=== PATIENT | female | born 1950 | race Caucasian/White ===

== ENCOUNTER 2018-12-22 05:43 | Inpatient (IN) | payer MEDICARE ==
[2018-12-22] MEDS ORDERED: NORMAL SALINE 1000 ML 1,000 ML IV ONE ×2 (05:54→06:25)
--- NOTE | 2018-12-22 05:57 | ER Document Report ---
ED Medical Screen (RME) - General Stated Complaint: ABDOMINAL PAIN Time Seen by Provider: 12/22/18 05:46 Notes: 68-year-old female chief complaint of mid to upper abdominal pain and vomiting 5 times since the evening. Last bowel movement was normal. Denies fever/chills, chest pain, shortness of breath. 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 Physical Exam - Abdominal Tenderness: Tender - Generalized upper abdominal tenderness. Some distention of the abdomen without rigidity or guarding. Stool in the colostomy bag appears normal. Course - Re-evaluation Re-evalutation: I have greeted and performed a rapid initial assessment of this patient. A comprehensive ED assessment and evaluation of the patient, analysis of test results and completion of the medical decision making process will be conducted by additional ED providers.
[2018-12-22] MEDS ORDERED: HYDROMORPHONE HCL INJ/PF 2 MG/ML AMPULE IV ONE ×2 (06:16→15:30)
--- NOTE | 2018-12-22 06:27 | ER Document Report ---
ED General - General Chief Complaint: Abdominal Pain Stated Complaint: ABDOMINAL PAIN Time Seen by Provider: 12/22/18 05:46 Notes: 68-year-old lady with history of multiple abdominal surgeries, left lower quadrant ostomy resulting obstructions, apparently chronically on opioid therapy presents with pain across her upper abdomen sharp and intermittent since last night with nausea and vomiting. She says her ostomy output is normal. She has had pain like this before. She is not sure what it was in the past. She denies fever. She has no urinary symptoms other than frequent urination "from my water pill" but does say that her ostomy "broke through the bladder" - Related Data Allergies/Adverse Reactions: ciprofloxacin [From Cipro] Allergy (Verified 12/22/18 06:54) imipenem Allergy (Verified 12/22/18 06:54) lidocaine [From Lidoderm] Allergy (Verified 12/22/18 06:54) menthol [From BenGay] Allergy (Verified 12/22/18 06:54) methyl salicylate [From BenGay] Allergy (Verified 12/22/18 06:54) Past Medical History - Social History Smoking Status: Never Smoker Chew tobacco use (# tins/day): No Frequency of alcohol use: None Drug Abuse: None Family History: Reviewed & Not Pertinent Patient has suicidal ideation: No Patient has homicidal ideation: No - Medical History Notes: Multiple bowel obstructions prescribed colitis Endocrine Medical History: Reports: Hx Diabetes Mellitus Type 2 Renal/ Medical History: Denies: Hx Peritoneal Dialysis Past Surgical History: Reports: Hx Cardiac Surgery - cath, stent Review of Systems - Review of Systems Notes: REVIEW OF SYSTEMS GEN: Denies fever, chills, weight loss ENT: Denies sore throat, nasal discharge, ear pain EYES: Denies blurry vision, eye pain, discharge CV: Denies chest pain, palpitations, edema RESP: Denies cough, shortness of breath, wheezing GI: Michael pain vomiting MSK: Denies joint pain/swelling, edema, SKIN: Denies rash, skin lesions LYMPH: Denies swollen glands/lymph nodes NEURO: Denies headache, focal weakness or numbness, dizziness PSYCH: Denies depression, suicidal or homicidal ideation PHYSICAL EXAMINATION General: No acute distress, well-nourished Head: Atraumatic, normocephalic ENT: Mouth normal, oropharynx moist, no exudates or tonsillar enlargement Eyes: Conjunctiva normal, pupils equal, lids normal Neck: No JVD, supple, no guarding CVS: Normal rate, regular rhythm, no murmurs Resp: No resp distress, equal and normal breath sounds bilaterally GI: Nondistended, soft, upper abdominal tenderness Ext: No deformities, no edema, normal range of motion in upper and lower ext Back: No CVA or midline TTP Skin: No rash, warm Lymphatic: No lymphadeopathy noted Neuro: Awake, alert. Face symmetric. GCS 15. Physical Exam - Vital signs Vitals: Resp BP Pulse Ox 18 140/73 H 94 12/22/18 06:16 12/22/18 06:16 12/22/18 06:16 Course - Re-evaluation Re-evalutation: 12/22/18 08:54 Patient presents with abdominal pain and history of ostomy that she has had a visible hernia next to her ostomy on exam and is in significant pain, query obstruction/hernia. Given pain medicine. Labs donenormal. CT shows prominent bowel loops and resulting small bowel obstruction secondary to hernia next ostomy, consulted surgery Dr. Johnston at about 8:50 AM to see the patient. N.p.o. fluids. 12/22/18 09:[address] Johnston is at the bedside placing an NG tube. He is asked me to get medicine to evaluate the patient because he is not sure if he will be admitting versus medicine. I asked her if she has any medical problems but at the time she is in pain from the NG tube cannot answer. Discussed with Dr. Mendoza who referred me to Dr. Monzon who will call me back. 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 Think this is the cause of her presentation today, however I did discuss her with medicine Dr. Monzon who will be the admitting doc, and trauma will consult. She has had an INR added on her work-up. - Vital Signs Vital signs: Temp Pulse Resp BP Pulse Ox 21 H 147/62 H 97 12/22/18 08:02 12/22/18 08:02 12/22/18 08:02 - Laboratory Result Diagrams: 12/22/18 06:24 12/22/18 06:24 Laboratory results interpreted by me: 12/22/18 12/22/18 12/22/18 06:24 06:24 06:24 Hgb 11.7 L Hct 35.6 L MCH 26.4 L RDW 16.3 H Seg Neutrophils % 86.0 H Lymphocytes % 7.4 L PT 27.4 H BUN 25 H Glucose 286 H - Diagnostic Test Radiology reviewed: Image reviewed, Reports reviewed Discharge - Discharge Clinical Impression: Incarcerated incisional hernia, Small bowel obstruction Condition: Fair Disposition: ADMITTED INPATIENT Admitting Provider: Mimi (Hospitalist) - [facility] Admitted: Surgical Floor
[2018-12-22 06:35] LABS: ABSOLUTE EOSINOPHILS # (AUTO) 0.1 10^3/uL (0.0-0.6); ABSOLUTE LYMPHOCYTES (AUTO) 0.7 10^3/uL (0.5-4.7); ABSOLUTE MONOCYTES (AUTO) 0.5 10^3/uL (0.1-1.4); BASOPHILS % (AUTO) 0.5 % (0-2); HEMATOCRIT 35.6 % (36.0-47.0); HEMOGLOBIN 11.7 g/dL (12.0-15.5); LYMPHOCYTES % (AUTO) 7.4 % (13-45); MEAN CORPUSCULAR HEMOGLOBIN 26.4 pg (27.0-33.4); MEAN CORPUSCULAR VOLUME 80 fl (80-97); MONOCYTES % (AUTO) 5.1 % (3-13); PLATELET COUNT 288 10^3/uL (150-450); RED BLOOD COUNT 4.44 10^6/uL (3.72-5.28); RED CELL DISTRIBUTION WIDTH 16.3 % (11.5-14.0); TOTAL CELLS COUNTED % (AUTO) 100 %; WHITE BLOOD COUNT 9.3 10^3/uL (4.0-10.5)
[2018-12-22] MEDS ORDERED: ONDANSETRON HCL INJ/PF 4 MG/2 ML SDV IV ONE (06:38)
[2018-12-22 06:47] LABS: INTERNATIONAL RATION (INR) 2.42; PROTHROMBIN TIME 27.4 SEC (11.4-15.4)
[2018-12-22 06:56] LABS: ALANINE AMINOTRANSFERASE 25 U/L (9-52); ALBUMIN 3.9 g/dL (3.5-5.0); ALKALINE PHOSPHATASE 102 U/L (38-126); ANION GAP 12 (5-19); ASPARTATE AMINO TRANSFERASE 30 U/L (14-36); BILIRUBIN,DIRECT 0.2 mg/dL (0.0-0.4); BILIRUBIN,TOTAL 0.3 mg/dL (0.2-1.3); BLOOD UREA NITROGEN 25 mg/dL (7-20); CALCIUM 9.4 mg/dL (8.4-10.2); CARBON DIOXIDE 29 mmol/L (22-30); CHLORIDE 98 mmol/L (98-107); GLUCOSE 286 mg/dL (75-110); LIPASE 164.2 U/L (23-300); POTASSIUM 4.9 mmol/L (3.6-5.0); SODIUM 138.7 mmol/L (137-145); TOTAL PROTEIN 7.4 g/dL (6.3-8.2)
[2018-12-22] MEDS ORDERED: METOCLOPRAMIDE HCL INJ/PF 10 MG/2 ML SDV IV ONE (08:58)
[2018-12-22] MEDS ORDERED: FENTANYL CITRATE INJ/PF 100 MCG/2 ML AMPUL IV ONE (08:58)
--- NOTE | 2018-12-22 09:25 | RADIOLOGY REPORT (SQ) ---
EXAM DESCRIPTION: CT ABD/PELVIS WITH IV ONLY COMPLETED DATE/TIME: 12/22/2018 8:46 am REASON FOR STUDY: Ostomy, pain, rule out bowel obstruction COMPARISON: None. TECHNIQUE: CT scan of the abdomen and pelvis performed using helical scanning technique with dynamic intravenous contrast injection. No oral contrast. Images reviewed with lung, soft tissue, and bone windows. Reconstructed coronal and sagittal MPR images reviewed. Delayed images for evaluation of the urinary system also acquired. All images stored on PACS. All CT scanners at this facility use dose modulation, iterative reconstruction, and/or weight based d osing when appropriate to reduce radiation dose to as low as reasonably achievable (ALARA). [facility]: Dose Right [facility]: CareDose [facility]: Dose Right [facility]: Teradose 4D [facility]: [employer] CONTRAST TYPE AND DOSE: contrast/concentration: Isovue 350.00 mg/ml; Total Contrast Delivered: 94.0 ml; Total Saline Delivered: 43.0 ml RENAL FUNCTION: Creatinine 0.87 RADIATION DOSE: CT Rad equipment meets quality standard of care and radiation dose reduction techniq ues were employed. CTDIvol: 17.5 - 19.2 mGy. DLP: 1989 mGy-cm.. LIMITATIONS: None. FINDINGS: Patient has a left lower quadrant colostomy. A stomal hernia is present with a dilated fl uid filled loop of small bowel protruding through the ostomy. There is small bowel obstruction with dilated loops of small bowel in the mid and lower abdomen. Findings called to Dr. Liang in the [facility] room, 0840 hours. Stomach and proximal small bowel are relatively decompressed. Colon and distal small bowel are decom pressed. No free intraperitoneal air or fluid. LOWER CHEST: Aortic valve prosthesis is present. Lung bases are clear. Small hiatal hernia. LIVER: Fatty liver without masses or hepatomegaly. SPLEEN: Normal size. No focal lesions. PANCREAS: No masses. No significant calcifications. No adjacent inflammation or peripancreatic fluid collections. Pancreatic duct not dilated. GALLBLADDER: Surgically absent ADRENAL GLANDS: No significant masses or asymmetry. RIGHT KIDNEY AND URETER: No solid masses. No significant calcifications. No hydronephrosis or hyd roureter. LEFT KIDNEY AND URETER: No solid masses. No significant calcifications. No hydronephrosis or hydr oureter. AORTA AND VESSELS: Infrarenal abdominal aorta measures 3 cm at its widest. No aneurysm. No dissectio n. Renal arteries, SMA, celiac without stenosis. RETROPERITONEUM: No retroperitoneal adenopathy, hemorrhage or masses. BOWEL AND PERITONEAL CAVITY: As above APPENDIX: Normal. PELVIS: No mass. No free fluid. Normal bladder. Normal size female pelvic organs ABDOMINAL WALL: No masses. No hernias. BONES: No significant or acute findings. OTHER: No other significant finding. IMPRESSION: Small bowel obstruction related to a small bowel loop protruding through the left lower quadrant ostomy defect in the abdominal wall. TECHNICAL DOCUMENTATION: JOB ID: [id number] Quality ID # [id number]: Final reports with documentation of one or more dose reduction techniques (e.g., Au tomated exposure control, adjustment of the mA and/or kV according to patient size, use of iterative reconstruction technique) 2010 [employer]- All Rights Reserved Reading location - IP/workstation name: [email or web address]
--- NOTE | 2018-12-22 10:22 | RADIOLOGY REPORT (SQ) ---
EXAM DESCRIPTION: CHEST SINGLE VIEW COMPLETED DATE/TIME: 12/22/2018 9:58 am REASON FOR STUDY: ng tube placement. COMPARISON: None. EXAM PARAMETERS: NUMBER OF VIEWS: One view. TECHNIQUE: Single frontal radiographic view of the chest acquired. RADIATION DOSE: NA LIMITATIONS: None. FINDINGS: LUNGS AND PLEURA: No opacities, masses or pneumothorax. No pleural effusion. MEDIASTINUM AND HILAR STRUCTURES: No masses. Contour normal. HEART AND VASCULAR STRUCTURES: Heart normal in size. Normal vasculature. BONES: No acute findings. HARDWARE: Nasogastric tube tip and side port in the stomach. Aortic valve replacement. OTHER: No other significant finding. IMPRESSION: NO ACUTE RADIOGRAPHIC FINDING IN THE CHEST. TECHNICAL DOCUMENTATION: JOB ID: [id number] [employer]- All Rights Reserved Reading location - IP/workstation name: [email or web address]
--- NOTE | 2018-12-22 10:39 | PDOC CONSULTATION ---
Consultation Consult Date: 12/22/18 Consult reason:: small bowel obstruction History of Present Illness History of Present Illness: RODRIGUEZ TOM is a 68 year old female with history of multiple abdominal surgeries, left lower quadrant ostomy resulting obstructions, apparently chronically on opioid therapy presents with pain across her upper abdomen sharp and intermittent since last night with nausea and vomiting. She says her ostomy output is normal. She has had pain like this before. She is not sure what it was in the past. She denies fever. pt states she had the ostomy done last yr for perforated diverticulitis she has had a large stoma hernia for almost a year. plans of being seen at [place] for possible reversal. currently has been putting out very thick stool in the colostomy. 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 Endocrine Medical History: Reports: Diabetes Mellitus Type 2 GI Medical History: Reports: Diverticulitis Hematology: Reports: Other - hx of hypercoaguable state Past Surgical History Past Surgical History: Reports: Cardiac Catheterization, Colostomy, Coronary Stent, Valve Replacement Social History Smoking Status: Never Smoker - Advance Directive Resuscitation Status: Full Code Family History Family History: Reviewed & Not Pertinent Parental Family History Reviewed: No Children Family History Reviewed: NA Sibling(s) Family History Reviewed.: NA Medication/Allergy Home Medications: Albuterol Sulfate [Proair HFA Inhalation Aerosol 8.5 gm MDI] 2 puff IH Q4HP PRN 12/22/18 Aspirin [Ecotrin 81 mg EC Tablet] 81 mg PO DAILY 12/22/18 Clonazepam [Klonopin] 0.5 mg PO Q8 12/22/18 Diltiazem HCl [Diltiazem 24Hr ER] 240 mg PO DAILY 12/22/18 Furosemide [Lasix 20 mg Tablet] 20 mg PO QPM 12/22/18 Gabapentin [Neurontin 300 mg Capsule] 300 mg PO Q8 12/22/18 Metformin HCl [Glucophage] 1,000 mg PO BID 12/22/18 Omeprazole 40 mg PO QHS 12/22/18 Sertraline HCl [Zoloft] 100 mg PO DAILY 12/22/18 Warfarin Sodium [Coumadin 5 mg Tablet] 5 mg PO QHS 12/22/18 Allergies/Adverse Reactions: ciprofloxacin [From Cipro] Allergy (Verified 12/22/18 06:54) imipenem Allergy (Verified 12/22/18 06:54) lidocaine [From Lidoderm] Allergy (Verified 12/22/18 06:54) menthol [From BenGay] Allergy (Verified 12/22/18 06:54) methyl salicylate [From BenGay] Allergy (Verified 12/22/18 06:54) Review of Systems Constitutional: PRESENT: headache(s), weight gain Eyes: ABSENT: visual disturbances Breasts: PRESENT: other - no c/o masses Cardiovascular: PRESENT: other - no current chest pain Respiratory: PRESENT: other - no cough Gastrointestinal: PRESENT: bloating, heartburn, other - abd pain, nausea,vomiting Genitourinary: ABSENT: dysuria, hematuria Musculoskeletal: ABSENT: joint swelling Integumentary: ABSENT: rash, wounds Neurological: ABSENT: abnormal gait, abnormal speech, confusion, dizziness, focal weakness, syncope Psychiatric: ABSENT: anxiety, depression, homidical ideation, suicidal ideation Endocrine: ABSENT: cold intolerance, heat intolerance, polydipsia, polyuria Hematologic/Lymphatic: PRESENT: as per HPI, easy bruising, lymphadenopathy, other - hx of blood clots. ABSENT: easy bleeding Physical Exam Vital Signs: Temp Pulse Resp BP Pulse Ox 21 H 147/62 H 97 12/22/18 08:02 12/22/18 08:02 12/22/18 08:02 Intake & Output 12/21/18 12/22/18 12/23/18 06:59 06:59 06:59 Intake Total 1999 Balance 1999 General appearance: PRESENT: mild distress, morbidly obese Head exam: PRESENT: normocephalic Eye exam: PRESENT: EOMI Mouth exam: PRESENT: dry mucosa Teeth exam: PRESENT: edentulous Neck exam: PRESENT: full ROM Respiratory exam: PRESENT: clear to auscultation [place] Cardiovascular exam: PRESENT: RRR Pulses: PRESENT: normal radial pulses, normal femoral pulses GI/Abdominal exam: PRESENT: other - abd distended, sl tender to palpation multiple surgical l scars stoma in llq iwth thick stool, (since being in er) hypoactive bs. peristomal hernia. soft, non tender Neurological exam: PRESENT: alert, awake, oriented to person, oriented to place Psychiatric exam: PRESENT: anxious Results Laboratory Results: 12/22/18 06:24 12/22/18 06:24 12/22/18 12/22/18 06:24 06:24 WBC 9.3 RBC 4.44 Hgb 11.7 L Hct 35.6 L MCV 80 MCH 26.4 L MCHC 33.0 RDW 16.3 H Plt Count 288 Seg Neutrophils % 86.0 H Lymphocytes % 7.4 L Monocytes % 5.1 Eosinophils % 1.0 Basophils % 0.5 Absolute Neutrophils 8.0 Absolute Lymphocytes 0.7 Absolute Monocytes 0.5 Absolute Eosinophils 0.1 Absolute Basophils 0.0 Sodium 138.7 Potassium 4.9 Chloride 98 Carbon Dioxide 29 Anion Gap 12 BUN 25 H Creatinine 0.87 Est GFR ( Amer) > 60 Est GFR (Non-Af Amer) > 60 Glucose 286 H Calcium 9.4 Total Bilirubin 0.3 AST 30 ALT 25 Alkaline Phosphatase 102 Total Protein 7.4 Albumin 3.9 Lipase 164.2 Impressions: Chest X-Ray 12/22/18 00:00 IMPRESSION: NO ACUTE RADIOGRAPHIC FINDING IN THE CHEST. Abdomen/Pelvis CT 12/22/18 06:16 IMPRESSION: Small bowel obstruction related to a small bowel loop protruding through the left lower quadrant ostomy defect in the abdominal wall. Assessment & Plan - Plan Summary Plan Summary: 68 y/o female, morbidly obese, s/p aortic valve replacemtn diabetic on warfarin presents with abd distension has hx of peristomal hernia, ct suggests sbo, however,the obstruction does not seem due to the hernia pt has large amts of stool in bag in er. suspect constipation, pt is also on chronic pain meds recommend- ng tube gentle hydration surger will follow.
[2018-12-22 10:55] LABS: APPEARANCE,URINE CLEAR; BILIRUBIN,URINE NEGATIVE (NEGATIVE); COLOR,URINE STRAW; GLUCOSE, URINE >=500 mg/dL (NEGATIVE); KETONES,URINE TRACE mg/dL (NEGATIVE); LEUKOCYTE ESTERASE,URINE NEGATIVE (NEGATIVE); NITRITE,URINE NEGATIVE (NEGATIVE); PROTEIN,URINE 100 mg/dL (NEGATIVE); URINE SPECIFIC GRAVITY 1.018; UROBILINOGEN,URINE NEGATIVE mg/dL (<2.0)
[2018-12-22] MEDS ORDERED: DEXTROSE 40% GEL 15 GM TUBE PO PRN ×2 (11:34)
[2018-12-22] MEDS ORDERED: GLUCAGON,HUMAN RECOMB 1 MG INJ IM PRN (11:34)
[2018-12-22] MEDS ORDERED: DEXTROSE 50%-WATER 25 GM/50 ML DISP.SYRIN IV PRN ×2 (11:34)
[2018-12-22] MEDS: INSULIN LISPRO 100 UNIT/ML 3 ML VIAL SUBCUT SCH ×3 (13:26→23:31)
[2018-12-22] MEDS ORDERED: ONDANSETRON HCL INJ/PF 4 MG/2 ML SDV IV PRN (14:42)
[2018-12-22] MEDS ORDERED: HYDROMORPHONE HCL INJ/PF 2 MG/ML AMPULE ONE (15:00)
[2018-12-22] MEDS: NORMAL SALINE 1000 ML 1,000 ML IV PRN (15:00)
--- NOTE | 2018-12-22 16:35 | PDOC PROGRESS REPORT ---
Subjective Reason For Visit: PARTIAL SBO Physical Exam Vital Signs: Temp Pulse Resp BP Pulse Ox 98.3 F 97 19 132/54 H 96 12/22/18 15:32 12/22/18 15:32 12/22/18 15:32 12/22/18 14:27 12/22/18 15:32 Intake & Output 12/21/18 12/22/18 12/23/18 06:59 06:59 06:59 Intake Total 1999 Balance 1999 Weight 71.5 kg Results Laboratory Results: 12/22/18 06:24 12/22/18 06:24 12/22/18 12/22/18 12/22/18 06:24 06:24 10:10 WBC 9.3 RBC 4.44 Hgb 11.7 L Hct 35.6 L MCV 80 MCH 26.4 L MCHC 33.0 RDW 16.3 H Plt Count 288 Seg Neutrophils % 86.0 H Lymphocytes % 7.4 L Monocytes % 5.1 Eosinophils % 1.0 Basophils % 0.5 Absolute Neutrophils 8.0 Absolute Lymphocytes 0.7 Absolute Monocytes 0.5 Absolute Eosinophils 0.1 Absolute Basophils 0.0 Sodium 138.7 Potassium 4.9 Chloride 98 Carbon Dioxide 29 Anion Gap 12 BUN 25 H Creatinine 0.87 Est GFR ( Amer) > 60 Est GFR (Non-Af Amer) > 60 Glucose 286 H Lactic Acid Calcium 9.4 Total Bilirubin 0.3 AST 30 ALT 25 Alkaline Phosphatase 102 Total Protein 7.4 Albumin 3.9 Lipase 164.2 Urine Color STRAW Urine Appearance CLEAR Urine pH 7.0 Ur Specific [place] 1.018 Urine Protein 100 H Urine Glucose (UA) >=500 H Urine Ketones TRACE H Urine Blood NEGATIVE Urine Nitrite NEGATIVE Ur Leukocyte Esterase NEGATIVE Urine WBC (Auto) 3 Urine RBC (Auto) 3 12/22/18 15:14 WBC RBC Hgb Hct MCV MCH MCHC RDW Plt Count Seg Neutrophils % Lymphocytes % Monocytes % Eosinophils % Basophils % Absolute Neutrophils Absolute Lymphocytes Absolute Monocytes Absolute Eosinophils Absolute Basophils Sodium Potassium Chloride Carbon Dioxide Anion Gap BUN Creatinine Est GFR ( Amer) Est GFR (Non-Af Amer) Glucose Lactic Acid 3.8 H Calcium Total Bilirubin AST ALT Alkaline Phosphatase Total Protein Albumin Lipase Urine Color Urine Appearance Urine pH Ur Specific [place] Urine Protein Urine Glucose (UA) Urine Ketones Urine Blood Urine Nitrite Ur Leukocyte Esterase Urine WBC (Auto) Urine RBC (Auto) Impressions: Chest X-Ray 12/22/18 00:00 IMPRESSION: NO ACUTE RADIOGRAPHIC FINDING IN THE CHEST. Abdomen/Pelvis CT 12/22/18 06:16 IMPRESSION: Small bowel obstruction related to a small bowel loop protruding through the left lower quadrant ostomy defect in the abdominal wall. Assessment & Plan - Plan Summary Plan Summary: came up to reexamine pt some tenderness pt states she ate large amts of uncooked raw vegtables last pm I digitilized the stoma and easily able to pass the fascia. Large bolus of fibrous undigested vegtables came out of the wound I then performed a tap water enema with resultant large amts of vegtables coming from stoma. reviewd ct. I suspect the sbo is from a loop in the pelvis, not the stoma. Spoke with Dr Le. will attempt to correct inr now with ffp and vit k will bolus 1.5l ns for elevate lactate otaning records from [place] about here coronary stents and her heart valve. will follow closely.
--- NOTE | 2018-12-22 17:45 | RADIOLOGY REPORT (SQ) ---
EXAM DESCRIPTION: CT CHEST WITH COMPLETED DATE/TIME: 12/22/2018 5:28 pm REASON FOR STUDY: reassess aortic arch clots (diag in 2012) COMPARISON: None. TECHNIQUE: CT scan of the chest performed using helical scanning technique with dynamic intravenous contrast injection. Images reviewed with lung, soft tissue and bone windows. Reconstructed coronal and sagittal MPR and MIP images reviewed. All images stored on PACS. All CT scanners at this facility use dose modulation, iterative reconstruction, and/or weight based d osing when appropriate to reduce radiation dose to as low as reasonably achievable (ALARA). [facility]: Dose Right [facility]: CareDose [facility]: Dose Right [facility]: Teradose 4D [facility]: [employer] CONTRAST TYPE AND DOSE: contrast/concentration: Isovue 350.00 mg/ml; Total Contrast Delivered: 80.0 ml; Total Saline Delivered: 55.0 ml RENAL FUNCTION: GFR > 60. RADIATION DOSE: CT Rad equipment meets quality standard of care and radiation dose reduction techniq ues were employed. CTDIvol: 14.1 mGy. DLP: 592 mGy-cm. . LIMITATIONS: None. FINDINGS: LUNGS AND PLEURA: Mild centrilobular emphysema in the upper lobes. No suspicious nodules. No infiltrate. Mild left pleural thickening. HILAR AND MEDIASTINAL STRUCTURES: No identified masses or abnormal nodes. HEART AND VASCULAR STRUCTURES: Prior aortic valve replacement. Borderline cardiomegaly. No pericard ial effusion. No aortic dissection. No emboli. HARDWARE: None in the chest. UPPER ABDOMEN: Nasogastric tube in the stomach. Aortic ectasia. Limited exam. THYROID AND OTHER SOFT TISSUES: Collapsed right breast implant. BONES: No acute findings. OTHER: None. IMPRESSION: No acute findings in the chest. TECHNICAL DOCUMENTATION: JOB ID: [id number] Quality ID # [id number]: Final reports with documentation of one or more dose reduction techniques (e.g., Au tomated exposure control, adjustment of the mA and/or kV according to patient size, use of iterative reconstruction technique) 2010 [employer]- All Rights Reserved Reading location - IP/workstation name: [email or web address] [email or web address]
--- NOTE | 2018-12-22 18:02 | PDOC H&P ---
History of Present Illness Admission Date/PCP: 12/22/18 10:41 History of Present Illness: RODRIGUEZ TOM is a 68 year old female with a PMH of CAD with prior stenting x 1, DM 2, thrombophilia, history of aortic arch clot diagnosed in 2011 and started on coumadin back then, TAVR in January 2018 and perforated diverticulitis S/P colectomy and ileostomy in March 2017 and prior breast CA with right sided mastectomy in 1998-in remission who presented with abdominal pain. Patient reports she developed epigastric-RUQ pain yesterday associated with nausea and a few episodes of vomiting. She has been having regular fecal output on the colostomy. In the ER, she had a CT of the abdomen which showed possible small bowel obstruction. She was evaluated by surgery, Dr. Johnston in the ED who deems this is non-surgical at this time and conservative measures will be pursued including NGT placement and IV fluids. Discussed CT abodmen/pelvis results with Dr. Johnston who deems changes appear chronic and don't need surgical intervention at this time. 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 EENT Medical History: Reports: Other - hx of hypercoaguable state Endocrine Medical History: Reports: Diabetes Mellitus Type 2 GI Medical History: Reports: Diverticulitis Hematology: Reports: Other - hx of hypercoaguable state Past Surgical History Past Surgical History: Reports: Cardiac Catheterization, Colostomy, Coronary Stent, Valve Replacement Social History Smoking Status: Never Smoker - Advance Directive Resuscitation Status: Full Code Family History Family History: Reviewed & Not Pertinent Parental Family History Reviewed: Yes - no premature CAD Children Family History Reviewed: No Sibling(s) Family History Reviewed.: No Medication/Allergy Home Medications: Albuterol Sulfate [Proair HFA Inhalation Aerosol 8.5 gm MDI] 2 puff IH Q4HP PRN 12/22/18 Aspirin [Ecotrin 81 mg EC Tablet] 81 mg PO DAILY 12/22/18 Clonazepam [Klonopin] 0.5 mg PO Q8 12/22/18 Diltiazem HCl [Diltiazem 24Hr ER] 240 mg PO DAILY 12/22/18 Furosemide [Lasix 20 mg Tablet] 20 mg PO QPM 12/22/18 Gabapentin [Neurontin 300 mg Capsule] 300 mg PO Q8 12/22/18 Metformin HCl [Glucophage] 1,000 mg PO BID 12/22/18 Omeprazole 40 mg PO QHS 12/22/18 Sertraline HCl [Zoloft] 100 mg PO DAILY 12/22/18 Warfarin Sodium [Coumadin 5 mg Tablet] 5 mg PO QHS 12/22/18 Allergies/Adverse Reactions: ciprofloxacin [From Cipro] Allergy (Verified 12/22/18 06:54) epinephrine Allergy (Verified 12/22/18 14:48) imipenem Allergy (Verified 12/22/18 06:54) lidocaine [From Lidoderm] Allergy (Verified 12/22/18 06:54) menthol [From BenGay] Allergy (Verified 12/22/18 06:54) methyl salicylate [From BenGay] Allergy (Verified 12/22/18 06:54) Sulfa (Sulfonamide Antibiotics) Allergy (Verified 12/22/18 14:47) Physical Exam Vital Signs: Temp Pulse Resp BP Pulse Ox 21 H 147/62 H 97 12/22/18 08:02 12/22/18 08:02 12/22/18 08:02 Intake & Output 12/21/18 12/22/18 12/23/18 06:59 06:59 06:59 Intake Total 1999 Balance 1999 General appearance: PRESENT: no acute distress, well-developed, well-nourished Head exam: PRESENT: atraumatic, normocephalic Eye exam: PRESENT: conjunctiva pink, EOMI, PERRLA. ABSENT: scleral icterus Ear exam: PRESENT: normal external ear exam Mouth exam: PRESENT: moist, tongue midline Neck exam: ABSENT: carotid bruit, JVD, lymphadenopathy, thyromegaly Respiratory exam: PRESENT: clear to auscultation bartolome. ABSENT: rales, rhonchi, wheezes Cardiovascular exam: PRESENT: RRR. ABSENT: diastolic murmur, rubs, systolic murmur Pulses: PRESENT: normal dorsalis pedis pul GI/Abdominal exam: PRESENT: normal bowel sounds, soft, tenderness - minimal direct epig tenderness. ABSENT: distended, guarding, mass, organolmegaly, rebound Rectal exam: PRESENT: deferred Neurological exam: PRESENT: alert, awake, oriented to person, oriented to place, oriented to time, oriented to situation, CN II-XII grossly intact. ABSENT: motor sensory deficit Results Laboratory Results: 12/22/18 06:24 12/22/18 06:24 12/22/18 12/22/18 12/22/18 06:24 06:24 10:10 WBC 9.3 RBC 4.44 Hgb 11.7 L Hct 35.6 L MCV 80 MCH 26.4 L MCHC 33.0 RDW 16.3 H Plt Count 288 Seg Neutrophils % 86.0 H Lymphocytes % 7.4 L Monocytes % 5.1 Eosinophils % 1.0 Basophils % 0.5 Absolute Neutrophils 8.0 Absolute Lymphocytes 0.7 Absolute Monocytes 0.5 Absolute Eosinophils 0.1 Absolute Basophils 0.0 Sodium 138.7 Potassium 4.9 Chloride 98 Carbon Dioxide 29 Anion Gap 12 BUN 25 H Creatinine 0.87 Est GFR ( Amer) > 60 Est GFR (Non-Af Amer) > 60 Glucose 286 H Calcium 9.4 Total Bilirubin 0.3 AST 30 ALT 25 Alkaline Phosphatase 102 Total Protein 7.4 Albumin 3.9 Lipase 164.2 Urine Color STRAW Urine Appearance CLEAR Urine pH 7.0 Ur Specific Solo 1.018 Urine Protein 100 H Urine Glucose (UA) >=500 H Urine Ketones TRACE H Urine Blood NEGATIVE Urine Nitrite NEGATIVE Ur Leukocyte Esterase NEGATIVE Urine WBC (Auto) 3 Urine RBC (Auto) 3 Impressions: Chest X-Ray 12/22/18 00:00 IMPRESSION: NO ACUTE RADIOGRAPHIC FINDING IN THE CHEST. Abdomen/Pelvis CT 12/22/18 06:16 IMPRESSION: Small bowel obstruction related to a small bowel loop protruding through the left lower quadrant ostomy defect in the abdominal wall. Assessment and Plan - Diagnosis (1) Small bowel obstruction Is this a current diagnosis for this admission?: Yes Plan: CT of the abdomen which showed possible small bowel obstruction. She was ev aluated by surgery, Dr. Johnston in the ED who deems this is non-surgical at this time and conservative measures will be pursued including NGT placement and IV fluids. Discussed CT abodmen/pelvis results with Dr. Johnston who deems changes appear chronic and don't need surgical intervention at this time. (2) DM type 2 (diabetes mellitus, type 2) Is this a current diagnosis for this admission?: Yes (3) CAD (coronary artery disease) Is this a current diagnosis for this admission?: Yes (4) S/P TAVR (transcatheter aortic valve replacement) Is this a current diagnosis for this admission?: Yes (5) Thrombophilia Is this a current diagnosis for this admission?: Yes - Time Time Spent with patient: 25-34 minutes
[2018-12-22] MEDS ORDERED: NORMAL SALINE 1000 ML 1,500 ML IV ONE (21:00)
--- NOTE | 2018-12-22 21:28 | XCELERA REPORT ---
[address] [address] Transthoracic Echocardiogram Report Name: RODRIGUEZ TOM Age: 68 yrs Gender: Female : 1950 Patient Status: Inpatient Patient Location: [facility]^A Study Date: 12/22/2018 05:45 PM Height: 63 in Weight: 182 lb BSA: 1.9 m2 Procedure: A two-dimensional transthoracic echocardiogram with color flow Doppler was performed. Study Quality: Fair. Reason For Study: prior Dr. Paz PINTO aware History: phistory of TAVR, / Pre-op. Ordering Physician: TYRA MACKEY Performed By: Anisha Swift Interpretation Summary The left ventricle is normal in size. There is normal left ventricular wall thickness. LV EF is > than 65% The left ventricular ejection fraction is within normal limits. Doppler measurements suggest impaired left ventricular relaxation, which is associated with grade I/IV or mild diastolic dysfunction The left ventricular wall motion is normal. There is no thrombus. Probably no ASD ,VSD , or PFO. The right ventricle is normal in size and function. The left atrial size is normal. There is mild mitral annular calcification. There is no evidence of mitral valve prolapse. There is no vegetation seen on the mitral valve. There is no mitral valve stenosis. There is a mild amount of mitral regurgitation There is a bioprosthetic aortic valve. There is a Peak gradient of 18 mm of Hg , which probably is normal for a bioprosthetic aortic valve.No AR seen. There is no tricuspid stenosis. There is a trace amount of tricuspid regurgitation No significant pulmonary hypertension.RVSP is 28 to 33 mm of Hg , with RA mean of 5 to 10. There is no pulmonic valvular stenosis. There is no pulmonic valvular regurgitation. The aortic root is normal size. The inferior vena cava appeared normal and decreased > 50% with respiration (RAP 5-10 mmHg) There is no pericardial effusion. MMode/2D Measurements & Calculations RVDd: 2.3 cm LVIDd: 4.5 cm FS: 30.7 % Ao root diam: 2.3 cm IVSd: 1.0 cm LVIDs: 3.1 cm EDV(Teich): 94.6 mlAo root area: LVPWd: 1.1 cm ESV(Teich): 39.4 ml4.3 cm2 EF(Teich): 58.3 % LA dimension: 3.3 cm LVOT diam: 1.9 cm LVLd ap4: 7.6 cm SV(MOD-sp4): LVOT area: EDV(MOD-sp4): 37.0 ml 59.0 ml 3.0 cm2 LVLs ap4: 6.1 cm ESV(MOD-sp4): 22.0 ml EF(MOD-sp4): 62.7 % Doppler Measurements & Calculations MV E max layton: MV P1/2t max layton: Ao V2 max: LV V1 max P.3 cm/sec 132.7 cm/sec 213.6 cm/sec 19.8 mmHg MV A max layton: MV P1/2t: 56.1 msec Ao max PG: LV V1 max: 163.5 cm/sec MVA(P1/2t): 3.9 cm2 18.3 mmHg 222.6 cm/sec MV E/A: 0.86 MV dec slope: EFE(V,D): 3.1 cm2 693.1 cm/sec2 MV dec time: 0.23 sec TV V2 max: PA V2 max: TR max layton: MV P1/2t-pr_phl: 106.4 cm/sec 142.5 cm/sec 238.9 cm/sec 56.1 msec TV max P.5 mmHgPA max P.1 mmHg TR max P.8 mmHg Left Ventricle The left ventricle is normal in size. There is normal left ventricular wall thickness. LV EF is > than 65%. The left ventricular ejection fraction is within normal limits. Doppler measurements suggest impaired left ventricular relaxation, which is associated with grade I/IV or mild diastolic dysfunction. The left ventricular wall motion is normal. There is no thrombus. Probably no ASD ,VSD , or PFO. Right Ventricle The right ventricle is normal in size and function. Atria The right atrium is normal. The left atrial size is normal. Mitral Valve There is mild mitral annular calcification. There is no evidence of mitral valve prolapse. There is no vegetation seen on the mitral valve. There is no mitral valve stenosis. There is a mild amount of mitral regurgitation. Aortic Valve There is a bioprosthetic aortic valve. There is a Peak gradient of 18 mm of Hg , which probably is normal for a bioprosthetic aortic valve.No AR seen. Tricuspid Valve There is no tricuspid stenosis. There is a trace amount of tricuspid regurgitation. No significant pulmonary hypertension.RVSP is 28 to 33 mm of Hg , with RA mean of 5 to 10. Pulmonic Valve There is no pulmonic valvular stenosis. There is no pulmonic valvular regurgitation. Great Vessels The aortic root is normal size. The inferior vena cava appeared normal and decreased > 50% with respiration (RAP 5-10 mmHg). Effusions There is no pericardial effusion. : TYRA MACKEY > Maliha Rossi
[2018-12-22 22:07] LABS: INTERNATIONAL RATION (INR) 2.45; PROTHROMBIN TIME 27.7 SEC (11.4-15.4)
[2018-12-22] MEDS: PHENOL/SODIUM PHENOLATE 100 SPRAY/177 ML BOTTLE PO PRN (22:07)
--- NOTE | 2018-12-22 22:29 | EKG REPORT ---
SEVERITY:- ABNORMAL ECG - SINUS RHYTHM VENTRICULAR PREMATURE COMPLEX LEFT BUNDLE BRANCH BLOCK : Confirmed by: Maliha Rossi MD 22-Dec-2018 22:29:13
--- NOTE | 2018-12-22 22:37 | PDOC CONSULTATION ---
Consultation-Blank Consultation: CARDIOLOGY CONSULTATION by Dr. Maliha Rossi on face 9. Patient seen at 8 PM on 12/22/2018. 60 minutes spent on this patient more than 50% of time spent in direct patient care. REASON For CONSULTATION: Preoperative cardiac risk assessment for patient with history of TAVR for abdominal surgery. Call consult requesting physician Dr. Monzon, hospitalist physician. HISTORY PAST ILLNESS: Patient is a 68-year-old female, with known history of coronary artery disease, history of stent in the right coronary artery in the past, with no history of NV, and no anginal symptoms since many months, history of hypertension and diabetes mellitus, and history of TAVR, and history of hypercoagulable state with prior history of CVAs admitted with acute onset of abdominal pain, with nausea and vomiting, and diagnosed with bowel obstruction. The patient most likely will be taken to surgery tomorrow. She has no anginal symptoms, and has some occasional dull pain not related to exertion, and relieved slightly reproducible as per patient by pressing on the chest. She has no PND orthopnea or shortness of breath. There is no history of asthma or COPD. There is no cough or sputum production. She denies palpitations or any history of cardiac arrhythmia. Past Medical History She has a history of hypertension, and diabetes mellitus. The patient is a very young age and had a CVA and was subsequently diagnosed with multiple TIAs and recurrent CVA. She has no residual effects from these. Work-up stay as per the patient and her daughter states that the patient is a hypercoagulable state/thrombophilia and the patient has been on anticoagulation. 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 Since being on Coumadin she has not had any recurrence. She has a past history of coronary artery disease, and has a history of RCA stent. No history of NV. No history of congestive heart failure. No history of cardiac arrhythmia. She was found to have aortic stenosis for which she had TAVR in 2018. There is no history of chronic kidney disease.. She also in the past has had a history of colostomy for colovesical fistula. She also has a history of asthma and COPD but no sleep apnea. Past Surgical History Past Surgical History: Reports: Cardiac Catheterization, Colostomy after colectomy for colovesical fistula, Coronary Stent, Valve Replacement, by TAVR. Prior history of RCA stent. Social History Smoking Status: Never Smoker no history of EtOH abuse. - Advance Directive Resuscitation Status: Full Code. Her is her surrogate healthcare decision maker Family History Family History: Positive for hypertension and diabetes mellitus. No sudden or premature coronary artery disease in family. Medication/Allergy Home Medications: Albuterol Sulfate [Proair HFA Inhalation Aerosol 8.5 gm MDI] 2 puff IH Q4HP PRN 12/22/18 Aspirin [Ecotrin 81 mg EC Tablet] 81 mg PO DAILY 12/22/18 Clonazepam [Klonopin] 0.5 mg PO Q8 12/22/18 Diltiazem HCl [Diltiazem 24Hr ER] 240 mg PO DAILY 12/22/18 Furosemide [Lasix 20 mg Tablet] 20 mg PO QPM 12/22/18 Gabapentin [Neurontin 300 mg Capsule] 300 mg PO Q8 12/22/18 Metformin HCl [Glucophage] 1,000 mg PO BID 12/22/18 Omeprazole 40 mg PO QHS 12/22/18 Sertraline HCl [Zoloft] 100 mg PO DAILY 12/22/18 Warfarin Sodium [Coumadin 5 mg Tablet] 5 mg PO QHS 12/22/18 Allergies/Adverse Reactions: ciprofloxacin [From Cipro] Allergy (Verified 12/22/18 06:54) epinephrine Allergy (Verified 12/22/18 14:48) imipenem Allergy (Verified 12/22/18 06:54) lidocaine [From Lidoderm] Allergy (Verified 12/22/18 06:54) menthol [From BenGay] Allergy (Verified 12/22/18 06:54) methyl salicylate [From BenGay] Allergy (Verified 12/22/18 06:54) Sulfa (Sulfonamide Antibiotics) Allergy (Verified 12/22/18 14:47) REVIEW OF SYSTEMS: Denies fever chills or rigors. Since Friday yesterday she has had generalized fatigue and weakness. HEAD: No history of head injury or headaches. EYES: No history of amblyopia diplopia. No history of amaurosis fugax. EARS: No history of hearing loss. No history of tinnitus. No recurrent ear infections. NOSE: No history of hayfever. No history of nosebleeds. MOUTH: No history of altered taste sensation. No ulcers in the mouth. No bleeding from the gums. THROAT: No history of odynophagia or dysphagia. No history of recurrent ear infections. SKIN: No history of eczema or psoriasis. No history of skin cancer. No history of yellowish discoloration of the skin. No pruritus. NECK: No history of neck pain or neck swelling. LUNGS: No history of pulmonary embolism. No history of sleep apnea. History of asthma and COPD present. No recent symptoms of acute exacerbation of COPD. No history of hemoptysis. No cough or sputum wheezing or sputum production. HEART: History of coronary artery disease, history of RCA stent. No history of NV. No anginal symptoms for many months. History of hypertension present. No history of syncope. No history of cardiac arrhythmia. No history of PND orthopnea. She does have dyspnea on exertion, but she does have asthma/COPD. NO history of leg edema. GI: History of diverticulitis in the past. History of colo-vesicle fistula status post colostomy. No history of fatty food intolerance. No history of GI bleed. Recent symptoms of acute abdominal pain with nausea and vomiting and diagnosed with bowel obstruction. Possibly for surgery tomorrow. No history of jaundice. No history of cirrhosis or hepatitis. RENAL: No history of chronic kidney disease. No history of hematuria pyuria or dysuria. ENDOCRINE: History of diabetes mellitus present. No history of thyroid disease. No history of polydipsia polyuria. No history of heat or cold intolerance. MUSCULOSKELETAL: Denies collagen vascular disease. METABOLIC: Denies gout. No history of morbid obesity. PIER HAND: Prior history of CVA at a young age secondary to thrombophilia/clotting disorder. Since patient being on Coumadin no recurrence of TIA or CVA. No history of headaches migraines or seizures. No history of gait imbalance. PSYCHIATRIC: No history of anxiety or depression. VASCULAR: No history of calf or buttock claudication. No history of DVT. HEMATOLOGICAL: History of clotting disorder present. History of lumbar failure present. No history of hematological malignancy. PHYSICAL EXAMINATION: The patient mildly obese. In some distress due to abdominal pain. Selected Entries 12/22/18 20:12 Temperature 97.9 F Temperature Oral Source Pulse Rate 101 H Respiratory 16 Rate Blood Pressure 137/63 H Blood Pressure 87 Mean BP Location Left Arm BP Position Supine O2 Sat by Pulse 93 Oximetry Oxygen Flow 2.00 Rate Oxygen Delivery Nasal Cannula Method HEAD: Is atraumatic normocephalic. EYES: Pupils equal round regular reactive to light accommodation. Extraocular movements are normal, there is no conjunctival pallor. There is no scleral icterus. EARS: Tympanic membranes are intact. External auditory canals are clear. NOSE: There is no deviated nasal septum. There is no inflammation nasal mucous membrane. There is an NG tube in situ in situ. MOUTH: There is no redness of the oropharynx there is no bleeding from the gums. There is no ulcerrs. THROAT: There is no redness of the oropharynx. There is no exudates. SKIN: There is no skin rashes or skin lesions. There is no petechia or ecchymosis. NECK: Is supple. There is no JVD. Carotids are equal there is no bruit. There is no lymphadenopathy there is no goiter. There is no accessory muscle respiration use. There is no goiter. Trachea is central. LUNGS: Shows diminished air entry prolonged expiration, without any rhonchi rales or wheezing. On percussion there is hyperresonance. Also there is a minimal amount of chest tenderness on pressing on the upper sternum. HEART: S1-S2 is heard. S1 is of normal intensity. There is mild aortic stenosis murmur. There is no aortic regurgitation murmur. A2 is well preserved. There is no mitral regurgitation of murmur of significance. There is no rub. ABDOMEN: Is distended. Bowel sounds are diminished. There is tenderness in the lower quadrants of the abdomen without any rebound guarding or rigidity. There is a colostomy bag in situ. In the abdomen. There is no hepatospleno megaly. There is no rebound guarding or rigidity. EXTREMITIES: Femorals are diminished. Femorals are deep. There is no femoral bruits. Leg pulses slightly diminished. There is no pedal edema. There is no DVT or cellulitis. There is no calf tenderness. There is no cyanosis or clubbing. Capillary refill is normal. PIER HAND: The patient is conscious awake alert oriented x3 with no focal deficits. PSYCHIATRIC: Patient is slightly anxious but her judgment and insight are intact. Patient's echocardiogram shows normal left ventricular wall motion wall thickness and ejection fraction. There is a bioprosthetic aortic valve in position with the mild gradient which is normal for this well. There is no aortic regurgitation. There is mild mitral regurgitation. There is trace tricuspid regurgitation. The maximum right ventricle systolic pressure is 33 mmHg. There is no pericardial effusion. EKG shows sinus rhythm with APCs. There is left bundle branch block pattern. Current Medications Generic Name Dose Route Start Last Admin Trade Name Freq PRN Reason Stop Dose Admin Dextrose 12.5 gm 12/22/18 11:34 Dextrose Inj 50% Syringe (25 Gm/50 Ml) IV 01/21/19 11:33 PRN PRN FOR BG 50-69 IN ALERT PATIENT Protocol Dextrose 25 gm 12/22/18 11:34 Dextrose Inj 50% Syringe (25 Gm/50 Ml) IV 01/21/19 11:33 PRN PRN PER PROTOCOL Protocol Glucagon 1 mg 12/22/18 11:34 Glucagen Inj 1 Mg Vial IM 01/21/19 11:33 PRN PRN Evaluate for BG < 70 Protocol Glucose 15 gm 12/22/18 11:34 Glutose 40% Gel 15 Gm Tube PO 01/21/19 11:33 PRN PRN FOR BG 50-69 IN ALERT PATIENT Protocol Glucose 30 gm 12/22/18 11:34 Glutose 40% Gel 15 Gm Tube PO 01/21/19 11:33 PRN PRN FOR BG < 50 IN ALERT PATIENT Protocol Sodium Chloride 1,000 mls @ 50 mls/hr 12/22/18 11:33 12/22/18 15:00 Nacl 0.9% 1000 Ml Iv Soln IV 01/21/19 11:32 50 mls/hr CONTINUOUS PRN Administration THIS MED IS NOT "PRN" Insulin Human Lispro 0 - 12 unit 12/22/18 12:00 12/22/18 23:31 Humalog Insulin 100 Unit/1 Ml 3 Ml Vial SUBCUT 01/21/19 11:59 Not Given Q6 MAHNAZ Protocol Ondansetron HCl 4 mg 12/22/18 14:42 Zofran Inj/Pf 4 Mg/2 Ml Sdv IV 01/21/19 14:41 Q6HP PRN FOR NAUSEA/VOMITING Phenol 1 spray 12/22/18 22:00 12/22/18 22:07 Chloraseptic Sore Throat [place] 177 Ml PO 01/21/19 21:59 1 spr Q8HP PRN Administration FOR SORE THROAT Discontinued Medications Generic Name Dose Route Start Last Admin Trade Name Freq PRN Reason Stop Dose Admin Fentanyl Citrate 50 mcg 12/22/18 08:58 12/22/18 09:43 Sublimaze Inj/Pf 100 Mcg/2 Ml Ampule IV 12/22/18 08:59 50 mcg NOW ONE Administration Hydromorphone HCl 1 mg 12/22/18 06:16 12/22/18 06:36 Dilaudid Inj/Pf 2 Mg/Ml Ampule IV 12/22/18 06:17 1 mg NOW ONE Administration Hydromorphone HCl Confirm 12/22/18 15:00 12/22/18 15:03 Dilaudid Inj/Pf 2 Mg/Ml Ampule Administered 12/22/18 15:01 2 mg Dose Administration 2 mg .ROUTE .STK-MED ONE Hydromorphone HCl 2 mg 12/22/18 15:30 12/22/18 17:40 Dilaudid Inj/Pf 2 Mg/Ml Ampule IV 12/22/18 15:31 Not Given NOW ONE Sodium Chloride 1,000 mls @ 0 mls/hr 12/22/18 05:54 12/22/18 09:51 Nacl 0.9% 1000 Ml Iv Soln IV 12/22/18 05:55 Infused BOLUS ONE Infusion Wide Open Sodium Chloride 1,000 mls @ 0 mls/hr 12/22/18 06:25 12/22/18 09:51 Nacl 0.9% 1000 Ml Iv Soln IV 12/22/18 06:26 Infused BOLUS ONE Infusion Wide Open Sodium Chloride 1,500 mls @ 0 mls/hr 12/22/18 21:00 12/22/18 17:30 Nacl 0.9% 1000 Ml Iv Soln IV 12/22/18 21:01 Infused BOLUS ONE Infusion Wide Open Metoclopramide HCl 10 mg 12/22/18 08:58 12/22/18 09:44 Reglan Inj/Pf 10 Mg/2 Ml Sdv IV 12/22/18 08:59 10 mg NOW ONE Administration Ondansetron HCl 4 mg 12/22/18 06:38 12/22/18 06:53 Zofran Inj/Pf 4 Mg/2 Ml Sdv IV 12/22/18 06:39 4 mg NOW ONE Administration Labs- Entire Visit 12/22/18 12/22/18 12/22/18 06:24 06:24 06:24 WBC 9.3 RBC 4.44 Hgb 11.7 L Hct 35.6 L MCV 80 MCH 26.4 L MCHC 33.0 RDW 16.3 H Plt Count 288 Seg Neutrophils % 86.0 H Lymphocytes % 7.4 L Monocytes % 5.1 Eosinophils % 1.0 Basophils % 0.5 Absolute Neutrophils 8.0 Absolute Lymphocytes 0.7 Absolute Monocytes 0.5 Absolute Eosinophils 0.1 Absolute Basophils 0.0 PT 27.4 H INR 2.42 Sodium 138.7 Potassium 4.9 Chloride 98 Carbon Dioxide 29 Anion Gap 12 BUN 25 H Creatinine 0.87 Est GFR ( Amer) > 60 Est GFR (Non-Af Amer) > 60 Glucose 286 H POC Glucose Lactic Acid Calcium 9.4 Total Bilirubin 0.3 Direct Bilirubin 0.2 Neonat Total Bilirubin Not Reportable Neonat Direct Bilirubin Not Reportable Neonat Indirect Bili Not Reportable AST 30 ALT 25 Alkaline Phosphatase 102 Total Protein 7.4 Albumin 3.9 Lipase 164.2 Urine Color Urine Appearance Urine pH Ur Specific [place] Urine Protein Urine Glucose (UA) Urine Ketones Urine Blood Urine Nitrite Urine Bilirubin Urine Urobilinogen Ur Leukocyte Esterase Urine WBC (Auto) Urine RBC (Auto) Urine Bacteria (Auto) Squamous Epi Cells Auto Urine Mucus (Auto) Urine Ascorbic Acid 12/22/18 12/22/18 12/22/18 06:24 10:10 12:26 WBC RBC Hgb Hct MCV MCH MCHC RDW Plt Count Seg Neutrophils % Lymphocytes % Monocytes % Eosinophils % Basophils % Absolute Neutrophils Absolute Lymphocytes Absolute Monocytes Absolute Eosinophils Absolute Basophils PT Cancelled INR Cancelled Sodium Potassium Chloride Carbon Dioxide Anion Gap BUN Creatinine Est GFR ( Amer) Est GFR (Non-Af Amer) Glucose POC Glucose 270 H Lactic Acid Calcium Total Bilirubin Direct Bilirubin Neonat Total Bilirubin Neonat Direct Bilirubin Neonat Indirect Bili AST ALT Alkaline Phosphatase Total Protein Albumin Lipase Urine Color STRAW Urine Appearance CLEAR Urine pH 7.0 Ur Specific [place] 1.018 Urine Protein 100 H Urine Glucose (UA) >=500 H Urine Ketones TRACE H Urine Blood NEGATIVE Urine Nitrite NEGATIVE Urine Bilirubin NEGATIVE Urine Urobilinogen NEGATIVE Ur Leukocyte Esterase NEGATIVE Urine WBC (Auto) 3 Urine RBC (Auto) 3 Urine Bacteria (Auto) TRACE Squamous Epi Cells Auto <1 Urine Mucus (Auto) RARE Urine Ascorbic Acid NEGATIVE 12/22/18 12/22/18 12/22/18 15:14 18:30 20:21 WBC RBC Hgb Hct MCV MCH MCHC RDW Plt Count Seg Neutrophils % Lymphocytes % Monocytes % Eosinophils % Basophils % Absolute Neutrophils Absolute Lymphocytes Absolute Monocytes Absolute Eosinophils Absolute Basophils PT Cancelled INR Cancelled Sodium Potassium Chloride Carbon Dioxide Anion Gap BUN Creatinine Est GFR ( Amer) Est GFR (Non-Af Amer) Glucose POC Glucose 138 H Lactic Acid 3.8 H Calcium Total Bilirubin Direct Bilirubin Neonat Total Bilirubin Neonat Direct Bilirubin Neonat Indirect Bili AST ALT Alkaline Phosphatase Total Protein Albumin Lipase Urine Color Urine Appearance Urine pH Ur Specific [place] Urine Protein Urine Glucose (UA) Urine Ketones Urine Blood Urine Nitrite Urine Bilirubin Urine Urobilinogen Ur Leukocyte Esterase Urine WBC (Auto) Urine RBC (Auto) Urine Bacteria (Auto) Squamous Epi Cells Auto Urine Mucus (Auto) Urine Ascorbic Acid 12/22/18 12/22/18 12/22/18 21:23 21:40 21:40 WBC RBC Hgb Hct MCV MCH MCHC RDW Plt Count Seg Neutrophils % Lymphocytes % Monocytes % Eosinophils % Basophils % Absolute Neutrophils Absolute Lymphocytes Absolute Monocytes Absolute Eosinophils Absolute Basophils PT 27.7 H INR 2.45 Sodium Potassium Chloride Carbon Dioxide Anion Gap BUN Creatinine Est GFR ( Amer) Est GFR (Non-Af Amer) Glucose POC Glucose 155 H Lactic Acid 1.4 Calcium Total Bilirubin Direct Bilirubin Neonat Total Bilirubin Neonat Direct Bilirubin Neonat Indirect Bili AST ALT Alkaline Phosphatase Total Protein Albumin Lipase Urine Color Urine Appearance Urine pH Ur Specific [place] Urine Protein Urine Glucose (UA) Urine Ketones Urine Blood Urine Nitrite Urine Bilirubin Urine Urobilinogen Ur Leukocyte Esterase Urine WBC (Auto) Urine RBC (Auto) Urine Bacteria (Auto) Squamous Epi Cells Auto Urine Mucus (Auto) Urine Ascorbic Acid Chest X-Ray 12/22/18 00:00 IMPRESSION: NO ACUTE RADIOGRAPHIC FINDING IN THE CHEST. Abdomen/Pelvis CT 12/22/18 06:16 IMPRESSION: Small bowel obstruction related to a small bowel loop protruding through the left lower quadrant ostomy defect in the abdominal wall. Chest CT 12/22/18 16:34 IMPRESSION: No acute findings in the chest. IMPRESSION/recommendation: 1. Acute abdomen with the bowel obstruction. Patient n.p.o. and treated with IV fluids and NG tube suction. Most likely patient will have surgery tomorrow. 2. HYPERCOAGULABLE coagulable state. Would recommend consulting hematology. Since she is a patient of Dr. Chin. Would most likely need a heparin window for the surgery. Initially it was not clear about the diagnosis of hyper hypercoagulable state until I spoke to her doctor's assistant associate in [place] who looked up the records. The family did not know that the patient had a high coagulable state. Initially they said that she had a clot in the aorta. Hence this is brought to mind whether the patient had chronic dissection. A CT scan of the chest with contrast showed no evidence of dissection or a clot in the aorta. 3. Coronary artery disease history of stent in the right coronary artery in the past. No anginal symptoms. 4. TAVR: Stable strongly recommend antibiotics to prevent bacterial endocarditis. 5. Hypertension: Seems to be well controlled. 6. Diabetes mellitus: Continue monitoring blood sugars and insulin coverage for now since the patient is n.p.o. also would recommend D5W half-normal saline or D5W normal saline intravenously as IV fluids. 6. History of asthma/COPD: Stable 7. Prior history of CVAs and TIAs secondary to hypercoagulable state. Hence heparin bridging and heparin free window for surgery should be high priority in decision making on this aspect. 8. Left bundle branch block pattern on EKG: Most likely chronic. Await records from [facility], and from the patient's [facility] associated doctor's assistant Dr. Malik. 9. Preoperative cardiac risk assessment: In view of the patient's age and multiple comorbid conditions, and this being an intra-abdominal surgery the patient will be at moderate cardiac risk for this procedure. Postoperatively we will monitor the patient and ice ICU/IMCU setting and get serial EKGs and cardiac enzymes. Would also watch for any postoperative or perioperative arrhythmias or congestive heart failure. CT scan, radiology, echocardiogram, and EKG findings were discussed with the patient's family including the lab tests. And also the risk assessment by me. Medications reviewed recommendations made for antibiotics in view of the patient's TAVR. Medical management discussed with the attending physician on the case, and also the surgical list. Medical decision making is of high complexity. 60 minutes spent on this patient more than 50% of time spent in direct patient care. Discussed the case with the director of neighborhood service center also. Will follow. 3.
[2018-12-23] MEDS: NORMAL SALINE 1000 ML 1,000 ML IV PRN (03:12)
[2018-12-23] MEDS: INSULIN LISPRO 100 UNIT/ML 3 ML VIAL SUBCUT SCH ×4 (06:11→23:19)
[2018-12-23] MEDS: PHENOL/SODIUM PHENOLATE 100 SPRAY/177 ML BOTTLE PO PRN ×2 (06:11→12:10)
[2018-12-23] MEDS ORDERED: ACETAMINOPHEN 650 MG SUPP.RECT PR PRN (06:33)
[2018-12-23 07:19] LABS: ABSOLUTE EOSINOPHILS # (AUTO) 0.1 10^3/uL (0.0-0.6); ABSOLUTE MONOCYTES (AUTO) 0.5 10^3/uL (0.1-1.4); ABSOLUTE NEUT (AUTO) 6.1 10^3/uL (1.7-8.2); BASOPHILS % (AUTO) 0.5 % (0-2); EOSINOPHILS % (AUTO) 1.2 % (0-6); HEMATOCRIT 33.7 % (36.0-47.0); LYMPHOCYTES % (AUTO) 13.4 % (13-45); MEAN CORPUSCULAR HEMOGLOBIN 26.1 pg (27.0-33.4); MEAN CORPUSCULAR HGB CONC 32.5 g/dL (32.0-36.0); MEAN CORPUSCULAR VOLUME 80 fl (80-97); MONOCYTES % (AUTO) 6.2 % (3-13); PLATELET COUNT 261 10^3/uL (150-450); RED CELL DISTRIBUTION WIDTH 16.4 % (11.5-14.0); SEGMENTED NEUTROPHILS % (AUTO) 78.7 % (42-78); TOTAL CELLS COUNTED % (AUTO) 100 %; WHITE BLOOD COUNT 7.8 10^3/uL (4.0-10.5)
--- NOTE | 2018-12-23 07:24 | PDOC PROGRESS REPORT ---
Subjective Progress Note for:: 12/23/18 Reason For Visit: PARTIAL SBO Physical Exam Vital Signs: Temp Pulse Resp BP Pulse Ox 98.0 F 90 16 130/62 H 94 12/23/18 03:31 12/23/18 03:31 12/23/18 03:31 12/23/18 03:31 12/23/18 03:31 Intake & Output 12/22/18 12/23/18 12/24/18 06:59 06:59 06:59 Intake Total 4110 Output Total 700 Balance 3410 Weight 71.5 kg General appearance: PRESENT: no acute distress Head exam: PRESENT: normocephalic Eye exam: PRESENT: EOMI Ear exam: PRESENT: normal external ear exam Mouth exam: PRESENT: dry mucosa Neck exam: PRESENT: full ROM Respiratory exam: PRESENT: clear to auscultation [place], unlabored Cardiovascular exam: PRESENT: RRR Pulses: PRESENT: normal radial pulses, normal femoral pulses Vascular exam: PRESENT: normal capillary refill GI/Abdominal exam: PRESENT: soft, other - abd softer, now min tenderness stoma productive of gas and some stool. Gentrourinary exam: PRESENT: indwelling catheter Extremities exam: PRESENT: full ROM Musculoskeletal exam: PRESENT: ambulatory Neurological exam: PRESENT: alert, awake, oriented to person, oriented to place Psychiatric exam: PRESENT: appropriate affect Skin exam: PRESENT: dry Results Laboratory Results: 12/22/18 12/22/18 12/22/18 06:24 10:10 15:14 Sodium 138.7 Potassium 4.9 Chloride 98 Carbon Dioxide 29 Anion Gap 12 BUN 25 H Creatinine 0.87 Est GFR ( Amer) > 60 Est GFR (Non-Af Amer) > 60 Glucose 286 H Lactic Acid 3.8 H Calcium 9.4 Total Bilirubin 0.3 AST 30 ALT 25 Alkaline Phosphatase 102 Total Protein 7.4 Albumin 3.9 Lipase 164.2 Urine Color STRAW Urine Appearance CLEAR Urine pH 7.0 Ur Specific [place] 1.018 Urine Protein 100 H Urine Glucose (UA) >=500 H Urine Ketones TRACE H Urine Blood NEGATIVE Urine Nitrite NEGATIVE Ur Leukocyte Esterase NEGATIVE Urine WBC (Auto) 3 Urine RBC (Auto) 3 12/22/18 21:40 Sodium Potassium Chloride Carbon Dioxide Anion Gap BUN Creatinine Est GFR ( Amer) Est GFR (Non-Af Amer) Glucose Lactic Acid 1.4 Calcium Total Bilirubin AST ALT Alkaline Phosphatase Total Protein Albumin Lipase Urine Color Urine Appearance Urine pH Ur Specific [place] Urine Protein Urine Glucose (UA) Urine Ketones Urine Blood Urine Nitrite Ur Leukocyte Esterase Urine WBC (Auto) Urine RBC (Auto) Impressions: Chest X-Ray 12/22/18 00:00 IMPRESSION: NO ACUTE RADIOGRAPHIC FINDING IN THE CHEST. Abdomen/Pelvis CT 12/22/18 06:16 IMPRESSION: Small bowel obstruction related to a small bowel loop protruding through the left lower quadrant ostomy defect in the abdominal wall. Chest CT 12/22/18 16:34 IMPRESSION: No acute findings in the chest. Assessment & Plan - Plan Summary Plan Summary: sbo now with some stoma production lactate correcting to normal will obtain small bowel series today
[2018-12-23 07:29] LABS: PROTHROMBIN TIME 26.4 SEC (11.4-15.4)
[2018-12-23 07:30] LABS: PARTIAL THROMBOPLASTIN TIME 41.2 SEC (23.5-35.8)
[2018-12-23 07:54] LABS: ANION GAP 10 (5-19); BLOOD UREA NITROGEN 14 mg/dL (7-20); CALCIUM 8.3 mg/dL (8.4-10.2); CARBON DIOXIDE 27 mmol/L (22-30); CHLORIDE 104 mmol/L (98-107); GLUCOSE 167 mg/dL (75-110); POTASSIUM 3.7 mmol/L (3.6-5.0)
--- NOTE | 2018-12-23 08:26 | PDOC CONSULTATION ---
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 She does have thrombotic history. Most of her history is from the patient herself because we do not actually have any records of this. We are seeing her in the office now for the last few months, managing her anticoagulation with warfarin. But, she told me in our first office visit that she was noted at age 10 to have a stroke. 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 This was felt to have caused splenic infarcts and repeat stroke. Ever since this happened she has been on chronic warfarin therapy. Therefore we have been continuing her warfarin therapy with reasonable control of her INR. She also does have a prosthetic heart valve. 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 EENT Medical History: Reports: Other - hx of hypercoaguable state Endocrine Medical History: Reports: Diabetes Mellitus Type 2 GI Medical History: Reports: Diverticulitis Psychiatric Medical History: Reports: Depression Hematology: Reports: Other - hx of hypercoaguable state Past Surgical History Past Surgical History: Reports: Cardiac Catheterization, Colostomy, Coronary Stent, Valve Replacement Social History Information Source: Patient Smoking Status: Never Smoker Number of Years Smokin Last Time Smoked: 2016 Frequency of Alcohol Use: None Hx Prescription Drug Abuse: No - Advance Directive Resuscitation Status: Full Code Family History Family History: Reviewed & Not Pertinent Parental Family History Reviewed: Yes Children Family History Reviewed: Yes Sibling(s) Family History Reviewed.: Yes Medication/Allergy Home Medications: Albuterol Sulfate [Proair HFA Inhalation Aerosol 8.5 gm MDI] 2 puff IH Q4HP PRN 12/22/18 Aspirin [Ecotrin 81 mg EC Tablet] 81 mg PO DAILY 12/22/18 Clonazepam [Klonopin] 0.5 mg PO Q8 12/22/18 Diltiazem HCl [Diltiazem 24Hr ER] 240 mg PO DAILY 12/22/18 Furosemide [Lasix 20 mg Tablet] 20 mg PO QPM 12/22/18 Gabapentin [Neurontin 300 mg Capsule] 300 mg PO Q8 12/22/18 Metformin HCl [Glucophage] 1,000 mg PO BID 12/22/18 Omeprazole 40 mg PO QHS 12/22/18 Sertraline HCl [Zoloft] 100 mg PO DAILY 12/22/18 Warfarin Sodium [Coumadin 5 mg Tablet] 5 mg PO QHS 12/22/18 Allergies/Adverse Reactions: ciprofloxacin [From Cipro] Allergy (Verified 12/22/18 06:54) epinephrine Allergy (Verified 12/22/18 14:48) imipenem Allergy (Verified 12/22/18 06:54) lidocaine [From Lidoderm] Allergy (Verified 12/22/18 06:54) menthol [From BenGay] Allergy (Verified 12/22/18 06:54) methyl salicylate [From BenGay] Allergy (Verified 12/22/18 06:54) Sulfa (Sulfonamide Antibiotics) Allergy (Verified 12/22/18 14:47) Review of Systems Constitutional: ABSENT: chills, fever(s), headache(s), weight gain, weight loss Eyes: ABSENT: visual disturbances Ears: ABSENT: hearing changes Cardiovascular: ABSENT: chest pain, dyspnea on exertion, edema, orthropnea, palpitations Respiratory: ABSENT: cough, hemoptysis Gastrointestinal: ABSENT: abdominal pain, constipation, diarrhea, hematemesis, hematochezia, nausea, vomiting Genitourinary: ABSENT: dysuria, hematuria Musculoskeletal: ABSENT: joint swelling Integumentary: ABSENT: rash, wounds Neurological: ABSENT: abnormal gait, abnormal speech, confusion, dizziness, focal weakness, syncope Psychiatric: ABSENT: anxiety, depression, homidical ideation, suicidal ideation Endocrine: ABSENT: cold intolerance, heat intolerance, polydipsia, polyuria Hematologic/Lymphatic: ABSENT: easy bleeding, easy bruising Physical Exam Vital Signs: Temp Pulse Resp BP Pulse Ox 97.6 F 109 H 20 131/71 H 90 L 12/23/18 07:43 12/23/18 07:43 12/23/18 07:43 12/23/18 07:43 12/23/18 07:43 Intake & Output 12/22/18 12/23/18 12/24/18 06:59 06:59 06:59 Intake Total 4110 Output Total 700 Balance 3410 Weight 71.5 kg General appearance: PRESENT: no acute distress, well-developed, well-nourished Head exam: PRESENT: atraumatic, normocephalic Eye exam: PRESENT: conjunctiva pink, EOMI, PERRLA. ABSENT: scleral icterus Ear exam: PRESENT: normal external ear exam Mouth exam: PRESENT: moist, tongue midline Neck exam: ABSENT: carotid bruit, JVD, lymphadenopathy, thyromegaly Respiratory exam: PRESENT: clear to auscultation bartolome. ABSENT: rales, rhonchi, wheezes Cardiovascular exam: PRESENT: RRR. ABSENT: diastolic murmur, rubs, systolic murmur Pulses: PRESENT: normal dorsalis pedis pul Vascular exam: PRESENT: normal capillary refill GI/Abdominal exam: PRESENT: normal bowel sounds, soft. ABSENT: distended, guarding, mass, organolmegaly, rebound, tenderness Rectal exam: PRESENT: deferred Extremities exam: PRESENT: full ROM. ABSENT: calf tenderness, clubbing, pedal edema Neurological exam: PRESENT: alert, awake, oriented to person, oriented to place, oriented to time, oriented to situation, CN II-XII grossly intact. ABSENT: motor sensory deficit Psychiatric exam: PRESENT: appropriate affect, normal mood. ABSENT: homicidal ideation, suicidal ideation Skin exam: PRESENT: dry, intact, warm. ABSENT: cyanosis, rash Results Laboratory Results: 12/23/18 06:32 12/23/18 06:32 12/22/18 12/22/18 12/22/18 10:10 15:14 21:40 WBC RBC Hgb Hct MCV MCH MCHC RDW Plt Count Seg Neutrophils % Lymphocytes % Monocytes % Eosinophils % Basophils % Absolute Neutrophils Absolute Lymphocytes Absolute Monocytes Absolute Eosinophils Absolute Basophils Sodium Potassium Chloride Carbon Dioxide Anion Gap BUN Creatinine Est GFR ( Amer) Est GFR (Non-Af Amer) Glucose Lactic Acid 3.8 H 1.4 Calcium Urine Color STRAW Urine Appearance CLEAR Urine pH 7.0 Ur Specific Caldwell 1.018 Urine Protein 100 H Urine Glucose (UA) >=500 H Urine Ketones TRACE H Urine Blood NEGATIVE Urine Nitrite NEGATIVE Ur Leukocyte Esterase NEGATIVE Urine WBC (Auto) 3 Urine RBC (Auto) 3 12/23/18 12/23/18 06:32 06:32 WBC 7.8 RBC 4.20 Hgb 11.0 L Hct 33.7 L MCV 80 MCH 26.1 L MCHC 32.5 RDW 16.4 H Plt Count 261 Seg Neutrophils % 78.7 H Lymphocytes % 13.4 Monocytes % 6.2 Eosinophils % 1.2 Basophils % 0.5 Absolute Neutrophils 6.1 Absolute Lymphocytes 1.0 Absolute Monocytes 0.5 Absolute Eosinophils 0.1 Absolute Basophils 0.0 Sodium 141.0 Potassium 3.7 Chloride 104 Carbon Dioxide 27 Anion Gap 10 BUN 14 Creatinine 0.70 Est GFR ( Amer) > 60 Est GFR (Non-Af Amer) > 60 Glucose 167 H Lactic Acid Calcium 8.3 L Urine Color Urine Appearance Urine pH Ur Specific Caldwell Urine Protein Urine Glucose (UA) Urine Ketones Urine Blood Urine Nitrite Ur Leukocyte Esterase Urine WBC (Auto) Urine RBC (Auto) Impressions: Chest X-Ray 12/22/18 00:00 IMPRESSION: NO ACUTE RADIOGRAPHIC FINDING IN THE CHEST. Abdomen/Pelvis CT 12/22/18 06:16 IMPRESSION: Small bowel obstruction related to a small bowel loop protruding through the left lower quadrant ostomy defect in the abdominal wall. Chest CT 12/22/18 16:34 IMPRESSION: No acute findings in the chest. Assessment & Plan - Diagnosis (1) Thrombosis of thoracic aorta Is this a current diagnosis for this admission?: Yes Plan: Per patient, history of thoracic aortic thrombotic event with splenic infarcts and stroke in the past, on lifelong anticoagulation with warfarin. From our standpoint, agreed to hold anticoagulation until INR falls below 2. Hopefully by then we could make a decision on whether patient is going to need surgery or not. If patient is not going to need surgery, I would favor than starting patient either on heparin drip or Lovenox and continuing that until the SBO resolves medically, then initiate warfarin back and we can get her up to therapeutic status as an outpatient. - Time Time Spent: Greater than 70 Minutes - Inpatient Certification Based on my medical assessment, after consideration of the patient's comorbidities, presenting symptoms, or acuity I expect that the services needed warrant INPATIENT care.: Yes I certify that my determination is in accordance with my understanding of Medicare's requirements for reasonable and necessary INPATIENT services [42 CFR 412.3e].: Yes Medical Necessity: Need For IV Fluids, Need for Surgery, Risk of Complication if Not Cared For in Hospital
--- NOTE | 2018-12-23 11:51 | ADVANCED CARE ---
- Diagnosis (1) Small bowel obstruction Diagnosis Current: Yes (2) CAD (coronary artery disease) Diagnosis Current: Yes (3) DM type 2 (diabetes mellitus, type 2) Diagnosis Current: Yes (4) S/P TAVR (transcatheter aortic valve replacement) Diagnosis Current: Yes (5) Thrombophilia Diagnosis Current: Yes Resuscitation Status: Full Code Discussion: Discussed with patient in length. She affirms she is a Full Code including chest compressons, defibrillation and intubation. she does express she does not want to be on custodial mechanical ventilation. She says her is her surrogate decision maker.
--- NOTE | 2018-12-23 12:45 | RADIOLOGY REPORT (SQ) ---
EXAM DESCRIPTION: SMALL BOWEL SERIES COMPLETED DATE/TIME: 12/23/2018 10:41 am REASON FOR STUDY: r/o sbo COMPARISON: None. FLUOROSCOPY TIME: 10 images saved to PACS. LIMITATIONS: None. PROCEDURE: Initial environmental engineer image of abdomen acquired, followed by administration of oral contrast. Se rial radiographic images acquired. Fluoroscopic images recorded of the terminal ileum and other fatuma cated areas. All images stored on PACS. FINDINGS: MEAL GRINDER TENDER KUB: No definite pathologically dilated loops of bowel. Prior cholecystectomy. Ent moe tube tip overlies gastric body. Left lower quadrant ostomy. Vascular stent noted over left fem oral head. Catheter tubing overlies pelvis. STOMACH: No significant reflux. Normal distention without abnormality. DUODENUM: Normal mucosal pattern with adequate distention. No displacement or obstruction. JEJUNUM: Mild dilated loops of bowel measuring up to 3.5 cm. Evidence of parastomal hernia with smal l bowel loops about the left lower quadrant ostomy. ILEUM: Normal mucosal pattern. No dilatation, segmentation, strictures or masses. TERMINAL ILEUM AND ILEO-CECAL VALVE: Normal mucosal pattern without "cobble-stoning" or stricture. PROXIMAL COLON: Incompletely imaged. No abnormality. OTHER: No other significant finding. IMPRESSION: 1. 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 No evidence of high-grade obstructi on as contrast traverses to the level of the colon with 1 hour 30 minutes. COMMENT: Quality ID [id number]: Final reports for procedures using fluoroscopy that document radiation exp osure indices, or exposure time and number of fluorographic images (if radiation exposure indices are not available) TECHNICAL DOCUMENTATION: JOB ID: [id number] [employer]- All Rights Reserved Reading location - IP/workstation name: [email or web address]
[2018-12-23] MEDS ORDERED: ALBUTEROL SULFATE HFA (90 MCG/PUFF) 200 PUFF/8.5 GM MDI IH PRN (12:52)
[2018-12-23] MEDS ORDERED: (PENDING PHARMACY ID) (Diltiazem Hcl [Diltiazem 24hr Er] 240 MG) PO SCH (13:00)
--- NOTE | 2018-12-23 13:37 | PDOC PROGRESS REPORT ---
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 Her initial CT scan of the abdomen and pelvis reported as small bowel obstruction related to small bowel loops protruding through the left lower quadrant ostomy in the abdominal wall. Patient has been evaluated by Dr. Shwetha palacios who recommended conservative management. Small bowel x-ray reported as persistent mildly dilated loops of small bowel measuring up to 3.5 cm with evidence of left lower quadrant small bowel containing parastomal hernia. No evidence of high-grade obstruction as contrast traverses to the level of the colon within an hour and 30 minutes. So from the small bowel series with small bowel obstruction is ruled out. This morning I seen patient propped up in bed. Her colostomy is draining greenish fluid. Patient complains of cough with greenish sputum. She is empirically started on Zithromax. I reviewed her labs and it shows her lactate level is normalized. Reason For Visit: PARTIAL SBO Physical Exam Vital Signs: Temp Pulse Resp BP Pulse Ox 97.6 F 109 H 20 131/71 H 90 L 12/23/18 07:43 12/23/18 07:43 12/23/18 07:43 12/23/18 07:43 12/23/18 07:43 Intake & Output 12/22/18 12/23/18 12/24/18 06:59 06:59 06:59 Intake Total 4110 Output Total 700 Balance 3410 Weight 71.5 kg General appearance: PRESENT: no acute distress Head exam: PRESENT: atraumatic Eye exam: PRESENT: conjunctiva pink Neck exam: ABSENT: carotid bruit, JVD, lymphadenopathy, thyromegaly Respiratory exam: PRESENT: clear to auscultation bartolome. ABSENT: rales, rhonchi, wheezes Cardiovascular exam: PRESENT: RRR. ABSENT: diastolic murmur, rubs, systolic murmur GI/Abdominal exam: PRESENT: normal bowel sounds, other - Functional left ileostomy. Neurological exam: PRESENT: alert, awake, oriented to time, oriented to situation Results Laboratory Results: 12/23/18 06:32 12/23/18 06:32 12/22/18 12/22/18 12/23/18 15:14 21:40 06:32 WBC 7.8 RBC 4.20 Hgb 11.0 L Hct 33.7 L MCV 80 MCH 26.1 L MCHC 32.5 RDW 16.4 H Plt Count 261 Seg Neutrophils % 78.7 H Lymphocytes % 13.4 Monocytes % 6.2 Eosinophils % 1.2 Basophils % 0.5 Absolute Neutrophils 6.1 Absolute Lymphocytes 1.0 Absolute Monocytes 0.5 Absolute Eosinophils 0.1 Absolute Basophils 0.0 Sodium Potassium Chloride Carbon Dioxide Anion Gap BUN Creatinine Est GFR ( Amer) Est GFR (Non-Af Amer) Glucose Lactic Acid 3.8 H 1.4 Calcium 12/23/18 06:32 WBC RBC Hgb Hct MCV MCH MCHC RDW Plt Count Seg Neutrophils % Lymphocytes % Monocytes % Eosinophils % Basophils % Absolute Neutrophils Absolute Lymphocytes Absolute Monocytes Absolute Eosinophils Absolute Basophils Sodium 141.0 Potassium 3.7 Chloride 104 Carbon Dioxide 27 Anion Gap 10 BUN 14 Creatinine 0.70 Est GFR ( Amer) > 60 Est GFR (Non-Af Amer) > 60 Glucose 167 H Lactic Acid Calcium 8.3 L Impressions: Chest X-Ray 12/22/18 00:00 IMPRESSION: NO ACUTE RADIOGRAPHIC FINDING IN THE CHEST. Abdomen/Pelvis CT 12/22/18 06:16 IMPRESSION: Small bowel obstruction related to a small bowel loop protruding through the left lower quadrant ostomy defect in the abdominal wall. Chest CT 12/22/18 16:34 IMPRESSION: No acute findings in the chest. Small Bowel X-Ray 12/23/18 00:00 IMPRESSION: 1. 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 No evidence of high-grade obstruction as contrast traverses to the level of the colon with 1 hour 30 minutes. Assessment and Plan - Diagnosis (1) Small bowel obstruction ruled out Is this a current diagnosis for this admission?: Yes Plan: Per small bowel x-ray high-grade obstruction is ruled out. Probably might have partial small bowel obstruction. (2) Hypertension Qualifiers: Hypertension type: essential hypertension Qualified Code(s): I10 - Essential (primary) hypertension Is this a current diagnosis for this admission?: Yes Plan: Continue her home medication. (3) COPD/asthma Is this a current diagnosis for this admission?: Yes Plan: Continue PRN bronchodilator. (4) CAD, S/P 2x stent placement Is this a current diagnosis for this admission?: Yes Plan: Patient does not have any anginal symptoms currently. Continue her home medications. (5) Type 2 diabetes mellitus Is this a current diagnosis for this admission?: Yes Plan: Stable we will continue her home medications and sliding scale. (6) Hypercoagulable state Is this a current diagnosis for this admission?: Yes Plan: Which is associated with CVA. Patient is currently getting Coumadin. (7) hx of perforated diverticulitis Is this a current diagnosis for this admission?: Yes Plan: Patient is status post colectomy and ileostomy. Her ileostomy is functional. (8) S/P TAVR (transcatheter aortic valve replacement) Is this a current diagnosis for this admission?: Yes
[2018-12-23] MEDS ORDERED: (PENDING PHARMACY ID) (Clonazepam [Klonopin] 0.5 MG) PO SCH (14:00)
[2018-12-23] MEDS: BENZONATATE 100 MG CAPSULE PO SCH ×2 (17:53→23:19)
[2018-12-23] MEDS: GABAPENTIN 300 MG CAPSULE PO SCH ×2 (17:53→23:18)
[2018-12-23] MEDS: FUROSEMIDE 20 MG TABLET PO SCH (17:53)
[2018-12-23] MEDS: CLONAZEPAM 1 MG TABLET PO SCH ×2 (17:54→23:18)
[2018-12-23] MEDS: AZITHROMYCIN 500 MG in DEXTROSE 5%-WATER 250 ML IV SCH (17:54)
[2018-12-23] MEDS: DILTIAZEM HCL 240 MG CAPSULE.CR PO SCH (17:58)
[2018-12-23] MEDS: KETOROLAC TROMETHAMINE 10 MG TABLET PO PRN (18:53)
--- NOTE | 2018-12-23 19:23 | Progress Note ---
Provider Note Provider Note: This is a patient admitted with a bowel obstruction. Today, her colostomy is functioning. I have reviewed her small bowel series, which is normal. I have removed her NG tube. I will start her on full liquids. Advance diet as tolerated. Surgery will sign off for now. Please renotify with any questions or concerns.
[2018-12-23] MEDS ORDERED: (PENDING PHARMACY ID) (Warfarin Sodium 5 MG) PO SCH (22:00)
[2018-12-23] MEDS: PANTOPRAZOLE SODIUM 40 MG TABLET.DR PO SCH (23:18)
[2018-12-23] MEDS: WARFARIN SODIUM 5 MG TABLET PO SCH (23:20)
[2018-12-24] MEDS: CLONAZEPAM 1 MG TABLET PO SCH ×3 (06:48→22:37)
[2018-12-24] MEDS: GABAPENTIN 300 MG CAPSULE PO SCH ×3 (06:49→22:37)
[2018-12-24] MEDS: BENZONATATE 100 MG CAPSULE PO SCH ×3 (06:49→22:37)
[2018-12-24] MEDS: PHENOL/SODIUM PHENOLATE 100 SPRAY/177 ML BOTTLE PO PRN (07:03)
--- NOTE | 2018-12-24 08:16 | PDOC PROGRESS REPORT ---
Subjective Progress Note for:: 12/24/18 Subjective:: Patient is doing much better, NG tube was removed yesterday, diet was advanced, full liquid diet was tolerated, advancing today Reason For Visit: PARTIAL SBO Physical Exam Vital Signs: Temp Pulse Resp BP Pulse Ox 98.1 F 94 16 130/69 H 97 12/24/18 03:29 12/24/18 03:29 12/24/18 03:29 12/24/18 03:29 12/24/18 03:29 Intake & Output 12/23/18 12/24/18 12/25/18 06:59 06:59 06:59 Intake Total 4110 730 Output Total 700 2150 Balance 3410 -1420 Weight 71.5 kg 71.5 kg General appearance: PRESENT: no acute distress, well-developed, well-nourished Head exam: PRESENT: atraumatic, normocephalic Eye exam: PRESENT: conjunctiva pink, EOMI, PERRLA. ABSENT: scleral icterus Ear exam: PRESENT: normal external ear exam Mouth exam: PRESENT: moist, tongue midline Neck exam: ABSENT: carotid bruit, JVD, lymphadenopathy, thyromegaly Respiratory exam: PRESENT: clear to auscultation bartolome. ABSENT: rales, rhonchi, wheezes Cardiovascular exam: PRESENT: RRR. ABSENT: diastolic murmur, rubs, systolic murmur Pulses: PRESENT: normal dorsalis pedis pul Vascular exam: PRESENT: normal capillary refill GI/Abdominal exam: PRESENT: normal bowel sounds, soft. ABSENT: distended, guarding, mass, organolmegaly, rebound, tenderness Rectal exam: PRESENT: deferred Extremities exam: PRESENT: full ROM. ABSENT: calf tenderness, clubbing, pedal edema Neurological exam: PRESENT: alert, awake, oriented to person, oriented to place, oriented to time, oriented to situation, CN II-XII grossly intact. ABSENT: motor sensory deficit Psychiatric exam: PRESENT: appropriate affect, normal mood. ABSENT: homicidal ideation, suicidal ideation Skin exam: PRESENT: dry, intact, warm. ABSENT: cyanosis, rash Results Laboratory Results: 12/23/18 06:32 12/23/18 06:32 Impressions: Chest X-Ray 12/22/18 00:00 IMPRESSION: NO ACUTE RADIOGRAPHIC FINDING IN THE CHEST. Abdomen/Pelvis CT 12/22/18 06:16 IMPRESSION: Small bowel obstruction related to a small bowel loop protruding through the left lower quadrant ostomy defect in the abdominal wall. Chest CT 12/22/18 16:34 IMPRESSION: No acute findings in the chest. Small Bowel X-Ray 12/23/18 00:00 IMPRESSION: 1. 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 No evidence of high-grade obstruction as contrast traverses to the level of the colon with 1 hour 30 minutes. Assessment & Plan - Diagnosis (1) Thrombosis of thoracic aorta Is this a current diagnosis for this admission?: Yes Plan: Now the diet is advanced, restart warfarin. Recheck INR today. INR has been appropriate and should probably remain appropriate. We should not have to use any Lovenox.
[2018-12-24 09:07] LABS: PROTHROMBIN TIME 22.7 SEC (11.4-15.4)
[2018-12-24] MEDS: INSULIN LISPRO 100 UNIT/ML 3 ML VIAL SUBCUT SCH ×4 (11:03→22:38)
[2018-12-24] MEDS: SERTRALINE HCL 50 MG TABLET PO SCH (11:04)
[2018-12-24] MEDS: DILTIAZEM HCL 240 MG CAPSULE.CR PO SCH (11:05)
[2018-12-24] MEDS: ASPIRIN 81 MG TABLET, ENT COATED PO SCH (11:05)
[2018-12-24] MEDS: KETOROLAC TROMETHAMINE 10 MG TABLET PO PRN (11:08)
--- NOTE | 2018-12-24 11:43 | PDOC PROGRESS REPORT ---
Subjective Progress Note for:: 12/24/18 Reason For Visit: PARTIAL SBO Physical Exam Vital Signs: Temp Pulse Resp BP Pulse Ox 98.0 F 79 18 141/50 H 90 L 12/24/18 07:37 12/24/18 07:37 12/24/18 07:37 12/24/18 07:37 12/24/18 07:37 Intake & Output 12/23/18 12/24/18 12/25/18 06:59 06:59 06:59 Intake Total 4110 730 Output Total 700 2150 Balance 3410 -1420 Weight 71.5 kg 71.5 kg General appearance: PRESENT: no acute distress Eye exam: PRESENT: EOMI Mouth exam: PRESENT: moist Neck exam: PRESENT: full ROM Respiratory exam: PRESENT: clear to auscultation bartolome Cardiovascular exam: PRESENT: RRR Pulses: PRESENT: normal carotid pulses, normal radial pulses GI/Abdominal exam: PRESENT: soft, other - stoma functioning. Rectal exam: PRESENT: deferred Extremities exam: PRESENT: full ROM Musculoskeletal exam: PRESENT: full ROM Neurological exam: PRESENT: alert, awake, oriented to person, oriented to place Psychiatric exam: PRESENT: appropriate affect Skin exam: PRESENT: dry Results Laboratory Results: 12/23/18 06:32 12/23/18 06:32 Impressions: Chest X-Ray 12/22/18 00:00 IMPRESSION: NO ACUTE RADIOGRAPHIC FINDING IN THE CHEST. Abdomen/Pelvis CT 12/22/18 06:16 IMPRESSION: Small bowel obstruction related to a small bowel loop protruding through the left lower quadrant ostomy defect in the abdominal wall. Chest CT 12/22/18 16:34 IMPRESSION: No acute findings in the chest. Small Bowel X-Ray 12/23/18 00:00 IMPRESSION: 1. 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 No evidence of high-grade obstruction as contrast traverses to the level of the colon with 1 hour 30 minutes. Assessment & Plan - Plan Summary Plan Summary: pt now iwth resumption of bowel function will advance to soft diet ok from surgery standpoint for discharge she will need a surgery clinic f/u iwth me to discuss repair of her peristomal hernia or reconnection please reconsult surgery as necessary.
--- NOTE | 2018-12-24 15:08 | PDOC PROGRESS REPORT ---
Subjective Progress Note for:: 12/24/18 Subjective:: Patient seen propped up in bed. Her NG tube has been removed. Patient tolerates clear liquid diet. Diet advanced to soft solid. If she tolerates well patient is potential discharge for tomorrow. Reason For Visit: PARTIAL SBO Physical Exam Vital Signs: Temp Pulse Resp BP Pulse Ox 97.5 F 85 16 148/57 H 90 L 12/24/18 11:33 12/24/18 11:33 12/24/18 11:33 12/24/18 11:33 12/24/18 11:33 Intake & Output 12/23/18 12/24/18 12/25/18 06:59 06:59 06:59 Intake Total 4110 730 480 Output Total 700 2150 Balance 3410 -1420 480 Weight 71.5 kg 71.5 kg General appearance: PRESENT: no acute distress Head exam: PRESENT: atraumatic Respiratory exam: PRESENT: clear to auscultation bartolome. ABSENT: rales, rhonchi, wheezes Cardiovascular exam: PRESENT: RRR. ABSENT: diastolic murmur, rubs, systolic murmur Neurological exam: PRESENT: alert, awake, oriented to situation Results Laboratory Results: 12/23/18 06:32 12/23/18 06:32 Impressions: Chest X-Ray 12/22/18 00:00 IMPRESSION: NO ACUTE RADIOGRAPHIC FINDING IN THE CHEST. Abdomen/Pelvis CT 12/22/18 06:16 IMPRESSION: Small bowel obstruction related to a small bowel loop protruding through the left lower quadrant ostomy defect in the abdominal wall. Chest CT 12/22/18 16:34 IMPRESSION: No acute findings in the chest. Small Bowel X-Ray 12/23/18 00:00 IMPRESSION: 1. 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 No evidence of high-grade obstruction as contrast traverses to the level of the colon with 1 hour 30 minutes. Assessment and Plan - Diagnosis (1) Small bowel obstruction ruled out Is this a current diagnosis for this admission?: Yes Plan: Per small bowel x-ray high-grade obstruction is ruled out. Probably might have partial small bowel obstruction. (2) Hypertension Qualifiers: Hypertension type: essential hypertension Qualified Code(s): I10 - Essential (primary) hypertension Is this a current diagnosis for this admission?: Yes Plan: Continue her home medication. (3) COPD/asthma Is this a current diagnosis for this admission?: Yes Plan: Continue PRN bronchodilator. (4) CAD, S/P 2x stent placement Is this a current diagnosis for this admission?: Yes Plan: Patient does not have any anginal symptoms currently. Continue her home medications. (5) Type 2 diabetes mellitus Is this a current diagnosis for this admission?: Yes Plan: Stable we will continue her home medications and sliding scale. (6) Hypercoagulable state Is this a current diagnosis for this admission?: Yes Plan: Which is associated with CVA. Patient is currently getting Coumadin. (7) hx of perforated diverticulitis Is this a current diagnosis for this admission?: Yes Plan: Patient is status post colectomy and ileostomy. Her ileostomy is functional. (8) S/P TAVR (transcatheter aortic valve replacement) Is this a current diagnosis for this admission?: Yes Plan: Stable
[2018-12-24] MEDS: AZITHROMYCIN 500 MG in DEXTROSE 5%-WATER 250 ML IV SCH (16:03)
[2018-12-24] MEDS: NORMAL SALINE 1000 ML 1,000 ML IV PRN (16:05)
[2018-12-24] MEDS ORDERED: ACETAMINOPHEN 325 MG TABLET ONE (17:02)
[2018-12-24] MEDS: FUROSEMIDE 20 MG TABLET PO SCH (17:13)
[2018-12-24] MEDS ORDERED: ACETAMINOPHEN 325 MG TABLET PO PRN (17:21)
[2018-12-24] MEDS: WARFARIN SODIUM 5 MG TABLET PO SCH (22:37)
[2018-12-24] MEDS: PANTOPRAZOLE SODIUM 40 MG TABLET.DR PO SCH (22:38)
[2018-12-25] MEDS: BENZONATATE 100 MG CAPSULE PO SCH (06:20)
[2018-12-25] MEDS: GABAPENTIN 300 MG CAPSULE PO SCH (06:20)
[2018-12-25] MEDS: CLONAZEPAM 1 MG TABLET PO SCH (06:21)
[2018-12-25 07:00] LABS: INTERNATIONAL RATION (INR) 1.82
[2018-12-25] MEDS: INSULIN LISPRO 100 UNIT/ML 3 ML VIAL SUBCUT SCH (08:00)
--- NOTE | 2018-12-25 09:50 | PDOC DISCHARGE SUMMARY ---
General - Admit/Disc Date/PCP Admission Date/Primary Care Provider: 12/22/18 10:41 Discharge Date: 12/25/18 - Discharge Diagnosis (1) Small bowel obstruction ruled out Is this a current diagnosis for this admission?: Yes (2) Hypertension Is this a current diagnosis for this admission?: Yes (3) COPD/asthma Is this a current diagnosis for this admission?: Yes (4) CAD, S/P 2x stent placement Is this a current diagnosis for this admission?: Yes (5) Type 2 diabetes mellitus Is this a current diagnosis for this admission?: Yes (6) Hypercoagulable state Is this a current diagnosis for this admission?: Yes (7) hx of perforated diverticulitis Is this a current diagnosis for this admission?: Yes (8) S/P TAVR (transcatheter aortic valve replacement) Is this a current diagnosis for this admission?: Yes - Additional Information Resuscitation Status: Full Code Home Medications: Albuterol Sulfate [Proair HFA Inhalation Aerosol 8.5 gm MDI] 2 puff IH Q4HP PRN 12/22/18 Aspirin [Ecotrin 81 mg EC Tablet] 81 mg PO DAILY 12/22/18 Clonazepam [Klonopin] 0.5 mg PO Q8 12/22/18 Diltiazem HCl [Diltiazem 24Hr ER] 240 mg PO DAILY 12/22/18 Furosemide [Lasix 20 mg Tablet] 20 mg PO QPM 12/22/18 Gabapentin [Neurontin 300 mg Capsule] 300 mg PO Q8 12/22/18 Metformin HCl [Glucophage] 1,000 mg PO BID 12/22/18 Omeprazole 40 mg PO QHS 12/22/18 Sertraline HCl [Zoloft] 100 mg PO DAILY 12/22/18 Warfarin Sodium [Coumadin 5 mg Tablet] 5 mg PO QHS 12/22/18 History of Present Illness History of Present Illness: RODRIGUEZ TOM is a 68 year old female with a PMH of CAD with prior stenting x 1, DM 2, thrombophilia, history of aortic arch clot diagnosed in 2011 and started on coumadin back then, TAVR in January 2018 and perforated diverticulitis S/P colectomy and ileostomy in March 2017 and prior breast CA with right sided mastectomy in 1998-in remission who presented with abdominal pain. Patient reports she developed epigastric-RUQ pain yesterday associated with nausea and a few episodes of vomiting. She has been having regular fecal output on the colostomy. In the ER, she had a CT of the abdomen which showed possible small bowel obstruction. She was evaluated by surgery, Dr. Johnston in the ED who deems this is non-surgical at this time and conservative measures will be pursued including NGT placement and IV fluids. Discussed CT abodmen/pelvis results with Dr. Johnston who deems changes appear chronic and don't need surgical intervention at this time. 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 Her initial CT scan of the abdomen and pelvis reported as small bowel obstruction related to small bowel loops protruding through the left lower quadrant ostomy in the abdominal wall. Patient has been evaluated by Dr. Nasir case who recommended conservative management. Small bowel x-ray reported as persistent mildly dilated loops of small bowel measuring up to 3.5 cm with evidence of left lower quadrant small bowel containing parastomal hernia. No evidence of high-grade obstruction as contrast traverses to the level of the colon within an hour and 30 minutes. So from the small bowel series, complete small bowel obstruction is ruled out. She might have partial small bowel obstruction. This morning I seen patient propped up in bed. Her colostomy is draining greenish fluid. Patient complains of cough with greenish sputum. She is empirically started on Zithromax. As of yesterday her diet has been advanced to a solid soft diet. She did not eat small tolerates well. Her ileostomy is functional. Dr. Johnston cleared her for discharge. Her vital status within normal limits. Patient's stable enough to go home and follow-up with Dr. Johnston as outpatient. Physical Exam Vital Signs: Temp Pulse Resp BP Pulse Ox 97.8 F 86 20 150/53 H 95 12/25/18 07:48 12/25/18 07:48 12/25/18 07:48 12/25/18 07:48 12/25/18 07:48 Intake & Output 12/24/18 12/25/18 12/26/18 06:59 06:59 06:59 Intake Total 1730 1450 Output Total 2150 Balance -420 1450 Weight 71.5 kg 71.5 kg General appearance: PRESENT: no acute distress Head exam: PRESENT: atraumatic Respiratory exam: PRESENT: clear to auscultation bartolome. ABSENT: rales, rhonchi, wheezes Cardiovascular exam: PRESENT: RRR. ABSENT: diastolic murmur, rubs, systolic murmur Neurological exam: PRESENT: alert, awake, oriented to time, oriented to situation Results Laboratory Results: 12/23/18 06:32 12/23/18 06:32 Impressions: Chest X-Ray 12/22/18 00:00 IMPRESSION: NO ACUTE RADIOGRAPHIC FINDING IN THE CHEST. Abdomen/Pelvis CT 12/22/18 06:16 IMPRESSION: Small bowel obstruction related to a small bowel loop protruding through the left lower quadrant ostomy defect in the abdominal wall. Chest CT 12/22/18 16:34 IMPRESSION: No acute findings in the chest. Small Bowel X-Ray 12/23/18 00:00 IMPRESSION: 1. 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 No evidence of high-grade obstruction as contrast traverses to the level of the colon with 1 hour 30 minutes. Qualifiers - * PATIENT BEING DISCHARGED WITH ANY OF THE FOLLOWING DIAGNOSIS: No Acute Heart Failure Is this a Heart Failure Patient?: No
[2018-12-25] MEDS: DILTIAZEM HCL 240 MG CAPSULE.CR PO SCH (12:34)
[2018-12-25] MEDS: SERTRALINE HCL 50 MG TABLET PO SCH (12:34)
[2018-12-25] MEDS: ASPIRIN 81 MG TABLET, ENT COATED PO SCH (12:34)
[2018-12-25 13:10] VITALS: BP 146/63
--- NOTE | 2018-12-25 14:09 | PDOC PROGRESS REPORT ---
Subjective Progress Note for:: 12/25/18 Subjective:: Patient is sleeping peacefully and does not arouse. She was seen on morning rounds. Nurses report that she remains on her coumadin and is doing much better. Reason For Visit: PARTIAL SBO Physical Exam Vital Signs: Temp Pulse Resp BP Pulse Ox 97.9 F 76 16 146/63 H 97 12/25/18 13:12 12/25/18 13:12 12/25/18 13:12 12/25/18 13:12 12/25/18 13:12 Intake & Output 12/24/18 12/25/18 12/26/18 06:59 06:59 06:59 Intake Total 1730 1450 Output Total 2150 Balance -420 1450 Weight 71.5 kg 71.5 kg General appearance: PRESENT: obese Head exam: PRESENT: normocephalic Respiratory exam: PRESENT: crackles - Right base. Focused psych exam: ABSENT: restlessness Skin exam: PRESENT: normal color Results Laboratory Results: 12/23/18 06:32 12/23/18 06:32 Impressions: Chest X-Ray 12/22/18 00:00 IMPRESSION: NO ACUTE RADIOGRAPHIC FINDING IN THE CHEST. Abdomen/Pelvis CT 12/22/18 06:16 IMPRESSION: Small bowel obstruction related to a small bowel loop protruding through the left lower quadrant ostomy defect in the abdominal wall. Chest CT 12/22/18 16:34 IMPRESSION: No acute findings in the chest. Small Bowel X-Ray 12/23/18 00:00 IMPRESSION: 1. 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 No evidence of high-grade obstruction as contrast traverses to the level of the colon with 1 hour 30 minutes. Assessment & Plan - Diagnosis (1) Hypercoagulable state Is this a current diagnosis for this admission?: Yes Plan: Continue Coumadin. Will follow-up in office on discharge.
== END 2018-12-25 14:00 | disposition home or self-care (01) | DRG 389 ==
LOC: ER 05:43 → EH 10:41 → 4N 14:14
PROVIDERS: ADMIT Internal Medicine; ATTEND Internal Medicine
PROC: 0D9670Z Drainage of Stomach with Drainage Device, Via Natural or Artificial Opening (ICD-10-PCS; principal; 2018-12-22)
DX: K56.600 Partial intestinal obstruction, unspecified as to cause (principal); D68.59 Other primary thrombophilia; I10 Essential (primary) hypertension; I25.10 Atherosclerotic heart disease of native coronary artery without angina pectoris; J44.9 Chronic obstructive pulmonary disease, unspecified; E11.9 Type 2 diabetes mellitus without complications; F32.9 Major depressive disorder, single episode, unspecified; I08.1 Rheumatic disorders of both mitral and tricuspid valves; I44.7 Left bundle-branch block, unspecified; E66.01 Morbid (severe) obesity due to excess calories; Z95.5 Presence of coronary angioplasty implant and graft; Z95.2 Presence of prosthetic heart valve; Z79.01 Long term (current) use of anticoagulants; Z79.84 Long term (current) use of oral hypoglycemic drugs; Z79.82 Long term (current) use of aspirin; Z79.899 Other long term (current) drug therapy; Z90.49 Acquired absence of other specified parts of digestive tract; Z85.3 Personal history of malignant neoplasm of breast; Z90.11 Acquired absence of right breast and nipple; Z88.4 Allergy status to anesthetic agent; Z88.1 Allergy status to other antibiotic agents; Z88.3 Allergy status to other anti-infective agents; Z88.2 Allergy status to sulfonamides; Z88.8 Allergy status to other drugs, medicaments and biological substances; Z86.73 Personal history of transient ischemic attack (TIA), and cerebral infarction without residual deficits; Z93.3 Colostomy status
CPT/HCPCS: 36415; 71045; 71260; 74177; 74250; 80048; 80053; 81001; 82962; 83605; 83690; 85025; 85610; 85730; 93005; 93010; 93306; 96361; 96374; 96375; 99285; J0456; J1170; J1815; J2405; J2765; J3010; J3490; J7030; J7060

== ENCOUNTER 2019-03-06 21:53 | Emergency (ER) | payer MEDICARE ==
[2019-03-06] MEDS ORDERED: NORMAL SALINE 500 ML IV ONE (23:14)
[2019-03-06] MEDS ORDERED: MORPHINE SULFATE 10 MG/ML INJ IV ONE (23:15)
[2019-03-06] MEDS ORDERED: PANTOPRAZOLE SODIUM 40 MG VIAL IV ONE (23:15)
[2019-03-06] MEDS ORDERED: ONDANSETRON HCL INJ/PF 4 MG/2 ML SDV IV ONE (23:15)
--- NOTE | 2019-03-06 23:17 | ER Document Report ---
ED GI/ - General Chief Complaint: Bloody Stools Stated Complaint: ABDOMINAL PAIN Time Seen by Provider: 03/06/19 23:03 Primary Care Provider: ANDREW BELTRAN MD [ACTIVE STAFF] - 03/08/19 Notes: Patient is a 68-year-old female that comes to the emergency department for chief complaint of possible GI bleed. She states she has a ileostomy bag and the bag had black looking stools. She states that early in the week she had black stools, she was seen by her primary care provider, skipped her dose of Coumadin and then decrease her Coumadin from 6 mg to 5 mg daily, then noticed the black stool earlier today. She states she has some abdominal pain in the general upper abdomen and nausea but denies vomiting. She has also missed her pain medication (oxycodone) from earlier today. She denies fever/chills. She had a bowel movement to the ostomy bag since she saw the black stools and this was brown in color. Past medical history includes CAD with stent, type 2 diabetes, and an aortic arch clot in 2011 which prompted her to be on Coumadin management. TRAVEL OUTSIDE OF THE [place] IN LAST 30 DAYS: No - Related Data Allergies/Adverse Reactions: ciprofloxacin [From Cipro] Allergy (Verified 12/22/18 06:54) epinephrine Allergy (Verified 12/22/18 14:48) imipenem Allergy (Verified 12/22/18 06:54) lidocaine [From Lidoderm] Allergy (Verified 12/22/18 06:54) menthol [From BenGay] Allergy (Verified 12/22/18 06:54) methyl salicylate [From BenGay] Allergy (Verified 12/22/18 06:54) Sulfa (Sulfonamide Antibiotics) Allergy (Verified 12/22/18 14:47) Past Medical History - General Information source: Patient - Social History Smoking Status: Never Smoker Frequency of alcohol use: None Drug Abuse: None Lives with: Family Family History: Reviewed & Not Pertinent - Past Medical History Cardiac Medical History: Reports: Hx Coronary Artery Disease, Hx Heart Murmur Endocrine Medical History: Reports: Hx Diabetes Mellitus Type 2 Renal/ Medical History: Denies: Hx Peritoneal Dialysis GI Medical History: Reports: Hx Diverticulitis Psychiatric Medical History: Reports: Hx Depression Past Surgical History: Reports: Hx Bowel Surgery - Partial colectomy, ileostomy, Hx Cardiac Catheterization, Hx Cardiac Surgery - cath, stent, Hx Colostomy, Hx Coronary Stent, Hx Valve Replacement Review of Systems - Review of Systems Constitutional: No symptoms reported EENT: No symptoms reported Cardiovascular: No symptoms reported Respiratory: No symptoms reported Gastrointestinal: See HPI Genitourinary: No symptoms reported Female Genitourinary: No symptoms reported Musculoskeletal: No symptoms reported Skin: No symptoms reported Hematologic/Lymphatic: No symptoms reported Neurological/Psychological: No symptoms reported Physical Exam - Vital signs Vitals: Temp Pulse Resp BP Pulse Ox 97.7 F 101 H 20 130/71 H 97 03/06/19 22:06 03/06/19 22:06 03/06/19 22:06 03/06/19 22:06 03/06/19 22:06 - Notes Notes: GENERAL: Alert, interacts well. No acute distress. HEAD: Normocephalic, atraumatic. EYES: Pupils equal, round, and reactive to light. Extraocular movements intact. ENT: Oral mucosa moist, tongue midline. Oropharynx unremarkable. Airway patent. LUNGS: Clear to auscultation bilaterally, no wheezes, rales, or rhonchi. No re spiratory distress. HEART: Regular rate and rhythm. No murmur ABDOMEN: There is mild generalized tenderness of the mid upper abdomen without guarding or specific areas of pain. No rigidity or rebound tenderness. There is a ileostomy bag in the left mid abdomen. Stool contents are brown without no liset black or bloody stool. GENITOURINARY: Deferred EXTREMITIES: Moves all 4 extremities spontaneously. No edema, normal radial and dorsalis pedis pulses bilaterally. No cyanosis. BACK: no cervical, thoracic, lumbar midline tenderness. No saddle anesthesia, normal distal neurovascular exam. Moves all extremities in full range of motion. NEUROLOGICAL: Alert and oriented x3. Normal speech. Cranial nerves II through XII grossly intact. PSYCH: Normal affect, normal mood. SKIN: Warm, dry, normal turgor. No rashes or lesions noted. Course - Re-evaluation Re-evalutation: Patient is well-appearing and very talkative. Minimal generalized mid to upper abdominal tenderness on exam, stool does not appear black or bloody in the ileostomy bag. Given Protonix, pain/nausea medication, IV fluids. CBC shows hemoglobin of 11.2, actually increased from prior, unremarkable otherwise. Chemistry unremarkable. INR is 2.64. Discussed with Dr. Goodman. Because of patient's stable hemoglobin, unremarkable exam, well appearance, unremarkable INR, and now brown stool in the ostomy bag, it is felt patient is not bleeding significantly at this time. As result patient will be recommended for outpatient endoscopy (close follow-up with gastroenterology). I did call and speak with Dr. Acosta, patient follows with her and is to be seeing her soon, she does recommend that patient hold the Coumadin until Friday. I did discuss with patient the recommendations, follow- up, and return precautions in detail, patient states understanding and agreement with plan. - Vital Signs Vital signs: Temp Pulse Resp BP Pulse Ox 97.7 F 101 H 13 107/29 L 94 03/06/19 22:06 03/06/19 22:06 03/07/19 01:03 03/07/19 01:03 03/07/19 01:03 - Laboratory Result Diagrams: 03/06/19 23:37 03/06/19 23:37 Laboratory results interpreted by me: 03/06/19 03/06/19 23:37 23:37 Hgb 11.2 L Hct 33.4 L RDW 15.7 H PT 28.7 H Discharge - Discharge Clinical Impression: Black stools Condition: Stable Disposition: HOME, SELF-CARE Additional Instructions: Your work-up is reassuring. I spoke to Dr. Acosta, recommendation is still to hold your Coumadin until Friday and then resume. You need close follow-up with gastroenterology for endoscopy to be performed because of your recent bleeding. Return if you worsen including returned/increasing amounts of black stool, vomiting, vomiting blood, passing out, or any other concerning or worsening symptoms. Referrals: ANDREW BELTRAN MD [ACTIVE STAFF] - 03/08/19
[2019-03-07 00:02] LABS: INTERNATIONAL RATION (INR) 2.64; PROTHROMBIN TIME 28.7 SEC (11.4-15.4)
[2019-03-07 00:04] LABS: ABSOLUTE BASOPHILS # (AUTO) 0.1 10^3/uL (0.0-0.2); ABSOLUTE EOSINOPHILS # (AUTO) 0.2 10^3/uL (0.0-0.6); ABSOLUTE LYMPHOCYTES (AUTO) 1.4 10^3/uL (0.5-4.7); ABSOLUTE MONOCYTES (AUTO) 0.6 10^3/uL (0.1-1.4); ABSOLUTE NEUT (AUTO) 6.6 10^3/uL (1.7-8.2); BASOPHILS % (AUTO) 0.8 % (0-2); HEMATOCRIT 33.4 % (36.0-47.0); HEMOGLOBIN 11.2 g/dL (12.0-15.5); LYMPHOCYTES % (AUTO) 16.1 % (13-45); MEAN CORPUSCULAR HEMOGLOBIN 28.6 pg (27.0-33.4); MEAN CORPUSCULAR HGB CONC 33.6 g/dL (32.0-36.0); MEAN CORPUSCULAR VOLUME 85 fl (80-97); MONOCYTES % (AUTO) 6.8 % (3-13); PLATELET COUNT 280 10^3/uL (150-450); RED BLOOD COUNT 3.92 10^6/uL (3.72-5.28); RED CELL DISTRIBUTION WIDTH 15.7 % (11.5-14.0); SEGMENTED NEUTROPHILS % (AUTO) 74.3 % (42-78); TOTAL CELLS COUNTED % (AUTO) 100 %; WHITE BLOOD COUNT 8.9 10^3/uL (4.0-10.5)
[2019-03-07 00:13] LABS: ALANINE AMINOTRANSFERASE 22 U/L (9-52); ALBUMIN 4.1 g/dL (3.5-5.0); ALKALINE PHOSPHATASE 89 U/L (38-126); ANION GAP 10 (5-19); ASPARTATE AMINO TRANSFERASE 28 U/L (14-36); BILIRUBIN,DIRECT 0.2 mg/dL (0.0-0.4); BILIRUBIN,TOTAL 0.2 mg/dL (0.2-1.3); BLOOD UREA NITROGEN 20 mg/dL (7-20); CALCIUM 9.3 mg/dL (8.4-10.2); CARBON DIOXIDE 25 mmol/L (22-30); CHLORIDE 104 mmol/L (98-107); GLUCOSE 107 mg/dL (75-110); LIPASE 245.1 U/L (23-300); POTASSIUM 3.8 mmol/L (3.6-5.0); SODIUM 138.5 mmol/L (137-145); TOTAL PROTEIN 7.8 g/dL (6.3-8.2)
[2019-03-07 01:16] VITALS: BP 107/29
== END 2019-03-07 02:05 | disposition home or self-care (01) ==
LOC: ER 21:53
DX: R19.5 Other fecal abnormalities (principal); R10.9 Unspecified abdominal pain; I25.10 Atherosclerotic heart disease of native coronary artery without angina pectoris; E11.9 Type 2 diabetes mellitus without complications
CPT/HCPCS: 99283; 96361; 96374; 96375; 86900; 86901; 36415; 86850; 83690; 85025; 85610; 80053; J2270; C9113; J2405; J7040; S0164

== ENCOUNTER 2019-03-25 10:12 | Day surgery (SDC) | payer MEDICARE ==
--- NOTE | 2019-03-22 13:18 | EKG REPORT ---
SEVERITY:- ABNORMAL ECG - SINUS RHYTHM IVCD, CONSIDER ATYPICAL LBBB : Confirmed by: Pablo Franks MD 22-Mar-2019 13:18:23
[2019-03-22 13:27] LABS: APPEARANCE,URINE CLOUDY; BILIRUBIN,URINE NEGATIVE (NEGATIVE); COLOR,URINE YELLOW; GLUCOSE, URINE NEGATIVE (NEGATIVE); KETONES,URINE NEGATIVE (NEGATIVE); LEUKOCYTE ESTERASE,URINE LARGE (NEGATIVE); NITRITE,URINE NEGATIVE (NEGATIVE); PROTEIN,URINE NEGATIVE (NEGATIVE); URINE SPECIFIC GRAVITY 1.012; UROBILINOGEN,URINE NEGATIVE mg/dL (<2.0)
[2019-03-22 13:28] LABS: HEMATOCRIT 34.2 % (36.0-47.0); HEMOGLOBIN 11.5 g/dL (12.0-15.5); MEAN CORPUSCULAR HEMOGLOBIN 29.2 pg (27.0-33.4); MEAN CORPUSCULAR HGB CONC 33.6 g/dL (32.0-36.0); MEAN CORPUSCULAR VOLUME 87 fl (80-97); PLATELET COUNT 319 10^3/uL (150-450); RED BLOOD COUNT 3.94 10^6/uL (3.72-5.28); RED CELL DISTRIBUTION WIDTH 15.5 % (11.5-14.0); WHITE BLOOD COUNT 8.8 10^3/uL (4.0-10.5)
[2019-03-22 13:50] LABS: ANION GAP 12 (5-19); BLOOD UREA NITROGEN 23 mg/dL (7-20); CALCIUM 9.1 mg/dL (8.4-10.2); CARBON DIOXIDE 27 mmol/L (22-30); CHLORIDE 100 mmol/L (98-107); GLUCOSE 170 mg/dL (75-110); POTASSIUM 4.7 mmol/L (3.6-5.0)
[~2019-03-25 10:12] MED LIST: CEFAZOLIN 1 GM/D5W RTU 1 GM/50 ML RTUPB IV PRN; CLINDAMYCIN 600 MG/D5W RTU 600 MG/50 ML RTUPB IV PRN; LACTATED RINGERS 1000 ML IV PRN; LIDOCAINE 0.5% INJ-PF (5 MG/ML) 50 ML SDV SUBCUT PRN; METRONIDAZOLE 500 MG/NS RTU 500 MG/100 ML RTUPB IV ONE; METRONIDAZOLE 500 MG/NS RTU 500 MG/100 ML RTUPB IV PRN
[2019-03-25 11:15] LABS: INTERNATIONAL RATION (INR) 1.07; PARTIAL THROMBOPLASTIN TIME 28.2 SEC (23.5-35.8); PROTHROMBIN TIME 13.9 SEC (11.4-15.4)
[2019-03-25 11:35] LABS: POTASSIUM 4.4 mmol/L (3.6-5.0)
[2019-03-25] MEDS ORDERED: FENTANYL CITRATE INJ/PF 100 MCG/2 ML AMPUL IV PRN ×3 (12:57)
[2019-03-25] MEDS ORDERED: PROMETHAZINE HCL INJ 25 MG/1 ML VIAL IV PRN ×2 (12:57)
[2019-03-25] MEDS ORDERED: MEPERIDINE HCL/PF INJ 25 MG/1 ML DISP.SYRIN IV PRN (12:57)
[2019-03-25] MEDS ORDERED: DIPHENHYDRAMINE HCL 50 MG/ML VIAL IV PRN (12:57)
[2019-03-25] MEDS ORDERED: ONDANSETRON HCL INJ/PF 4 MG/2 ML SDV ONE (12:59)
[2019-03-25] MEDS ORDERED: PROPOFOL INJ 200 MG/20 ML VIAL IV ONE (13:39)
[2019-03-25] MEDS ORDERED: LIDOCAINE 2% INJ (20 MG/ML) 20 ML MDV ONE (13:40)
[2019-03-25] MEDS ORDERED: RINGERS SOLUTION,LACTATED 500 ML IV ONE (14:00)
--- NOTE | 2019-03-25 15:02 | Discharge Summary ---
Discharge Summary (SDC) - Discharge Final Diagnosis: Duodenal polyps rectal polyps GI bleeding history of diverticulitis Date of Surgery: 03/25/19 Condition: Good Referrals: RIGOBERTO GRACIA DO [Primary Care Provider] - Discharge Diet: As Tolerated Discharge Activity: Activity As Tolerated Report the Following to Your Physician Immediately: Shortness of Breath, Increas e in Pain - Patient needs a follow-up appointment with me 2 to 3 weeks
--- NOTE | 2019-03-25 15:17 | Operative Report ---
Nonrecallable Operative Report DATE OF SURGERY: 03/25/19 PREOPERATIVE DIAGNOSIS: Hematochezia POSTOPERATIVE DIAGNOSIS: Hematochezia OPERATION: Esophagogastroduodenoscopy, colonoscopy, proctoscopy ANESTHESIA: Moderate Sedation TISSUE REMOVED OR ALTERED: Rectal polyp at 30 cm sent for biopsy edema polyps multiple sent for biopsy COMPLICATIONS: None ESTIMATED BLOOD LOSS: Minimal INTRAOPERATIVE FINDINGS: See dictation PROCEDURE: Patient brought to the operating room and awake alert stable condition given IV sedation with propofol she was then placed in the left lateral decubitus position and the Olympus gastroscope was utilized for the first portion of the procedure the esophagogastroduodenoscopy The Olympus gastroscope was easily passed into the posterior pharynx and then advanced down the esophagus to the GE junction we identified the GE junction the past the scope further down into the antrum and then identified the pylorus and was able to easily intubate the pylorus we then began our visualization of the anatomy. We over the past the scope to the second portion of the duodenum as we brought the scope back pad into the first portion of the duodenum we noted multiple duodenal polyps circumferentially there were small about 1 to 2 cm in diameter there were sessile and they did not bleed on contact number of biopsies were obtained we then slowly withdrew the scope past the pylorus which appeared to be normal as well as the distal antrum body and cardia and fundus of the stomach there was a moderate sized hiatal hernia. Scope was then easily passed back through the GE junction into the distal esophagus which appeared to be normal without mucosal abnormalities and then slowly removed the patient was then placed in a correction the patient was then turned in the second portion of the procedures was begun. The Olympus colonoscope pediatric was placed into the rectum with the patient in the left lateral decubitus position we easily passed the scope up the rectum into the distal sigmoid colon and were able to advance the scope up approximately 30 cm we noted a number of diverticula not obvious bleeding. 30 cm there appeared to be a sessile polyp with cold biopsy that and sent for pathology the scope was slowly then removed then placed patient in a supine position remove the colostomy appliance from the left lower quadrant use the Olympus colonoscope to pass into the stoma. Scope was advanced through the stoma and into the distal descending colon there was no evidence of any hold-up in the parastomal hernia scope was then easily passed up the descending colon past the splenic flexure through the transverse colon around hepatic flexure into the cecum we identified the appendiceal orifice as we slowly removed the scope we examined all surface surfaces of the descending colon appeared to be normal as well as the hepatic flexure and transverse colon we then came slowly around the splenic flexure and noted diverticular diverticula of the descending colon but no further evidence of any polyps or other types of mucosal processes. Impression, duodenal polyp, decending colon diverticuli rectal polyp x1 recommond, awaiting path report of bx pt will f/u with me in 10-14 days.
[2019-03-25 17:09] VITALS: BP 127/55
== END 2019-03-25 16:50 | disposition home or self-care (01) ==
LOC: OROUT 10:12
PROVIDERS: ATTEND Surgery
DX: D12.8 Benign neoplasm of rectum (principal); K31.7 Polyp of stomach and duodenum; K92.1 Melena; E11.9 Type 2 diabetes mellitus without complications; Z85.3 Personal history of malignant neoplasm of breast; I49.3 Ventricular premature depolarization; Z95.2 Presence of prosthetic heart valve; Z87.891 Personal history of nicotine dependence; Z79.899 Other long term (current) drug therapy; Z86.73 Personal history of transient ischemic attack (TIA), and cerebral infarction without residual deficits
CPT/HCPCS: 43239; 45380; 44388; 93005; 36415 ×2; 82947; 84132; 85027; 85610; 85730; 80048; 81001; 88305 ×2; 93010; J3490 ×2; J2405; J2704; 813

== ENCOUNTER 2019-07-23 10:44 | Inpatient (IN) | payer MEDICARE ==
[2019-07-23 12:24] LABS: INTERNATIONAL RATION (INR) 1.65; PROTHROMBIN TIME 19.7 SEC (11.4-15.4)
[2019-07-23 12:34] LABS: HEMATOCRIT 38.6 % (36.0-47.0); MEAN CORPUSCULAR HEMOGLOBIN 29.7 pg (27.0-33.4); MEAN CORPUSCULAR HGB CONC 33.6 g/dL (32.0-36.0); MEAN CORPUSCULAR VOLUME 88 fl (80-97); PLATELET COUNT 213 10^3/uL (150-450); RED BLOOD COUNT 4.38 10^6/uL (3.72-5.28); RED CELL DISTRIBUTION WIDTH 15.4 % (11.5-14.0); WHITE BLOOD COUNT 7.4 10^3/uL (4.0-10.5)
[2019-07-23 12:41] LABS: ALKALINE PHOSPHATASE 79 U/L (38-126); ANION GAP 13 (5-19); ASPARTATE AMINO TRANSFERASE 19 U/L (14-36); BILIRUBIN,DIRECT 0.3 mg/dL (0.0-0.4); BILIRUBIN,TOTAL 0.6 mg/dL (0.2-1.3); BLOOD UREA NITROGEN 20 mg/dL (7-20); CALCIUM 9.3 mg/dL (8.4-10.2); CARBON DIOXIDE 22 mmol/L (22-30); CHLORIDE 103 mmol/L (98-107); GLUCOSE 210 mg/dL (75-110); POTASSIUM 4.8 mmol/L (3.6-5.0); TOTAL PROTEIN 7.6 g/dL (6.3-8.2)
[2019-07-23 12:42] LABS: VENOUS BLOOD BASE EXCESS -0.3 mmol/L; VENOUS BLOOD HCO3 24.7 mmol/L (20-32); VENOUS BLOOD PCO2 41.7 mmHg (35-63); VENOUS BLOOD PH 7.39 (7.30-7.42)
[2019-07-23 13:06] LABS: ABSOLUTE LYMPHOCYTES# (MANUAL) 0.4 10^3/uL (0.5-4.7); ABSOLUTE MONOCYTES # (MANUAL) 0.1 10^3/uL (0.1-1.4); BAND NEUTROPHILS % (MANUAL) 1 % (3-5); BASOPHILS % (MANUAL) 0 % (0-2); EOSINOPHILS % (MANUAL) 5 % (0-6); LYMPHOCYTES % (MANUAL) 5 % (13-45); MONOCYTES % (MANUAL) 2 % (3-13); SEGMENTED NEUTROPHILS % (MAN) 87 % (42-78); TOTAL CELLS COUNTED 100
[2019-07-23 13:08] LABS: OVALOCYTES SLIGHT; PLATELET COMMENT ADEQUATE; RBC MORPHOLOGY COMMENT NORMO-CYTIC/CHROMIC
--- NOTE | 2019-07-23 13:09 | EKG REPORT ---
SEVERITY:- ABNORMAL ECG - SINUS RHYTHM PROBABLE LEFT ATRIAL ABNORMALITY LBBB : Confirmed by: Maliha Rossi MD 23-Jul-2019 13:08:05
[2019-07-23 13:26] LABS: APPEARANCE,URINE CLOUDY; BILIRUBIN,URINE NEGATIVE (NEGATIVE); COLOR,URINE YELLOW; GLUCOSE, URINE NEGATIVE (NEGATIVE); KETONES,URINE NEGATIVE (NEGATIVE); LEUKOCYTE ESTERASE,URINE LARGE (NEGATIVE); NITRITE,URINE POSITIVE (NEGATIVE); PROTEIN,URINE 100 mg/dL (NEGATIVE); URINE SPECIFIC GRAVITY 1.013; UROBILINOGEN,URINE NEGATIVE mg/dL (<2.0)
[2019-07-23] MEDS ORDERED: OXYCODONE-ACETAMINOPHEN 5-325 MG TABLET PO ONE ×2 (13:54→16:33)
[2019-07-23] MEDS ORDERED: CEFTRIAXONE 1 GM/D5W RTU 1 GM/50 ML RTUPB IV ONE (14:25)
--- NOTE | 2019-07-23 15:04 | ER Document Report ---
Entered by MALCOLM DAVENPORT SCRIBE 07/23/19 1115 Acting as scribe for:BRANDIE KRISHNAMURTHY MD ED General - General Chief Complaint: Pain With Urination Stated Complaint: URINARY PROBLEMS Time Seen by Provider: 07/23/19 10:58 Primary Care Provider: RIGOBERTO GRACIA DO [NO LOCAL MD] - Follow up as needed Mode of Arrival: Ambulatory Information source: Patient, [facility] Records Notes: This 69 year old female patient presents to the ED with complaints of dysuria along with increased urinary frequency. Patient is a very poor historian so history is limited. Patient reports having these symptoms intermittently "on and off since March", with this episode beginning on 07/06 and remaining constant since then. Patient notes that she has a history of frequent urinary tract infections. TRAVEL OUTSIDE OF THE [place] IN LAST 30 DAYS: No - Related Data Allergies/Adverse Reactions: ciprofloxacin [From Cipro] Allergy (Verified 03/25/19 10:44) codeine Allergy (Verified 03/25/19 10:44) epinephrine Allergy (Verified 03/25/19 10:44) ertapenem [From Invanz] Allergy (Verified 03/25/19 10:44) imipenem Allergy (Verified 03/25/19 10:44) lidocaine [From Lidoderm] Allergy (Verified 03/25/19 10:44) menthol [From BenGay] Allergy (Verified 03/25/19 10:44) methyl salicylate [From BenGay] Allergy (Verified 03/25/19 10:44) Sulfa (Sulfonamide Antibiotics) Allergy (Verified 03/25/19 10:44) chocolate flavor Adverse Reaction (Verified 03/25/19 10:44) glyburide Adverse Reaction (Verified 03/25/19 10:44) lactose Adverse Reaction (Verified 03/25/19 10:44) Past Medical History - General Information source: Patient, [facility] Records, Outside Facility Records - Social History Smoking Status: Former Smoker - quit in 2014 Cigarette use (# per day): No Family History: Reviewed & Not Pertinent Patient has suicidal ideation: No Patient has homicidal ideation: No - Past Medical History Cardiac Medical History: Reports: Hx Congestive Heart Failure - acute diastolic CHF, Hx Coronary Artery Disease, Hx Hypertension, Hx Heart Murmur, Other - 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 Pulmonary Medical History: Reports: Hx COPD Neurological Medical History: Reports: Hx Cerebrovascular Accident, Other - Ar teriovenous malformation Endocrine Medical History: Reports: Hx Diabetes Mellitus Type 2 Malignancy Medical History: Reports: Hx Breast Cancer, Hx Lymphoma - T-cell lymphoma s/p radiation, Hx Skin Cancer - Squamous Cell Carcinoma GI Medical History: Reports: Hx Diverticulitis, Other - GI Bleed Psychiatric Medical History: Reports: Hx Anxiety, Hx Depression Past Surgical History: Reports: Hx Bowel Surgery - Partial colectomy, ileostomy, Hx Cardiac Catheterization, Hx Cholecystectomy, Hx Colostomy, Hx Coronary Stent, Hx Mastectomy, Hx Valve Replacement - aortic valve replacement in 2018, Other - EGD 04/16 for GI bleed - Immunizations Hx Diphtheria, Pertussis, Tetanus Vaccination: No Review of Systems - Review of Systems Constitutional: No symptoms reported EENT: No symptoms reported Cardiovascular: No symptoms reported Respiratory: No symptoms reported Gastrointestinal: No symptoms reported Genitourinary: See HPI, Dysuria, Frequency Female Genitourinary: No symptoms reported Musculoskeletal: No symptoms reported Skin: No symptoms reported Hematologic/Lymphatic: No symptoms reported Neurological/Psychological: No symptoms reported -: Yes All other systems reviewed and negative Physical Exam - Vital signs Vitals: Temp Pulse Resp BP Pulse Ox 98.8 F 102 H 18 153/84 H 96 07/23/19 10:53 07/23/19 10:53 07/23/19 10:53 07/23/19 10:53 07/23/19 10:53 - General General appearance: Alert - HEENT Head: Normocephalic, Atraumatic Eyes: Normal Pupils: PERRL - Respiratory Respiratory status: No respiratory distress Chest status: Nontender Breath sounds: Normal Chest palpation: Normal - Cardiovascular Rhythm: Regular Heart sounds: Normal auscultation Murmur: No - Abdominal Inspection: Normal Distension: No distension Bowel sounds: Normal Tenderness: Tender - suprapubic Organomegaly: No organomegaly - Back Back: Normal, Nontender - Extremities General upper extremity: Normal inspection General lower extremity: Normal inspection - Neurological Neuro grossly intact: Yes - Psychological Associated symptoms: Normal affect, Normal mood - Skin Skin Temperature: Warm Skin Moisture: Dry Skin Color: Normal Course - Re-evaluation Re-evalutation: 07/23/19 14:25 Microbiology studies from [place] show the patient had a urine growing E. coli on 05/18/2019 and the urine growing Proteus mirabilis on 04/30/2019. - Vital Signs Vital signs: Temp Pulse Resp BP Pulse Ox 98.5 F 102 H 16 154/78 H 97 07/23/19 13:01 07/23/19 10:53 07/23/19 13:01 07/23/19 13:01 07/23/19 13:01 - Laboratory Result Diagrams: 07/23/19 12:07 07/23/19 12:07 Laboratory results interpreted by me: 07/23/19 07/23/19 07/23/19 11:50 12:07 12:07 RDW 15.4 H Seg Neuts % (Manual) 87 H Band Neutrophils % 1 L Lymphocytes % (Manual) 5 L Monocytes % (Manual) 2 L Abs Lymphs (Manual) 0.4 L PT Est GFR (MDRD) Non-Af Glucose POC Glucose 227 H Lactic Acid (Sepsis) 2.7 H Urine Protein Urine Blood Urine Nitrite Ur Leukocyte Esterase 07/23/19 07/23/19 07/23/19 12:07 12:07 12:46 RDW Seg Neuts % (Manual) Band Neutrophils % Lymphocytes % (Manual) Monocytes % (Manual) Abs Lymphs (Manual) PT 19.7 H Est GFR (MDRD) Non-Af 52 L Glucose 210 H POC Glucose Lactic Acid (Sepsis) Urine Protein 100 H Urine Blood SMALL H Urine Nitrite POSITIVE H Ur Leukocyte Esterase LARGE H - EKG Interpretation by Me EKG shows normal: Sinus rhythm, [place], Intervals, QRS Complexes, ST-T Waves Rate: Normal - 89 Rhythm: NSR [place]/QRS: LBBB, IVCD P Waves: LAE When compared to previous EKG there are: No significant change Discharge - Discharge Clinical Impression: Urinary tract infection Qualifiers: Urinary tract infection type: acute cystitis Hematuria presence: with hematuria Qualified Code(s): N30.01 - Acute cystitis with hematuria Squamous cell carcinoma lung Qualifiers: Laterality: unspecified laterality Qualified Code(s): C34.90 - Malignant neoplasm of unspecified part of unspecified bronchus or lung DM type 2 (diabetes mellitus, type 2) Qualifiers: Diabetes mellitus salvage determiner insulin use: unspecified skilled nursing insulin use status Diabetes mellitus complication status: without complication Qualified Code(s): E11.9 - Type 2 diabetes mellitus without complications Condition: Good Disposition: ADMITTED INPATIENT Admitting Provider: Bayron (Hospitalist) Unit Admitted: Medical Floor Referrals: RIGOBERTO GRACIA DO [NO LOCAL MD] - Follow up as needed Scribe Attestation: 07/23/19 14:29 I personally performed the services described in the documentation, reviewed and edited the documentation which was dictated to the scribe in my presence, and it accurately records my words and actions. I personally performed the services described in the documentation, reviewed and edited the documentation which was dictated to the scribe in my presence, and it accurately records my words and actions.
--- NOTE | 2019-07-23 15:17 | RADIOLOGY REPORT (SQ) ---
EXAM DESCRIPTION: CHEST SINGLE VIEW COMPLETED DATE/TIME: 07/23/2019 2:57 pm REASON FOR STUDY: uti, copd, debility COMPARISON: 12/22/2018 EXAM PARAMETERS: NUMBER OF VIEWS: One view. TECHNIQUE: Single frontal radiographic view of the chest acquired. RADIATION DOSE: NA LIMITATIONS: None. FINDINGS: LUNGS AND PLEURA: No opacities, masses or pneumothorax. No pleural effusion. MEDIASTINUM AND HILAR STRUCTURES: No masses. Contour normal. HEART AND VASCULAR STRUCTURES: Enlarged cardiac silhouette, stable. Aortic valvular prostheses. Vas cular calcifications. BONES: No acute findings. HARDWARE: Aortic valve prostheses. Surgical clips overlie right axilla. OTHER: No other significant finding. IMPRESSION: Stable enlarged cardiac silhouette. No other evidence of acute cardiopulmonary process. TECHNICAL DOCUMENTATION: JOB ID: [id number] [employer]- All Rights Reserved Reading location - IP/workstation name: [email or web address]
--- NOTE | 2019-07-23 16:39 | PDOC H&P ---
History of Present Illness Admission Date/PCP: 07/23/19 15:08 Patient complains of: Dysuria and polyuria History of Present Illness: RODRIGUEZ TOM is a 69 year old female with an extensive history of recurrent UTIs, Colon bladder fistula s/p surgical intervention 2017 (not specified), Diverticulitis s/p colectomy with colostomy, Squamous cell cancer of the lung s/p recent radiation, aortic arch thrombosis, PVCs, TAVR with bovine aortic valve, CAD S/P BMS to mid RCA, breast cancer s/p mastectomy [>20 years ago]. Today she presents with burning 7/10 suprapubic pain, dysuria and polyuria which has been ongoing for the past several days. Also complains of malodorous urine and left flank pain associated with nausea and a few episodes of vomiting. Measured her temperature yesterday at home and was 100.9. States that it feels similar to her prior UTIs. Patient had urine culture done by her home nurse yesterday which is now growing gram-negative rods. Of note patient was recently treated for UTI at [facility] last month and has had multiple episodes of UTIs since her fistula developed. Dr. Chin was consulted by the ER physician who states that he would like to have patient admitted for treatment of UTI and hydration. 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 Denies: Myocardial Infarction Pulmonary Medical History: Reports: Chronic Obstructive Pulmonary Disease (COPD) Denies: Asthma, Bronchitis, Pneumonia Neurological Medical History: Reports: Other - Arteriovenous malformation Denies: Seizures Endocrine Medical History: Reports: Diabetes Mellitus Type 2 Malignancy Medical History: Reports: Breast Cancer, Lymphoma - T-cell lymphoma s/p radiation, Skin Cancer - Squamous Cell Carcinoma GI Medical History: Reports: Diverticulitis, Other - GI Bleed Musculoskeltal Medical History: Denies: Arthritis Hematology: Reports: Anemia Past Surgical History Past Surgical History: Reports: Cardiac Catheterization, Cholecystectomy, Colostomy, Coronary Stent, Mastectomy, Valve Replacement - aortic valve re placement in 2018, Other - EGD 04/16 for GI bleed Social History Smoking Status: Former Smoker - quit in 2014 Frequency of Alcohol Use: None Hx Recreational Drug Use: No Hx Prescription Drug Abuse: No - Advance Directive Resuscitation Status: Do Not Intubate Family History Family History: Reviewed & Not Pertinent Parental Family History Reviewed: Yes Children Family History Reviewed: NA Sibling(s) Family History Reviewed.: Yes Medication/Allergy Home Medications: Albuterol Sulfate [Proair HFA Inhalation Aerosol 8.5 gm MDI] 2 puff IH Q4HP PRN 07/23/19 Docusate Sodium [Colace 100 mg Capsule] 100 mg PO DAILY 07/23/19 Magnesium Oxide [Mag-Ox 400 mg Tablet] 80 mg PO BID 07/23/19 Meloxicam [Mobic] 7.5 mg PO DAILY 07/23/19 Nystatin [Mycostatin Topical Powder 15 gm] 1 applic TOP BID 07/23/19 Ondansetron HCl [Zofran 4 mg Tablet] 1 tab PO Q8 07/23/19 Oxycodone HCl/Acetaminophen [Percocet 5-325 mg Tablet] 1 each PO Q4HP PRN 07/23/19 Pantoprazole Sodium [Protonix [address] Tablet] 40 mg PO QAM 07/23/19 Rivaroxaban [Xarelto] 20 mg PO QPM 07/23/19 Sertraline HCl 150 mg PO DAILY 07/23/19 Tamsulosin HCl [Flomax 0.4 mg Cap.sr] 0.4 mg PO DAILY 07/23/19 Trazodone HCl [Desyrel] 100 mg PO QHS 07/23/19 Allergies/Adverse Reactions: ciprofloxacin [From Cipro] Allergy (Verified 03/25/19 10:44) codeine Allergy (Verified 03/25/19 10:44) epinephrine Allergy (Verified 03/25/19 10:44) ertapenem [From Invanz] Allergy (Verified 03/25/19 10:44) imipenem Allergy (Verified 03/25/19 10:44) lidocaine [From Lidoderm] Allergy (Verified 03/25/19 10:44) menthol [From BenGay] Allergy (Verified 03/25/19 10:44) methyl salicylate [From BenGay] Allergy (Verified 03/25/19 10:44) Sulfa (Sulfonamide Antibiotics) Allergy (Verified 03/25/19 10:44) chocolate flavor Adverse Reaction (Verified 03/25/19 10:44) glyburide Adverse Reaction (Verified 03/25/19 10:44) lactose Adverse Reaction (Verified 03/25/19 10:44) Review of Systems Constitutional: PRESENT: fever(s) Eyes: PRESENT: visual disturbances Nose, Mouth, and Throat: ABSENT: headache(s) Cardiovascular: PRESENT: chest pain - Off and on occasion and sore since radiation Respiratory: ABSENT: dyspnea Gastrointestinal: PRESENT: abdominal pain, nausea, vomiting. ABSENT: diarrhea Genitourinary: PRESENT: dysuria Musculoskeletal: PRESENT: back pain Neurological: PRESENT: weakness - Generalized. ABSENT: confusion Endocrine: PRESENT: polyuria Hematologic/Lymphatic: ABSENT: easy bleeding, easy bruising Physical Exam Vital Signs: Temp Pulse Resp BP Pulse Ox 98.5 F 102 H 16 154/78 H 97 07/23/19 13:01 07/23/19 10:53 07/23/19 13:01 07/23/19 13:01 07/23/19 13:01 Intake & Output 07/22/19 07/23/19 07/24/19 06:59 06:59 06:59 Weight 68.5 kg General appearance: PRESENT: no acute distress, cooperative Respiratory exam: PRESENT: chest wall tenderness, clear to auscultation [place], symmetrical, unlabored. ABSENT: accessory muscle use, rhonchi, tachypnea, wheezes Cardiovascular exam: PRESENT: RRR, +S1, +S2. ABSENT: bradycardia, tachycardia GI/Abdominal exam: PRESENT: normal bowel sounds, soft. ABSENT: distended, firm, guarding, rebound, rigid, tenderness - Suprapubic and left CVA tenderness Extremities exam: ABSENT: calf tenderness Neurological exam: PRESENT: alert, awake, oriented to person, oriented to place, oriented to time, oriented to situation Psychiatric exam: PRESENT: anxious - Occasionally Results Laboratory Results: 07/23/19 12:07 07/23/19 12:07 07/23/19 07/23/19 07/23/19 12:07 12:07 12:07 WBC 7.4 RBC 4.38 Hgb 13.0 Hct 38.6 MCV 88 MCH 29.7 MCHC 33.6 RDW 15.4 H Plt Count 213 Seg Neutrophils % Not Reportable VBG pH 7.39 VBG pCO2 41.7 VBG HCO3 24.7 VBG Base Excess -0.3 Sodium 138.1 Potassium 4.8 Chloride 103 Carbon Dioxide 22 Anion Gap 13 BUN 20 Creatinine 1.06 Est GFR ( Amer) > 60 Glucose 210 H Calcium 9.3 Total Bilirubin 0.6 AST 19 Alkaline Phosphatase 79 Total Protein 7.6 Albumin 4.0 Urine Color Urine Appearance Urine pH Ur Specific [place] Urine Protein Urine Glucose (UA) Urine Ketones Urine Blood Urine Nitrite Ur Leukocyte Esterase Urine WBC (Auto) Urine RBC (Auto) 07/23/19 12:46 WBC RBC Hgb Hct MCV MCH MCHC RDW Plt Count Seg Neutrophils % VBG pH VBG pCO2 VBG HCO3 VBG Base Excess Sodium Potassium Chloride Carbon Dioxide Anion Gap BUN Creatinine Est GFR ( Amer) Glucose Calcium Total Bilirubin AST Alkaline Phosphatase Total Protein Albumin Urine Color YELLOW Urine Appearance CLOUDY Urine pH 6.0 Ur Specific [place] 1.013 Urine Protein 100 H Urine Glucose (UA) NEGATIVE Urine Ketones NEGATIVE Urine Blood SMALL H Urine Nitrite POSITIVE H Ur Leukocyte Esterase LARGE H Urine WBC (Auto) >182 Urine RBC (Auto) 8 Impressions: Chest X-Ray 07/23/19 14:26 IMPRESSION: Stable enlarged cardiac silhouette. No other evidence of acute cardiopulmonary process. Assessment and Plan - Diagnosis (1) Complicated urinary tract infection Is this a current diagnosis for this admission?: Yes Plan: Predisposing risk factor seems to be a history of entero-cystic fistula though I am unaware of the status of this as patient is not able to specify if an actual fistulectomy was ever performed Urinalysis was positive and urine cultures obtained yesterday and now growing gram-negative rods Patient does endorse systemic symptoms which may be concerning for acute pyelonephritis. I will start patient on ceftriaxone daily Await urine cultures speciation and follow-up blood cultures Patient will strongly benefit from seeing a urologist in the outpatient setting (2) Squamous cell carcinoma of lung Qualifiers: Laterality: unspecified laterality Qualified Code(s): C34.90 - Malignant neoplasm of unspecified part of unspecified bronchus or lung Is this a current diagnosis for this admission?: Yes Plan: Patient informs me of mediastinal lymph node involvement and recently received radiation therapy [facility] in [place] for this. We will consult Dr. Jayaram Pain control (3) Type 2 diabetes mellitus Qualifiers: Diabetes mellitus nursing home insulin use: unspecified nursing home insulin use status Diabetes mellitus complication status: without complication Qualified Code(s): E11.9 - Type 2 diabetes mellitus without complications Is this a current diagnosis for this admission?: Yes Plan: Uncontrolled Used to take glipizide 10 mg before and was placed on insulin but states that she could not afford the insulin medication because of her Medicaid However will restart her glipizide Check A1c Sliding-scale insulin and Accu-Cheks, diabetic diet. (4) CAD (coronary artery disease) Qualifiers: Coronary Disease-Associated Artery/Lesion type: [place] artery [place] vs. transplanted heart: crow heart Is this a current diagnosis for this admission?: Yes Plan: s/p BMS to the mid RCA (5) Generalized weakness Is this a current diagnosis for this admission?: Yes Plan: PT/OT (6) Lactic acid acidosis Is this a current diagnosis for this admission?: Yes Plan: Hydrate adequately and follow-up repeat lactic acid - Time Time Spent with patient: 35 or more minutes
[2019-07-23] MEDS ORDERED: IPRATROPIUM/ALBUTEROL 0.5-2.5 MG/3 ML AMPUL NEB PRN (16:41)
[2019-07-23] MEDS ORDERED: ONDANSETRON HCL INJ/PF 4 MG/2 ML SDV IV PRN (16:41)
[2019-07-23] MEDS ORDERED: NORMAL SALINE 1000 ML 1,000 ML IV PRN (16:51)
[2019-07-23] MEDS ORDERED: DEXTROSE 40% GEL 15 GM TUBE PO PRN ×2 (17:17)
[2019-07-23] MEDS ORDERED: DEXTROSE 50%-WATER 25 GM/50 ML DISP.SYRIN IV PRN ×2 (17:17)
[2019-07-23] MEDS ORDERED: GLUCAGON,HUMAN RECOMB 1 MG INJ IM PRN (17:17)
[2019-07-23] MEDS ORDERED: NYSTATIN PO SCH (18:00)
[2019-07-23] MEDS: RIVAROXABAN 10 MG TABLET PO SCH (19:20)
[2019-07-23] MEDS: MAGNESIUM OXIDE 400 MG TABLET PO SCH (19:20)
[2019-07-23] MEDS: OXYCODONE-ACETAMINOPHEN 5-325 MG TABLET PO PRN (19:21)
[2019-07-23] MEDS: NYSTATIN TOPICAL POWDER 15 GM TP SCH (19:57)
[2019-07-23] MEDS: TRAZODONE HCL 50 MG TABLET PO SCH (22:23)
[2019-07-23] MEDS: CLONAZEPAM 1 MG TABLET PO PRN (22:23)
[2019-07-23] MEDS: INSULIN LISPRO 100 UNIT/ML 3 ML VIAL SUBCUT SCH (22:26)
[2019-07-24 05:37] LABS: HEMATOCRIT 35.2 % (36.0-47.0); MEAN CORPUSCULAR HGB CONC 34.2 g/dL (32.0-36.0); MEAN CORPUSCULAR VOLUME 88 fl (80-97); PLATELET COUNT 192 10^3/uL (150-450); RED BLOOD COUNT 4.02 10^6/uL (3.72-5.28); RED CELL DISTRIBUTION WIDTH 15.6 % (11.5-14.0); WHITE BLOOD COUNT 5.5 10^3/uL (4.0-10.5)
[2019-07-24 05:56] LABS: ANION GAP 9 (5-19); BLOOD UREA NITROGEN 19 mg/dL (7-20); CALCIUM 8.8 mg/dL (8.4-10.2); CARBON DIOXIDE 24 mmol/L (22-30); CHLORIDE 107 mmol/L (98-107); GLUCOSE 152 mg/dL (75-110)
[2019-07-24 05:59] LABS: ABSOLUTE LYMPHOCYTES# (MANUAL) 0.4 10^3/uL (0.5-4.7); ABSOLUTE MONOCYTES # (MANUAL) 0.7 10^3/uL (0.1-1.4); BASOPHILS % (MANUAL) 0 % (0-2); EOSINOPHILS % (MANUAL) 4 % (0-6); LYMPHOCYTES % (MANUAL) 8 % (13-45); MONOCYTES % (MANUAL) 13 % (3-13); SEGMENTED NEUTROPHILS % (MAN) 75 % (42-78); TOTAL CELLS COUNTED 100
[2019-07-24 06:00] LABS: ANISOCYTOSIS SLIGHT; PLATELET COMMENT ADEQUATE
[2019-07-24] MEDS: PANTOPRAZOLE SODIUM 40 MG TABLET.DR PO SCH (07:49)
[2019-07-24] MEDS: INSULIN LISPRO 100 UNIT/ML 3 ML VIAL SUBCUT SCH ×4 (07:50→21:36)
[2019-07-24] MEDS: OXYCODONE-ACETAMINOPHEN 5-325 MG TABLET PO PRN ×2 (08:44→14:22)
[2019-07-24] MEDS ORDERED: CEFTRIAXONE 1 GM/D5W RTU 1 GM/50 ML RTUPB IV SCH (10:00)
[2019-07-24] MEDS: TAMSULOSIN HCL 0.4 MG CAP.SR.24H PO SCH (10:19)
[2019-07-24] MEDS: CLONAZEPAM 1 MG TABLET PO PRN ×2 (10:19→21:33)
[2019-07-24] MEDS: GLIPIZIDE 10 MG TABLET PO SCH (10:19)
[2019-07-24] MEDS: MELOXICAM 7.5 MG TABLET PO SCH (10:19)
[2019-07-24] MEDS: MAGNESIUM OXIDE 400 MG TABLET PO SCH ×2 (10:19→17:08)
[2019-07-24] MEDS: SERTRALINE HCL 50 MG TABLET PO SCH (10:19)
[2019-07-24] MEDS: DOCUSATE SODIUM 100 MG CAPSULE PO SCH (10:19)
[2019-07-24] MEDS: NYSTATIN TOPICAL POWDER 15 GM TP SCH ×2 (10:20→17:08)
--- NOTE | 2019-07-24 15:17 | PDOC PROGRESS REPORT ---
Subjective Progress Note for:: 07/24/19 Subjective:: Patient feels a little better today. Still experiencing abdominal pain mostly suprapubic though somewhat generalized. Has some improvement in nausea. Has not spiked any fevers. Reason For Visit: COMPLICATED UTI Physical Exam Vital Signs: Temp Pulse Resp BP Pulse Ox 97.6 F 94 18 139/79 H 94 07/24/19 12:00 07/24/19 12:00 07/24/19 12:00 07/24/19 12:00 07/24/19 12:00 Intake & Output 07/23/19 07/24/19 07/25/19 06:59 06:59 06:59 Intake Total 1470 50 Balance 1470 50 Weight 88.7 kg General appearance: PRESENT: no acute distress, cooperative Respiratory exam: PRESENT: symmetrical, unlabored. ABSENT: accessory muscle use, retraction, rhonchi, tachypnea, wheezes Cardiovascular exam: PRESENT: +S1, +S2. ABSENT: bradycardia, tachycardia GI/Abdominal exam: PRESENT: normal bowel sounds, soft, tenderness - Generalized but worse in suprapubic region into flanks. ABSENT: guarding, rebound, rigid Neurological exam: PRESENT: alert, awake, oriented to person, oriented to place, oriented to time, oriented to situation Psychiatric exam: ABSENT: agitated Results Laboratory Results: 07/24/19 04:53 07/24/19 04:53 07/24/19 07/24/19 04:53 04:53 WBC 5.5 RBC 4.02 Hgb 12.0 Hct 35.2 L MCV 88 MCH 30.0 MCHC 34.2 RDW 15.6 H Plt Count 192 Seg Neutrophils % Not Reportable Sodium 139.8 Potassium 4.0 Chloride 107 Carbon Dioxide 24 Anion Gap 9 BUN 19 Creatinine 1.01 Est GFR ( Amer) > 60 Glucose 152 H Calcium 8.8 Magnesium 1.8 Impressions: Chest X-Ray 07/23/19 14:26 IMPRESSION: Stable enlarged cardiac silhouette. No other evidence of acute cardiopulmonary process. Assessment and Plan - Diagnosis (1) Complicated urinary tract infection Is this a current diagnosis for this admission?: Yes Plan: Predisposing risk factor seems to be a history of entero-cystic fistula though I am unaware of the status of this as patient is not able to specify if an actual fistulectomy was ever performed Urine from the day prior to admission growing pansensitive E. coli I will de-escalate antibiotics to Ancef Patient will strongly benefit from seeing a urologist in the outpatient setting (2) Squamous cell carcinoma of lung Qualifiers: Laterality: unspecified laterality Qualified Code(s): C34.90 - Malignant neoplasm of unspecified part of unspecified bronchus or lung Is this a current diagnosis for this admission?: Yes Plan: Patient informs me of mediastinal lymph node involvement and recently received radiation therapy [facility] in [place] for this. Consulted Dr. Chin Pain control (3) Type 2 diabetes mellitus Qualifiers: Diabetes mellitus physician intensivist insulin use: unspecified intermediate insulin use status Diabetes mellitus complication status: without complication Qualified Code(s): E11.9 - Type 2 diabetes mellitus without complications Is this a current diagnosis for this admission?: Yes Plan: Uncontrolled Used to take glipizide 10 mg before and was placed on insulin but states that she could not afford the insulin medication because of her Medicaid Placed on glipizide Sliding-scale insulin and Accu-Cheks, diabetic diet. (4) CAD (coronary artery disease) Qualifiers: Coronary Disease-Associated Artery/Lesion type: [place] artery [place] vs. transplanted heart: [place] heart Is this a current diagnosis for this admission?: Yes Plan: s/p BMS to the mid RCA (5) Generalized weakness Is this a current diagnosis for this admission?: Yes Plan: PT/OT (6) Lactic acid acidosis Is this a current diagnosis for this admission?: Yes Plan: Resolved - Time Time Spent with patient: 15-24 minutes
[2019-07-24] MEDS ORDERED: OXYCODONE-ACETAMINOPHEN 5-325 MG TABLET PO ONE (15:49)
--- NOTE | 2019-07-24 16:05 | PDOC CONSULTATION ---
Consultation Consult Date: 07/24/19 Provider Consulted: MICHAEL VALLEJO Consult reason:: Hematology/Oncology consultation was requested for patient on active treatment for lung cancer. She was admitted for recurrent UTI. History of Present Illness Admission Date/PCP: 07/23/19 15:08 History of Present Illness: RODRIGUEZ TOM is a 69 year old female with an extensive history of recurrent UTIs, Colon bladder fistula s/p surgical intervention 2017 (not specified), Diverticulitis s/p colectomy with colostomy, Squamous cell cancer of the lung s/p recent radiation, aortic arch thrombosis, PVCs, TAVR with bovine aortic valve, CAD S/P BMS to mid RCA, breast cancer s/p mastectomy [>20 years ago]. She states that she was just discharged from the hospital in [place] but has a 4-5 day history of dysuria. 7/10 suprapubic pain, and polyuria. Also complains of malodorous urine and left flank pain associated with nausea and a few episodes of vomiting. States that it feels similar to her prior UTIs. Of note patient was recently treated for UTI at [facility] last month and has had multiple episodes of UTIs since her fistula developed. She has been undergoing radiation, according to the patient, but my records are incomplete and I am not sure exactly what is being radiated. Today, she states that she has a headache and that the pain medications thus far have not helped. She states that she was given a Rx for oxycodone by Dr. Chin, but she was unable to afford this medication at home. Fioricet has worked for her headaches in the past. Her dysuria today is feeling better. She is also complaining that she needs to be moved to a larger room, as the bathroom here has no place to put her ostomy supplies to change her wafer, except on the toilet. She has no appetite and has difficulty swallowing due to recent radiation. She had nausea and vomiting yesterday. Past Medical History Cardiac Medical History: Reports: Congestive Heart Failure - acute diastolic CHF, Coronary Artery Disease, Hypertension, Heart Murmur, Other - 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 Denies: Myocardial Infarction Pulmonary Medical History: Reports: Chronic Obstructive Pulmonary Disease (COPD) Denies: Asthma, Bronchitis, Pneumonia Neurological Medical History: Reports: Other - Arteriovenous malformation Denies: Seizures Endocrine Medical History: Reports: Diabetes Mellitus Type 2 Malignancy Medical History: Reports: Breast Cancer, Lymphoma - T-cell lymphoma s/p radiation, Skin Cancer - Squamous Cell Carcinoma GI Medical History: Reports: Diverticulitis, Other - GI Bleed Musculoskeltal Medical History: Denies: Arthritis Psychiatric Medical History: Reports: Depression Hematology: Reports: Anemia Past Surgical History Past Surgical History: Reports: Cardiac Catheterization, Cholecystectomy, Colostomy, Coronary Stent, Mastectomy, Valve Replacement - aortic valve replacement in 2018, Other - EGD 04/16 for GI bleed Social History Information Source: Patient Lives with: Other - Lives with daughter Smoking Status: Former Smoker Frequency of Alcohol Use: None Hx Recreational Drug Use: No Hx Prescription Drug Abuse: No Past Social History Note: 2 children, 7 grandchildren. She quit smoking a few years ago. - Advance Directive Resuscitation Status: Do Not Intubate Family History Family History: Reviewed & Not Pertinent Parental Family History Reviewed: Yes - Mother with pancreatic cancer. Father with aneurism Children Family History Reviewed: No Sibling(s) Family History Reviewed.: Yes - Brother with breast cancer Medication/Allergy Home Medications: Albuterol Sulfate [Proair HFA Inhalation Aerosol 8.5 gm MDI] 2 puff IH Q4HP PRN 07/23/19 Docusate Sodium [Colace 100 mg Capsule] 100 mg PO DAILY 07/23/19 Magnesium Oxide [Mag-Ox 400 mg Tablet] 80 mg PO BID 07/23/19 Meloxicam [Mobic] 7.5 mg PO DAILY 07/23/19 Nystatin [Mycostatin Topical Powder 15 gm] 1 applic TOP BID 07/23/19 Ondansetron HCl [Zofran 4 mg Tablet] 1 tab PO Q8 07/23/19 Oxycodone HCl/Acetaminophen [Percocet 5-325 mg Tablet] 1 each PO Q4HP PRN 07/23/19 Pantoprazole Sodium [Protonix [address] Tablet] 40 mg PO QAM 07/23/19 Rivaroxaban [Xarelto] 20 mg PO QPM 07/23/19 Sertraline HCl 150 mg PO DAILY 07/23/19 Tamsulosin HCl [Flomax 0.4 mg Cap.sr] 0.4 mg PO DAILY 07/23/19 Trazodone HCl [Desyrel] 100 mg PO QHS 07/23/19 Carvedilol [Coreg 3.125 mg Tablet] 1 tab PO BID 07/24/19 Clonazepam 0.5 mg PO TIDP PRN 07/24/19 Glipizide [Glucotrol 10 mg Tablet] 10 mg PO DAILY 07/24/19 Sucralfate [Carafate] 10 ml PO ASDIR PRN 07/24/19 Allergies/Adverse Reactions: ciprofloxacin [From Cipro] Allergy (Verified 03/25/19 10:44) epinephrine Allergy (Verified 03/25/19 10:44) ertapenem [From Invanz] Allergy (Verified 03/25/19 10:44) imipenem Allergy (Verified 03/25/19 10:44) lidocaine [From Lidoderm] Allergy (Verified 03/25/19 10:44) menthol [From BenGay] Allergy (Verified 03/25/19 10:44) methyl salicylate [From BenGay] Allergy (Verified 03/25/19 10:44) Sulfa (Sulfonamide Antibiotics) Allergy (Verified 03/25/19 10:44) chocolate flavor Adverse Reaction (Verified 03/25/19 10:44) codeine Adverse Reaction (Verified 07/23/19 22:02) glyburide Adverse Reaction (Verified 03/25/19 10:44) lactose Adverse Reaction (Verified 03/25/19 10:44) Review of Systems Constitutional: PRESENT: fatigue, fever(s), headache(s) Eyes: ABSENT: visual disturbances Ears: ABSENT: hearing changes Nose, Mouth, and Throat: PRESENT: sore throat Respiratory: ABSENT: dyspnea Gastrointestinal: PRESENT: dysphagia, heartburn Genitourinary: PRESENT: dysuria Musculoskeletal: PRESENT: back pain Integumentary: ABSENT: rash Neurological: PRESENT: weakness Hematologic/Lymphatic: ABSENT: easy bleeding Physical Exam Vital Signs: Temp Pulse Resp BP Pulse Ox 97.6 F 94 18 139/79 H 94 07/24/19 12:00 07/24/19 12:00 07/24/19 12:00 07/24/19 12:00 07/24/19 12:00 Intake & Output 07/23/19 07/24/19 07/25/19 06:59 06:59 06:59 Intake Total 1470 50 Balance 1470 50 Weight 88.7 kg General appearance: PRESENT: no acute distress, well-developed, well-nourished Exam: 69 year old female. Head exam: PRESENT: atraumatic, normocephalic Eye exam: PRESENT: EOMI Mouth exam: PRESENT: tongue midline Neck exam: PRESENT: lymphadenopathy - Left anterio cervical Respiratory exam: PRESENT: clear to auscultation bartolome, unlabored Cardiovascular exam: PRESENT: RRR GI/Abdominal exam: PRESENT: normal bowel sounds, soft, other - ostomy functioning well. Rectal exam: ABSENT: bloody stool, fecal impaction Extremities exam: ABSENT: pedal edema Musculoskeletal exam: PRESENT: full ROM Neurological exam: PRESENT: alert, awake Psychiatric exam: PRESENT: appropriate affect Skin exam: PRESENT: normal color Results Laboratory Results: 07/24/19 04:53 07/24/19 04:53 07/24/19 07/24/19 04:53 04:53 WBC 5.5 RBC 4.02 Hgb 12.0 Hct 35.2 L MCV 88 MCH 30.0 MCHC 34.2 RDW 15.6 H Plt Count 192 Seg Neutrophils % Not Reportable Sodium 139.8 Potassium 4.0 Chloride 107 Carbon Dioxide 24 Anion Gap 9 BUN 19 Creatinine 1.01 Est GFR ( Amer) > 60 Glucose 152 H Calcium 8.8 Magnesium 1.8 Impressions: Chest X-Ray 07/23/19 14:26 IMPRESSION: Stable enlarged cardiac silhouette. No other evidence of acute cardiopulmonary process. Assessment & Plan - Diagnosis (1) Hypercoagulable state Is this a current diagnosis for this admission?: Yes Plan: Continue Xarelto without changes. No evidence of bleeding currently. (2) Urinary tract infection Qualifiers: Urinary tract infection type: acute cystitis Hematuria presence: with hematuria Qualified Code(s): N30.01 - Acute cystitis with hematuria Is this a current diagnosis for this admission?: Yes Plan: On appropriate antibiotics. (3) Squamous cell carcinoma of lung Qualifiers: Laterality: unspecified laterality Qualified Code(s): C34.90 - Malignant neoplasm of unspecified part of unspecified bronchus or lung Is this a current diagnosis for this admission?: Yes Plan: Records are not currently available, but Dr. Chin will return in Friday. All treatment will be on hold until then. - Plan Summary Plan Summary: I have ordered an additional dose of her percocet for her headache. She may need nurses to help her with her colostomy while she is here. Please call me with any concerns.
[2019-07-24] MEDS: RIVAROXABAN 10 MG TABLET PO SCH (16:19)
[2019-07-24] MEDS: CEFAZOLIN SODIUM 1 GM in DEXTROSE 5%-WATER 50 ML IV SCH ×2 (17:08→23:37)
[2019-07-24] MEDS ORDERED: CEFAZOLIN 1 GM/D5W RTU 1 GM/50 ML RTUPB IV SCH (18:00)
[2019-07-24] MEDS ORDERED: DIPHENHYDRAMINE HCL 25 MG CAPSULE ONE (21:27)
[2019-07-24] MEDS: TRAZODONE HCL 50 MG TABLET PO SCH (21:33)
[2019-07-24] MEDS ORDERED: DIPHENHYDRAMINE HCL 25 MG CAPSULE PO PRN (21:37)
[2019-07-25 05:21] LABS: ABSOLUTE EOSINOPHILS # (AUTO) 0.3 10^3/uL (0.0-0.6); ABSOLUTE LYMPHOCYTES (AUTO) 0.4 10^3/uL (0.5-4.7); ABSOLUTE MONOCYTES (AUTO) 0.4 10^3/uL (0.1-1.4); ABSOLUTE NEUT (AUTO) 3.2 10^3/uL (1.7-8.2); BASOPHILS % (AUTO) 0.7 % (0-2); EOSINOPHILS % (AUTO) 6.1 % (0-6); HEMOGLOBIN 12.1 g/dL (12.0-15.5); LYMPHOCYTES % (AUTO) 8.6 % (13-45); MEAN CORPUSCULAR HGB CONC 34.6 g/dL (32.0-36.0); MEAN CORPUSCULAR VOLUME 87 fl (80-97); MONOCYTES % (AUTO) 9.2 % (3-13); PLATELET COUNT 188 10^3/uL (150-450); RED BLOOD COUNT 4.05 10^6/uL (3.72-5.28); RED CELL DISTRIBUTION WIDTH 15.2 % (11.5-14.0); SEGMENTED NEUTROPHILS % (AUTO) 75.4 % (42-78); TOTAL CELLS COUNTED % (AUTO) 100 %; WHITE BLOOD COUNT 4.2 10^3/uL (4.0-10.5)
[2019-07-25] MEDS: CEFAZOLIN SODIUM 1 GM in DEXTROSE 5%-WATER 50 ML IV SCH ×2 (05:24→11:59)
[2019-07-25 05:48] LABS: ANION GAP 9 (5-19); BLOOD UREA NITROGEN 16 mg/dL (7-20); CALCIUM 9.2 mg/dL (8.4-10.2); CARBON DIOXIDE 26 mmol/L (22-30); CHLORIDE 104 mmol/L (98-107); GLUCOSE 178 mg/dL (75-110)
[2019-07-25] MEDS: INSULIN LISPRO 100 UNIT/ML 3 ML VIAL SUBCUT SCH ×2 (07:57→11:59)
[2019-07-25] MEDS: PANTOPRAZOLE SODIUM 40 MG TABLET.DR PO SCH (07:58)
[2019-07-25] MEDS: GLIPIZIDE 10 MG TABLET PO SCH (07:58)
[2019-07-25 08:52] VITALS: BP 136/48
[2019-07-25] MEDS: SERTRALINE HCL 50 MG TABLET PO SCH (09:55)
[2019-07-25] MEDS: OXYCODONE-ACETAMINOPHEN 5-325 MG TABLET PO PRN (09:55)
[2019-07-25] MEDS: MELOXICAM 7.5 MG TABLET PO SCH (09:55)
[2019-07-25] MEDS: MAGNESIUM OXIDE 400 MG TABLET PO SCH (09:55)
[2019-07-25] MEDS: DOCUSATE SODIUM 100 MG CAPSULE PO SCH (09:55)
[2019-07-25] MEDS: TAMSULOSIN HCL 0.4 MG CAP.SR.24H PO SCH (09:55)
[2019-07-25] MEDS: NYSTATIN TOPICAL POWDER 15 GM TP SCH (09:56)
[2019-07-25] MEDS ORDERED: CARVEDILOL 3.125 MG TABLET PO SCH (11:00)
--- NOTE | 2019-07-25 11:35 | PDOC DISCHARGE SUMMARY ---
Impression - Admit/DC Date/PCP Admission Date/Primary Care Provider: 07/23/19 15:08 Discharge Date: 07/25/19 - Discharge Diagnosis (1) Complicated urinary tract infection Is this a current diagnosis for this admission?: Yes (2) Squamous cell carcinoma of lung Is this a current diagnosis for this admission?: Yes (3) Type 2 diabetes mellitus Is this a current diagnosis for this admission?: Yes (4) CAD (coronary artery disease) Is this a current diagnosis for this admission?: Yes (5) Generalized weakness Is this a current diagnosis for this admission?: Yes (6) Lactic acid acidosis Is this a current diagnosis for this admission?: Yes (7) Nocturnal hypoxia Is this a current diagnosis for this admission?: Yes - Assessment Summary: Patient was admitted with concern for complicated urinary tract infection. She had reported a history of having multidrug resistant organisms growing in her urine before thus prompting need to follow-up urine cultures. Of note, patient had a urinalysis with urine culture sent the day prior to her presentation at the hospital and was performed by her home nurse. We have records of this in the EMR. Patient was hemodynamically stable at the time of admission and throughout stay in the hospital. CBC showed no evidence of leukocytosis. Metabolic panel showed elevated blood sugars in the 200s. Lactic acidosis was noted of 2.7 which resolved with IV fluids. Patient was started on antibiotics IV ceftriaxone. Urinalysis on admission was positive for infection. Urine cul ture from outpatient setting later grew E. coli which is pansensitive. A urine culture drawn in the hospital showed no growth. Given that E. coli is sensitive to cefazolin patient's antibiotics was de-escalated to cefazolin and later discharged on Keflex for 7 more days to complete a 10-day course of treatment for complicated UTI. Patient also stated in terms of her diabetes, that she was supposed to be on insulin but cannot afford it based of her insurance plan. As a result I have placed patient back on glipizide which she still has prescription for. Patient's oxygen also occasionally drops to the 90 to 91% when sleeping on room air. Checks x-ray on admission showed no acute changes. Patient endorses that she has been told that she may have sleep apnea but has not been able to get a CPAP because she has not yet been able to do the outpatient sleep study. Of note patient has social issues in terms of being able to afford her medications, her insurance plan with Medicare. Patient was seen by our group social worker who will reach out to patient's [facility] home health services to get he reinstituted at discharge and to recommend that patient be followed up by a group social worker from [facility] in the outpatient setting to help address her social issues. Patient will continue to receive home physical and occupational therapy and patient's daughter has been contacted by group social worker to see if she can help pay for patient's antibiotics if needed. Patient will also be following up with Dr. Greer for further management of her cancer. - Additional Information Resuscitation Status: Do Not Intubate Discharge Diet: Cardiac Discharge Activity: Activity As Tolerated, Slowly Increase Activity Referrals: RIGOBERTO GRACIA DO [NO LOCAL MD] - (Follow up within 2 weeks of discharge) NICOLE GREER MD [ACTIVE STAFF] - Prescriptions: Carvedilol [Coreg 3.125 mg Tablet] 1 tab PO BID #30 Cephalexin Monohydrate [Keflex 500 mg Capsule] 500 mg PO BID #14 capsule Home Medications: Albuterol Sulfate [Proair HFA Inhalation Aerosol 8.5 gm MDI] 2 puff IH Q4HP PRN 07/23/19 Docusate Sodium [Colace 100 mg Capsule] 100 mg PO DAILY 07/23/19 Magnesium Oxide [Mag-Ox 400 mg Tablet] 80 mg PO BID 07/23/19 Meloxicam [Mobic] 7.5 mg PO DAILY 07/23/19 Nystatin [Mycostatin Topical Powder 15 gm] 1 applic TOP BID 07/23/19 Ondansetron HCl [Zofran 4 mg Tablet] 1 tab PO Q8 07/23/19 Oxycodone HCl/Acetaminophen [Percocet 5-325 mg Tablet] 1 each PO Q4HP PRN 07/23/19 Pantoprazole Sodium [Protonix [address] Tablet] 40 mg PO QAM 07/23/19 Rivaroxaban [Xarelto] 20 mg PO QPM 07/23/19 Sertraline HCl 150 mg PO DAILY 07/23/19 Tamsulosin HCl [Flomax 0.4 mg Cap.sr] 0.4 mg PO DAILY 07/23/19 Trazodone HCl [Desyrel] 100 mg PO QHS 07/23/19 Clonazepam 0.5 mg PO TIDP PRN 07/24/19 Glipizide [Glucotrol 10 mg Tablet] 10 mg PO DAILY 07/24/19 Sucralfate [Carafate] 10 ml PO ASDIR PRN 07/24/19 Carvedilol [Coreg 3.125 mg Tablet] 1 tab PO BID #30 07/25/19 Cephalexin Monohydrate [Keflex 500 mg Capsule] 500 mg PO BID #14 capsule 07/25/19 History of Present Illiness History of Present Illness: RODRIGUEZ TOM is a 69 year old female with an extensive history of recurrent UTIs, Colon bladder fistula s/p surgical intervention 2017 (not specified), Diverticulitis s/p colectomy with colostomy, Squamous cell cancer of the lung s/p recent radiation, aortic arch thrombosis, PVCs, TAVR with bovine aortic valve, CAD S/P BMS to mid RCA, breast cancer s/p mastectomy [>20 years ago]. Today she presents with burning 7/10 suprapubic pain, dysuria and polyuria which has been ongoing for the past several days. Also complains of malodorous urine and left flank pain associated with nausea and a few episodes of vomiting. Measured her temperature yesterday at home and was 100.9. States that it feels similar to her prior UTIs. Patient had urine culture done by her home nurse yesterday which is now growing gram-negative rods. Of note patient was recently treated for UTI at [facility] last month and has had multiple episodes of UTIs since her fistula developed. Dr. Greer was consulted by the ER physician who states that he would like to have patient admitted for treatment of UTI and hydration. Physical Exam Vital Signs: Temp Pulse Resp BP Pulse Ox 98.7 F 106 H 16 136/48 H 91 L 07/25/19 08:00 07/25/19 08:00 07/25/19 08:00 07/25/19 08:00 07/25/19 08:00 Intake & Output 07/24/19 07/25/19 07/26/19 06:59 06:59 06:59 Intake Total 1470 1970 50 Output Total 0 Balance 1470 1970 50 Weight 88.7 kg 88.2 kg General appearance: PRESENT: no acute distress Cardiovascular exam: PRESENT: +S1, +S2 GI/Abdominal exam: PRESENT: normal bowel sounds, soft, tenderness, other - Ostomy present. ABSENT: firm, guarding, rebound, rigid Neurological exam: PRESENT: alert, awake Results Laboratory Results: WBC 4.2 10^3/uL (4.0-10.5) 07/25/19 04:40 RBC 4.05 10^6/uL (3.72-5.28) 07/25/19 04:40 Hgb 12.1 g/dL (12.0-15.5) 07/25/19 04:40 Hct 35.0 % (36.0-47.0) L 07/25/19 04:40 MCV 87 fl (80-97) 07/25/19 04:40 MCH 30.0 pg (27.0-33.4) 07/25/19 04:40 MCHC 34.6 g/dL (32.0-36.0) 07/25/19 04:40 RDW 15.2 % (11.5-14.0) H 07/25/19 04:40 Plt Count 188 10^3/uL (150-450) 07/25/19 04:40 Lymph % (Auto) 8.6 % (13-45) L 07/25/19 04:40 [place]ye % (Auto) 9.2 % (3-13) 07/25/19 04:40 Eos % (Auto) 6.1 % (0-6) H 07/25/19 04:40 Baso % (Auto) 0.7 % (0-2) 07/25/19 04:40 Absolute Neuts (auto) 3.2 10^3/uL (1.7-8.2) 07/25/19 04:40 Absolute Lymphs (auto) 0.4 10^3/uL (0.5-4.7) L 07/25/19 04:40 Absolute Monos (auto) 0.4 10^3/uL (0.1-1.4) 07/25/19 04:40 Absolute Eos (auto) 0.3 10^3/uL (0.0-0.6) 07/25/19 04:40 Absolute Basos (auto) 0.0 10^3/uL (0.0-0.2) 07/25/19 04:40 Total Counted 100 07/24/19 04:53 Seg Neutrophils % 75.4 % (42-78) 07/25/19 04:40 Seg Neuts % (Manual) 75 % (42-78) 07/24/19 04:53 Band Neutrophils % 1 % (3-5) L 07/23/19 12:07 Lymphocytes % (Manual) 8 % (13-45) L 07/24/19 04:53 Monocytes % (Manual) 13 % (3-13) 07/24/19 04:53 Eosinophils % (Manual) 4 % (0-6) 07/24/19 04:53 Basophils % (Manual) 0 % (0-2) 07/24/19 04:53 Abs Neuts (Manual) 4.1 10^3/uL (1.7-8.2) 07/24/19 04:53 Abs Lymphs (Manual) 0.4 10^3/uL (0.5-4.7) L 07/24/19 04:53 Abs Monocytes (Manual) 0.7 10^3/uL (0.1-1.4) 07/24/19 04:53 Absolute Eos (Manual) 0.2 10^3/uL (0.0-0.6) 07/24/19 04:53 Abs Basophils (Manual) 0.0 10^3/uL (0.0-0.2) 07/24/19 04:53 Platelet Comment ADEQUATE 07/24/19 04:53 Anisocytosis SLIGHT 07/24/19 04:53 Ovalocytes SLIGHT 07/23/19 12:07 RBC Morph Comment NORMO-CYTIC/CHROMIC 07/23/19 12:07 PT 19.7 SEC (11.4-15.4) H 07/23/19 12:07 INR 1.65 07/23/19 12:07 VBG pH 7.39 (7.30-7.42) 07/23/19 12:07 VBG pCO2 41.7 mmHg (35-63) 07/23/19 12:07 VBG HCO3 24.7 mmol/L (20-32) 07/23/19 12:07 VBG Base Excess -0.3 mmol/L 07/23/19 12:07 Sodium 138.5 mmol/L (137-145) 07/25/19 04:40 Potassium 4.0 mmol/L (3.6-5.0) 07/25/19 04:40 Chloride 104 mmol/L (98-107) 07/25/19 04:40 Carbon Dioxide 26 mmol/L (22-30) 07/25/19 04:40 Anion Gap 9 (5-19) 07/25/19 04:40 BUN 16 mg/dL (7-20) 07/25/19 04:40 Creatinine 1.00 mg/dL (0.52-1.25) 07/25/19 04:40 Est GFR ( Amer) > 60 (>60) 07/25/19 04:40 Est GFR (MDRD) Non-Af 55 (>60) L 07/25/19 04:40 Glucose 178 mg/dL (75-110) H 07/25/19 04:40 POC Glucose 178 mg/dL (70-110) H 07/25/19 05:56 Lactic Acid (Sepsis) 1.2 mmol/L (0.7-2.1) 07/23/19 15:57 Calcium 9.2 mg/dL (8.4-10.2) 07/25/19 04:40 Magnesium 1.8 mg/dL (1.6-2.3) 07/24/19 04:53 Total Bilirubin 0.6 mg/dL (0.2-1.3) 07/23/19 12:07 Direct Bilirubin 0.3 mg/dL (0.0-0.4) 07/23/19 12:07 Neonat Total Bilirubin Not Reportable 07/23/19 12:07 Neonat Direct Bilirubin Not Reportable 07/23/19 12:07 Neonat Indirect Bili Not Reportable 07/23/19 12:07 AST 19 U/L (14-36) 07/23/19 12:07 ALT 15 U/L (<35) 07/23/19 12:07 Alkaline Phosphatase 79 U/L (38-126) 07/23/19 12:07 Total Protein 7.6 g/dL (6.3-8.2) 07/23/19 12:07 Albumin 4.0 g/dL (3.5-5.0) 07/23/19 12:07 Urine Color YELLOW 07/23/19 12:46 Urine Appearance CLOUDY 07/23/19 12:46 Urine pH 6.0 (5.0-9.0) 07/23/19 12:46 Ur Specific [place] 1.013 07/23/19 12:46 Urine Protein 100 mg/dL (NEGATIVE) H 07/23/19 12:46 Urine Glucose (UA) NEGATIVE mg/dL (NEGATIVE) 07/23/19 12:46 Urine Ketones NEGATIVE mg/dL (NEGATIVE) 07/23/19 12:46 Urine Blood SMALL (NEGATIVE) H 07/23/19 12:46 Urine Nitrite POSITIVE (NEGATIVE) H 07/23/19 12:46 Urine Bilirubin NEGATIVE (NEGATIVE) 07/23/19 12:46 Urine Urobilinogen NEGATIVE mg/dL (<2.0) 07/23/19 12:46 Ur Leukocyte Esterase LARGE (NEGATIVE) H 07/23/19 12:46 Urine WBC (Auto) >182 /HPF 07/23/19 12:46 Urine RBC (Auto) 8 /HPF 07/23/19 12:46 Urine Bacteria (Auto) 2+ /HPF 07/23/19 12:46 Urine WBC Clumps FEW /HPF 07/23/19 12:46 Urine Ascorbic Acid NEGATIVE (NEGATIVE) 07/23/19 12:46 Impressions: Chest X-Ray 07/23/19 14:26 IMPRESSION: Stable enlarged cardiac silhouette. No other evidence of acute cardiopulmonary process. Plan Time Spent: Greater than 30 Minutes Stroke Is this a Stroke Patient?: No Acute Heart Failure - Is this a Heart Failure Patient?: No
== END 2019-07-25 14:50 | disposition home health service (06) | DRG 690 ==
LOC: ER 10:44 → EH 15:08 → 4N 18:00
PROVIDERS: ADMIT Internal Medicine; ATTEND Internal Medicine
DX: N39.0 Urinary tract infection, site not specified (principal); I50.30 Unspecified diastolic (congestive) heart failure; C34.90 Malignant neoplasm of unspecified part of unspecified bronchus or lung; E87.2 Acidosis; R31.9 Hematuria, unspecified; R30.9 Painful micturition, unspecified; I11.0 Hypertensive heart disease with heart failure; I25.10 Atherosclerotic heart disease of native coronary artery without angina pectoris; J44.9 Chronic obstructive pulmonary disease, unspecified; E11.65 Type 2 diabetes mellitus with hyperglycemia; F41.8 Other specified anxiety disorders; Z95.3 Presence of xenogenic heart valve; Z86.73 Personal history of transient ischemic attack (TIA), and cerebral infarction without residual deficits; Z88.1 Allergy status to other antibiotic agents; Z88.5 Allergy status to narcotic agent; Z88.2 Allergy status to sulfonamides; Z88.8 Allergy status to other drugs, medicaments and biological substances; Z85.3 Personal history of malignant neoplasm of breast; Z90.10 Acquired absence of unspecified breast and nipple; Z79.01 Long term (current) use of anticoagulants; Z79.51 Long term (current) use of inhaled steroids; Z79.899 Other long term (current) drug therapy
CPT/HCPCS: 36415; 51701; 71045; 80048; 80053; 81001; 82803; 82962; 83605; 83735; 85025; 85610; 87040; 87086; 87088; 87186; 93005; 93010; 99285; J0690; J0696; J1815; J2405; J3490; J7030; J7060

== ENCOUNTER 2019-08-05 14:55 | Emergency (ER) | payer MEDICARE ==
[2019-08-05] MEDS ORDERED: ONDANSETRON HCL INJ/PF 4 MG/2 ML SDV IV ONE (15:18)
[2019-08-05 15:52] LABS: ABSOLUTE EOSINOPHILS # (AUTO) 0.2 10^3/uL (0.0-0.6); ABSOLUTE LYMPHOCYTES (AUTO) 0.4 10^3/uL (0.5-4.7); ABSOLUTE MONOCYTES (AUTO) 0.5 10^3/uL (0.1-1.4); ABSOLUTE NEUT (AUTO) 6.5 10^3/uL (1.7-8.2); BASOPHILS % (AUTO) 0.3 % (0-2); EOSINOPHILS % (AUTO) 2.1 % (0-6); HEMATOCRIT 38.5 % (36.0-47.0); HEMOGLOBIN 13.3 g/dL (12.0-15.5); LYMPHOCYTES % (AUTO) 5.2 % (13-45); MEAN CORPUSCULAR HEMOGLOBIN 29.8 pg (27.0-33.4); MEAN CORPUSCULAR HGB CONC 34.5 g/dL (32.0-36.0); MEAN CORPUSCULAR VOLUME 87 fl (80-97); MONOCYTES % (AUTO) 6.6 % (3-13); PLATELET COUNT 245 10^3/uL (150-450); RED BLOOD COUNT 4.45 10^6/uL (3.72-5.28); RED CELL DISTRIBUTION WIDTH 14.9 % (11.5-14.0); SEGMENTED NEUTROPHILS % (AUTO) 85.8 % (42-78); TOTAL CELLS COUNTED % (AUTO) 100 %; WHITE BLOOD COUNT 7.6 10^3/uL (4.0-10.5)
[2019-08-05 16:12] LABS: ALBUMIN 4.3 g/dL (3.5-5.0); ALKALINE PHOSPHATASE 81 U/L (38-126); ANION GAP 13 (5-19); ASPARTATE AMINO TRANSFERASE 21 U/L (14-36); BILIRUBIN,DIRECT 0.2 mg/dL (0.0-0.4); BILIRUBIN,TOTAL 0.5 mg/dL (0.2-1.3); BLOOD UREA NITROGEN 15 mg/dL (7-20); CALCIUM 9.7 mg/dL (8.4-10.2); CARBON DIOXIDE 26 mmol/L (22-30); CHLORIDE 99 mmol/L (98-107); GLUCOSE 259 mg/dL (75-110); POTASSIUM 4.2 mmol/L (3.6-5.0); TOTAL PROTEIN 7.8 g/dL (6.3-8.2)
[2019-08-05 16:21] LABS: VENOUS BLOOD BASE EXCESS 0.6 mmol/L; VENOUS BLOOD HCO3 25.1 mmol/L (20-32); VENOUS BLOOD PCO2 39.9 mmHg (35-63); VENOUS BLOOD PH 7.42 (7.30-7.42)
[2019-08-05 16:28] LABS: INTERNATIONAL RATION (INR) 1.04; PROTHROMBIN TIME 13.6 SEC (11.4-15.4)
[2019-08-05 16:38] LABS: APPEARANCE,URINE CLOUDY; BILIRUBIN,URINE NEGATIVE (NEGATIVE); COLOR,URINE YELLOW; GLUCOSE, URINE NEGATIVE (NEGATIVE); KETONES,URINE NEGATIVE (NEGATIVE); PROTEIN,URINE 100 mg/dL (NEGATIVE); URINE SPECIFIC GRAVITY 1.013; UROBILINOGEN,URINE NEGATIVE mg/dL (<2.0)
--- NOTE | 2019-08-05 16:55 | ER Document Report ---
ED General - General Chief Complaint: Urinary Problem Stated Complaint: PAINFUL URINATION Time Seen by Provider: 08/05/19 16:24 Primary Care Provider: CAROLE AVILA MD [Primary Care Provider] - Follow up as needed Mode of Arrival: Ambulatory Information source: Patient Cannot obtain history due to: Other - Painful urination times several days TRAVEL OUTSIDE OF THE [place] IN LAST 30 DAYS: No - HPI Onset: Other - A few days. Patient has a recurrent urinary tract infection problem ever since her urinary bladder colon fistula repair about a few years ago. Patient has an ostomy site on her left lower quadrant. Associated symptoms: Chills Similar symptoms previously: Yes Recently seen / treated by doctor: Yes - Related Data Allergies/Adverse Reactions: ciprofloxacin [From Cipro] Allergy (Verified 08/05/19 16:21) epinephrine Allergy (Verified 08/05/19 16:21) ertapenem [From Invanz] Allergy (Verified 08/05/19 16:21) imipenem Allergy (Verified 08/05/19 16:21) lidocaine [From Lidoderm] Allergy (Verified 08/05/19 16:21) menthol [From BenGay] Allergy (Verified 08/05/19 16:21) methyl salicylate [From BenGay] Allergy (Verified 08/05/19 16:21) Sulfa (Sulfonamide Antibiotics) Allergy (Verified 08/05/19 16:21) chocolate flavor Adverse Reaction (Verified 08/05/19 16:21) codeine Adverse Reaction (Verified 08/05/19 16:21) glyburide Adverse Reaction (Verified 08/05/19 16:21) lactose Adverse Reaction (Verified 08/05/19 16:21) Past Medical History - Social History Smoking Status: Unknown if Ever Smoked Frequency of alcohol use: None Family History: Reviewed & Not Pertinent Patient has suicidal ideation: No Patient has homicidal ideation: No - Past Medical History Cardiac Medical History: Reports: Hx Congestive Heart Failure - acute diastolic CHF, Hx Coronary Artery Disease, Hx Hypertension, Hx Heart Murmur Denies: Hx Heart Attack Pulmonary Medical History: Reports: Hx COPD Denies: Hx Asthma, Hx Bronchitis, Hx Pneumonia Neurological Medical History: Reports: Hx Cerebrovascular Accident. Denies: Hx Seizures Endocrine Medical History: Reports: Hx Diabetes Mellitus Type 2 Renal/ Medical History: Denies: Hx Peritoneal Dialysis Malignancy Medical History: Reports: Hx Breast Cancer, Hx Lymphoma - T-cell lymphoma s/p radiation, Hx Skin Cancer - Squamous Cell Carcinoma GI Medical History: Reports: Hx Diverticulitis Musculoskeletal Medical History: Denies Hx Arthritis Psychiatric Medical History: Reports: Hx Anxiety, Hx Depression Past Surgical History: Reports: Hx Bowel Surgery - Partial colectomy, ileostomy, Hx Cardiac Catheterization, Hx Cardiac Surgery - cath, stent, Hx Cholecystectomy, Hx Colostomy, Hx Coronary Stent, Hx Mastectomy, Hx Valve Replacement - aortic valve replacement in 2018, Other - EGD 04/16 for GI bleed Other: Patient has a long known medical problem list that includes recurrent urinary tract infections. Chronic respiratory failure coronary artery disease c ongestive heart failure chronic pain syndrome diabetic neuropathy obesity anxiety history of breast cancer hyponatremia's hypomagnesemia is and is also a DO NOT RESUSCITATE. - Immunizations Hx Diphtheria, Pertussis, Tetanus Vaccination: No Review of Systems - Review of Systems Constitutional: See HPI Cardiovascular: See HPI Respiratory: No symptoms reported, See HPI Gastrointestinal: No symptoms reported, See HPI Genitourinary: See HPI Physical Exam - Vital signs Vitals: Resp BP 18 175/74 H 08/05/19 15:24 08/05/19 15:24 Interpretation: Normal - Notes Notes: Anxious and agitated. - General General appearance: Appears well, Alert, Anxious, Other - Obese anxious agitated In distress: Moderate - HEENT Head: Normocephalic, Atraumatic Eyes: Normal Pupils: PERRL Sinus: Normal Nasal: Normal Mouth/Lips: Normal - Respiratory Respiratory status: No respiratory distress Chest status: Nontender Breath sounds: Normal Chest palpation: Normal - Cardiovascular Rhythm: Regular Heart sounds: Normal auscultation Murmur: No - Abdominal Inspection: Normal, Obese Distension: No distension Bowel sounds: Normal Tenderness: Nontender, Tender, Other - Tenderness noted in the left lower quadrant Organomegaly: No organomegaly, Other - Colostomy noted in the left lower quadrant with normal colored stool. - Back Back: Normal, Nontender - Extremities General upper extremity: Normal inspection, Nontender, Normal color, Normal ROM, Normal temperature General lower extremity: Normal inspection, Nontender, Normal color, Normal ROM, Normal temperature, Normal weight bearing. No: Gabriela's sign - Neurological Neuro grossly intact: Yes Cognition: Normal Orientation: AAOx4 Mehul Coma Scale Eye Opening: Spontaneous Hope Coma Scale Verbal: Oriented Hope Coma Scale Motor: Obeys Commands Hope Coma Scale Total: 15 Speech: Normal Motor strength normal: LUE, RUE, LLE, RLE Sensory: Normal - Psychological Associated symptoms: Normal affect, Normal mood, Agitated, Anxious - Skin Skin Temperature: Warm Skin Moisture: Dry Skin Color: Normal Course - Vital Signs Vital signs: Temp Pulse Resp BP Pulse Ox 98.5 F 110 H 20 144/75 H 93 08/05/19 23:03 08/05/19 23:03 08/05/19 23:03 08/05/19 23:03 08/05/19 23:03 - Laboratory Result Diagrams: 08/05/19 14:35 08/05/19 14:35 Laboratory results interpreted by me: 08/05/19 08/05/19 08/05/19 14:35 14:35 15:56 RDW 14.9 H Lymph % (Auto) 5.2 L Absolute Lymphs (auto) 0.4 L Seg Neutrophils % 85.8 H Glucose 259 H Lactic Acid (Sepsis) 3.3 H Urine Protein Urine Blood Urine Nitrite (Reflex) Leukocyte Esterase Rfl 08/05/19 16:01 RDW Lymph % (Auto) Absolute Lymphs (auto) Seg Neutrophils % Glucose Lactic Acid (Sepsis) Urine Protein 100 H Urine Blood MODERATE H Urine Nitrite (Reflex) POSITIVE H Leukocyte Esterase Rfl LARGE H Discharge - Discharge Clinical Impression: Generalized weakness, Elevated lactic acid level Urinary tract infection Qualifiers: Urinary tract infection type: site unspecified Disposition: HOME, SELF-CARE Instructions: Urinary Tract Infection ([facility]) Additional Instructions: Continue use of antibiotics that were prescribed to you earlier in the day from the [facility] in [place]. Those antibiotics included doxycycline and ampicillin. Referrals: CAROLE AVILA MD [Primary Care Provider] - Follow up as needed
[2019-08-05] MEDS ORDERED: NITROFURANTOIN MONOHYD/M-CRYST 100 MG CAPSULE PO ONE (17:16)
[2019-08-05] MEDS ORDERED: LORAZEPAM INJ 2 MG/1 ML VIAL IV ONE ×2 (17:47→18:39)
[2019-08-05] MEDS ORDERED: NORMAL SALINE 1000 ML 1,000 ML IV ONE (18:38)
--- NOTE | 2019-08-05 19:04 | RADIOLOGY REPORT (SQ) ---
EXAM DESCRIPTION: CHEST SINGLE VIEW COMPLETED DATE/TIME: 08/05/2019 6:54 pm REASON FOR STUDY: shortness of breath COMPARISON: 07/23/2019 EXAM PARAMETERS: NUMBER OF VIEWS: One view. TECHNIQUE: Single frontal radiographic view of the chest acquired. RADIATION DOSE: NA LIMITATIONS: None. FINDINGS: LUNGS AND PLEURA: No opacities, masses or pneumothorax. No pleural effusion. MEDIASTINUM AND HILAR STRUCTURES: No masses. Contour normal. HEART AND VASCULAR STRUCTURES: Heart normal in size. Normal vasculature. BONES: No acute findings. HARDWARE: None in the chest. OTHER: No other significant finding. IMPRESSION: NO ACUTE RADIOGRAPHIC FINDING IN THE CHEST. TECHNICAL DOCUMENTATION: JOB ID: [id number] [employer]- All Rights Reserved Reading location - IP/workstation name: [email or web address]
[2019-08-05] MEDS ORDERED: CEFTRIAXONE INJ 1000 MG VIAL IV ONE (19:12)
[2019-08-05] MEDS ORDERED: CEFTRIAXONE 1 GM/D5W RTU 1 GM/50 ML RTUPB IV ONE ×2 (20:21→20:42)
--- NOTE | 2019-08-05 20:49 | RADIOLOGY REPORT (SQ) ---
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 COMPARISON: 12/22/2018 TECHNIQUE: CT scan of the abdomen and pelvis was performed with IV contrast. This exam was performed according to our departmental dose-optimization program, which includes automated exposure control, adjustment of the mA and/or kV according to patient size and/or use of iterative reconstruction technique. FINDINGS: The lung bases are clear. No pleural or pericardial effusions. There has been a prior cholecystectomy. The liver, spleen, pancreas, adrenal glands, and kidneys are unremarkable. No hydronephrosis or urinary stones are seen. The pelvic organs are also unremarkable. There is a left lower quadrant ostomy with a small parastomal hernia. No bowel obstruction or inflammation. Appendix is normal. No intraperitoneal free fluid or free air is seen. Aorta is mildly atherosclerotic with a maximum diameter of 2.8 cm. Grade 1 anterolisthesis of L5-S1 secondary to facet DJD. IMPRESSION: 1. Left lower quadrant ostomy with a small parastomal hernia. 2. No bowel obstruction or inflammation.
[2019-08-05 23:03] VITALS: BP 144/75
--- NOTE | 2019-08-06 17:09 | EKG REPORT ---
SEVERITY:- ABNORMAL ECG - SINUS TACHYCARDIA VENTRICULAR PREMATURE COMPLEX PROBABLE LEFT ATRIAL ABNORMALITY IVCD, CONSIDER ATYPICAL LBBB : Confirmed by: Linette Ray 06-Aug-2019 17:08:21
== END 2019-08-06 00:30 | disposition home or self-care (01) ==
LOC: ER 14:55
DX: N39.0 Urinary tract infection, site not specified (principal); R74.0 Nonspecific elevation of levels of transaminase and lactic acid dehydrogenase [LDH]; R10.30 Lower abdominal pain, unspecified; R53.1 Weakness; E66.9 Obesity, unspecified; I50.9 Heart failure, unspecified; I25.10 Atherosclerotic heart disease of native coronary artery without angina pectoris; I11.0 Hypertensive heart disease with heart failure; E11.9 Type 2 diabetes mellitus without complications; Z93.2 Ileostomy status; Z90.49 Acquired absence of other specified parts of digestive tract; Z88.2 Allergy status to sulfonamides; Z88.6 Allergy status to analgesic agent
CPT/HCPCS: 36415; 87040; 85025; 85610; 80053; 81001; 82803; 83605; 71045; 74177; J2060; J2405; J7030; J0696; A9270; 93005; 93010; 96361; 96365; 96375; 96376; 99284; J8499

== ENCOUNTER → 2019-08-23 | Outpatient (CLI) | payer MEDICARE ==
--- NOTE | 2019-08-23 15:37 | RADIOLOGY REPORT (SQ) ---
EXAM DESCRIPTION: CT CHEST WITH COMPLETED DATE/TIME: 08/23/2019 2:39 pm REASON FOR STUDY: LUNG CA (C34.2) C34.2 MALIGNANT NEOPLASM OF MIDDLE LOBE, BRONCHUS OR LUNG COMPARISON: 12/22/2018 TECHNIQUE: CT scan of the chest performed using helical scanning technique with dynamic intravenous contrast injection. Images reviewed with lung, soft tissue and bone windows. Reconstructed coronal and sagittal MPR and MIP images reviewed. All images stored on PACS. All CT scanners at this facility use dose modulation, iterative reconstruction, and/or weight based d osing when appropriate to reduce radiation dose to as low as reasonably achievable (ALARA). [facility]: Dose Right [facility]: CareDose [facility]: Dose Right [facility]: Teradose 4D [facility]: cortical.io CONTRAST TYPE AND DOSE: contrast/concentration: Isovue 350.00 mg/ml; Total Contrast Delivered: 96.0 ml; Total Saline Delivered: 71.0 ml RENAL FUNCTION: BUN 15 creatinine 0.86 RADIATION DOSE: CT Rad equipment meets quality standard of care and radiation dose reduction techniq ues were employed. CTDIvol: 11.6 mGy. DLP: 438 mGy-cm. . LIMITATIONS: None. FINDINGS: LUNGS AND PLEURA: Mild centrilobular emphysematous changes with no acute infiltrate, effus ion, or mass. HILAR AND MEDIASTINAL STRUCTURES: There is a 16 mm pretracheal lymph node. HEART AND VASCULAR STRUCTURES: No aneurysm or dissection. No central pulmonary emboli. No pericardi al effusion. HARDWARE: Heart valve. UPPER ABDOMEN: No significant findings. Limited exam. THYROID AND OTHER SOFT TISSUES: No masses. No adenopathy. BONES: No significant finding. OTHER: No other significant finding. IMPRESSION: Mild centrilobular pulmonary emphysema. No acute pulmonary findings. Pretracheal lymph node is smaller, measuring 16 mm currently. TECHNICAL DOCUMENTATION: JOB ID: [id number] Quality ID # [id number]: Final reports with documentation of one or more dose reduction techniques (e.g., Au tomated exposure control, adjustment of the mA and/or kV according to patient size, use of iterative reconstruction technique) 2010 [employer]- All Rights Reserved Reading location - IP/workstation name: [email or web address]
== END ==
LOC: RAD 14:00
PROVIDERS: ATTEND Physician Assistant Medical
DX: C34.2 Malignant neoplasm of middle lobe, bronchus or lung (principal); J43.2 Centrilobular emphysema
CPT/HCPCS: 71260

== ENCOUNTER 2019-09-05 22:20 | Inpatient (IN) | payer MEDICARE ==
[2019-09-05 23:06] LABS: ABSOLUTE EOSINOPHILS # (AUTO) 0.1 10^3/uL (0.0-0.6); ABSOLUTE LYMPHOCYTES (AUTO) 0.4 10^3/uL (0.5-4.7); ABSOLUTE MONOCYTES (AUTO) 0.6 10^3/uL (0.1-1.4); ABSOLUTE NEUT (AUTO) 3.1 10^3/uL (1.7-8.2); BASOPHILS % (AUTO) 0.9 % (0-2); HEMATOCRIT 31.9 % (36.0-47.0); LYMPHOCYTES % (AUTO) 8.4 % (13-45); MEAN CORPUSCULAR HEMOGLOBIN 30.4 pg (27.0-33.4); MEAN CORPUSCULAR HGB CONC 34.5 g/dL (32.0-36.0); MEAN CORPUSCULAR VOLUME 88 fl (80-97); MONOCYTES % (AUTO) 13.8 % (3-13); PLATELET COUNT 216 10^3/uL (150-450); RED BLOOD COUNT 3.62 10^6/uL (3.72-5.28); RED CELL DISTRIBUTION WIDTH 13.6 % (11.5-14.0); SEGMENTED NEUTROPHILS % (AUTO) 73.9 % (42-78); TOTAL CELLS COUNTED % (AUTO) 100 %; WHITE BLOOD COUNT 4.2 10^3/uL (4.0-10.5)
[2019-09-05 23:08] LABS: APPEARANCE,URINE TURBID; BILIRUBIN,URINE NEGATIVE (NEGATIVE); COLOR,URINE YELLOW; GLUCOSE, URINE NEGATIVE (NEGATIVE); KETONES,URINE NEGATIVE (NEGATIVE); PROTEIN,URINE 100 mg/dL (NEGATIVE); URINE SPECIFIC GRAVITY 1.013; UROBILINOGEN,URINE NEGATIVE mg/dL (<2.0)
--- NOTE | 2019-09-05 23:16 | ER Document Report ---
ED General - General Chief Complaint: Pain With Urination Stated Complaint: URINARY COMPLAINTS Time Seen by Provider: 09/05/19 23:03 Primary Care Provider: MISBAH BURROWS PA-C [ALLIED HEALTH PROFESSIONAL] - Follow up as needed Mode of Arrival: Medic Information source: Patient Notes: 69-year-old female arrives with chief complaint of suprapubic abd ominal pain for several months but worse today. This was associated with fever. She has a history of UTIs SBO hypertension COPD lung cancer aortic thrombosis TRAVEL OUTSIDE OF THE [place] IN LAST 30 DAYS: No - HPI Onset: This morning - Reports she has had UTI symptoms since June 2019 and has been on oral antibiotics without benefit. Quality of pain: Sharp - Prepubic pain complaint Severity: Moderate Pain Level: 2 Associated symptoms: Fever - Patient reports she had a 104 temperature at home but took 2 Tylenol and it came down to 100 prior to EMS getting there., Other - Staff looked up her prior history and she had E. coli prior UTI cultures Exacerbated by: Movement Relieved by: Denies, Other - Tylenol Similar symptoms previously: Yes Recently seen / treated by doctor: Yes - Related Data Allergies/Adverse Reactions: ciprofloxacin [From Cipro] Allergy (Verified 09/05/19 23:11) epinephrine Allergy (Verified 09/05/19 23:11) ertapenem [From Invanz] Allergy (Verified 09/05/19 23:11) imipenem Allergy (Verified 09/05/19 23:11) lidocaine [From Lidoderm] Allergy (Verified 09/05/19 23:11) menthol [From BenGay] Allergy (Verified 09/05/19 23:11) methyl salicylate [From BenGay] Allergy (Verified 09/05/19 23:11) Sulfa (Sulfonamide Antibiotics) Allergy (Verified 09/05/19 23:11) chocolate flavor Adverse Reaction (Verified 09/05/19 23:11) codeine Adverse Reaction (Verified 09/05/19 23:11) glyburide Adverse Reaction (Verified 09/05/19 23:11) lactose Adverse Reaction (Verified 09/05/19 23:11) Past Medical History - General Information source: Patient - Social History Smoking Status: Never Smoker Cigarette use (# per day): No Chew tobacco use (# tins/day): No Smoking Education Provided: No Frequency of alcohol use: None Drug Abuse: None Lives with: Other - Own home Family History: Reviewed & Not Pertinent Patient has suicidal ideation: No Patient has homicidal ideation: No - Past Medical History Cardiac Medical History: Reports: Hx Congestive Heart Failure - acute diastolic CHF, Hx Coronary Artery Disease, Hx Hypertension, Hx Heart Murmur Denies: Hx Heart Attack Pulmonary Medical History: Reports: Hx COPD Denies: Hx Asthma, Hx Bronchitis, Hx Pneumonia Neurological Medical History: Reports: Hx Cerebrovascular Accident. Denies: Hx Seizures Endocrine Medical History: Reports: Hx Diabetes Mellitus Type 2 Renal/ Medical History: Denies: Hx Peritoneal Dialysis Malignancy Medical History: Reports: Hx Breast Cancer, Hx Lymphoma - T-cell lymphoma s/p radiation, Hx Skin Cancer - Squamous Cell Carcinoma GI Medical History: Reports: Hx Diverticulitis Musculoskeletal Medical History: Denies Hx Arthritis Psychiatric Medical History: Reports: Hx Anxiety, Hx Depression Past Surgical History: Reports: Hx Bowel Surgery - Partial colectomy, ileostomy, Hx Cardiac Catheterization, Hx Cardiac Surgery - cath, stent, Hx Cholecystectomy, Hx Colostomy, Hx Coronary Stent, Hx Mastectomy, Hx Valve Replacement - aortic valve replacement in 2018, Other - EGD 04/16 for GI bleed - Immunizations Hx Diphtheria, Pertussis, Tetanus Vaccination: No Review of Systems - Review of Systems Constitutional: Fever EENT: No symptoms reported Cardiovascular: No symptoms reported Respiratory: No symptoms reported Gastrointestinal: Abdominal pain Genitourinary: Dysuria, Pain Musculoskeletal: No symptoms reported Skin: No symptoms reported Hematologic/Lymphatic: No symptoms reported Neurological/Psychological: No symptoms reported Physical Exam - Vital signs Vitals: Resp Pulse Ox 22 H 95 09/05/19 22:22 09/05/19 22:22 Interpretation: Febrile - General General appearance: Appears well In distress: None - HEENT Head: Normocephalic Eyes: Normal Conjunctiva: Normal Cornea: Normal Extraocular movements intact: Yes Eyelashes: Normal Pupils: PERRL Pharynx: Normal Neck: Normal - Respiratory Respiratory status: No respiratory distress Chest status: Nontender Breath sounds: Normal Chest palpation: Normal - Cardiovascular Rhythm: Regular Heart sounds: Normal auscultation Murmur: No Friction rub: No Sana's crunch: No - Abdominal Inspection: Normal Distension: No distension Bowel sounds: Normal Tenderness: Tender - suprapubic tenderness on palpation - Back Back: Normal - Extremities General upper extremity: Normal inspection General lower extremity: Normal inspection - Neurological Neuro grossly intact: Yes Cognition: Normal, Other - She reports she is originally from [place] Orientation: AAOx4 Mehul Coma Scale Eye Opening: Spontaneous Blairs Coma Scale Verbal: Oriented Mehul Coma Scale Motor: Obeys Commands Blairs Coma Scale Total: 15 Speech: Normal Cranial nerves: Normal Cerebellar coordination: Normal - Psychological Associated symptoms: Normal affect, Normal mood - Skin Skin Temperature: Warm Skin Moisture: Dry Course - Vital Signs Vital signs: Temp Pulse Resp BP Pulse Ox 99.7 F 16 109/54 L 93 09/06/19 00:12 09/06/19 00:10 09/06/19 00:06 09/06/19 00:10 - Laboratory Result Diagrams: 09/05/19 22:34 09/05/19 22:34 Laboratory results interpreted by me: 09/05/19 09/05/19 09/05/19 22:34 22:34 22:34 RBC 3.62 L Hgb 11.0 L Hct 31.9 L Lymph % (Auto) 8.4 L [place] % (Auto) 13.8 H Absolute Lymphs (auto) 0.4 L Sodium 134.2 L Est GFR (MDRD) Non-Af 57 L Glucose 257 H Lactic Acid 2.9 H Total Bilirubin 0.1 L Total Protein 6.1 L Albumin 3.2 L Urine Protein Urine Blood Urine Nitrite (Reflex) Leukocyte Esterase Rfl 09/05/19 22:40 RBC Hgb Hct Lymph % (Auto) [place] % (Auto) Absolute Lymphs (auto) Sodium Est GFR (MDRD) Non-Af Glucose Lactic Acid Total Bilirubin Total Protein Albumin Urine Protein 100 H Urine Blood MODERATE H Urine Nitrite (Reflex) POSITIVE H Leukocyte Esterase Rfl LARGE H Critical Care Note - Critical Care Note Total time excluding time spent on procedures (mins): 90 Comments: Discussed findings with patient and patient did well with antibiotics Discharge - Discharge Clinical Impression: Urinary tract infection, Fever Condition: Good Disposition: HOME, SELF-CARE Instructions: Urinary Tract Infection ([facility]) Additional Instructions: Follow-up with personal doctor tomorrow or Friday return to ER as needed take medicines as directed encourage fluids; her urine had a culture done and will be ready within 2 days talk to your doctor about this Prescriptions: Nitrofurantoin/Nitrofuran Mac [Macrobid 100 mg Capsule] 1 tab PO BID #20 capsule Referrals: MISBAH BURROWS PA-C [ALLIED HEALTH PROFESSIONAL] - Follow up as needed
[2019-09-05] MEDS ORDERED: GENTAMICIN SULFATE INJ 80 MG/2 ML VIAL IV ONE (23:17)
[2019-09-05] MEDS ORDERED: CEFTRIAXONE INJ 1000 MG VIAL IV ONE (23:18)
[2019-09-05 23:19] LABS: ALBUMIN 3.2 g/dL (3.5-5.0); ALKALINE PHOSPHATASE 69 U/L (38-126); ANION GAP 8 (5-19); ASPARTATE AMINO TRANSFERASE 20 U/L (14-36); BILIRUBIN,TOTAL 0.1 mg/dL (0.2-1.3); BLOOD UREA NITROGEN 18 mg/dL (7-20); CARBON DIOXIDE 27 mmol/L (22-30); CHLORIDE 99 mmol/L (98-107); GLUCOSE 257 mg/dL (75-110); POTASSIUM 4.2 mmol/L (3.6-5.0); TOTAL PROTEIN 6.1 g/dL (6.3-8.2)
[2019-09-05] MEDS ORDERED: OXYCODONE-ACETAMINOPHEN 5-325 MG TABLET PO ONE (23:22)
[2019-09-05] MEDS ORDERED: FLUCONAZOLE 100 MG TABLET PO ONE (23:50)
[2019-09-06] MEDS ORDERED: ACETAMINOPHEN 325 MG TABLET PO ONE (01:24)
[2019-09-06] MEDS ORDERED: NORMAL SALINE 500 ML IV ONE (01:37)
[2019-09-06] MEDS ORDERED: GLUCAGON,HUMAN RECOMB 1 MG INJ IM PRN (09:29)
[2019-09-06] MEDS ORDERED: DEXTROSE 40% GEL 15 GM TUBE PO PRN ×2 (09:29)
[2019-09-06] MEDS ORDERED: DEXTROSE 50%-WATER 25 GM/50 ML DISP.SYRIN IV PRN ×2 (09:29)
[2019-09-06] MEDS ORDERED: ENOXAPARIN SODIUM INJ 40 MG/0.4 ML DISP.SYRIN SUBCUT SCH (10:00)
[2019-09-06] MEDS ORDERED: DOCUSATE SODIUM 100 MG/10 ML UDC PO SCH (10:00)
[2019-09-06] MEDS: DOCUSATE SODIUM 100 MG CAPSULE PO SCH ×2 (11:00→17:02)
[2019-09-06] MEDS: CEFEPIME 1 GM/D5W RTU 1 GM/50 ML RTUPB IV SCH ×2 (11:00→22:16)
[2019-09-06] MEDS: INSULIN LISPRO 100 UNIT/ML 3 ML VIAL SUBCUT SCH ×3 (11:02→22:16)
[2019-09-06] MEDS ORDERED: (PENDING PHARMACY ID) (Clonazepam [Clonazepam] 0.5 MG) PO PRN (11:25)
[2019-09-06] MEDS ORDERED: MORPHINE SULFATE SR 15 MG TABLET PO PRN (11:25)
--- NOTE | 2019-09-06 11:25 | PDOC H&P ---
History of Present Illness Admission Date/PCP: 09/06/19 09:26 MARJORIE ESTES MD Patient complains of: Chronic urinary tract symptoms History of Present Illness: RODRIGUEZ TOM is a 69 year old female Patient is here for the establish as a new patientsLast week in my office today's came to the emergency department with a complaining of urinary symptoms and a fever Patient's several time admitting in the [facility] supposed to go and see the urologist still not make it yet have appointment this week In the emergency department patient's blood work is all stable patient's insist to be IV antibiotic At this point we decided to admit until the cultures back's cover with the IV antibiotic Against review with all history because patient is fairly new only one time I saw it last week with all recommended here and down Patient had a history of the chronic urinary tract infections with a history of the colonic bladder fistula status post repair in [place] so many years back several times admitting in the [facility] recently admitting in the hospital at [facility] Patient also have a coronary artery disease status post stent placement status post aortic valve repair with TVAR currently followed Dr. Malik in [place] [facility] last seen in February and echo was done Patient also have a squamous cell carcinoma of the lung current CT scan is stable follow-up with the oncology currently however PET scan scheduled next month currently see Dr. Nuñez Patient also have a type 2 diabetes currently taking the glipizide twice a day still not well controlled issue with the financially not able to afford certain medications Patient have a history of aortic arch thrombosis currently on a Coumadin Patient also have a gastro-reflux disease currently on a Protonix and Carafate Patient also have a depression Patient also have a COPD currently on inhalers Patient is currently lives with her Patient have history of diverticulitis status post colostomy seen by [facility] Past Medical History Cardiac Medical History: Reports: Congestive Heart Failure - acute diastolic CHF, Coronary Artery Disease, Hypertension, Heart Murmur Denies: Myocardial Infarction Pulmonary Medical History: Reports: Chronic Obstructive Pulmonary Disease (COPD) Denies: Asthma, Bronchitis, Pneumonia Neurological Medical History: Denies: Seizures Endocrine Medical History: Reports: Diabetes Mellitus Type 2 Malignancy Medical History: Reports: Breast Cancer, Lymphoma - T-cell lymphoma s/p radiation, Skin Cancer - Squamous Cell Carcinoma GI Medical History: Reports: Diverticulitis Musculoskeltal Medical History: Denies: Arthritis Psychiatric Medical History: Reports: Depression Hematology: Reports: Anemia Past Surgical History Past Surgical History: Reports: Cardiac Catheterization, Cholecystectomy, Colostomy, Coronary Stent, Mastectomy, Valve Replacement - aortic valve replacement in 2018, Other - EGD 04/16 for GI bleed Social History Information Source: Patient Lives with: Other - Own home Smoking Status: Former Smoker Electronic Cigarette use?: No Last Time Smoked: 2017 Frequency of Alcohol Use: None Hx Recreational Drug Use: No Drugs: None Hx Prescription Drug Abuse: No Family History Family History: Reviewed & Not Pertinent Parental Family History Reviewed: Yes Children Family History Reviewed: Yes Sibling(s) Family History Reviewed.: Yes Medication/Allergy Home Medications: Docusate Sodium [Colace 100 mg Capsule] 100 mg PO DAILY 07/23/19 Magnesium Oxide [Mag-Ox 400 mg Tablet] 800 mg PO BID 07/23/19 Meloxicam [Mobic] 7.5 mg PO DAILY 07/23/19 Ondansetron HCl [Zofran 4 mg Tablet] 4 mg PO Q8 07/23/19 Oxycodone HCl/Acetaminophen [Percocet 5-325 mg Tablet] 1 each PO Q4HP PRN 07/23/19 Pantoprazole Sodium [Protonix [address] Tablet] 40 mg PO BID 07/23/19 Sertraline HCl 50 mg PO TID 07/23/19 Tamsulosin HCl [Flomax 0.4 mg Cap.sr] 0.4 mg PO DAILY 07/23/19 Trazodone HCl [Desyrel] 100 mg PO QHS 07/23/19 Clonazepam 0.5 mg PO TIDP PRN 07/24/19 Carvedilol [Coreg 3.125 mg Tablet] 1 tab PO BID #30 07/25/19 Aspirin [Aspirin 325 mg Tablet] 325 mg PO DAILY 09/06/19 Furosemide [Lasix 20 mg Tablet] 20 mg PO DAILY 09/06/19 Glipizide [Glipizide Xl] 10 mg PO DAILY 09/06/19 Morphine Sulfate [Ms-Contin Sr 15 Mg Tablet.Sa] 15 mg PO Q6HP PRN 09/06/19 Tiotropium Br/Olodaterol HCl [Stiolto Respimat Inhal [place]] 1 puff IH DAILY 09/06/19 Warfarin Sodium [Coumadin 5 mg Tablet] 5 mg PO Q2D 09/06/19 Warfarin Sodium [Coumadin] 6 mg PO Q2D 09/06/19 Allergies/Adverse Reactions: ciprofloxacin [From Cipro] Allergy (Verified 09/05/19 23:11) epinephrine Allergy (Verified 09/05/19 23:11) ertapenem [From Invanz] Allergy (Verified 09/05/19 23:11) imipenem Allergy (Verified 09/05/19 23:11) lidocaine [From Lidoderm] Allergy (Verified 09/05/19 23:11) menthol [From BenGay] Allergy (Verified 09/05/19 23:11) methyl salicylate [From BenGay] Allergy (Verified 09/05/19 23:11) Sulfa (Sulfonamide Antibiotics) Allergy (Verified 09/05/19 23:11) chocolate flavor Adverse Reaction (Verified 09/05/19 23:11) codeine Adverse Reaction (Verified 09/05/19 23:11) glyburide Adverse Reaction (Verified 09/05/19 23:11) lactose Adverse Reaction (Verified 09/05/19 23:11) Review of Systems Constitutional: PRESENT: chills, fever(s). ABSENT: headache(s), weight gain, weight loss Eyes: ABSENT: visual disturbances Ears: ABSENT: hearing changes Cardiovascular: ABSENT: chest pain, dyspnea on exertion, edema, orthropnea, palpitations Respiratory: ABSENT: cough, hemoptysis Gastrointestinal: ABSENT: abdominal pain, constipation, diarrhea, hematemesis, hematochezia, nausea, vomiting Genitourinary: ABSENT: dysuria, hematuria Musculoskeletal: ABSENT: joint swelling Integumentary: ABSENT: rash, wounds Neurological: ABSENT: abnormal gait, abnormal speech, confusion, dizziness, focal weakness, syncope Psychiatric: ABSENT: anxiety, depression, homidical ideation, suicidal ideation Endocrine: ABSENT: cold intolerance, heat intolerance, menstrual abnormalities, polydipsia, polyuria Hematologic/Lymphatic: ABSENT: easy bleeding, easy bruising, lymphadenopathy Physical Exam Vital Signs: Temp Pulse Resp BP Pulse Ox 97.7 F 79 18 116/61 96 09/06/19 09:00 09/06/19 09:48 09/06/19 09:00 09/06/19 09:00 09/06/19 09:00 Intake & Output 09/05/19 09/06/19 09/07/19 06:59 06:59 06:59 Intake Total 500 Balance 500 Weight 83.9 kg General appearance: PRESENT: no acute distress, well-developed, well-nourished Head exam: PRESENT: atraumatic, normocephalic Eye exam: PRESENT: conjunctiva pink, EOMI, PERRLA. ABSENT: scleral icterus Ear exam: PRESENT: normal external ear exam Mouth exam: PRESENT: moist, tongue midline Neck exam: PRESENT: full ROM. ABSENT: carotid bruit, JVD, lymphadenopathy, thyromegaly Respiratory exam: PRESENT: clear to auscultation bartolome Cardiovascular exam: PRESENT: RRR. ABSENT: diastolic murmur, rubs, systolic murmur Pulses: PRESENT: normal dorsalis pedis pul, +2 pedal pulses bilateral Vascular exam: PRESENT: normal capillary refill GI/Abdominal exam: PRESENT: normal bowel sounds, soft. ABSENT: distended, guarding, mass, organolmegaly, rebound, tenderness Additonal comments: Colostomy bag is present Rectal exam: PRESENT: deferred Musculoskeletal exam: PRESENT: ambulatory Neurological exam: PRESENT: alert, awake, oriented to person, oriented to place, oriented to time, oriented to situation, CN II-XII grossly intact. ABSENT: motor sensory deficit Psychiatric exam: PRESENT: appropriate affect, normal mood. ABSENT: homicidal ideation, suicidal ideation Skin exam: PRESENT: dry, intact, warm. ABSENT: cyanosis, rash Results Laboratory Results: 09/05/19 22:34 09/05/19 22:34 09/05/19 09/05/19 09/05/19 22:34 22:34 22:34 WBC 4.2 RBC 3.62 L Hgb 11.0 L Hct 31.9 L MCV 88 MCH 30.4 MCHC 34.5 RDW 13.6 Plt Count 216 Seg Neutrophils % 73.9 Sodium 134.2 L Potassium 4.2 Chloride 99 Carbon Dioxide 27 Anion Gap 8 BUN 18 Creatinine 0.98 Est GFR ( Amer) > 60 Glucose 257 H Lactic Acid 2.9 H Calcium 9.0 Total Bilirubin 0.1 L AST 20 Alkaline Phosphatase 69 Total Protein 6.1 L Albumin 3.2 L Urine Color Urine Appearance Urine pH Ur Specific [place] Urine Protein Urine Glucose (UA) Urine Ketones Urine Blood Urine RBC (Auto) 09/05/19 09/06/19 09/06/19 22:40 01:30 06:43 WBC RBC Hgb Hct MCV MCH MCHC RDW Plt Count Seg Neutrophils % Sodium Potassium Chloride Carbon Dioxide Anion Gap BUN Creatinine Est GFR ( Amer) Glucose Lactic Acid 1.9 1.2 Calcium Total Bilirubin AST Alkaline Phosphatase Total Protein Albumin Urine Color YELLOW Urine Appearance TURBID Urine pH 6.0 Ur Specific [place] 1.013 Urine Protein 100 H Urine Glucose (UA) NEGATIVE Urine Ketones NEGATIVE Urine Blood MODERATE H Urine RBC (Auto) 49 09/05/19 22:34 Troponin I < 0.012 Assessment & Plan - Diagnosis (1) Fever Qualifiers: Fever type: unspecified Qualified Code(s): R50.9 - Fever, unspecified Is this a current diagnosis for this admission?: Yes Plan: We will get the urine culture blood cultures start with the IV antibiotics (2) Urinary tract infection Qualifiers: Urinary tract infection type: site unspecified Hematuria presence: without hematuria Qualified Code(s): N39.0 - Urinary tract infection, site not specified Is this a current diagnosis for this admission?: Yes Plan: Chronic UTI patient have a history of the colonic bladder fistula in the past I think patients definitely need a some cystoscopies to further evaluate patient already scheduled appointment to see the urology (3) CAD, S/P 2x stent placement Is this a current diagnosis for this admission?: Yes Plan: Currently all stable denied any complaints (4) COPD/asthma Is this a current diagnosis for this admission?: Yes Plan: Continues to PRN nebulizer treatments (5) DM type 2 (diabetes mellitus, type 2) Qualifiers: Diabetes mellitus shelter insulin use: unspecified shelter insulin use status Is this a current diagnosis for this admission?: Yes Plan: Continues a sliding scale (6) Hypertension Qualifiers: Hypertension type: essential hypertension Is this a current diagnosis for this admission?: Yes Plan: Currently stable continues to current medications (7) S/P TAVR (transcatheter aortic valve replacement) Is this a current diagnosis for this admission?: Yes (8) Squamous cell carcinoma of lung Qualifiers: Laterality: unspecified laterality Is this a current diagnosis for this admission?: Yes Plan: Currently follow with oncology (9) Thrombosis of thoracic aorta Is this a current diagnosis for this admission?: Yes Plan: Currently on a chronic Coumadin will check the INR - Time Time Spent: 50 to 70 Minutes Medications reviewed and adjusted accordingly: Yes Anticipated discharge: Home Within: Other - Inpatient Certification Based on my medical assessment, after consideration of the patient's comorbidities, presenting symptoms, or acuity I expect that the services needed warrant INPATIENT care.: Yes I certify that my determination is in accordance with my understanding of Medicare's requirements for reasonable and necessary INPATIENT services [42 CFR 412.3e].: Yes Medical Necessity: Failure to Improve With Outpatient Therapy, Significant Comorbidiites Make Outpatient Treatment Too Risky, Need for IV Antibiotics Post Hospital Care: D/C Size Tester Documentation - Plan Summary Plan Summary: Admit the patient in a telemetry bed Start on IV antibiotic See MD orders
[2019-09-06] MEDS ORDERED: (PENDING PHARMACY ID) (Warfarin Sodium [Coumadin] 6 MG) PO SCH (11:30)
[2019-09-06] MEDS ORDERED: (PENDING PHARMACY ID) (Warfarin Sodium 5 MG) PO SCH (11:30)
[2019-09-06] MEDS: MORPHINE SULFATE IR 15 MG TABLET PO PRN (12:44)
--- NOTE | 2019-09-06 13:06 | EKG REPORT ---
SEVERITY:- ABNORMAL ECG - SINUS RHYTHM PROBABLE LEFT ATRIAL ABNORMALITY LEFT BUNDLE BRANCH BLOCK : Confirmed by: Pablo Franks MD 06-Sep-2019 13:05:08
[2019-09-06 13:19] LABS: INTERNATIONAL RATION (INR) 3.15; PROTHROMBIN TIME 33.1 SEC (11.4-15.4)
[2019-09-06] MEDS: SERTRALINE HCL 50 MG TABLET PO SCH ×2 (13:43→22:16)
[2019-09-06] MEDS: ONDANSETRON 4 MG TAB.RAPDIS PO SCH ×2 (13:43→22:15)
[2019-09-06] MEDS ORDERED: (PENDING PHARMACY ID) (Ondansetron Hcl [Zofran 4 Mg Tablet] 4 MG) PO SCH (14:00)
[2019-09-06] MEDS: ACETAMINOPHEN 325 MG TABLET PO PRN ×2 (15:01→22:15)
[2019-09-06] MEDS: MAGNESIUM OXIDE 400 MG TABLET PO SCH (17:02)
[2019-09-06] MEDS: PANTOPRAZOLE SODIUM 40 MG TABLET.DR PO SCH (17:02)
[2019-09-06] MEDS: CLONAZEPAM 1 MG TABLET PO PRN (17:12)
[2019-09-06] MEDS ORDERED: PANTOPRAZOLE SODIUM 40 MG TABLET.DR PO SCH (18:00)
[2019-09-06] MEDS ORDERED: (PENDING PHARMACY ID) (Trazodone Hcl [Desyrel] 100 MG) PO SCH (22:00)
[2019-09-06] MEDS: WARFARIN SODIUM 5 MG TABLET PO SCH (22:13)
[2019-09-06] MEDS: OXYCODONE-ACETAMINOPHEN 5-325 MG TABLET PO PRN (22:15)
[2019-09-06] MEDS: TRAZODONE HCL 50 MG TABLET PO SCH (22:16)
[2019-09-06] MEDS: CARVEDILOL 3.125 MG TABLET PO SCH (22:16)
[2019-09-07] MEDS: ONDANSETRON 4 MG TAB.RAPDIS PO SCH ×3 (05:24→21:56)
[2019-09-07] MEDS: SERTRALINE HCL 50 MG TABLET PO SCH ×3 (05:24→21:56)
[2019-09-07] MEDS: PANTOPRAZOLE SODIUM 40 MG TABLET.DR PO SCH ×2 (05:24→17:42)
[2019-09-07 05:32] LABS: ABSOLUTE EOSINOPHILS # (AUTO) 0.2 10^3/uL (0.0-0.6); ABSOLUTE LYMPHOCYTES (AUTO) 0.3 10^3/uL (0.5-4.7); ABSOLUTE MONOCYTES (AUTO) 0.7 10^3/uL (0.1-1.4); ABSOLUTE NEUT (AUTO) 3.4 10^3/uL (1.7-8.2); BASOPHILS % (AUTO) 0.4 % (0-2); EOSINOPHILS % (AUTO) 4.2 % (0-6); HEMATOCRIT 32.5 % (36.0-47.0); HEMOGLOBIN 11.2 g/dL (12.0-15.5); LYMPHOCYTES % (AUTO) 7.3 % (13-45); MEAN CORPUSCULAR HEMOGLOBIN 30.1 pg (27.0-33.4); MEAN CORPUSCULAR HGB CONC 34.5 g/dL (32.0-36.0); MEAN CORPUSCULAR VOLUME 87 fl (80-97); MONOCYTES % (AUTO) 14.7 % (3-13); PLATELET COUNT 200 10^3/uL (150-450); RED BLOOD COUNT 3.72 10^6/uL (3.72-5.28); RED CELL DISTRIBUTION WIDTH 13.9 % (11.5-14.0); SEGMENTED NEUTROPHILS % (AUTO) 73.4 % (42-78); TOTAL CELLS COUNTED % (AUTO) 100 %; WHITE BLOOD COUNT 4.7 10^3/uL (4.0-10.5)
[2019-09-07 05:41] LABS: INTERNATIONAL RATION (INR) 3.14; PROTHROMBIN TIME 32.9 SEC (11.4-15.4)
[2019-09-07 06:09] LABS: ANION GAP 9 (5-19); BLOOD UREA NITROGEN 14 mg/dL (7-20); CALCIUM 8.4 mg/dL (8.4-10.2); CARBON DIOXIDE 29 mmol/L (22-30); CHLORIDE 98 mmol/L (98-107); GLUCOSE 155 mg/dL (75-110); POTASSIUM 4.2 mmol/L (3.6-5.0)
[2019-09-07] MEDS: OXYCODONE-ACETAMINOPHEN 5-325 MG TABLET PO PRN (07:23)
[2019-09-07] MEDS: ACETAMINOPHEN 325 MG TABLET PO PRN ×2 (07:27→21:57)
[2019-09-07] MEDS: INSULIN LISPRO 100 UNIT/ML 3 ML VIAL SUBCUT SCH ×4 (07:43→21:56)
[2019-09-07] MEDS ORDERED: ONDANSETRON HCL INJ/PF 4 MG/2 ML SDV IV PRN (08:03)
[2019-09-07] MEDS ORDERED: NORMAL SALINE 1000 ML 1,000 ML IV PRN (08:44)
[2019-09-07 09:26] LABS: A TYPE INFLUENZA AG NEGATIVE (NEGATIVE); B INFLUENZA AG NEGATIVE (NEGATIVE)
[2019-09-07] MEDS ORDERED: (PENDING PHARMACY ID) (Tiotropium Br/Olodaterol Hcl [Stiolto Respimat Inhal Spray] 1 PUFF) IH SCH (10:00)
[2019-09-07] MEDS ORDERED: DOCUSATE SODIUM 100 MG CAPSULE PO SCH (10:00)
[2019-09-07] MEDS: TAMSULOSIN HCL 0.4 MG CAP.SR.24H PO SCH (11:49)
[2019-09-07] MEDS: ASPIRIN 325 MG TABLET PO SCH (11:49)
[2019-09-07] MEDS: DOCUSATE SODIUM 100 MG CAPSULE PO SCH ×2 (11:49→17:42)
[2019-09-07] MEDS: FUROSEMIDE 20 MG TABLET PO SCH (11:49)
[2019-09-07] MEDS: GLIPIZIDE XL 5 MG TAB.ER.24 PO SCH (11:49)
[2019-09-07] MEDS: MAGNESIUM OXIDE 400 MG TABLET PO SCH ×2 (11:49→17:42)
[2019-09-07] MEDS: CARVEDILOL 3.125 MG TABLET PO SCH ×2 (11:49→21:56)
[2019-09-07] MEDS: CEFEPIME 1 GM/D5W RTU 1 GM/50 ML RTUPB IV SCH ×2 (11:50→21:57)
--- NOTE | 2019-09-07 13:01 | PDOC PROGRESS REPORT ---
Subjective Progress Note for:: 09/07/19 Subjective:: Patient is complaining of abdominal discomfort Patient's had a fever overnight Patient denied any chest pain no short of breath Patient also have issue with the chronic UTI with the currently on IV cefepime was sensitive Reason For Visit: UTI RECURRENT Physical Exam Vital Signs: Temp Pulse Resp BP Pulse Ox 98.6 F 83 18 103/42 L 93 09/07/19 11:23 09/07/19 11:23 09/07/19 11:23 09/07/19 11:23 09/07/19 11:23 Intake & Output 09/06/19 09/07/19 09/08/19 06:59 06:59 06:59 Intake Total 500 250 50 Balance 500 250 50 Weight 87.4 kg General appearance: PRESENT: no acute distress, well-developed, well-nourished Head exam: PRESENT: atraumatic, normocephalic Eye exam: PRESENT: conjunctiva pink, EOMI, PERRLA. ABSENT: scleral icterus Ear exam: PRESENT: normal external ear exam Mouth exam: PRESENT: moist, tongue midline Neck exam: PRESENT: full ROM. ABSENT: carotid bruit, JVD, lymphadenopathy, thyromegaly Respiratory exam: PRESENT: clear to auscultation bartolome Cardiovascular exam: PRESENT: RRR. ABSENT: diastolic murmur, rubs, systolic murmur Vascular exam: PRESENT: normal capillary refill GI/Abdominal exam: PRESENT: normal bowel sounds, soft. ABSENT: distended, guarding, mass, organolmegaly, rebound, tenderness Additonal comments: Colostomy bag is present Rectal exam: PRESENT: deferred Neurological exam: PRESENT: alert, awake, oriented to person, oriented to place, oriented to time, oriented to situation, CN II-XII grossly intact. ABSENT: motor sensory deficit Psychiatric exam: PRESENT: appropriate affect, normal mood. ABSENT: homicidal ideation, suicidal ideation Skin exam: PRESENT: dry, intact, warm. ABSENT: cyanosis, rash Results Laboratory Results: 09/07/19 05:04 09/07/19 05:04 09/07/19 09/07/19 09/07/19 05:04 05:04 08:49 WBC 4.7 RBC 3.72 Hgb 11.2 L Hct 32.5 L MCV 87 MCH 30.1 MCHC 34.5 RDW 13.9 Plt Count 200 Seg Neutrophils % 73.4 Sodium 136.4 L Potassium 4.2 Chloride 98 Carbon Dioxide 29 Anion Gap 9 BUN 14 Creatinine 1.06 Est GFR ( Amer) > 60 Glucose 155 H Lactic Acid 1.2 Calcium 8.4 09/05/19 22:34 Troponin I < 0.012 Assessment & Plan - Diagnosis (1) Fever Qualifiers: Fever type: unspecified Qualified Code(s): R50.9 - Fever, unspecified Is this a current diagnosis for this admission?: Yes (2) Urinary tract infection Qualifiers: Urinary tract infection type: site unspecified Hematuria presence: without hematuria Qualified Code(s): N39.0 - Urinary tract infection, site not specified Is this a current diagnosis for this admission?: Yes (3) CAD, S/P 2x stent placement Is this a current diagnosis for this admission?: Yes (4) COPD/asthma Is this a current diagnosis for this admission?: Yes (5) DM type 2 (diabetes mellitus, type 2) Qualifiers: Diabetes mellitus jail insulin use: unspecified jail insulin use status Is this a current diagnosis for this admission?: Yes (6) Hypertension Qualifiers: Hypertension type: essential hypertension Is this a current diagnosis for this admission?: Yes (7) S/P TAVR (transcatheter aortic valve replacement) Is this a current diagnosis for this admission?: Yes (8) Squamous cell carcinoma of lung Qualifiers: Laterality: unspecified laterality Is this a current diagnosis for this admission?: Yes (9) Thrombosis of thoracic aorta Is this a current diagnosis for this admission?: Yes - Time Time Spent with patient: 15-24 minutes Level of Care: TELE Medications reviewed and adjusted accordingly: Yes Anticipated discharge: Home Within: Other - Plan Summary Plan Summary: Will continues IV antibiotics will consult infectious disease with this ongoing recurrent problems ultimately patient need to see the urologist we will get the CT scan of the abdomen and pelvis with IV contrast to further evaluations recheck the lactic acids
--- NOTE | 2019-09-07 13:09 | RADIOLOGY REPORT (SQ) ---
EXAM DESCRIPTION: CT ABD/PELVIS WITH IV ONLY COMPLETED DATE/TIME: 09/07/2019 11:42 am REASON FOR STUDY: recurrent UTI. Right lower and left lower quadrant pain. Previous cholecystectom y and partial colectomy and history of kidney stones. COMPARISON: None. TECHNIQUE: CT scan of the abdomen and pelvis performed using helical scanning technique with dynamic intravenous contrast injection. No oral contrast. Images reviewed with lung, soft tissue, and bone windows. Reconstructed coronal and sagittal MPR images reviewed. Delayed images for evaluation of the urinary system also acquired. All images stored on PACS. All CT scanners at this facility use dose modulation, iterative reconstruction, and/or weight based d osing when appropriate to reduce radiation dose to as low as reasonably achievable (ALARA). [facility]: Dose Right [facility]: CareDose [facility]: Dose Right [facility]: Teradose 4D [facility]: [employer] CONTRAST TYPE AND DOSE: contrast/concentration: Isovue 350.00 mg/ml; Total Contrast Delivered: 99.0 ml; Total Saline Delivered: 72.0 ml RENAL FUNCTION: GFR > 60. RADIATION DOSE: CT Rad equipment meets quality standard of care and radiation dose reduction techniq ues were employed. CTDIvol: 13.3 - 13.3 mGy. DLP: 1334 mGy-cm.. LIMITATIONS: None. FINDINGS: LOWER CHEST: No significant findings. No nodules or infiltrates. LIVER: The liver is mildly enlarged measuring 21.2 cm craniocaudal at the midclavicular line. There is moderate diffuse hepatic steatosis. No focal hepatic mass P hepatic and portal veins are patent. SPLEEN: Normal size. No focal lesions. PANCREAS: No masses. No significant calcifications. No adjacent inflammation or peripancreatic fluid collections. Pancreatic duct not dilated. GALLBLADDER: Surgically absent. ADRENAL GLANDS: No significant masses or asymmetry. RIGHT KIDNEY AND URETER: No solid masses. No significant calcifications. No hydronephrosis or hyd roureter. LEFT KIDNEY AND URETER: No solid masses. No significant calcifications. No hydronephrosis or hydr oureter. AORTA AND VESSELS: No aneurysm. No dissection. Renal arteries, SMA, celiac without stenosis. RETROPERITONEUM: No retroperitoneal adenopathy, hemorrhage or masses. BOWEL AND PERITONEAL CAVITY: Status post left hemicolectomy with left anterior abdominal wall colosto my. There is a large parastomal hernia containing multiple loops of small bowel. No evidence of bow el obstruction. No bowel wall thickening or inflammatory change. There is a moderate amount of stoo l in the colon. APPENDIX: Not visualized. No pericecal inflammatory change. PELVIS: Uterus and ovaries have normal size. No adnexal mass. Calcified pelvic phleboliths. Urinar y bladder is unremarkable. ABDOMINAL WALL: Peristomal hernia as described. No subcutaneous mass or fluid. Injection site noted in the right anterior abdomen. BONES: No significant or acute findings. OTHER: No other significant finding. IMPRESSION: 1. No acute abnormality to explain the patient's symptoms. 2. Left anterior colostomy with large peristomal hernia containing loops of small bowel. No bowel ob struction or evidence of inflammatory change. 3. Moderate amount of stool in the colon. This can be seen with constipation. 4. Hepatomegaly with moderate hepatic steatosis. TECHNICAL DOCUMENTATION: JOB ID: [id number] Quality ID # [id number]: Final reports with documentation of one or more dose reduction techniques (e.g., Au tomated exposure control, adjustment of the mA and/or kV according to patient size, use of iterative reconstruction technique) 2010 [employer]- All Rights Reserved Reading location - IP/workstation name: [email or web address]
[2019-09-07] MEDS: POLYETHYLENE GLYCOL 3350 POWDER 17 GM/1 PACKET PO SCH (15:20)
[2019-09-07] MEDS: CLONAZEPAM 1 MG TABLET PO PRN (17:48)
--- NOTE | 2019-09-07 19:57 | PDOC PROGRESS REPORT ---
Subjective Progress Note for:: 09/07/19 Reason For Visit: UTI RECURRENT Physical Exam Vital Signs: Temp Pulse Resp BP Pulse Ox 98.2 F 74 18 117/52 L 94 09/07/19 15:30 09/07/19 15:30 09/07/19 15:30 09/07/19 15:30 09/07/19 15:30 Intake & Output 09/06/19 09/07/19 09/08/19 06:59 06:59 06:59 Intake Total 500 250 556 Balance 500 250 556 Weight 87.4 kg Results Laboratory Results: 09/07/19 05:04 09/07/19 05:04 09/07/19 09/07/19 09/07/19 05:04 05:04 08:49 WBC 4.7 RBC 3.72 Hgb 11.2 L Hct 32.5 L MCV 87 MCH 30.1 MCHC 34.5 RDW 13.9 Plt Count 200 Seg Neutrophils % 73.4 Sodium 136.4 L Potassium 4.2 Chloride 98 Carbon Dioxide 29 Anion Gap 9 BUN 14 Creatinine 1.06 Est GFR ( Amer) > 60 Glucose 155 H Lactic Acid 1.2 Calcium 8.4 09/05/19 22:34 Blood Blood Culture (PCR) - Final Staphylococcus Species 09/05/19 22:34 Troponin I < 0.012 Impressions: Abdomen/Pelvis CT 09/07/19 08:49 IMPRESSION: 1. No acute abnormality to explain the patient's symptoms. 2. Left anterior colostomy with large peristomal hernia containing loops of small bowel. No bowel obstruction or evidence of inflammatory change. 3. Moderate amount of stool in the colon. This can be seen with constipation. 4. Hepatomegaly with moderate hepatic steatosis. Assessment & Plan - Diagnosis (1) Parastomal hernia Qualifiers: Obstruction and gangrene presence: without obstruction or gangrene Qualified Code(s): K43.5 - Parastomal hernia without obstruction or gangrene Is this a current diagnosis for this admission?: Yes Plan: Impression: Recurrent parastomal hernia in patient with multiple comorbidities. Some incarceration strangulation or acute abdomen. Recommendations: I discussed this patient on the telephone with Dr. Evelyne Mcneal approximately 5 hours ago. I suggested that no further intervention take place as an operative repair for complex parastomal hernia would require abdominal wall reconstruction which this patient would have a very difficult time tolerating. Thank you very much, Dr. Mendoza - Time Time Spent with patient: I reviewed the imaging studies Time Spent with patient: Less than 15 minutes
[2019-09-07] MEDS: MORPHINE SULFATE IR 15 MG TABLET PO PRN (20:24)
[2019-09-07] MEDS: WARFARIN SODIUM 3 MG TABLET PO SCH (21:52)
[2019-09-07] MEDS: TRAZODONE HCL 50 MG TABLET PO SCH (21:56)
--- NOTE | 2019-09-07 23:38 | Progress Note ---
Provider Note Provider Note: [facility] Telephone Advice Consultation Chart reviewed. 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 She also has CO PD, CHF, squamous cell carcinoma of the lung. Patient was recently in the ED at [facility] in [place] with dysuria and pelvic pain. She had a urine culture that was positive for Citrobacter. She was initially discharged home on ampicillin and doxycycline on 08/05. Once cultures were finalized, she was prescribed levaquin on 08/10. She is now presenting to [facility] due to fever and recurrence of these symptoms. She was febrile, but HD stable and no leukocytosis. Renal function is stable. UA positive and urine culture again positive for Citrobacter. CT scan of abdomen and pelvis demonstrated a complex hernia, but no signs suggestive of pyelonephritis or nephrolithiasis. She has been on cefepime, with adequate response. ID consulted for recommendations. PMH: Squamous cell carcinoma lung CAD CHF Aortic valve repair (TAVR) PSH: TAVR Colostomy Allergies: ciprofloxacin [From Cipro] Allergy (Verified 09/06/19 19:05) epinephrine Allergy (Verified 09/06/19 19:05) ertapenem [From Invanz] Allergy (Verified 09/06/19 19:05) imipenem Allergy (Verified 09/06/19 19:05) lidocaine [From Lidoderm] Allergy (Verified 09/06/19 19:05) menthol [From BenGay] Allergy (Verified 09/06/19 19:05) methyl salicylate [From BenGay] Allergy (Verified 09/06/19 19:05) Sulfa (Sulfonamide Antibiotics) Allergy (Verified 09/06/19 19:05) codeine Adverse Reaction (Verified 09/06/19 19:05) glyburide Adverse Reaction (Verified 09/06/19 19:05) lactose Adverse Reaction (Verified 09/06/19 19:05) Medications: Aspirin [Aspirin 325 mg Tablet] 325 mg PO DAILY 09/06/19 [History] Furosemide [Lasix 20 mg Tablet] 20 mg PO DAILY 09/06/19 [History] Glipizide [Glipizide Xl] 10 mg PO DAILY 09/06/19 [History] Morphine Sulfate [Morphine Ir 15 Mg Tablet] 15 mg PO Q6HP PRN 09/06/19 [History] Tiotropium Br/Olodaterol HCl [Stiolto Respimat Inhal [place]] 1 puff IH DAILY 09/06/19 [History] Warfarin Sodium [Coumadin 5 mg Tablet] 5 mg PO Q2D 09/06/19 [History] Warfarin Sodium [Coumadin] 6 mg PO Q2D 09/06/19 [History] Vital Signs: Temp Pulse Resp BP Pulse Ox 98.8 F 87 20 131/52 H 99 09/07/19 20:17 09/07/19 20:17 09/07/19 20:17 09/07/19 20:17 09/07/19 20:17 Intake & Output 09/06/19 09/07/19 09/08/19 06:59 06:59 06:59 Intake Total 500 250 556 Balance 500 250 556 Weight 87.4 kg Weight/Height Weight 87.4 kg Height 4 ft 11 in Laboratories: 09/07/19 05:04 09/07/19 05:04 MCV 87 fl (80-97) 09/07/19 05:04 MCH 30.1 pg (27.0-33.4) 09/07/19 05:04 MCHC 34.5 g/dL (32.0-36.0) 09/07/19 05:04 RDW 13.9 % (11.5-14.0) 09/07/19 05:04 Seg Neutrophils % 73.4 % (42-78) 09/07/19 05:04 Chloride 98 mmol/L (98-107) 09/07/19 05:04 Carbon Dioxide 29 mmol/L (22-30) 09/07/19 05:04 Anion Gap 9 (5-19) 09/07/19 05:04 Est GFR ( Amer) > 60 (>60) 09/07/19 05:04 Glucose 155 mg/dL (75-110) H 09/07/19 05:04 Lactic Acid 1.2 mmol/L (0.7-2.1) 09/07/19 08:49 Calcium 8.4 mg/dL (8.4-10.2) 09/07/19 05:04 Total Bilirubin 0.1 mg/dL (0.2-1.3) L 09/05/19 22:34 AST 20 U/L (14-36) 09/05/19 22:34 Alkaline Phosphatase 69 U/L (38-126) 09/05/19 22:34 Total Protein 6.1 g/dL (6.3-8.2) L 09/05/19 22:34 Albumin 3.2 g/dL (3.5-5.0) L 09/05/19 22:34 Urine Color YELLOW 09/05/19 22:40 Urine Appearance TURBID 09/05/19 22:40 Urine pH 6.0 (5.0-9.0) 09/05/19 22:40 Ur Specific [place] 1.013 09/05/19 22:40 Urine Protein 100 mg/dL (NEGATIVE) H 09/05/19 22:40 Urine Glucose (UA) NEGATIVE mg/dL (NEGATIVE) 09/05/19 22:40 Urine Ketones NEGATIVE mg/dL (NEGATIVE) 09/05/19 22:40 Urine Blood MODERATE (NEGATIVE) H 09/05/19 22:40 Urine RBC (Auto) 49 /HPF 09/05/19 22:40 09/05/19 22:34 Blood Blood Culture (PCR) - Final Staphylococcus Species 09/05/19 22:34 Troponin I < 0.012 Microbiology: Blood cultures: 09/05 CoNS 09/06 NGTD Urine Cultures: OSH - 04/02 Enterococcus faecalis 04/30 Proteus mirabilis 06/07 Klebsiella pneumoniae 06/13 Klebsiella pneumoniae 08/05 Citrobacter freundii 09/05 Citrobacter freundii Radiology: Abdomen/Pelvis CT 09/07/19 08:49 IMPRESSION: 1. No acute abnormality to explain the patient's symptoms. 2. Left anterior colostomy with large peristomal hernia containing loops of small bowel. No bowel obstruction or evidence of inflammatory change. 3. Moderate amount of stool in the colon. This can be seen with constipation. 4. Hepatomegaly with moderate hepatic steatosis. Assessment and Recommendations: Patient with history of colovesical fistula s/p colostomy who has had multiple admissions and visits to the ED due to recurrent urinary symptoms. She has had multiple urine cultures positive. Most recently in July she had positive urine cultures with Citrobacter freundii at OSH. She initially received ampicillin and doxycycline transitioned to levofloxacin. She has recurrent sympt oms, fever, chills, positive UA and urine culture. 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 Cefepime is adequate also considering her multiple antibiotic allergies. As CT scan is negative for pyelonephritis, a total of 10 days of cefepime is a reasonable option. Fosfomycin 3g po every 3 days x 3 doses is an alternative. She needs urology evaluation as her history of fistula probably put her at risk of this recurrent infections. Her blood culture was positive for methicillin resistant CoNS. This is likely a skin contaminant, but in the setting of AoV repair/replacement, will have to rule out true bacteremia. Will recommend to repeat blood cultures. If positive, please call us back for further recommendations. Please call if any questions. Christy Huertas MD [facility] [phone]
[2019-09-08 05:07] LABS: INTERNATIONAL RATION (INR) 2.94; PROTHROMBIN TIME 31.3 SEC (11.4-15.4)
[2019-09-08 05:18] LABS: BLOOD UREA NITROGEN 13 mg/dL (7-20); CALCIUM 8.6 mg/dL (8.4-10.2); CARBON DIOXIDE 32 mmol/L (22-30); GLUCOSE 124 mg/dL (75-110)
[2019-09-08 05:26] LABS: ANION GAP 6 (5-19); CHLORIDE 99 mmol/L (98-107); POTASSIUM 4.2 mmol/L (3.6-5.0)
[2019-09-08] MEDS: SERTRALINE HCL 50 MG TABLET PO SCH ×3 (06:43→21:49)
[2019-09-08] MEDS: PANTOPRAZOLE SODIUM 40 MG TABLET.DR PO SCH ×2 (06:43→16:57)
[2019-09-08] MEDS: ONDANSETRON 4 MG TAB.RAPDIS PO SCH ×3 (06:43→21:49)
[2019-09-08] MEDS: ACETAMINOPHEN 325 MG TABLET PO PRN ×2 (07:49→19:57)
[2019-09-08] MEDS: INSULIN LISPRO 100 UNIT/ML 3 ML VIAL SUBCUT SCH ×4 (07:49→21:49)
--- NOTE | 2019-09-08 08:21 | PDOC CONSULTATION ---
Consultation Consult Date: 09/08/19 Attending physician:: MARJORIE ESTES Provider Consulted: NICOLE GREER Consult reason:: Patient with known history of stage 3 lung cancer status post radiation primary, here with UTI and bacteremia History of Present Illness Admission Date/PCP: 09/06/19 09:26 MARJORIE ESTES MD Patient complains of: Weakness, fevers, dysuria History of Present Illness: RODRIGUEZ TOM is a 69 year old female with known history of multiple medical issues recently with prolonged admission several times at [facility], recently with several recurrent UTIs. We have treated her as an outpatient several times with oral antibiotics in the ED has treated her as well, we recently got her in with Dr. Estes for primary care because she really did not have good primary care prior to that, to deal with her multiple medical issues. Upon admission she was found to have bacteremia with staph, and urine culture was also positive she is on appropriate antibiotics, infectious diseases involved in helping as well. She still had fever overnight of 100.4. This morning she is having severe headaches. She did have a short run of V. tach, nursing told me, Dr. Estes will review. Of note, patient had originally a 4 cm paratracheal node, this was noted about 3 to 4 months ago, ultimately biopsy indicated squamous cell carcinoma consistent with lung primary, however there is no primary lesion noted in the lung, bronchoscopy was negative for that, and PET scan only showed the hypermetabolic lymph node. She was critically ill for a while in [facility] and ultimately was decided that only definitive radiation could be done, she was given a full course of definitive radiation while admitted at [facility]. We just did repeat CT which indicated the total size of lymph node was down to 1.6. Repeat PET/CT was planned in 6 weeks. Past Medical History Cardiac Medical History: Reports: Congestive Heart Failure - acute diastolic CHF, Coronary Artery Disease, Hypertension, Heart Murmur Denies: Myocardial Infarction Pulmonary Medical History: Reports: Chronic Obstructive Pulmonary Disease (COPD) Denies: Asthma, Bronchitis, Pneumonia Neurological Medical History: Denies: Seizures Endocrine Medical History: Reports: Diabetes Mellitus Type 2 Malignancy Medical History: Reports: Breast Cancer, Lymphoma - T-cell lymphoma s/p radiation, Skin Cancer - Squamous Cell Carcinoma GI Medical History: Reports: Diverticulitis Musculoskeltal Medical History: Denies: Arthritis Psychiatric Medical History: Reports: Depression Hematology: Reports: Anemia Past Surgical History Past Surgical History: Reports: Cardiac Catheterization, Cholecystectomy, Colostomy, Coronary Stent, Mastectomy, Valve Replacement - aortic valve re placement in 2018, Other - EGD 04/16 for GI bleed Social History Information Source: Patient Lives with: Other - Own home Smoking Status: Former Smoker Electronic Cigarette use?: No Last Time Smoked: 2017 Frequency of Alcohol Use: None Hx Recreational Drug Use: No Drugs: None Hx Prescription Drug Abuse: No - Advance Directive Resuscitation Status: Full Code Family History Family History: Reviewed & Not Pertinent Parental Family History Reviewed: Yes Children Family History Reviewed: Yes Sibling(s) Family History Reviewed.: Yes Medication/Allergy Home Medications: Docusate Sodium [Colace 100 mg Capsule] 100 mg PO DAILY 07/23/19 Magnesium Oxide [Mag-Ox 400 mg Tablet] 800 mg PO BID 07/23/19 Meloxicam [Mobic] 7.5 mg PO DAILY 07/23/19 Ondansetron HCl [Zofran 4 mg Tablet] 4 mg PO Q8 07/23/19 Oxycodone HCl/Acetaminophen [Percocet 5-325 mg Tablet] 1 each PO Q4HP PRN 07/23/19 Pantoprazole Sodium [Protonix [address] Tablet] 40 mg PO BID 07/23/19 Sertraline HCl 50 mg PO TID 07/23/19 Tamsulosin HCl [Flomax 0.4 mg Cap.sr] 0.4 mg PO DAILY 07/23/19 Trazodone HCl [Desyrel] 100 mg PO QHS 07/23/19 Clonazepam 0.5 mg PO TIDP PRN 07/24/19 Carvedilol [Coreg 3.125 mg Tablet] 1 tab PO BID #30 07/25/19 Aspirin [Aspirin 325 mg Tablet] 325 mg PO DAILY 09/06/19 Furosemide [Lasix 20 mg Tablet] 20 mg PO DAILY 09/06/19 Glipizide [Glipizide Xl] 10 mg PO DAILY 09/06/19 Morphine Sulfate [Morphine Ir 15 Mg Tablet] 15 mg PO Q6HP PRN 09/06/19 Tiotropium Br/Olodaterol HCl [Stiolto Respimat Inhal [place]] 1 puff IH DAILY 09/06/19 Warfarin Sodium [Coumadin 5 mg Tablet] 5 mg PO Q2D 09/06/19 Warfarin Sodium [Coumadin] 6 mg PO Q2D 09/06/19 Allergies/Adverse Reactions: ciprofloxacin [From Cipro] Allergy (Verified 09/06/19 19:05) epinephrine Allergy (Verified 09/06/19 19:05) ertapenem [From Invanz] Allergy (Verified 09/06/19 19:05) imipenem Allergy (Verified 09/06/19 19:05) lidocaine [From Lidoderm] Allergy (Verified 09/06/19 19:05) menthol [From BenGay] Allergy (Verified 09/06/19 19:05) methyl salicylate [From BenGay] Allergy (Verified 09/06/19 19:05) Sulfa (Sulfonamide Antibiotics) Allergy (Verified 09/06/19 19:05) codeine Adverse Reaction (Verified 09/06/19 19:05) glyburide Adverse Reaction (Verified 09/06/19 19:05) lactose Adverse Reaction (Verified 09/06/19 19:05) Review of Systems Constitutional: ABSENT: chills, fever(s), headache(s), weight gain, weight loss Eyes: ABSENT: visual disturbances Ears: ABSENT: hearing changes Cardiovascular: ABSENT: chest pain, dyspnea on exertion, edema, orthropnea, palpitations Respiratory: ABSENT: cough, hemoptysis Gastrointestinal: ABSENT: abdominal pain, constipation, diarrhea, hematemesis, hematochezia, nausea, vomiting Genitourinary: ABSENT: dysuria, hematuria Musculoskeletal: ABSENT: joint swelling Integumentary: ABSENT: rash, wounds Neurological: ABSENT: abnormal gait, abnormal speech, confusion, dizziness, focal weakness, syncope Psychiatric: ABSENT: anxiety, depression, homidical ideation, suicidal ideation Endocrine: ABSENT: cold intolerance, heat intolerance, polydipsia, polyuria Hematologic/Lymphatic: ABSENT: easy bleeding, easy bruising Physical Exam Vital Signs: Temp Pulse Resp BP Pulse Ox 100.3 F 101 H 20 151/69 H 91 L 09/08/19 08:07 09/08/19 08:07 09/08/19 08:07 09/08/19 08:07 09/08/19 08:07 Intake & Output 09/07/19 09/08/19 09/09/19 06:59 06:59 06:59 Intake Total 250 1156 Balance 250 1156 Weight 87.4 kg 88.8 kg General appearance: PRESENT: no acute distress, well-developed, well-nourished Head exam: PRESENT: atraumatic, normocephalic Eye exam: PRESENT: conjunctiva pink, EOMI, PERRLA. ABSENT: scleral icterus Ear exam: PRESENT: normal external ear exam Mouth exam: PRESENT: moist, tongue midline Neck exam: ABSENT: carotid bruit, JVD, lymphadenopathy, thyromegaly Respiratory exam: PRESENT: clear to auscultation [place]. ABSENT: rales, rhonchi, wheezes Cardiovascular exam: PRESENT: RRR. ABSENT: diastolic murmur, rubs, systolic murmur Pulses: PRESENT: normal dorsalis pedis pul Vascular exam: PRESENT: normal capillary refill GI/Abdominal exam: PRESENT: normal bowel sounds, soft. ABSENT: distended, guarding, mass, organolmegaly, rebound, tenderness Rectal exam: PRESENT: deferred Extremities exam: PRESENT: full ROM. ABSENT: calf tenderness, clubbing, pedal edema Neurological exam: PRESENT: alert, awake, oriented to person, oriented to place, oriented to time, oriented to situation, CN II-XII grossly intact. ABSENT: motor sensory deficit Psychiatric exam: PRESENT: appropriate affect, normal mood. ABSENT: homicidal ideation, suicidal ideation Skin exam: PRESENT: dry, intact, warm. ABSENT: cyanosis, rash Results Laboratory Results: 09/07/19 05:04 09/08/19 04:33 09/07/19 09/08/19 08:49 04:33 Sodium 137.4 Potassium 4.2 Chloride 99 Carbon Dioxide 32 H Anion Gap 6 BUN 13 Creatinine 1.03 Est GFR ( Amer) > 60 Glucose 124 H Lactic Acid 1.2 Calcium 8.6 09/05/19 22:40 Clean Catch Midstream Urine Culture - Final Citrobacter Freundii 09/05/19 22:34 Blood Blood Culture (PCR) - Final Staphylococcus Species 09/05/19 22:34 Troponin I < 0.012 Impressions: Abdomen/Pelvis CT 09/07/19 08:49 IMPRESSION: 1. No acute abnormality to explain the patient's symptoms. 2. Left anterior colostomy with large peristomal hernia containing loops of small bowel. No bowel obstruction or evidence of inflammatory change. 3. Moderate amount of stool in the colon. This can be seen with constipation. 4. Hepatomegaly with moderate hepatic steatosis. Status: Image reviewed by me Assessment & Plan - Diagnosis (1) Squamous cell carcinoma of lung Qualifiers: Laterality: unspecified laterality Is this a current diagnosis for this admission?: Yes Plan: At least a stage III lung cancer with the paratracheal node but no other areas of disease, could be a stage IV cancer of another site, regardless, she had a good response from radiation in the neck step was PET/CT in 6 weeks. We will arrange that as an outpatient. She did have abdominal pain and CT of the abdomen pelvis did not show any evidence of malignancy causing that. Probably related to the infection. - Time Time Spent: Greater than 70 Minutes
--- NOTE | 2019-09-08 09:31 | PDOC PROGRESS REPORT ---
Subjective Progress Note for:: 09/08/19 Subjective:: Patient is currently doing fair no fever overnights currently on IV cefepime which is appropriate for the patient's culture Is seen by ID consult suggest to continue cefepime pt also seen by general surgery no need for surgical interventions for the hernia Patient having some run of V. tach today with a history of aortic valve disease and coronary disease and heart failure's Reason For Visit: UTI RECURRENT Physical Exam Vital Signs: Temp Pulse Resp BP Pulse Ox 100.8 F H 101 H 20 151/69 H 91 L 09/08/19 08:48 09/08/19 08:07 09/08/19 08:07 09/08/19 08:07 09/08/19 08:07 Intake & Output 09/07/19 09/08/19 09/09/19 06:59 06:59 06:59 Intake Total 250 1156 Balance 250 1156 Weight 87.4 kg 88.8 kg General appearance: PRESENT: no acute distress, well-developed, well-nourished Head exam: PRESENT: atraumatic, normocephalic Eye exam: PRESENT: conjunctiva pink, EOMI, PERRLA. ABSENT: scleral icterus Ear exam: PRESENT: normal external ear exam Mouth exam: PRESENT: moist, tongue midline Neck exam: PRESENT: full ROM. ABSENT: carotid bruit, JVD, lymphadenopathy, thyromegaly Respiratory exam: PRESENT: clear to auscultation [place] Cardiovascular exam: PRESENT: RRR. ABSENT: diastolic murmur, rubs, systolic murmur Pulses: PRESENT: normal dorsalis pedis pul, +2 pedal pulses bilateral Vascular exam: PRESENT: normal capillary refill GI/Abdominal exam: PRESENT: normal bowel sounds, soft. ABSENT: distended, guarding, mass, organolmegaly, rebound, tenderness Rectal exam: PRESENT: deferred Neurological exam: PRESENT: alert, awake, oriented to person, oriented to place, oriented to time, oriented to situation, CN II-XII grossly intact. ABSENT: motor sensory deficit Psychiatric exam: PRESENT: appropriate affect, normal mood. ABSENT: homicidal ideation, suicidal ideation Skin exam: PRESENT: dry, intact, warm. ABSENT: cyanosis, rash Results Laboratory Results: 09/07/19 05:04 09/08/19 04:33 09/07/19 09/08/19 09/08/19 08:49 04:33 04:33 Sodium 137.4 Potassium 4.2 Chloride 99 Carbon Dioxide 32 H Anion Gap 6 BUN 13 Creatinine 1.03 Est GFR ( Amer) > 60 Glucose 124 H Lactic Acid 1.2 Calcium 8.6 Magnesium 2.2 09/05/19 22:34 Blood Blood Culture (PCR) - Final Staphylococcus Species 09/05/19 22:40 Clean Catch Midstream Urine Culture - Final Citrobacter Freundii 09/05/19 22:34 Troponin I < 0.012 Impressions: Abdomen/Pelvis CT 09/07/19 08:49 IMPRESSION: 1. No acute abnormality to explain the patient's symptoms. 2. Left anterior colostomy with large peristomal hernia containing loops of small bowel. No bowel obstruction or evidence of inflammatory change. 3. Moderate amount of stool in the colon. This can be seen with constipation. 4. Hepatomegaly with moderate hepatic steatosis. Assessment & Plan - Diagnosis (1) Fever Qualifiers: Fever type: unspecified Qualified Code(s): R50.9 - Fever, unspecified Is this a current diagnosis for this admission?: Yes (2) Urinary tract infection Qualifiers: Urinary tract infection type: site unspecified Hematuria presence: without hematuria Qualified Code(s): N39.0 - Urinary tract infection, site not specified Is this a current diagnosis for this admission?: Yes (3) CAD, S/P 2x stent placement Is this a current diagnosis for this admission?: Yes (4) COPD/asthma Is this a current diagnosis for this admission?: Yes (5) DM type 2 (diabetes mellitus, type 2) 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: unspecified fpc insulin use status Is this a current diagnosis for this admission?: Yes (6) Hypertension Qualifiers: Hypertension type: essential hypertension Is this a current diagnosis for this admission?: Yes (7) S/P TAVR (transcatheter aortic valve replacement) Is this a current diagnosis for this admission?: Yes (8) Squamous cell carcinoma of lung Qualifiers: Laterality: unspecified laterality Is this a current diagnosis for this admission?: Yes (9) Thrombosis of thoracic aorta Is this a current diagnosis for this admission?: Yes - Time Time Spent with patient: 15-24 minutes Level of Care: TELE Medications reviewed and adjusted accordingly: Yes Anticipated discharge: Other Within: Other - Plan Summary Plan Summary: We consult the cardiology Continues to IV antibiotics Get the echocardiogram
[2019-09-08] MEDS: GLIPIZIDE XL 5 MG TAB.ER.24 PO SCH (09:39)
[2019-09-08] MEDS: FUROSEMIDE 20 MG TABLET PO SCH (09:39)
[2019-09-08] MEDS: ASPIRIN 325 MG TABLET PO SCH (09:39)
[2019-09-08] MEDS: DOCUSATE SODIUM 100 MG CAPSULE PO SCH ×2 (09:39→16:59)
[2019-09-08] MEDS: CARVEDILOL 3.125 MG TABLET PO SCH (09:39)
[2019-09-08] MEDS: TAMSULOSIN HCL 0.4 MG CAP.SR.24H PO SCH (09:39)
[2019-09-08] MEDS: MAGNESIUM OXIDE 400 MG TABLET PO SCH ×2 (09:39→16:59)
[2019-09-08] MEDS: NORMAL SALINE 1000 ML 1,000 ML IV PRN (09:40)
[2019-09-08] MEDS: CEFEPIME 1 GM/D5W RTU 1 GM/50 ML RTUPB IV SCH ×2 (09:40→21:49)
[2019-09-08] MEDS: POLYETHYLENE GLYCOL 3350 POWDER 17 GM/1 PACKET PO SCH (09:52)
[2019-09-08] MEDS: CLONAZEPAM 1 MG TABLET PO PRN ×2 (10:12→21:52)
[2019-09-08] MEDS: MORPHINE SULFATE IR 15 MG TABLET PO PRN ×2 (10:13→19:57)
--- NOTE | 2019-09-08 19:16 | PDOC CONSULTATION ---
Consultation-Blank Consultation: CARDIOLOGY consultation by Dr. Maliha Rossi on 09/08/2019. Patient seen at 10:45 AM on 09/08/2019. 60 minutes spent as patient more than 50% of time spent in direct patient care. REASON FOR CONSULTATION: Patient with wide-complex tachycardia suspected ventricular tachycardia. CONSULT REQUESTING PHYSICIAN: Dr. Tanisha Mcneal HISTORY OF PRESENT ILLNESS: Patient is a poor historian. The at bedside is not of much help. Patient is a 69-year-old female with history of multiple urinary tract infections admitted for fever and UTI. The patient had a run of sinus tachycardia with wide-complex and review of the strip shows that this is sinus tachycardia with left bundle branch block pattern and not ventricular tachycardia. The patient states that she has a past history of stent in the right coronary artery in the midportion some years ago in [place]. She also in 2018 had a trans-catheter valve replacement percutaneously in the aortic position. She also has a history of COPD and she was a former smoker. There is no symptoms of acute exacerbation of COPD. The patient states she in the past has had radiation for lymphoma. She also has skin cancer. She also has been diagnosed as having thrombosis of the thoracic aorta and is on Coumadin for this. The patient states that somewhere in the summer last year she had an echocardiogram in Dr. Malik's office. Report of that is that the aortic valve showed no restenosis. And the LV ejection fraction is mildly moderately reduced at 45%. She states that she was admitted to [facility] a few months ago. At that time she was told that she was had fluid around the heart. It is not clear whether the patient states that she had a pericardial effusion or she had heart failure. She also states since her stent she has been having angina with only exertion if he she climbs a flight of stairs or exerts moderately. This has been stable. In [facility] he was found to have a lymph node which was adenocarcinoma consistent with primary in the lung. But no lung primary lesion could be found. She has a past history of heart failure. None after discharge from [facility]. Records from [facility] are awaited since not much information is obtainable. She has a history of diabetes mellitus, hypertension,. She in spite of her stents denies any past history of myocardial infarction. She seems to have's chronic stable angina. Past Medical History Cardiac Medical History: Reports: Congestive Heart Failure - acute diastolic CHF, Coronary Artery Disease, Hypertension, Heart Murmur Denies: Myocardial Infarction Pulmonary Medical History: Reports: Chronic Obstructive Pulmonary Disease (COPD) Denies: Asthma, Bronchitis, Pneumonia Neurological Medical History: Denies: Seizures Endocrine Medical History: Reports: Diabetes Mellitus Type 2 Malignancy Medical History: Reports: Breast Cancer, Lymphoma - T-cell lymphoma s/p radiation, Skin Cancer - Squamous Cell Carcinoma GI Medical History: Reports: Diverticulitis Musculoskeltal Medical History: Denies: Arthritis Psychiatric Medical History: Reports: Depression Hematology: Reports: Anemia Past Surgical History Past Surgical History: Reports: Cardiac Catheterization, Cholecystectomy, Colostomy, Coronary Stent, Mastectomy, Valve Replacement - aortic valve replacement in 2018, Other - EGD 04/16 for GI bleed Social History Information Source: Patient Lives with: Other - Own home Smoking Status: Former Smoker Electronic Cigarette use?: No Last Time Smoked: 2016 Frequency of Alcohol Use: None Hx Recreational Drug Use: No Drugs: None Hx Prescription Drug Abuse: No Family History Family History: Reviewed & Not Pertinent Parental Family History Reviewed: Yes Children Family History Reviewed: Yes Sibling(s) Family History Reviewed.: Yes Medication/Allergy Home Medications: Docusate Sodium [Colace 100 mg Capsule] 100 mg PO DAILY 07/23/19 Magnesium Oxide [Mag-Ox 400 mg Tablet] 800 mg PO BID 07/23/19 Meloxicam [Mobic] 7.5 mg PO DAILY 07/23/19 Ondansetron HCl [Zofran 4 mg Tablet] 4 mg PO Q8 07/23/19 Oxycodone HCl/Acetaminophen [Percocet 5-325 mg Tablet] 1 each PO Q4HP PRN 07/23/19 Pantoprazole Sodium [Protonix [address] Tablet] 40 mg PO BID 07/23/19 Sertraline HCl 50 mg PO TID 07/23/19 Tamsulosin HCl [Flomax 0.4 mg Cap.sr] 0.4 mg PO DAILY 07/23/19 Trazodone HCl [Desyrel] 100 mg PO QHS 07/23/19 Clonazepam 0.5 mg PO TIDP PRN 07/24/19 Carvedilol [Coreg 3.125 mg Tablet] 1 tab PO BID #30 07/25/19 Aspirin [Aspirin 325 mg Tablet] 325 mg PO DAILY 01/20/20 Furosemide [Lasix 20 mg Tablet] 20 mg PO DAILY 09/06/19 Glipizide [Glipizide Xl] 10 mg PO DAILY 09/06/19 Morphine Sulfate [Ms-Contin Sr 15 Mg Tablet.Sa] 15 mg PO Q6HP PRN 09/06/19 Tiotropium Br/Olodaterol HCl [Stiolto Respimat Inhal [place]] 1 puff IH DAILY 09/06/19 Warfarin Sodium [Coumadin 5 mg Tablet] 5 mg PO Q2D 09/06/19 Warfarin Sodium [Coumadin] 6 mg PO Q2D 09/06/19 Allergies/Adverse Reactions: ciprofloxacin [From Cipro] Allergy (Verified 09/05/19 23:11) epinephrine Allergy (Verified 09/05/19 23:11) ertapenem [From Invanz] Allergy (Verified 09/05/19 23:11) imipenem Allergy (Verified 09/05/19 23:11) lidocaine [From Lidoderm] Allergy (Verified 09/05/19 23:11) menthol [From BenGay] Allergy (Verified 09/05/19 23:11) methyl salicylate [From BenGay] Allergy (Verified 09/05/19 23:11) Sulfa (Sulfonamide Antibiotics) Allergy (Verified 09/05/19 23:11) chocolate flavor Adverse Reaction (Verified 09/05/19 23:11) codeine Adverse Reaction (Verified 09/05/19 23:11) glyburide Adverse Reaction (Verified 09/05/19 23:11) lactose Adverse Reaction (Verified 09/05/19 23:11) Review of Systems Constitutional: PRESENT: chills, fever(s). ABSENT: headache(s), weight gain, weight loss Eyes: ABSENT: visual disturbances Ears: ABSENT: hearing changes Cardiovascular: ABSENT: chest pain, dyspnea on exertion, edema, orthropnea, palpitations Respiratory: ABSENT: cough, hemoptysis Gastrointestinal: ABSENT: abdominal pain, constipation, diarrhea, hematemesis, hematochezia, nausea, vomiting Genitourinary: ABSENT: dysuria, hematuria Musculoskeletal: ABSENT: joint swelling Integumentary: ABSENT: rash, wounds Neurological: ABSENT: abnormal gait, abnormal speech, confusion, dizziness, focal weakness, syncope Psychiatric: ABSENT: anxiety, depression, homidical ideation, suicidal ideation Endocrine: ABSENT: cold intolerance, heat intolerance, menstrual abnormalities, polydipsia, polyuria Hematologic/Lymphatic: ABSENT: easy bleeding, easy bruising, lymphadenopathy Current Medications Generic Name Dose Route Start Last Admin Trade Name Freq PRN Reason Stop Dose Admin Acetaminophen 650 mg 09/06/19 09:26 09/08/19 07:49 Tylenol 325 Mg Tablet PO 10/06/19 09:25 650 mg Q4HP PRN Administration FOR PAIN OR TEMP Aspirin 325 mg 09/07/19 10:00 09/08/19 09:39 Aspirin 325 Mg Tablet PO 10/07/19 09:59 325 mg DAILY MAHNAZ Administration Carvedilol 3.125 mg 09/06/19 22:00 09/08/19 09:39 Coreg 3.125 Mg Tablet PO 10/06/19 21:59 3.125 mg Q12 MAHNAZ Administration Clonazepam 0.5 mg 09/06/19 12:00 09/08/19 10:12 Klonopin 1 Mg Tablet PO 09/13/19 11:59 0.5 mg Q8HP PRN Administration ANXIETY Dextrose 12.5 gm 09/06/19 09:29 Dextrose Inj 50% Syringe (25 Gm/50 Ml) IV 10/06/19 09:28 PRN PRN FOR BG 50-69 IN ALERT PATIENT Protocol Dextrose 25 gm 09/06/19 09:29 Dextrose Inj 50% Syringe (25 Gm/50 Ml) IV 10/06/19 09:28 PRN PRN PER PROTOCOL Protocol Docusate Sodium 100 mg 09/06/19 10:00 09/08/19 16:59 Colace 100 Mg Capsule PO 10/06/19 09:59 100 mg BID MAHNAZ Administration Furosemide 20 mg 09/07/19 10:00 09/08/19 09:39 Lasix 20 Mg Tablet PO 10/07/19 09:59 20 mg DAILY MAHNAZ Administration Glipizide 10 mg 09/07/19 10:00 09/08/19 09:39 Glucotrol Xl 5 Mg Tab.Er PO 10/07/19 09:59 10 mg DAILY MAHNAZ Administration Glucagon 1 mg 09/06/19 09:29 Glucagen Inj 1 Mg Vial IM 10/06/19 09:28 PRN PRN Evaluate for BG < 70 Protocol Glucose 15 gm 09/06/19 09:29 Glutose 40% Gel 15 Gm Tube PO 10/06/19 09:28 PRN PRN FOR BG 50-69 IN ALERT PATIENT Protocol Glucose 30 gm 09/06/19 09:29 Glutose 40% Gel 15 Gm Tube PO 10/06/19 09:28 PRN PRN FOR BG < 50 IN ALERT PATIENT Protocol Cefepime HCl 1 gm in 50 mls @ 100 mls/hr 09/06/19 10:00 09/08/19 14:39 Maxipime Rtu 1 Gm/D5w 50 Ml Premix Bag IV 09/13/19 09:59 Infused Q12 MAHNAZ Infusion Sodium Chloride 1,000 mls @ 50 mls/hr 09/08/19 08:59 09/08/19 09:40 Nacl 0.9% 1000 Ml Iv Soln IV 10/07/19 08:43 50 mls/hr CONTINUOUS PRN Administration THIS MED IS NOT "PRN" Insulin Human Lispro 0 - 12 unit 09/06/19 11:00 09/08/19 16:57 Humalog Insulin 100 Unit/1 Ml 3 Ml Vial SUBCUT 10/06/19 10:59 2 unit ACHS MAHNAZ Administration Protocol Magnesium Oxide 800 mg 09/06/19 18:00 09/08/19 16:59 Mag-Ox 400 Mg Tablet PO 10/06/19 17:59 800 mg BID MAHNAZ Administration Morphine Sulfate 15 mg 09/06/19 12:02 09/08/19 10:13 Morphine Ir 15 Mg Tablet PO 09/13/19 12:01 15 mg Q6HP PRN Administration SEVERE PAIN Ondansetron HCl 4 mg 09/06/19 14:00 09/08/19 14:38 Zofran Odt 4 Mg Tablet PO 10/06/19 13:59 4 mg Q8 MAHNAZ Administration Ondansetron HCl 4 mg 09/07/19 08:03 Zofran Inj/Pf 4 Mg/2 Ml Sdv IV 10/07/19 08:02 Q6HP PRN NAUSEA Oxycodone/Acetaminophen 1 tab 09/06/19 11:25 09/07/19 07:23 Percocet 5-325 Mg Tablet PO 09/13/19 11:24 1 tab Q4HP PRN Administration FOR PAIN Pantoprazole Sodium 40 mg 09/06/19 17:00 09/08/19 16:[address] Tablet PO 10/06/19 16:59 40 mg BID@0600,1700 MAHNAZ Administration Patient Own Medication 1 puff 09/07/19 10:00 Tiotropium Br/Olodaterol Hcl [Stiolto Respimat Inhal [place]] IH 10/07/19 09:59 .DAILY MAHNAZ Polyethylene Glycol 17 gm 09/07/19 14:00 09/08/19 09:52 Miralax Powder 17 Gm/Packet PO 10/07/19 13:59 Not Given DAILY MAHNAZ Sertraline HCl 50 mg 09/06/19 14:00 09/08/19 14:38 Zoloft 50 Mg Tablet PO 10/06/19 13:59 50 mg Q8 MAHNAZ Administration Tamsulosin HCl 0.4 mg 09/07/19 10:00 09/08/19 09:39 Flomax 0.4 Mg Cap.Sr PO 10/07/19 09:59 0.4 mg DAILY MAHNAZ Administration Trazodone HCl 100 mg 09/06/19 22:00 09/07/19 21:56 Desyrel 50 Mg Tablet PO 10/06/19 21:59 100 mg QHS MAHNAZ Administration Warfarin Sodium 5 mg 09/06/19 22:00 09/06/19 22:13 Coumadin 5 Mg Tablet PO 10/06/19 21:59 Not Given Q48HS [facility] Warfarin Sodium 6 mg 09/07/19 22:00 09/07/19 21:52 Coumadin 3 Mg Tablet PO 10/07/19 21:59 Not Given Q48HS [facility] Discontinued Medications Generic Name Dose Route Start Last Admin Trade Name Freq PRN Reason Stop Dose Admin Acetaminophen 650 mg 09/06/19 01:24 09/06/19 01:57 Tylenol 325 Mg Tablet PO 09/06/19 01:25 650 mg NOW ONE Administration Ceftriaxone Sodium 1,000 mg 09/05/19 23:18 09/06/19 00:09 Rocephin Inj 1000 Mg Vial IV 09/05/19 23:19 1,000 mg IVBAG (ED) ONE Administration Docusate Sodium 100 mg 09/06/19 10:00 Colace Udc 100 Mg/10 Ml Oral Soln PO 10/06/19 09:59 BID MAHNAZ Docusate Sodium 100 mg 09/07/19 10:00 Colace 100 Mg Capsule PO 10/07/19 09:59 DAILY [facility] Enoxaparin Sodium 40 mg 09/06/19 10:00 09/06/19 11:00 Lovenox Inj 40 Mg/0.4 Ml Disp.Syrin SUBCUT 10/06/19 09:59 40 mg DAILY MAHNAZ Administration Fluconazole 150 mg 09/05/19 23:50 09/06/19 00:09 Diflucan 100 Mg Tablet PO 09/05/19 23:51 150 mg NOW ONE Administration Gentamicin Sulfate 80 mg 09/05/19 23:17 09/06/19 00:09 Garamycin Inj 80 Mg/2 Ml Vial IV 09/05/19 23:18 80 mg IVBAG (ED) ONE Administration Sodium Chloride 500 mls @ 0 mls/hr 09/06/19 01:37 09/06/19 02:41 Nacl 0.9% 500 Ml Iv Soln IV 09/06/19 01:38 Infused NOW ONE Infusion Wide Open Sodium Chloride 1,000 mls @ 60 mls/hr 09/07/19 08:44 Nacl 0.9% 1000 Ml Iv Soln IV 10/07/19 08:43 CONTINUOUS PRN THIS MED IS NOT "PRN" Morphine Sulfate 15 mg 09/06/19 11:25 Ms-Contin Sr 15 Mg Tablet PO 09/13/19 11:24 Q6HP PRN FOR PAIN Oxycodone/Acetaminophen 1 tab 09/05/19 23:22 09/06/19 00:08 Percocet 5-325 Mg Tablet PO 09/05/19 23:23 1 tab NOW ONE Administration Pantoprazole Sodium 40 mg 09/06/19 18:[address] Tablet PO 10/06/19 17:59 BID MAHNAZ PHYSICAL EXAMINATION: The patient is moderately to morbidly obese. At present in no acute distress except complaining of generalized fatigue and weakness. Selected Entries 09/08/19 11:30 Temperature 100.0 F Temperature Oral Source Pulse Rate 71 Respiratory 20 Rate Blood Pressure 116/47 L [Left Upper Arm ] Blood Pressure 70 Mean [Left Upper Arm] Blood Pressure Supine Position [Left Upper Arm] O2 Sat by Pulse 93 Oximetry Oxygen Delivery Room Air Method ( includes room air) HEAD: Is atraumatic normocephalic. EYES: Pupils are equal round regular reactive light accommodation. Extraocular movements are normal. There is no conjunctival pallor. There is no scleral icterus. EARS: Tympanic membranes are intact. External auditory canals are clear. NOSE: There is no deviated nasal septum. There is no inflammation of these mucous membrane. MOUTH: Mucous me mbranes of the mouth are moist. Tongue is moist. There is no ulcers. There is no bleeding from the gums. THROAT: There is no redness of the oropharynx. There is no exudates. SKIN: There is no skin rashes or skin lesions. There is no petechia or ecchymosis. NECK: Is supple there is no JVD. Carotids are equal there is no bruit there is no lymphadenopathy. There is no goiter.. There is no accessory muscle respiration use. Trachea central. LUNGS: There is diminished air entry and prolonged expiration. There is no rhonchi rales or wheezing. On percussion there is hyperresonance. There is no chest wall tenderness. HEART: S1-S2 is heard. There is no S3 gallop. There is no S4 gallop. Systolic murmur left sternal border and the apex there is no rub. ABDOMEN: Soft. Nontender. There is no hepatosplenomegaly. Abdomen is obese. Bowel sounds are well heard. There is no tender areas masses. EXTREMITIES: Femorals are diminished. Femorals are without any bruits. Leg pulses are slightly diminished. There is no pedal edema. There is no DVT cellulitis. There is no calf tenderness. There is no cyanosis or clubbing [place]: The patient is conscious awake alert oriented x3 with no focal deficit. PSYCHIATRIC: Patient judgment insight are intact her affect is normal. EKG: Shows sinus rhythm with left bundle branch block pattern. 2. Reviewed the rhythm strips. This is not ventricular tachycardia. It is sinus tachycardia with left bundle branch block pattern. Labs- Entire Visit 09/05/19 09/05/19 09/05/19 22:34 22:34 22:34 WBC 4.2 RBC 3.62 L Hgb 11.0 L Hct 31.9 L MCV 88 MCH 30.4 MCHC 34.5 RDW 13.6 Plt Count 216 Lymph % (Auto) 8.4 L [place] % (Auto) 13.8 H Eos % (Auto) 3.0 Baso % (Auto) 0.9 Absolute Neuts (auto) 3.1 Absolute Lymphs (auto) 0.4 L Absolute Monos (auto) 0.6 Absolute Eos (auto) 0.1 Absolute Basos (auto) 0.0 Seg Neutrophils % 73.9 PT INR Sodium 134.2 L Potassium 4.2 Chloride 99 Carbon Dioxide 27 Anion Gap 8 BUN 18 Creatinine 0.98 Est GFR ( Amer) > 60 Est GFR (MDRD) Non-Af 57 L Glucose 257 H POC Glucose Lactic Acid Calcium 9.0 Magnesium Total Bilirubin 0.1 L Direct Bilirubin 0.0 Neonat Total Bilirubin Not Reportable Neonat Direct Bilirubin Not Reportable Neonat Indirect Bili Not Reportable AST 20 ALT 14 Alkaline Phosphatase 69 Troponin I < 0.012 Total Protein 6.1 L Albumin 3.2 L Urine Color Urine Appearance Urine pH Ur Specific [place] Urine Protein Urine Glucose (UA) Urine Ketones Urine Blood Urine Nitrite (Reflex) Urine Bilirubin Urine Urobilinogen Leukocyte Esterase Rfl Urine RBC (Auto) Urine Bacteria (Auto) Urine WBC (Reflex) Urine Yeast (Budding) Urine Ascorbic Acid Influenza A (Rapid) Influenza B (Rapid) Group A Strep Rapid 09/05/19 09/05/19 09/06/19 22:34 22:40 01:30 WBC RBC Hgb Hct MCV MCH MCHC RDW Plt Count Lymph % (Auto) [place] % (Auto) Eos % (Auto) Baso % (Auto) Absolute Neuts (auto) Absolute Lymphs (auto) Absolute Monos (auto) Absolute Eos (auto) Absolute Basos (auto) Seg Neutrophils % PT INR Sodium Potassium Chloride Carbon Dioxide Anion Gap BUN Creatinine Est GFR ( Amer) Est GFR (MDRD) Non-Af Glucose POC Glucose Lactic Acid 2.9 H 1.9 Calcium Magnesium Total Bilirubin Direct Bilirubin Neonat Total Bilirubin Neonat Direct Bilirubin Neonat Indirect Bili AST ALT Alkaline Phosphatase Troponin I Total Protein Albumin Urine Color YELLOW Urine Appearance TURBID Urine pH 6.0 Ur Specific [place] 1.013 Urine Protein 100 H Urine Glucose (UA) NEGATIVE Urine Ketones NEGATIVE Urine Blood MODERATE H Urine Nitrite (Reflex) POSITIVE H Urine Bilirubin NEGATIVE Urine Urobilinogen NEGATIVE Leukocyte Esterase Rfl LARGE H Urine RBC (Auto) 49 Urine Bacteria (Auto) 2+ Urine WBC (Reflex) > 182 Urine Yeast (Budding) PRESENT Urine Ascorbic Acid NEGATIVE Influenza A (Rapid) Influenza B (Rapid) Group A Strep Rapid 09/06/19 09/06/19 09/06/19 06:43 07:38 10:54 WBC RBC Hgb Hct MCV MCH MCHC RDW Plt Count Lymph % (Auto) [place] % (Auto) Eos % (Auto) Baso % (Auto) Absolute Neuts (auto) Absolute Lymphs (auto) Absolute Monos (auto) Absolute Eos (auto) Absolute Basos (auto) Seg Neutrophils % PT INR Sodium Potassium Chloride Carbon Dioxide Anion Gap BUN Creatinine Est GFR ( Amer) Est GFR (MDRD) Non-Af Glucose POC Glucose 106 169 H Lactic Acid 1.2 Calcium Magnesium Total Bilirubin Direct Bilirubin Neonat Total Bilirubin Neonat Direct Bilirubin Neonat Indirect Bili AST ALT Alkaline Phosphatase Troponin I Total Protein Albumin Urine Color Urine Appearance Urine pH Ur Specific [place] Urine Protein Urine Glucose (UA) Urine Ketones Urine Blood Urine Nitrite (Reflex) Urine Bilirubin Urine Urobilinogen Leukocyte Esterase Rfl Urine RBC (Auto) Urine Bacteria (Auto) Urine WBC (Reflex) Urine Yeast (Budding) Urine Ascorbic Acid Influenza A (Rapid) Influenza B (Rapid) Group A Strep Rapid 09/06/19 09/06/19 09/06/19 12:53 14:56 21:16 WBC RBC Hgb Hct MCV MCH MCHC RDW Plt Count Lymph % (Auto) [place] % (Auto) Eos % (Auto) Baso % (Auto) Absolute Neuts (auto) Absolute Lymphs (auto) Absolute Monos (auto) Absolute Eos (auto) Absolute Basos (auto) Seg Neutrophils % PT 33.1 H INR 3.15 Sodium Potassium Chloride Carbon Dioxide Anion Gap BUN Creatinine Est GFR ( Amer) Est GFR (MDRD) Non-Af Glucose POC Glucose 126 H 200 H Lactic Acid Calcium Magnesium Total Bilirubin Direct Bilirubin Neonat Total Bilirubin Neonat Direct Bilirubin Neonat Indirect Bili AST ALT Alkaline Phosphatase Troponin I Total Protein Albumin Urine Color Urine Appearance Urine pH Ur Specific [place] Urine Protein Urine Glucose (UA) Urine Ketones Urine Blood Urine Nitrite (Reflex) Urine Bilirubin Urine Urobilinogen Leukocyte Esterase Rfl Urine RBC (Auto) Urine Bacteria (Auto) Urine WBC (Reflex) Urine Yeast (Budding) Urine Ascorbic Acid Influenza A (Rapid) Influenza B (Rapid) Group A Strep Rapid 09/07/19 09/07/19 09/07/19 05:04 05:04 05:04 WBC 4.7 RBC 3.72 Hgb 11.2 L Hct 32.5 L MCV 87 MCH 30.1 MCHC 34.5 RDW 13.9 Plt Count 200 Lymph % (Auto) 7.3 L [place] % (Auto) 14.7 H Eos % (Auto) 4.2 Baso % (Auto) 0.4 Absolute Neuts (auto) 3.4 Absolute Lymphs (auto) 0.3 L Absolute Monos (auto) 0.7 Absolute Eos (auto) 0.2 Absolute Basos (auto) 0.0 Seg Neutrophils % 73.4 PT 32.9 H INR 3.14 Sodium 136.4 L Potassium 4.2 Chloride 98 Carbon Dioxide 29 Anion Gap 9 BUN 14 Creatinine 1.06 Est GFR ( Amer) > 60 Est GFR (MDRD) Non-Af 52 L Glucose 155 H POC Glucose Lactic Acid Calcium 8.4 Magnesium Total Bilirubin Direct Bilirubin Neonat Total Bilirubin Neonat Direct Bilirubin Neonat Indirect Bili AST ALT Alkaline Phosphatase Troponin I Total Protein Albumin Urine Color Urine Appearance Urine pH Ur Specific [place] Urine Protein Urine Glucose (UA) Urine Ketones Urine Blood Urine Nitrite (Reflex) Urine Bilirubin Urine Urobilinogen Leukocyte Esterase Rfl Urine RBC (Auto) Urine Bacteria (Auto) Urine WBC (Reflex) Urine Yeast (Budding) Urine Ascorbic Acid Influenza A (Rapid) Influenza B (Rapid) Group A Strep Rapid 09/07/19 09/07/19 09/07/19 06:11 08:46 08:46 WBC RBC Hgb Hct MCV MCH MCHC RDW Plt Count Lymph % (Auto) [place] % (Auto) Eos % (Auto) Baso % (Auto) Absolute Neuts (auto) Absolute Lymphs (auto) Absolute Monos (auto) Absolute Eos (auto) Absolute Basos (auto) Seg Neutrophils % PT INR Sodium Potassium Chloride Carbon Dioxide Anion Gap BUN Creatinine Est GFR ( Amer) Est GFR (MDRD) Non-Af Glucose POC Glucose 144 H Lactic Acid Calcium Magnesium Total Bilirubin Direct Bilirubin Neonat Total Bilirubin Neonat Direct Bilirubin Neonat Indirect Bili AST ALT Alkaline Phosphatase Troponin I Total Protein Albumin Urine Color Urine Appearance Urine pH Ur Specific [place] Urine Protein Urine Glucose (UA) Urine Ketones Urine Blood Urine Nitrite (Reflex) Urine Bilirubin Urine Urobilinogen Leukocyte Esterase Rfl Urine RBC (Auto) Urine Bacteria (Auto) Urine WBC (Reflex) Urine Yeast (Budding) Urine Ascorbic Acid Influenza A (Rapid) NEGATIVE Influenza B (Rapid) NEGATIVE Group A Strep Rapid NEGATIVE 09/07/19 09/07/19 09/07/19 08:49 10:36 14:55 WBC RBC Hgb Hct MCV MCH MCHC RDW Plt Count Lymph % (Auto) [place] % (Auto) Eos % (Auto) Baso % (Auto) Absolute Neuts (auto) Absolute Lymphs (auto) Absolute Monos (auto) Absolute Eos (auto) Absolute Basos (auto) Seg Neutrophils % PT INR Sodium Potassium Chloride Carbon Dioxide Anion Gap BUN Creatinine Est GFR ( Amer) Est GFR (MDRD) Non-Af Glucose POC Glucose 217 H 196 H Lactic Acid 1.2 Calcium Magnesium Total Bilirubin Direct Bilirubin Neonat Total Bilirubin Neonat Direct Bilirubin Neonat Indirect Bili AST ALT Alkaline Phosphatase Troponin I Total Protein Albumin Urine Color Urine Appearance Urine pH Ur Specific [place] Urine Protein Urine Glucose (UA) Urine Ketones Urine Blood Urine Nitrite (Reflex) Urine Bilirubin Urine Urobilinogen Leukocyte Esterase Rfl Urine RBC (Auto) Urine Bacteria (Auto) Urine WBC (Reflex) Urine Yeast (Budding) Urine Ascorbic Acid Influenza A (Rapid) Influenza B (Rapid) Group A Strep Rapid 09/07/19 09/08/19 09/08/19 21:04 04:33 04:33 WBC RBC Hgb Hct MCV MCH MCHC RDW Plt Count Lymph % (Auto) [place] % (Auto) Eos % (Auto) Baso % (Auto) Absolute Neuts (auto) Absolute Lymphs (auto) Absolute Monos (auto) Absolute Eos (auto) Absolute Basos (auto) Seg Neutrophils % PT 31.3 H INR 2.94 Sodium 137.4 Potassium 4.2 Chloride 99 Carbon Dioxide 32 H Anion Gap 6 BUN 13 Creatinine 1.03 Est GFR ( Amer) > 60 Est GFR (MDRD) Non-Af 53 L Glucose 124 H POC Glucose 277 H Lactic Acid Calcium 8.6 Magnesium Total Bilirubin Direct Bilirubin Neonat Total Bilirubin Neonat Direct Bilirubin Neonat Indirect Bili AST ALT Alkaline Phosphatase Troponin I Total Protein Albumin Urine Color Urine Appearance Urine pH Ur Specific [place] Urine Protein Urine Glucose (UA) Urine Ketones Urine Blood Urine Nitrite (Reflex) Urine Bilirubin Urine Urobilinogen Leukocyte Esterase Rfl Urine RBC (Auto) Urine Bacteria (Auto) Urine WBC (Reflex) Urine Yeast (Budding) Urine Ascorbic Acid Influenza A (Rapid) Influenza B (Rapid) Group A Strep Rapid 09/08/19 09/08/19 09/08/19 04:33 06:04 10:34 WBC RBC Hgb Hct MCV MCH MCHC RDW Plt Count Lymph % (Auto) [place] % (Auto) Eos % (Auto) Baso % (Auto) Absolute Neuts (auto) Absolute Lymphs (auto) Absolute Monos (auto) Absolute Eos (auto) Absolute Basos (auto) Seg Neutrophils % PT INR Sodium Potassium Chloride Carbon Dioxide Anion Gap BUN Creatinine Est GFR ( Amer) Est GFR (MDRD) Non-Af Glucose POC Glucose 159 H 183 H Lactic Acid Calcium Magnesium 2.2 Total Bilirubin Direct Bilirubin Neonat Total Bilirubin Neonat Direct Bilirubin Neonat Indirect Bili AST ALT Alkaline Phosphatase Troponin I Total Protein Albumin Urine Color Urine Appearance Urine pH Ur Specific [place] Urine Protein Urine Glucose (UA) Urine Ketones Urine Blood Urine Nitrite (Reflex) Urine Bilirubin Urine Urobilinogen Leukocyte Esterase Rfl Urine RBC (Auto) Urine Bacteria (Auto) Urine WBC (Reflex) Urine Yeast (Budding) Urine Ascorbic Acid Influenza A (Rapid) Influenza B (Rapid) Group A Strep Rapid 09/08/19 14:58 WBC RBC Hgb Hct MCV MCH MCHC RDW Plt Count Lymph % (Auto) [place] % (Auto) Eos % (Auto) Baso % (Auto) Absolute Neuts (auto) Absolute Lymphs (auto) Absolute Monos (auto) Absolute Eos (auto) Absolute Basos (auto) Seg Neutrophils % PT INR Sodium Potassium Chloride Carbon Dioxide Anion Gap BUN Creatinine Est GFR ( Amer) Est GFR (MDRD) Non-Af Glucose POC Glucose 173 H Lactic Acid Calcium Magnesium Total Bilirubin Direct Bilirubin Neonat Total Bilirubin Neonat Direct Bilirubin Neonat Indirect Bili AST ALT Alkaline Phosphatase Troponin I Total Protein Albumin Urine Color Urine Appearance Urine pH Ur Specific [place] Urine Protein Urine Glucose (UA) Urine Ketones Urine Blood Urine Nitrite (Reflex) Urine Bilirubin Urine Urobilinogen Leukocyte Esterase Rfl Urine RBC (Auto) Urine Bacteria (Auto) Urine WBC (Reflex) Urine Yeast (Budding) Urine Ascorbic Acid Influenza A (Rapid) Influenza B (Rapid) Group A Strep Rapid Abdomen/Pelvis CT 09/07/19 08:49 IMPRESSION: 1. No acute abnormality to explain the patient's symptoms. 2. Left anterior colostomy with large peristomal hernia containing loops of small bowel. No bowel obstruction or evidence of inflammatory change. 3. Moderate amount of stool in the colon. This can be seen with constipation. 4. Hepatomegaly with moderate hepatic steatosis. IMPRESSION/RECOMMENDATION: 1. Wide-complex tachycardia. This is not ventricular tachycardia. This is sinus tachycardia with left bundle branch block pattern. 2. Fever and recurrent urinary tract infection. Patient on antibiotics. 3. Coronary artery disease with stable exertional angina. Would recommend in view of the patient's COPD stop the patient's Coreg. Also the patient is on Coreg dose which is 3.125 mg p.o. twice daily which is non-consequential. Hence would change the patient to Toprol-XL and also add nitrates. Would add DESIRAE inhibitor as a ARB if the ejection fraction is low. Await echocardiogram. 4. History of congestive heart failure with mildly moderately reduced ejection fraction. The patient is having a repeat echo today will reassess. 5. Hypertension: Blood pressure well controlled. 6. Malignant lymph node: The treatment for this is radiation as per Rachel Quinn and Dr. Chin. 7. Diabetes mellitus: Continue antidiabetic regimen. 8. 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 9. COPD: At present no acute exacerbation. 10. Thrombosis of the thoracic aorta: Continue Coumadin Medications reviewed. Medical regimen and medical management plans discussed with Dr. Mcneal. 60 minutes spent with patient more than 50% of time spent in direct patient care. Medical decision making is of high complexity. 60 minutes spent with patient more than 50% of time spent in direct patient care. Will follow.
[2019-09-08] MEDS: WARFARIN SODIUM 5 MG TABLET PO SCH (21:45)
--- NOTE | 2019-09-08 21:47 | XCELERA REPORT ---
[address] [address] Transthoracic Echocardiogram Report Name: RODRIGUEZ TOM Age: 69 yrs Gender: Female : 1950 Patient Status: Inpatient Patient Location: [facility]^A Study Date: 09/08/2019 01:41 PM Height: 59 in Weight: 195 lb BSA: 1.8 m2 Procedure: A two-dimensional transthoracic echocardiogram with color flow and Doppler was performed. The study was technically difficult with many images being suboptimal in quality. Reason For Study: cad/aortic jaylen disorder /sepsis History: cad/aortic jaylen disorder /sepsis. Ordering Physician: MARJORIE ESTES Performed By: Sweetie Blanc Interpretation Summary The left ventricle is normal in size. There is normal left ventricular wall thickness. LV EF is 55% Left ventricular systolic function is low normal. Doppler measurements suggest impaired left ventricular relaxation, which is associated with grade I/IV or mild diastolic dysfunction The left ventricular wall motion is normal. Septal motion is consistent with conduction abnormality There is no thrombus. No ASD,VSD , or PFO seen. The right ventricle is normal in size and function. The right atrium is normal. The left atrial size is normal. There is no evidence of mitral valve prolapse. There is no vegetation seen on the mitral valve. There is mild mitral stenosis There is a moderate amount of mitral regurgitation There is no aortic valvular vegetation. The aortic valve is not well visualized secondary to technical limitations There is mild aortic stenosis There is a peak gradient of 15 mm of Hg. No hemodynamically significant valvular aortic stenosis. There is no LVOT obstruction. The gradient is very good for a bioprosthetic Aortic Valve. No aortic regurgitation is present. There is no tricuspid stenosis. There is a trace amount of tricuspid regurgitation Right ventricular systolic pressure is normal. RVSP is 16 to 21 mm of Hg , with RA mean of 5 to 10. There is no pulmonic valvular stenosis. There is no pulmonic valvular regurgitation. The aortic root is normal size. The inferior vena cava appeared normal and decreased > 50% with respiration (RAP 5-10 mmHg) There is no pericardial effusion. MMode/2D Measurements & Calculations RVDd: 2.0 cm LVIDd: 4.4 cm FS: 30.4 % Ao root diam: 2.0 cm IVSd: 1.0 cm LVIDs: 3.0 cm EDV(Teich): 85.4 ml Ao root area: 3.1 cm2 LVPWd: 1.0 cm ESV(Teich): 35.8 ml LA dimension: 3.8 cm EF(Teich): 58.1 % Doppler Measurements & Calculations MV E max layton: MV P1/2t max layton: Ao V2 max: LV V1 max P.8 cm/sec 122.7 cm/sec 196.1 cm/sec 5.0 mmHg MV A max layton: MV P1/2t: 77.7 msec Ao max PG: LV V1 max: 132.2 cm/sec MVA(P1/2t): 2.8 cm2 15.4 mmHg 112.3 cm/sec MV E/A: 0.93 MV dec slope: LV dP/dt: 757.0 mmHg/s 462.6 cm/sec2 MV dec time: 0.29 sec PA V2 max: TR max layton: MV P1/2t-pr_phl: 109.1 cm/sec 163.6 cm/sec 77.7 msec PA max P.8 mmHgTR max P.7 mmHg Left Ventricle The left ventricle is normal in size. There is normal left ventricular wall thickness. LV EF is 55%. Left ventricular systolic function is low normal. Doppler measurements suggest impaired left ventricular relaxation, which is associated with grade I/IV or mild diastolic dysfunction. The left ventricular wall motion is normal. Septal motion is consistent with conduction abnormality. There is no thrombus. No ASD,VSD , or PFO seen. Right Ventricle The right ventricle is normal in size and function. Atria The right atrium is normal. The left atrial size is normal. Mitral Valve There is no evidence of mitral valve prolapse. There is no vegetation seen on the mitral valve. There is mild mitral stenosis. There is a moderate amount of mitral regurgitation. Aortic Valve The aortic valve is not well visualized secondary to technical limitations. There is no aortic valvular vegetation. There is mild aortic stenosis. There is a peak gradient of 15 mm of Hg. No hemodynamically significant valvular aortic stenosis. There is no LVOT obstruction. The gradient is very good for a bioprosthetic Aortic Valve. No aortic regurgitation is present. Tricuspid Valve There is no tricuspid stenosis. There is a trace amount of tricuspid regurgitation. Right ventricular systolic pressure is normal. RVSP is 16 to 21 mm of Hg , with RA mean of 5 to 10. Pulmonic Valve There is no pulmonic valvular stenosis. There is no pulmonic valvular regurgitation. Great Vessels The aortic root is normal size. The inferior vena cava appeared normal and decreased > 50% with respiration (RAP 5-10 mmHg). Effusions There is no pericardial effusion. : MARJORIE ESTES Lakshmi
[2019-09-08] MEDS: METOPROLOL SUCCINATE 25 MG TAB.SR.24H PO SCH (21:49)
[2019-09-08] MEDS: TRAZODONE HCL 50 MG TABLET PO SCH (21:49)
[2019-09-08] MEDS: OXYCODONE-ACETAMINOPHEN 5-325 MG TABLET PO PRN (22:20)
[2019-09-09 06:03] LABS: ABSOLUTE EOSINOPHILS # (AUTO) 0.2 10^3/uL (0.0-0.6); ABSOLUTE LYMPHOCYTES (AUTO) 0.3 10^3/uL (0.5-4.7); ABSOLUTE MONOCYTES (AUTO) 0.5 10^3/uL (0.1-1.4); ABSOLUTE NEUT (AUTO) 2.7 10^3/uL (1.7-8.2); BASOPHILS % (AUTO) 0.6 % (0-2); EOSINOPHILS % (AUTO) 5.1 % (0-6); HEMATOCRIT 30.9 % (36.0-47.0); HEMOGLOBIN 10.6 g/dL (12.0-15.5); INTERNATIONAL RATION (INR) 2.42; LYMPHOCYTES % (AUTO) 7.5 % (13-45); MEAN CORPUSCULAR HEMOGLOBIN 29.9 pg (27.0-33.4); MEAN CORPUSCULAR HGB CONC 34.5 g/dL (32.0-36.0); MEAN CORPUSCULAR VOLUME 87 fl (80-97); MONOCYTES % (AUTO) 12.5 % (3-13); PLATELET COUNT 209 10^3/uL (150-450); PROTHROMBIN TIME 26.8 SEC (11.4-15.4); RED BLOOD COUNT 3.56 10^6/uL (3.72-5.28); RED CELL DISTRIBUTION WIDTH 13.7 % (11.5-14.0); SEGMENTED NEUTROPHILS % (AUTO) 74.3 % (42-78); TOTAL CELLS COUNTED % (AUTO) 100 %; WHITE BLOOD COUNT 3.7 10^3/uL (4.0-10.5)
[2019-09-09] MEDS: ACETAMINOPHEN 325 MG TABLET PO PRN ×2 (06:06→14:04)
[2019-09-09] MEDS: MORPHINE SULFATE IR 15 MG TABLET PO PRN ×2 (06:07→17:45)
[2019-09-09] MEDS: ONDANSETRON 4 MG TAB.RAPDIS PO SCH ×3 (06:07→21:39)
[2019-09-09] MEDS: SERTRALINE HCL 50 MG TABLET PO SCH ×3 (06:07→21:39)
[2019-09-09] MEDS: PANTOPRAZOLE SODIUM 40 MG TABLET.DR PO SCH ×2 (06:07→17:28)
[2019-09-09] MEDS: NORMAL SALINE 1000 ML 1,000 ML IV PRN (06:09)
[2019-09-09 06:19] LABS: BLOOD UREA NITROGEN 11 mg/dL (7-20); CALCIUM 8.6 mg/dL (8.4-10.2); CARBON DIOXIDE 31 mmol/L (22-30); CHLORIDE 99 mmol/L (98-107); GLUCOSE 147 mg/dL (75-110); POTASSIUM 4.4 mmol/L (3.6-5.0)
[2019-09-09 06:21] LABS: ANION GAP 8 (5-19)
[2019-09-09] MEDS: INSULIN LISPRO 100 UNIT/ML 3 ML VIAL SUBCUT SCH ×4 (08:08→21:40)
--- NOTE | 2019-09-09 08:24 | PDOC PROGRESS REPORT ---
Subjective Progress Note for:: 09/09/19 Subjective:: Patient is currently doing fair Patient's fever is coming down Patient's lactic acid is normal And is complaining of some headache yesterday and today's Patient's denied any eye problems Patient's denied any chest pain no short of breath Patient seen by the cardiology adjust the medications walk yesterday without any problems Reason For Visit: UTI RECURRENT Physical Exam Vital Signs: Temp Pulse Resp BP Pulse Ox 99.4 F 77 17 134/40 H 94 09/08/19 19:52 09/09/19 02:00 09/08/19 19:52 09/08/19 19:52 09/08/19 19:52 Intake & Output 09/08/19 09/09/19 09/10/19 06:59 06:59 06:59 Intake Total 1156 2486 Output Total 1300 Balance 1156 1186 Weight 88.8 kg 93 kg General appearance: PRESENT: no acute distress, well-developed, well-nourished Head exam: PRESENT: atraumatic, normocephalic Eye exam: PRESENT: conjunctiva pink, EOMI, PERRLA. ABSENT: scleral icterus Ear exam: PRESENT: normal external ear exam Mouth exam: PRESENT: moist, tongue midline Neck exam: PRESENT: full ROM. ABSENT: carotid bruit, JVD, lymphadenopathy, thyromegaly Respiratory exam: PRESENT: clear to auscultation bartolome Cardiovascular exam: PRESENT: RRR. ABSENT: diastolic murmur, rubs, systolic murmur Pulses: PRESENT: normal dorsalis pedis pul, +2 pedal pulses bilateral Vascular exam: PRESENT: normal capillary refill GI/Abdominal exam: PRESENT: normal bowel sounds, soft. ABSENT: distended, guarding, mass, organolmegaly, rebound, tenderness Rectal exam: PRESENT: deferred Musculoskeletal exam: PRESENT: ambulatory Neurological exam: PRESENT: alert, awake, oriented to person, oriented to place, oriented to time, oriented to situation, CN II-XII grossly intact. ABSENT: motor sensory deficit Psychiatric exam: PRESENT: appropriate affect, normal mood. ABSENT: homicidal ideation, suicidal ideation Skin exam: PRESENT: dry, intact, warm. ABSENT: cyanosis, rash Results Laboratory Results: 09/09/19 05:41 09/09/19 05:41 09/08/19 09/09/19 09/09/19 04:33 05:41 05:41 WBC 3.7 L RBC 3.56 L Hgb 10.6 L Hct 30.9 L MCV 87 MCH 29.9 MCHC 34.5 RDW 13.7 Plt Count 209 Seg Neutrophils % 74.3 Sodium 137.5 Potassium 4.4 Chloride 99 Carbon Dioxide 31 H Anion Gap 8 BUN 11 Creatinine 1.04 Est GFR ( Amer) > 60 Glucose 147 H Lactic Acid Calcium 8.6 Magnesium 2.2 09/09/19 05:41 WBC RBC Hgb Hct MCV MCH MCHC RDW Plt Count Seg Neutrophils % Sodium Potassium Chloride Carbon Dioxide Anion Gap BUN Creatinine Est GFR ( Amer) Glucose Lactic Acid 1.1 Calcium Magnesium 09/05/19 22:34 Blood Blood Culture (PCR) - Final Staphylococcus Species 09/05/19 22:34 Blood Blood Culture - Final Micrococcus Species 09/05/19 22:40 Clean Catch Midstream Urine Culture - Final Citrobacter Freundii 09/05/19 22:34 Troponin I < 0.012 Impressions: Abdomen/Pelvis CT 09/07/19 08:49 IMPRESSION: 1. No acute abnormality to explain the patient's symptoms. 2. Left anterior colostomy with large peristomal hernia containing loops of small bowel. No bowel obstruction or evidence of inflammatory change. 3. Moderate amount of stool in the colon. This can be seen with constipation. 4. Hepatomegaly with moderate hepatic steatosis. Assessment & Plan - Diagnosis (1) Fever Qualifiers: Fever type: unspecified Qualified Code(s): R50.9 - Fever, unspecified Is this a current diagnosis for this admission?: Yes (2) Urinary tract infection Qualifiers: Urinary tract infection type: site unspecified Hematuria presence: without hematuria Qualified Code(s): N39.0 - Urinary tract infection, site not specified Is this a current diagnosis for this admission?: Yes (3) CAD, S/P 2x stent placement Is this a current diagnosis for this admission?: Yes (4) COPD/asthma Is this a current diagnosis for this admission?: Yes (5) DM type 2 (diabetes mellitus, type 2) 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 status Is this a current diagnosis for this admission?: Yes (6) Hypertension Qualifiers: Hypertension type: essential hypertension Is this a current diagnosis for this admission?: Yes (7) S/P TAVR (transcatheter aortic valve replacement) Is this a current diagnosis for this admission?: Yes (8) Squamous cell carcinoma of lung Qualifiers: Laterality: unspecified laterality Is this a current diagnosis for this admission?: Yes (9) Thrombosis of thoracic aorta Is this a current diagnosis for this admission?: Yes - Time Time Spent with patient: 15-24 minutes Level of Care: IMCU Medications reviewed and adjusted accordingly: Yes Anticipated discharge: Home Within: Other - Plan Summary Plan Summary: We will get the MRI of the head Continues the IV antibiotic
[2019-09-09] MEDS: GLIPIZIDE XL 5 MG TAB.ER.24 PO SCH (09:18)
[2019-09-09] MEDS: CEFEPIME 1 GM/D5W RTU 1 GM/50 ML RTUPB IV SCH ×2 (09:18→21:38)
[2019-09-09] MEDS: DOCUSATE SODIUM 100 MG CAPSULE PO SCH ×2 (09:19→17:28)
[2019-09-09] MEDS: FUROSEMIDE 20 MG TABLET PO SCH (09:19)
[2019-09-09] MEDS: ASPIRIN 325 MG TABLET PO SCH (09:20)
[2019-09-09] MEDS: MAGNESIUM OXIDE 400 MG TABLET PO SCH ×2 (09:20→17:28)
[2019-09-09] MEDS: TAMSULOSIN HCL 0.4 MG CAP.SR.24H PO SCH (09:20)
[2019-09-09] MEDS: POLYETHYLENE GLYCOL 3350 POWDER 17 GM/1 PACKET PO SCH (09:21)
[2019-09-09] MEDS: METOPROLOL SUCCINATE 25 MG TAB.SR.24H PO SCH ×2 (09:21→21:39)
--- NOTE | 2019-09-09 15:47 | RADIOLOGY REPORT (SQ) ---
EXAM DESCRIPTION: MRI HEAD WITHOUT COMPLETED DATE/TIME: 09/09/2019 3:34 pm REASON FOR STUDY: headache COMPARISON: None. TECHNIQUE: Multiplanar imaging includes non-contrasted T1, T2, FLAIR, and diffusion with ADC map seq uences. Images stored on PACS. LIMITATIONS: None. FINDINGS: ANATOMY: No anomalies. Normal vascular flow voids. Pituitary fossa normal. CSF SPACES: Atrophy induced prominence of ventricles and CSF spaces. CEREBRUM: High signal intensity lesions scattered throughout the white matter on FLAIR imaging with d istribution suggesting micro-vascular ischemic changes. No evidence of hemorrhage, mass, or extraaxi al fluid collection. POSTERIOR FOSSA: No signal alteration. No hemorrhage. No edema, masses or mass effect. Internal ozzie tory canals, cerebello-pontine angles, mastoids normal. DIFFUSION IMAGING: Negative for acute or sub-acute infarction. ORBITS: No masses. Globes normal. PARANASAL SINUSES: No fluid levels. Mucosa normal. OTHER: No other significant finding. IMPRESSION: ATROPHY AND CHRONIC MICRO-VASCULAR ISCHEMIC CHANGES. OTHERWISE NORMAL MRI OF THE BRAIN W ITHOUT INTRAVENOUS GADOLINIUM CONTRAST. EVIDENCE OF ACUTE STROKE: NO. TECHNICAL DOCUMENTATION: JOB ID: [id number] [employer]- All Rights Reserved Reading location - IP/workstation name: [email or web address]
--- NOTE | 2019-09-09 17:50 | RADIOLOGY REPORT (SQ) ---
EXAM DESCRIPTION: CHEST SINGLE VIEW COMPLETED DATE/TIME: 09/09/2019 4:27 pm REASON FOR STUDY: blood tinged sputum COMPARISON: 08/05/2019. CT chest, 08/23/2019. EXAM PARAMETERS: NUMBER OF VIEWS: One view. TECHNIQUE: Single frontal radiographic view of the chest acquired. RADIATION DOSE: NA LIMITATIONS: None. FINDINGS: LUNGS AND PLEURA: Lungs are hyperinflated. Prominent soft tissue at the right paratrachea l region likely represents superimposed soft tissues [address] No opacities, masses or pneumothorax. No pleural effusion. MEDIASTINUM AND HILAR STRUCTURES: No masses. Contour normal. HEART AND VASCULAR STRUCTURES: Aortic valve repair. Mild pulmonary vascular congestion. Mild cardio megaly. BONES: No acute findings. HARDWARE: None in the chest. OTHER: No other significant finding. IMPRESSION: 1. Mild pulmonary edema. 2. Hyperinflated lungs which can be seen with obstructive lung disease. TECHNICAL DOCUMENTATION: JOB ID: [id number] [employer]- All Rights Reserved Reading location - IP/workstation name: [email or web address]
--- NOTE | 2019-09-09 18:53 | Progress Note ---
Provider Note Provider Note: CARDIOLOGY PROGRESS NOTE by Dr. Maliha Barrios on 09/09/2019. SUBJECTIVE: Patient denies any chest pain discomfort. Her blood pressure is much improved. She still has low-grade fever. She denies any chest pain or discomfort. There is no PND orthopnea. There is no shortness of breath. There is no cough or wheezing. There is no arrhythmia seen on the monitor. There is no TIA CVA symptoms. There is no bleeding on Coumadin. There is no evidence of peripheral embolization. PHYSICAL EXAMINATION: The patient is morbidly obese. At present in no acute distress. Selected Entries 09/09/19 09/09/19 09/09/19 00:07 07:57 08:27 Temperature 98.3 F Temperature Oral Source Pulse Rate 87 Respiratory 17 Rate Blood Pressure 119/49 L Blood Pressure 72 Mean BP Location Right Arm BP Position Supine O2 Sat by Pulse 94 89 L Oximetry Oxygen Delivery Room Air Method ( includes room air) HEAD: Is atraumatic normocephalic. EYES: Pupils are equal round regular reactive light accommodation. Extraocular movements are normal. There is no conjunctival pallor. There is no scleral icterus. EARS: Tympanic membranes are intact. External auditory canals are clear. NOSE: There is no deviated nasal septum. There is no inflammation of these mucous membrane. MOUTH: Mucous membranes of the mouth are moist. Tongue is moist. There is no ulcers. There is no bleeding from the gums. THROAT: There is no redness of the oropharynx. There is no exudates. SKIN: There is no skin rashes or skin lesions. There is no petechia or ecchymosis. NECK: Is supple there is no JVD. Carotids are equal there is no bruit there is no lymphadenopathy. There is no goiter.. There is no accessory muscle respiration use. Trachea central. LUNGS: There is diminished air entry and prolonged expiration. There is no rhonchi rales or wheezing. On percussion there is hyperresonance. There is no chest wall tenderness. HEART: S1-S2 is heard. There is no S3 gallop. There is no S4 gallop. Systolic murmur left sternal border and the apex there is no rub. ABDOMEN: Soft. Nontender. There is no hepatosplenomegaly. Abdomen is obese. Bowel sounds are well heard. There is no tender areas masses. EXTREMITIES: Femorals are diminished. Femorals are without any bruits. Leg pulses are slightly diminished. There is no pedal edema. There is no DVT cellulitis. There is no calf tenderness. There is no cyanosis or clubbing SET PAINTER: The patient is conscious awake alert oriented x3 with no focal deficit. PSYCHIATRIC: Patient judgment insight are intact her affect is normal. Echo shows low normal LV ejection fraction. There is no significant gradient across the bovine prosthetic aortic valve. This has been discussed with the patient. The patient is aware of the fact that she needs to take antibiotics for SBE prophylaxis prior to dental GI/ surgery/procedures. Labs- All tests 24 hr 09/08/19 09/09/19 09/09/19 21:12 05:41 05:41 WBC RBC Hgb Hct MCV MCH MCHC RDW Plt Count Lymph % (Auto) Noble % (Auto) Eos % (Auto) Baso % (Auto) Absolute Neuts (auto) Absolute Lymphs (auto) Absolute Monos (auto) Absolute Eos (auto) Absolute Basos (auto) Seg Neutrophils % PT 26.8 H INR 2.42 Sodium 137.5 Potassium 4.4 Chloride 99 Carbon Dioxide 31 H Anion Gap 8 BUN 11 Creatinine 1.04 Est GFR ( Amer) > 60 Est GFR (MDRD) Non-Af 53 L Glucose 147 H POC Glucose 190 H Lactic Acid Calcium 8.6 09/09/19 09/09/19 09/09/19 05:41 05:41 06:43 WBC 3.7 L RBC 3.56 L Hgb 10.6 L Hct 30.9 L MCV 87 MCH 29.9 MCHC 34.5 RDW 13.7 Plt Count 209 Lymph % (Auto) 7.5 L Noble % (Auto) 12.5 Eos % (Auto) 5.1 Baso % (Auto) 0.6 Absolute Neuts (auto) 2.7 Absolute Lymphs (auto) 0.3 L Absolute Monos (auto) 0.5 Absolute Eos (auto) 0.2 Absolute Basos (auto) 0.0 Seg Neutrophils % 74.3 PT INR Sodium Potassium Chloride Carbon Dioxide Anion Gap BUN Creatinine Est GFR ( Amer) Est GFR (MDRD) Non-Af Glucose POC Glucose 167 H Lactic Acid 1.1 Calcium 09/09/19 09/09/19 11:40 15:43 WBC RBC Hgb Hct MCV MCH MCHC RDW Plt Count Lymph % (Auto) Noble % (Auto) Eos % (Auto) Baso % (Auto) Absolute Neuts (auto) Absolute Lymphs (auto) Absolute Monos (auto) Absolute Eos (auto) Absolute Basos (auto) Seg Neutrophils % PT INR Sodium Potassium Chloride Carbon Dioxide Anion Gap BUN Creatinine Est GFR ( Amer) Est GFR (MDRD) Non-Af Glucose POC Glucose 173 H 124 H Lactic Acid Calcium Abdomen/Pelvis CT 09/07/19 08:49 IMPRESSION: 1. No acute abnormality to explain the patient's symptoms. 2. Left anterior colostomy with large peristomal hernia containing loops of small bowel. No bowel obstruction or evidence of inflammatory change. 3. Moderate amount of stool in the colon. This can be seen with constipation. 4. Hepatomegaly with moderate hepatic steatosis. Chest X-Ray 09/09/19 00:00 IMPRESSION: 1. Mild pulmonary edema. 2. Hyperinflated lungs which can be seen with obstructive lung disease. Head MRI 09/09/19 09:21 IMPRESSION: ATROPHY AND CHRONIC MICRO-VASCULAR ISCHEMIC CHANGES. OTHERWISE NORMAL MRI OF THE BRAIN WITHOUT INTRAVENOUS GADOLINIUM CONTRAST. EVIDENCE OF ACUTE STROKE: NO. IMPRESSION/RECOMMENDATION: 1. Wide-complex tachycardia. This is not ventricular tachycardia. This is sinus tachycardia with left bundle branch block pattern. 2. Fever and recurrent urinary tract infection. Patient on antibiotics. 3. Coronary artery disease with stable exertional angina. Would recommend in view of the patient's COPD stop the patient's Coreg. Also the patient is on Coreg dose which is 3.125 mg p.o. twice daily which is non-consequential. Hence would change the patient to Toprol-XL 4. History of congestive heart failure with mildly to moderately reduced ejection fraction. The patient is having a repeat echo showed low normal EF of 55%. There is mild gradient across aortic valve which is acceptable. 5. Hypertension: Blood pressure well controlled. 6. Malignant lymph node: The treatment for this is radiation as per Rachel Quinn and Dr. Chin. 7. Diabetes mellitus: Continue antidiabetic regimen. 8. 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 9. COPD: At present no acute exacerbation. 10. Thrombosis of the thoracic aorta: Continue Coumadin. As discussed with Dr. Mcneal later would get a CT scan of the chest to assess for the status of the thrombi in the thoracic aorta. Medications reviewed. We will start the patient on topical nitrates from tomorrow. Medication changes medical regimen and management plan discussed with Dr. Mcneal. Medical decision making is of high complexity. 40 minutes spent as patient more than 50% of time spent in direct patient care. Will follow
[2019-09-09] MEDS: OXYCODONE-ACETAMINOPHEN 5-325 MG TABLET PO PRN (20:44)
[2019-09-09] MEDS: WARFARIN SODIUM 3 MG TABLET PO SCH (21:39)
[2019-09-09] MEDS: TRAZODONE HCL 50 MG TABLET PO SCH (21:39)
[2019-09-09] MEDS: CLONAZEPAM 1 MG TABLET PO PRN (21:42)
[2019-09-10 04:59] LABS: ABSOLUTE EOSINOPHILS # (AUTO) 0.2 10^3/uL (0.0-0.6); ABSOLUTE LYMPHOCYTES (AUTO) 0.4 10^3/uL (0.5-4.7); ABSOLUTE MONOCYTES (AUTO) 0.6 10^3/uL (0.1-1.4); ABSOLUTE NEUT (AUTO) 3.2 10^3/uL (1.7-8.2); BASOPHILS % (AUTO) 0.5 % (0-2); EOSINOPHILS % (AUTO) 4.5 % (0-6); HEMATOCRIT 31.5 % (36.0-47.0); HEMOGLOBIN 10.9 g/dL (12.0-15.5); LYMPHOCYTES % (AUTO) 8.4 % (13-45); MEAN CORPUSCULAR HEMOGLOBIN 30.2 pg (27.0-33.4); MEAN CORPUSCULAR HGB CONC 34.8 g/dL (32.0-36.0); MEAN CORPUSCULAR VOLUME 87 fl (80-97); MONOCYTES % (AUTO) 13.7 % (3-13); PLATELET COUNT 232 10^3/uL (150-450); RED BLOOD COUNT 3.63 10^6/uL (3.72-5.28); RED CELL DISTRIBUTION WIDTH 13.6 % (11.5-14.0); SEGMENTED NEUTROPHILS % (AUTO) 72.9 % (42-78); TOTAL CELLS COUNTED % (AUTO) 100 %; WHITE BLOOD COUNT 4.4 10^3/uL (4.0-10.5)
[2019-09-10 05:15] LABS: INTERNATIONAL RATION (INR) 1.95; PROTHROMBIN TIME 22.5 SEC (11.4-15.4)
[2019-09-10 05:22] LABS: ANION GAP 6 (5-19); BLOOD UREA NITROGEN 10 mg/dL (7-20); CALCIUM 8.7 mg/dL (8.4-10.2); CARBON DIOXIDE 34 mmol/L (22-30); CHLORIDE 97 mmol/L (98-107); GLUCOSE 102 mg/dL (75-110); POTASSIUM 4.6 mmol/L (3.6-5.0)
[2019-09-10] MEDS: ONDANSETRON 4 MG TAB.RAPDIS PO SCH ×3 (06:18→22:00)
[2019-09-10] MEDS: PANTOPRAZOLE SODIUM 40 MG TABLET.DR PO SCH ×2 (06:19→16:21)
[2019-09-10] MEDS: CLONAZEPAM 1 MG TABLET PO PRN ×2 (06:19→16:27)
[2019-09-10] MEDS: SERTRALINE HCL 50 MG TABLET PO SCH ×3 (06:19→22:00)
[2019-09-10] MEDS: INSULIN LISPRO 100 UNIT/ML 3 ML VIAL SUBCUT SCH ×4 (07:32→22:01)
[2019-09-10] MEDS ORDERED: IPRATROPIUM/ALBUTEROL 0.5-2.5 MG/3 ML AMPUL NEB PRN (09:05)
--- NOTE | 2019-09-10 09:06 | PDOC PROGRESS REPORT ---
Subjective Progress Note for:: 09/10/19 Subjective:: Patient is currently doing fair no fever overnights Patient have a episode of the small hemoptysis yesterday patient INR is 1.95 Discussed with the cableman and suggest the continues to Coumadin because patient high risk for the PE due to the lung cancer given the patient CT scan is negative for thrombosis Dr. MELGAR suggest to do the CT angiogram to rule out thrombosis of the aortic arch Patient's denied any chest pain no short of breath Denied any abdominal pain no nausea no vomiting Reason For Visit: UTI RECURRENT Physical Exam Vital Signs: Temp Pulse Resp BP Pulse Ox 99.3 F 88 15 103/45 L 92 09/10/19 07:41 09/10/19 07:41 09/10/19 07:41 09/10/19 07:41 09/10/19 07:41 Intake & Output 09/09/19 09/10/19 09/11/19 06:59 06:59 06:59 Intake Total 2486 1698 Output Total 1300 2250 Balance 1186 -552 Weight 93 kg 89.1 kg General appearance: PRESENT: no acute distress, well-developed, well-nourished Head exam: PRESENT: atraumatic, normocephalic Eye exam: PRESENT: conjunctiva pink, EOMI, PERRLA. ABSENT: scleral icterus Ear exam: PRESENT: normal external ear exam Mouth exam: PRESENT: moist, tongue midline Neck exam: PRESENT: full ROM. ABSENT: carotid bruit, JVD, lymphadenopathy, thyromegaly Respiratory exam: PRESENT: clear to auscultation bartolome Cardiovascular exam: PRESENT: RRR. ABSENT: diastolic murmur, rubs, systolic murmur Pulses: PRESENT: normal dorsalis pedis pul, +2 pedal pulses bilateral Vascular exam: PRESENT: normal capillary refill GI/Abdominal exam: PRESENT: normal bowel sounds, soft. ABSENT: distended, guarding, mass, organolmegaly, rebound, tenderness Rectal exam: PRESENT: deferred Musculoskeletal exam: PRESENT: ambulatory Neurological exam: PRESENT: alert, awake, oriented to person, oriented to place, oriented to time, oriented to situation, CN II-XII grossly intact. ABSENT: motor sensory deficit Psychiatric exam: PRESENT: appropriate affect, normal mood. ABSENT: homicidal ideation, suicidal ideation Skin exam: PRESENT: dry, intact, warm. ABSENT: cyanosis, rash Results Laboratory Results: 09/10/19 04:23 09/10/19 04:23 09/10/19 09/10/19 04:23 04:23 WBC 4.4 RBC 3.63 L Hgb 10.9 L Hct 31.5 L MCV 87 MCH 30.2 MCHC 34.8 RDW 13.6 Plt Count 232 Seg Neutrophils % 72.9 Sodium 136.9 L Potassium 4.6 Chloride 97 L Carbon Dioxide 34 H Anion Gap 6 BUN 10 Creatinine 1.03 Est GFR ( Amer) > 60 Glucose 102 Calcium 8.7 09/07/19 08:46 Throat Throat Culture - Final NORMAL YUDY 09/05/19 22:34 Troponin I < 0.012 Impressions: Abdomen/Pelvis CT 09/07/19 08:49 IMPRESSION: 1. No acute abnormality to explain the patient's symptoms. 2. Left anterior colostomy with large peristomal hernia containing loops of small bowel. No bowel obstruction or evidence of inflammatory change. 3. Moderate amount of stool in the colon. This can be seen with constipation. 4. Hepatomegaly with moderate hepatic steatosis. Chest X-Ray 09/09/19 00:00 IMPRESSION: 1. Mild pulmonary edema. 2. Hyperinflated lungs which can be seen with obstructive lung disease. Head MRI 09/09/19 09:21 IMPRESSION: ATROPHY AND CHRONIC MICRO-VASCULAR ISCHEMIC CHANGES. OTHERWISE NORMAL MRI OF THE BRAIN WITHOUT INTRAVENOUS GADOLINIUM CONTRAST. EVIDENCE OF ACUTE STROKE: NO. Assessment & Plan - Diagnosis (1) Fever Qualifiers: Fever type: unspecified Qualified Code(s): R50.9 - Fever, unspecified Is this a current diagnosis for this admission?: Yes Plan: Continues to IV cefepime for 10 days (2) Urinary tract infection Qualifiers: Urinary tract infection type: site unspecified Hematuria presence: without hematuria Qualified Code(s): N39.0 - Urinary tract infection, site not specified Is this a current diagnosis for this admission?: Yes Plan: Continues IV cefepime per the ID recommendations (3) CAD, S/P 2x stent placement Is this a current diagnosis for this admission?: Yes Plan: Currently all stable patients follow with the Dr. MELGAR (4) COPD/asthma Is this a current diagnosis for this admission?: Yes Plan: Continues to nebulizer treatments as needed (5) DM type 2 (diabetes mellitus, type 2) Qualifiers: Diabetes mellitus shelter insulin use: unspecified reinforcer insulin use status Is this a current diagnosis for this admission?: Yes Plan: Continues a sliding scale (6) Hypertension Qualifiers: Hypertension type: essential hypertension Is this a current diagnosis for this admission?: Yes Plan: Currently all stable (7) S/P TAVR (transcatheter aortic valve replacement) Is this a current diagnosis for this admission?: Yes Plan: Currently all stable per echocardiogram (8) Squamous cell carcinoma of lung Qualifiers: Laterality: unspecified laterality Is this a current diagnosis for this admission?: Yes (9) Thrombosis of thoracic aorta Is this a current diagnosis for this admission?: Yes Plan: We will repeat the CT angiogram today - Time Time Spent with patient: 15-24 minutes Level of Care: TELE Medications reviewed and adjusted accordingly: Yes Anticipated discharge: Home Within: Other - Plan Summary Plan Summary: Continues to IV antibiotic continues follow with a cableman and manager resource
[2019-09-10] MEDS: DOCUSATE SODIUM 100 MG CAPSULE PO SCH ×2 (09:54→17:27)
[2019-09-10] MEDS: ASPIRIN 81 MG TABLET, ENT COATED PO SCH (09:54)
[2019-09-10] MEDS: GLIPIZIDE XL 5 MG TAB.ER.24 PO SCH (09:55)
[2019-09-10] MEDS: FUROSEMIDE 20 MG TABLET PO SCH (09:55)
[2019-09-10] MEDS: TAMSULOSIN HCL 0.4 MG CAP.SR.24H PO SCH (09:55)
[2019-09-10] MEDS: CEFEPIME 1 GM/D5W RTU 1 GM/50 ML RTUPB IV SCH ×2 (09:56→22:01)
[2019-09-10] MEDS: MAGNESIUM OXIDE 400 MG TABLET PO SCH ×2 (09:56→17:27)
[2019-09-10] MEDS: POLYETHYLENE GLYCOL 3350 POWDER 17 GM/1 PACKET PO SCH (09:57)
[2019-09-10] MEDS: METOPROLOL SUCCINATE 25 MG TAB.SR.24H PO SCH ×2 (09:57→22:01)
[2019-09-10] MEDS ORDERED: ASPIRIN 325 MG TABLET PO SCH (10:00)
[2019-09-10] MEDS: MORPHINE SULFATE IR 15 MG TABLET PO PRN ×2 (12:02→18:05)
--- NOTE | 2019-09-10 12:33 | PDOC PROGRESS REPORT ---
Subjective Progress Note for:: 09/10/19 Subjective:: Patient seen on morning rounds and discussed with Dr. Mcneal. Patient states that she has a headache and coughed up blood yesterday. This has greatly worried her. She denies dyspnea. She has not been up out of bed much, but did walk with PT once. Nurses report small amount of blood tinged sputum, but no hemoptysis Reason For Visit: UTI RECURRENT Physical Exam Vital Signs: Temp Pulse Resp BP Pulse Ox 99.3 F 79 18 103/45 L 94 09/10/19 07:41 09/10/19 11:11 09/10/19 11:11 09/10/19 07:41 09/10/19 11:11 Intake & Output 09/09/19 09/10/19 09/11/19 06:59 06:59 06:59 Intake Total 2486 1698 Output Total 1300 2250 Balance 1186 -302 Weight 93 kg 89.1 kg General appearance: PRESENT: no acute distress, well-developed, well-nourished Head exam: PRESENT: normocephalic Respiratory exam: PRESENT: unlabored Neurological exam: PRESENT: alert, awake Psychiatric exam: PRESENT: appropriate affect Skin exam: PRESENT: normal color Results Laboratory Results: 09/10/19 04:23 09/10/19 04:23 09/10/19 09/10/19 04:23 04:23 WBC 4.4 RBC 3.63 L Hgb 10.9 L Hct 31.5 L MCV 87 MCH 30.2 MCHC 34.8 RDW 13.6 Plt Count 232 Seg Neutrophils % 72.9 Sodium 136.9 L Potassium 4.6 Chloride 97 L Carbon Dioxide 34 H Anion Gap 6 BUN 10 Creatinine 1.03 Est GFR ( Amer) > 60 Glucose 102 Calcium 8.7 09/07/19 08:46 Throat Throat Culture - Final NORMAL YUDY 09/05/19 22:34 Troponin I < 0.012 Impressions: Abdomen/Pelvis CT 09/07/19 08:49 IMPRESSION: 1. No acute abnormality to explain the patient's symptoms. 2. Left anterior colostomy with large peristomal hernia containing loops of small bowel. No bowel obstruction or evidence of inflammatory change. 3. Moderate amount of stool in the colon. This can be seen with constipation. 4. Hepatomegaly with moderate hepatic steatosis. Chest X-Ray 09/09/19 00:00 IMPRESSION: 1. Mild pulmonary edema. 2. Hyperinflated lungs which can be seen with obstructive lung disease. Head MRI 09/09/19 09:21 IMPRESSION: ATROPHY AND CHRONIC MICRO-VASCULAR ISCHEMIC CHANGES. OTHERWISE NORMAL MRI OF THE BRAIN WITHOUT INTRAVENOUS GADOLINIUM CONTRAST. EVIDENCE OF ACUTE STROKE: NO. Assessment & Plan - Diagnosis (1) Urinary tract infection Qualifiers: Urinary tract infection type: site unspecified Hematuria presence: without hematuria Qualified Code(s): N39.0 - Urinary tract infection, site not specified Is this a current diagnosis for this admission?: Yes Plan: Repeat Blood cultures were negative. This appears to be clearing. (2) Squamous cell carcinoma of lung Qualifiers: Laterality: unspecified laterality Is this a current diagnosis for this admission?: Yes Plan: All treatment on hold. I have explained to the patient that a small amount of blood in the sputum is acceptable. (3) Thrombophilia Is this a current diagnosis for this admission?: Yes Plan: I would continue some type of anticoagulation. Her INR is currently sub- therapeutic. Consider bridge with Lovenox and continue Coumadin with goal INR 2-3. However, if she is a candidate for a newer agent, this may be better as well for outpatient use. I will defer to Dr. Mcneal. - Time Time Spent with patient: 15-24 minutes
--- NOTE | 2019-09-10 18:04 | RADIOLOGY REPORT (SQ) ---
EXAM DESCRIPTION: CTA CHEST COMPLETED DATE/TIME: 09/10/2019 5:24 pm REASON FOR STUDY: bloody sputum COMPARISON: CT chest 08/23/2019, 12/22/2018 TECHNIQUE: CT scan of the chest performed using helical scanning technique with dynamic intravenous contrast injection. Images reviewed with lung, soft tissue and bone windows. Reconstructed coronal and sagittal MPR images reviewed. Additional 3 dimensional post-processing performed to develop Maximal Intensity Projection images (TX P). All images stored on PACS. All CT scanners at this facility use dose modulation, iterative reconstruction, and/or weight based d osing when appropriate to reduce radiation dose to as low as reasonably achievable (ALARA). [facility]: Dose Right [facility]: CareDose [facility]: Dose Right [facility]: Teradose 4D [facility]: [employer] CONTRAST TYPE AND DOSE: contrast/concentration: Isovue 350.00 mg/ml; Total Contrast Delivered: 64.0 ml; Total Saline Delivered: 80.0 ml Contrast bolus adequate for pulmonary arteries and aorta. RENAL FUNCTION: Creatinine 1.0 RADIATION DOSE: CT Rad equipment meets quality standard of care and radiation dose reduction techniq ues were employed. CTDIvol: 19.2 - 19.8 mGy. DLP: 705 mGy-cm. . LIMITATIONS: None. FINDINGS: LUNGS AND PLEURA: There is diffuse alveolar and interstitial infiltrates throughout the up per lobes bilaterally superimposed on obstructive lung disease. This could represent pneumonia or pu lmonary edema. No pleural effusions. No pneumothorax. No worrisome pulmonary nodules. AORTA AND GREAT VESSELS: No thoracic aortic aneurysm or dissection. HEART: No pericardial effusion. No significant coronary artery calcifications. Aortic valve replacem ent. PULMONARY ARTERIES: No emboli visualized in the main pulmonary arteries or the segmental branches. HILAR AND MEDIASTINAL STRUCTURES: Persistent 1.5 cm precarinal lymph node unchanged 08/23/2019, was 4 c m diameter on 12/22/2018. HARDWARE: Deflated right retropectoral breast implant UPPER ABDOMEN: Post cholecystectomy THYROID AND OTHER SOFT TISSUES: Old surgical clips right axilla post lymph node dissection BONES: No acute or significant finding. 3D MIPS: Confirm above findings. OTHER: No other significant finding. IMPRESSION: No CT angio evidence of acute pulmonary emboli Bilateral upper lobe alveolar and interstitial infiltrates superimposed on obstructive lung disease w orrisome for pulmonary edema. Pneumonia could not be excluded COMMENT: Quality ID # [id number]: Final reports with documentation of one or more dose reduction techniques (e.g., Automated exposure control, adjustment of the mA and/or kV according to patient size, use of iterative reconstruction technique) TECHNICAL DOCUMENTATION: JOB ID: [id number] [employer]- All Rights Reserved Reading location - IP/workstation name: [facility]
--- NOTE | 2019-09-10 19:07 | Progress Note ---
Provider Note Provider Note: CARDIOLOGY PROGRESS NOTE by Dr. Maliha Rossi on 09/10/2019.\\ SUBJECTIVE: The patient denies any chest pain discomfort. There is no shortness of breath. There is no PND orthopnea. She has no further fever. Her urinary tract infection is responding to antibiotics. The patient states this morning she had one episode of hemoptysis. Initially she said it was bright red blood and then subsequently said it was chocolate colored. The patient is having CT scan done which did not really show an etiology of the patient's because of hemoptysis. There is no atrial or ventricular arrhythmia seen on the monitor. Physical EXAMINATION: The patient's moderate to morbidly obese. In no acute distress. Selected Entries 09/10/19 15:56 Temperature 98.9 F Temperature Oral Source Pulse Rate 93 Respiratory 15 Rate Blood Pressure 96/46 L Blood Pressure 62 Mean BP Location Right Arm BP Position Sitting O2 Sat by Pulse 98 Oximetry Oxygen Flow 3.00 Rate Oxygen Delivery Nasal Cannula Method HEAD: Is atraumatic normocephalic. EYES: Pupils are equal round regular reactive light accommodation. Extraocular movements are normal. There is no conjunctival pallor. There is no scleral icterus. EARS: Tympanic membranes are intact. External auditory canals are clear. NOSE: There is no deviated nasal septum. There is no inflammation of these mucous membrane. MOUTH: Mucous membranes of the mouth are moist. Tongue is moist. There is no ulcers. There is no bleeding from the gums. THROAT: There is no redness of the oropharynx. There is no exudates. SKIN: There is no skin rashes or skin lesions. There is no petechia or ecchymosis. NECK: Is supple there is no JVD. Carotids are equal there is no bruit there is no lymphadenopathy. There is no goiter.. There is no accessory muscle respiration use. Trachea central. LUNGS: There is diminished air entry and prolonged expiration. There is no rhonchi rales or wheezing. On percussion there is hyperresonance. There is no chest wall tenderness. HEART: S1-S2 is heard. There is no S3 gallop. There is no S4 gallop. Systolic murmur left sternal border and the apex there is no rub. ABDOMEN: Soft. Nontender. There is no hepatosplenomegaly. Abdomen is obese. Bowel sounds are well heard. There is no tender areas masses. EXTREMITIES: Femorals are diminished. Femorals are without any bruits. Leg pulses are slightly diminished. There is no pedal edema. There is no DVT cellulitis. There is no calf tenderness. There is no cyanosis or clubbing BREWERY TECHNICIAN: The patient is conscious awake alert oriented x3 with no focal deficit. PSYCHIATRIC: Patient judgment insight are intact her affect is normal. Labs- All tests 24 hr 09/10/19 09/10/19 09/10/19 04:23 04:23 04:23 WBC 4.4 RBC 3.63 L Hgb 10.9 L Hct 31.5 L MCV 87 MCH 30.2 MCHC 34.8 RDW 13.6 Plt Count 232 Lymph % (Auto) 8.4 L Day % (Auto) 13.7 H Eos % (Auto) 4.5 Baso % (Auto) 0.5 Absolute Neuts (auto) 3.2 Absolute Lymphs (auto) 0.4 L Absolute Monos (auto) 0.6 Absolute Eos (auto) 0.2 Absolute Basos (auto) 0.0 Seg Neutrophils % 72.9 PT 22.5 H INR 1.95 Sodium 136.9 L Potassium 4.6 Chloride 97 L Carbon Dioxide 34 H Anion Gap 6 BUN 10 Creatinine 1.03 Est GFR ( Amer) > 60 Est GFR (MDRD) Non-Af 53 L Glucose 102 POC Glucose Calcium 8.7 09/10/19 09/10/19 09/10/19 06:11 11:17 15:57 WBC RBC Hgb Hct MCV MCH MCHC RDW Plt Count Lymph % (Auto) Day % (Auto) Eos % (Auto) Baso % (Auto) Absolute Neuts (auto) Absolute Lymphs (auto) Absolute Monos (auto) Absolute Eos (auto) Absolute Basos (auto) Seg Neutrophils % PT INR Sodium Potassium Chloride Carbon Dioxide Anion Gap BUN Creatinine Est GFR ( Amer) Est GFR (MDRD) Non-Af Glucose POC Glucose 130 H 140 H 267 H Calcium 09/10/19 21:36 WBC RBC Hgb Hct MCV MCH MCHC RDW Plt Count Lymph % (Auto) Day % (Auto) Eos % (Auto) Baso % (Auto) Absolute Neuts (auto) Absolute Lymphs (auto) Absolute Monos (auto) Absolute Eos (auto) Absolute Basos (auto) Seg Neutrophils % PT INR Sodium Potassium Chloride Carbon Dioxide Anion Gap BUN Creatinine Est GFR ( Amer) Est GFR (MDRD) Non-Af Glucose POC Glucose 168 H Calcium Abdomen/Pelvis CT 09/07/19 08:49 IMPRESSION: 1. No acute abnormality to explain the patient's symptoms. 2. Left anterior colostomy with large peristomal hernia containing loops of small bowel. No bowel obstruction or evidence of inflammatory change. 3. Moderate amount of stool in the colon. This can be seen with constipation. 4. Hepatomegaly with moderate hepatic steatosis. Chest X-Ray 09/09/19 00:00 IMPRESSION: 1. Mild pulmonary edema. 2. Hyperinflated lungs which can be seen with obstructive lung disease. Head MRI 09/09/19 09:21 IMPRESSION: ATROPHY AND CHRONIC MICRO-VASCULAR ISCHEMIC CHANGES. OTHERWISE NORMAL MRI OF THE BRAIN WITHOUT INTRAVENOUS GADOLINIUM CONTRAST. EVIDENCE OF ACUTE STROKE: NO. Chest/Abdomen CTA 09/10/19 00:00 IMPRESSION: No CT angio evidence of acute pulmonary emboli Bilateral upper lobe alveolar and interstitial infiltrates superimposed on obstructive lung disease worrisome for pulmonary edema. Pneumonia could not be excluded IMPRESSION/RECOMMENDATION: 1. 1 episode of hemoptysis:? Etiology. 2. Fever and recurrent urinary tract infection. Patient on antibiotics. 3. Coronary artery disease with stable exertional angina. Would recommend in view of the patient's COPD stop the patient's Coreg. Also the patient is on Coreg dose which is 3.125 mg p.o. twice daily which is non-consequential. Hence would change the patient to Toprol-XL 4. History of congestive heart failure with mildly to moderately reduced ejection fraction. The patient is having a repeat echo showed low normal EF of 55%. There is mild gradient across aortic valve which is acceptable. 5. Hypertension: Blood pressure well controlled. 6. Malignant lymph node: The treatment for this is radiation as per Rachel Quinn and Dr. Chin. 7. Diabetes mellitus: Continue antidiabetic regimen. 8. 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 9. COPD: At present no acute exacerbation. 10. Thrombosis of the thoracic aorta: Continue Coumadin. Note that his CT scan of the chest shows no mention of thrombus in the aorta, hence probably the patient does not have thrombus at present. She also no definite cause of her hemoptysis is found. 11. Wide-complex tachycardia which is sinus tachycardia with left bundle branch block pattern. With no recurrence. Medications reviewed. Medical management and management plan discussed with attending physician. Medical decision making is of moderate complexity. 40 minutes spent as patient with more than 50% time spent in direct patient care. Cardiac status appears to be stable. A decision has been made regarding stopping the Coumadin in view of the patient's complaint of hemoptysis. The patient's history is not very reliable. Hence would not jump to stop the Coumadin. Will discuss with radiology specifically to make sure that there is no thrombosis of the thoracic aorta.
[2019-09-10] MEDS: TRAZODONE HCL 50 MG TABLET PO SCH (22:00)
[2019-09-10] MEDS: WARFARIN SODIUM 5 MG TABLET PO SCH (22:01)
[2019-09-10] MEDS: OXYCODONE-ACETAMINOPHEN 5-325 MG TABLET PO PRN (22:09)
[2019-09-11] MEDS: CLONAZEPAM 1 MG TABLET PO PRN ×2 (05:23→23:02)
[2019-09-11] MEDS: PANTOPRAZOLE SODIUM 40 MG TABLET.DR PO SCH ×2 (05:23→17:26)
[2019-09-11] MEDS: SERTRALINE HCL 50 MG TABLET PO SCH ×3 (05:23→21:26)
[2019-09-11] MEDS: ONDANSETRON 4 MG TAB.RAPDIS PO SCH ×3 (05:23→21:26)
[2019-09-11] MEDS: OXYCODONE-ACETAMINOPHEN 5-325 MG TABLET PO PRN ×3 (06:17→23:02)
[2019-09-11 06:59] LABS: ABSOLUTE EOSINOPHILS # (AUTO) 0.2 10^3/uL (0.0-0.6); ABSOLUTE LYMPHOCYTES (AUTO) 0.3 10^3/uL (0.5-4.7); ABSOLUTE MONOCYTES (AUTO) 0.5 10^3/uL (0.1-1.4); ABSOLUTE NEUT (AUTO) 3.2 10^3/uL (1.7-8.2); BASOPHILS % (AUTO) 0.5 % (0-2); EOSINOPHILS % (AUTO) 5.1 % (0-6); HEMATOCRIT 29.9 % (36.0-47.0); HEMOGLOBIN 10.2 g/dL (12.0-15.5); LYMPHOCYTES % (AUTO) 6.7 % (13-45); MEAN CORPUSCULAR HEMOGLOBIN 30.1 pg (27.0-33.4); MEAN CORPUSCULAR HGB CONC 34.2 g/dL (32.0-36.0); MEAN CORPUSCULAR VOLUME 88 fl (80-97); MONOCYTES % (AUTO) 12.9 % (3-13); PLATELET COUNT 218 10^3/uL (150-450); RED CELL DISTRIBUTION WIDTH 13.3 % (11.5-14.0); SEGMENTED NEUTROPHILS % (AUTO) 74.8 % (42-78); TOTAL CELLS COUNTED % (AUTO) 100 %; WHITE BLOOD COUNT 4.2 10^3/uL (4.0-10.5)
[2019-09-11 07:03] LABS: INTERNATIONAL RATION (INR) 2.11
[2019-09-11 07:29] LABS: ANION GAP 9 (5-19); BLOOD UREA NITROGEN 12 mg/dL (7-20); CALCIUM 8.7 mg/dL (8.4-10.2); CARBON DIOXIDE 31 mmol/L (22-30); CHLORIDE 97 mmol/L (98-107); GLUCOSE 199 mg/dL (75-110); POTASSIUM 4.3 mmol/L (3.6-5.0)
[2019-09-11] MEDS: INSULIN LISPRO 100 UNIT/ML 3 ML VIAL SUBCUT SCH ×4 (08:04→21:26)
[2019-09-11] MEDS: CEFEPIME 1 GM/D5W RTU 1 GM/50 ML RTUPB IV SCH ×2 (10:12→21:26)
[2019-09-11] MEDS: DOCUSATE SODIUM 100 MG CAPSULE PO SCH ×2 (10:12→17:26)
[2019-09-11] MEDS: FUROSEMIDE 20 MG TABLET PO SCH (10:12)
[2019-09-11] MEDS: MAGNESIUM OXIDE 400 MG TABLET PO SCH ×2 (10:12→17:26)
[2019-09-11] MEDS: ASPIRIN 81 MG TABLET, ENT COATED PO SCH (10:12)
[2019-09-11] MEDS: TAMSULOSIN HCL 0.4 MG CAP.SR.24H PO SCH (10:12)
[2019-09-11] MEDS: POLYETHYLENE GLYCOL 3350 POWDER 17 GM/1 PACKET PO SCH (10:13)
[2019-09-11] MEDS: GLIPIZIDE XL 5 MG TAB.ER.24 PO SCH (10:13)
[2019-09-11] MEDS: METOPROLOL SUCCINATE 25 MG TAB.SR.24H PO SCH ×2 (11:07→21:26)
[2019-09-11] MEDS: ACETAMINOPHEN 325 MG TABLET PO PRN (11:10)
--- NOTE | 2019-09-11 11:21 | Progress Note ---
Provider Note Provider Note: CARDIOLOGY PROGRESS NOTE by Dr. Maliha Rossi on 09/11/2019. OBJECTIVE: The patient states that she had another bout of hemoptysis, but the nurse is not aware of that. The patient has a functional anxiety overlay, and I am not sure if he really has hemoptysis or not. We have asked the patient to give us a sample of the hemoptysis when she has them. She denies any chest pain or discomfort. She appears to be anxious and depressed. She has no shortness of breath. There is no PND orthopnea. She has no fever. And a urinary tract infection is getting better. PHYSICAL EXAMINATION: The patient is morbidly obese in no acute distress. Selected Entries 09/11/19 12:00 Temperature 98.4 F Temperature Oral Source Pulse Rate 81 Respiratory 19 Rate Blood Pressure 111/48 L [Left Upper Arm ] Blood Pressure 69 Mean [Left Upper Arm] Blood Pressure Supine Position [Left Upper Arm] O2 Sat by Pulse 94 Oximetry Oxygen Delivery Nasal Cannula Method ( includes room air) Oxygen Flow 2 Rate HEAD: Is atraumatic normocephalic. EYES: Pupils are equal round regular reactive light accommodation. Extraocular movements are normal. There is no conjunctival pallor. There is no scleral icterus. EARS: Tympanic membranes are intact. External auditory canals are clear. NOSE: There is no deviated nasal septum. There is no inflammation of these mucous membrane. MOUTH: Mucous membranes of the mouth are moist. Tongue is moist. There is no ulcers. There is no bleeding from the gums. THROAT: There is no redness of the oropharynx. There is no exudates. SKIN: There is no skin rashes or skin lesions. There is no petechia or ecchymosis. NECK: Is supple there is no JVD. Carotids are equal there is no bruit there is no lymphadenopathy. There is no goiter.. There is no accessory muscle respiration use. Trachea central. LUNGS: There is diminished air entry and prolonged expiration. There is no rhonchi rales or wheezing. On percussion there is hyperresonance. There is no chest wall tenderness. HEART: S1-S2 is heard. There is no S3 gallop. There is no S4 gallop. Systolic murmur left sternal border and the apex there is no rub. ABDOMEN: Soft. Nontender. There is no hepatosplenomegaly. Abdomen is obese. Bowel sounds are well heard. There is no tender areas masses. EXTREMITIES: Femorals are diminished. Femorals are without any bruits. Leg pulses are slightly diminished. There is no pedal edema. There is no DVT cellulitis. There is no calf tenderness. 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 PSYCHIATRIC: Patient judgment insight are intact her affect is normal. Labs- All tests 24 hr 09/10/19 09/11/19 09/11/19 21:36 06:18 06:40 WBC RBC Hgb Hct MCV MCH MCHC RDW Plt Count Lymph % (Auto) Rains % (Auto) Eos % (Auto) Baso % (Auto) Absolute Neuts (auto) Absolute Lymphs (auto) Absolute Monos (auto) Absolute Eos (auto) Absolute Basos (auto) Seg Neutrophils % PT 24.0 H INR 2.11 Sodium Potassium Chloride Carbon Dioxide Anion Gap BUN Creatinine Est GFR ( Amer) Est GFR (MDRD) Non-Af Glucose POC Glucose 168 H 212 H Calcium 09/11/19 09/11/19 09/11/19 06:40 06:40 10:47 WBC 4.2 RBC 3.40 L Hgb 10.2 L Hct 29.9 L MCV 88 MCH 30.1 MCHC 34.2 RDW 13.3 Plt Count 218 Lymph % (Auto) 6.7 L Rains % (Auto) 12.9 Eos % (Auto) 5.1 Baso % (Auto) 0.5 Absolute Neuts (auto) 3.2 Absolute Lymphs (auto) 0.3 L Absolute Monos (auto) 0.5 Absolute Eos (auto) 0.2 Absolute Basos (auto) 0.0 Seg Neutrophils % 74.8 PT INR Sodium 136.7 L Potassium 4.3 Chloride 97 L Carbon Dioxide 31 H Anion Gap 9 BUN 12 Creatinine 0.94 Est GFR ( Amer) > 60 Est GFR (MDRD) Non-Af 59 L Glucose 199 H POC Glucose 248 H Calcium 8.7 09/11/19 14:56 WBC RBC Hgb Hct MCV MCH MCHC RDW Plt Count Lymph % (Auto) Rains % (Auto) Eos % (Auto) Baso % (Auto) Absolute Neuts (auto) Absolute Lymphs (auto) Absolute Monos (auto) Absolute Eos (auto) Absolute Basos (auto) Seg Neutrophils % PT INR Sodium Potassium Chloride Carbon Dioxide Anion Gap BUN Creatinine Est GFR ( Amer) Est GFR (MDRD) Non-Af Glucose POC Glucose 123 H Calcium Abdomen/Pelvis CT 09/07/19 08:49 IMPRESSION: 1. No acute abnormality to explain the patient's symptoms. 2. Left anterior colostomy with large peristomal hernia containing loops of small bowel. No bowel obstruction or evidence of inflammatory change. 3. Moderate amount of stool in the colon. This can be seen with constipation. 4. Hepatomegaly with moderate hepatic steatosis. Chest X-Ray 09/09/19 00:00 IMPRESSION: 1. Mild pulmonary edema. 2. Hyperinflated lungs which can be seen with obstructive lung disease. Head MRI 09/09/19 09:21 IMPRESSION: ATROPHY AND CHRONIC MICRO-VASCULAR ISCHEMIC CHANGES. OTHERWISE NORMAL MRI OF THE BRAIN WITHOUT INTRAVENOUS GADOLINIUM CONTRAST. EVIDENCE OF ACUTE STROKE: NO. Chest/Abdomen CTA 09/10/19 00:00 IMPRESSION: No CT angio evidence of acute pulmonary emboli Bilateral upper lobe alveolar and interstitial infiltrates superimposed on obstructive lung disease worrisome for pulmonary edema. Pneumonia could not be excluded IMPRESSION/RECOMMENDATION: 1. Episodes of hemoptysis:? Etiology. 2. Fever and recurrent urinary tract infection. Patient on antibiotics. 3. Coronary artery disease with stable exertional angina. Would recommend in view of the patient's COPD stop the patient's Coreg. Also the patient is on Coreg dose which is 3.125 mg p.o. twice daily which is non-consequential. Hence would change the patient to Toprol-XL 4. History of congestive heart failure with mildly to moderately reduced ejection fraction. The patient is having a repeat echo showed low normal EF of 55%. There is mild gradient across aortic valve which is acceptable. 5. Hypertension: Blood pressure well controlled. 6. Malignant lymph node: The treatment for this is radiation as per Rachel Quinn and Dr. Chin. 7. Diabetes mellitus: Continue antidiabetic regimen. 8. 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 9. COPD: At present no acute exacerbation. 10. Thrombosis of the thoracic aorta: Continue Coumadin. Note that his CT scan of the chest shows no mention of thrombus in the aorta, hence probably the patient does not have thrombus at present. She also no definite cause of her hemoptysis is found. 11. Wide-complex tachycardia which is sinus tachycardia with left bundle branch block pattern. With no recurrence. 12. Anxiety: The patient may benefit from anti-anxiolytic medication. Medications reviewed. Medical management and management plan discussed with Dr. Thomas covering Dr. Mcneal. Medical decision making hours of moderate complexity. 40 minutes spent as patient with more than 50% of time spent in direct patient care. Will follow.
--- NOTE | 2019-09-11 17:51 | PDOC PROGRESS REPORT ---
Subjective Progress Note for:: 09/11/19 Subjective:: Patient seen by the bedside, she complain of headache Reason For Visit: UTI RECURRENT Physical Exam Vital Signs: Temp Pulse Resp BP Pulse Ox 98.5 F 81 16 139/63 H 97 09/11/19 16:00 09/11/19 16:43 09/11/19 16:43 09/11/19 16:00 09/11/19 16:43 Intake & Output 09/10/19 09/11/19 09/12/19 06:59 06:59 06:59 Intake Total 1698 1380 118 Output Total 2250 2350 Balance -552 -970 118 Weight 89.1 kg 88.9 kg General appearance: PRESENT: no acute distress Eye exam: PRESENT: PERRLA Respiratory exam: PRESENT: clear to auscultation bartolome Cardiovascular exam: PRESENT: +S1, +S2 GI/Abdominal exam: PRESENT: soft Neurological exam: PRESENT: alert Results Laboratory Results: 09/11/19 06:40 09/11/19 06:40 09/11/19 09/11/19 06:40 06:40 WBC 4.2 RBC 3.40 L Hgb 10.2 L Hct 29.9 L MCV 88 MCH 30.1 MCHC 34.2 RDW 13.3 Plt Count 218 Seg Neutrophils % 74.8 Sodium 136.7 L Potassium 4.3 Chloride 97 L Carbon Dioxide 31 H Anion Gap 9 BUN 12 Creatinine 0.94 Est GFR ( Amer) > 60 Glucose 199 H Calcium 8.7 09/06/19 02:07 Blood Blood Culture - Final NO GROWTH IN 5 DAYS 09/05/19 22:34 Troponin I < 0.012 Impressions: Abdomen/Pelvis CT 09/07/19 08:49 IMPRESSION: 1. No acute abnormality to explain the patient's symptoms. 2. Left anterior colostomy with large peristomal hernia containing loops of small bowel. No bowel obstruction or evidence of inflammatory change. 3. Moderate amount of stool in the colon. This can be seen with constipation. 4. Hepatomegaly with moderate hepatic steatosis. Chest X-Ray 09/09/19 00:00 IMPRESSION: 1. Mild pulmonary edema. 2. Hyperinflated lungs which can be seen with obstructive lung disease. Head MRI 09/09/19 09:21 IMPRESSION: ATROPHY AND CHRONIC MICRO-VASCULAR ISCHEMIC CHANGES. OTHERWISE NORMAL MRI OF THE BRAIN WITHOUT INTRAVENOUS GADOLINIUM CONTRAST. EVIDENCE OF ACUTE STROKE: NO. Chest/Abdomen CTA 09/10/19 00:00 IMPRESSION: No CT angio evidence of acute pulmonary emboli Bilateral upper lobe alveolar and interstitial infiltrates superimposed on obstructive lung disease worrisome for pulmonary edema. Pneumonia could not be excluded Assessment & Plan - Diagnosis (1) Complicated urinary tract infection Is this a current diagnosis for this admission?: Yes (2) Fever Qualifiers: Fever type: unspecified Qualified Code(s): R50.9 - Fever, unspecified Is this a current diagnosis for this admission?: Yes (3) Parastomal hernia Qualifiers: Obstruction and gangrene presence: without obstruction or gangrene Qualified Code(s): K43.5 - Parastomal hernia without obstruction or gangrene Is this a current diagnosis for this admission?: Yes - Time Time Spent with patient: 15-24 minutes - Plan Summary Plan Summary: continue treatment
[2019-09-11] MEDS: TRAZODONE HCL 50 MG TABLET PO SCH (21:26)
[2019-09-11] MEDS: WARFARIN SODIUM 5 MG TABLET PO SCH (21:27)
[2019-09-12] MEDS: SERTRALINE HCL 50 MG TABLET PO SCH ×3 (05:50→21:24)
[2019-09-12] MEDS: ONDANSETRON 4 MG TAB.RAPDIS PO SCH ×3 (05:50→21:24)
[2019-09-12] MEDS: PANTOPRAZOLE SODIUM 40 MG TABLET.DR PO SCH ×2 (05:50→17:11)
[2019-09-12 06:41] LABS: INTERNATIONAL RATION (INR) 2.46; PROTHROMBIN TIME 27.1 SEC (11.4-15.4)
[2019-09-12 07:01] LABS: ANION GAP 6 (5-19); BLOOD UREA NITROGEN 13 mg/dL (7-20); CALCIUM 8.8 mg/dL (8.4-10.2); CARBON DIOXIDE 34 mmol/L (22-30); CHLORIDE 97 mmol/L (98-107); GLUCOSE 121 mg/dL (75-110); POTASSIUM 4.5 mmol/L (3.6-5.0)
[2019-09-12] MEDS: INSULIN LISPRO 100 UNIT/ML 3 ML VIAL SUBCUT SCH ×4 (07:19→21:24)
[2019-09-12] MEDS: OXYCODONE-ACETAMINOPHEN 5-325 MG TABLET PO PRN ×3 (09:46→21:24)
[2019-09-12] MEDS: POLYETHYLENE GLYCOL 3350 POWDER 17 GM/1 PACKET PO SCH (09:46)
[2019-09-12] MEDS: DOCUSATE SODIUM 100 MG CAPSULE PO SCH ×2 (09:46→17:11)
[2019-09-12] MEDS: TAMSULOSIN HCL 0.4 MG CAP.SR.24H PO SCH (09:47)
[2019-09-12] MEDS: METOPROLOL SUCCINATE 25 MG TAB.SR.24H PO SCH ×2 (09:47→21:24)
[2019-09-12] MEDS: GLIPIZIDE XL 5 MG TAB.ER.24 PO SCH (09:47)
[2019-09-12] MEDS: ASPIRIN 81 MG TABLET, ENT COATED PO SCH (09:48)
[2019-09-12] MEDS: FUROSEMIDE 20 MG TABLET PO SCH (09:48)
[2019-09-12] MEDS: MAGNESIUM OXIDE 400 MG TABLET PO SCH ×2 (09:48→17:11)
[2019-09-12] MEDS: CEFEPIME 1 GM/D5W RTU 1 GM/50 ML RTUPB IV SCH ×2 (09:48→21:25)
--- NOTE | 2019-09-12 10:07 | Progress Note ---
Provider Note Provider Note: CARDIOLOGY PROGRESS NOTE by Dr. Maliha Barrios on 09/12/2018 OBJECTIVE: The patient still insists that she is having cough with hemoptysis. Discussions with states that the patient has a cough with some spotting occasional streaks of blood. Most likely representing bronchitis rather than retinoschisis. She denies any chest pain or discomfort. There is no shortness of breath. The patient is afebrile. There is no TIA CVA symptoms. There is no bleeding on Coumadin. PHYSICAL EXAMINATION: The patient is moderately obese. At present in no acute distress. Selected Entries 09/12/19 11:39 Temperature 98.2 F Temperature Oral Source Pulse Rate 86 Respiratory 24 H Rate Blood Pressure 126/24 H Blood Pressure 58 Mean BP Location Right Arm BP Position Supine O2 Sat by Pulse 97 Oximetry Oxygen Flow 2.00 Rate Oxygen Delivery Nasal Cannula Method HEAD: Is atraumatic normocephalic. EYES: Pupils are equal round regular reactive light accommodation. Extraocular movements are normal. There is no conjunctival pallor. There is no scleral icterus. EARS: Tympanic membranes are intact. External auditory canals are clear. NOSE: There is no deviated nasal septum. There is no inflammation of these mucous membrane. MOUTH: Mucous membranes of the mouth are moist. Tongue is moist. There is no ulcers. There is no bleeding from the gums. THROAT: There is no redness of the oropharynx. There is no exudates. SKIN: There is no skin rashes or skin lesions. There is no petechia or ecchymosis. NECK: Is supple there is no JVD. Carotids are equal there is no bruit there is no lymphadenopathy. There is no goiter.. There is no accessory muscle respiration use. Trachea central. LUNGS: There is diminished air entry and prolonged expiration. There is no rhonchi rales or wheezing. On percussion there is hyperresonance. There is no chest wall te nderness. HEART: S1-S2 is heard. There is no S3 gallop. There is no S4 gallop. Systolic murmur left sternal border and the apex there is no rub. ABDOMEN: Soft. Nontender. There is no hepatosplenomegaly. Abdomen is obese. Bowel sounds are well heard. There is no tender areas masses. EXTREMITIES: Femorals are diminished. Femorals are without any bruits. Leg pulses are slightly diminished. There is no pedal edema. There is no DVT cellulitis. There is no calf tenderness. 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 PSYCHIATRIC: Patient judgment insight are intact her affect is normal. Labs- All tests 24 hr 09/11/19 09/11/19 09/12/19 14:56 21:23 05:46 PT INR Sodium 137.2 Potassium 4.5 Chloride 97 L Carbon Dioxide 34 H Anion Gap 6 BUN 13 Creatinine 0.96 Est GFR ( Amer) > 60 Est GFR (MDRD) Non-Af 58 L Glucose 121 H POC Glucose 123 H 177 H Calcium 8.8 09/12/19 09/12/19 09/12/19 05:46 06:42 11:40 PT 27.1 H INR 2.46 Sodium Potassium Chloride Carbon Dioxide Anion Gap BUN Creatinine Est GFR ( Amer) Est GFR (MDRD) Non-Af Glucose POC Glucose 128 H 137 H Calcium Abdomen/Pelvis CT 09/07/19 08:49 IMPRESSION: 1. No acute abnormality to explain the patient's symptoms. 2. Left anterior colostomy with large peristomal hernia containing loops of small bowel. No bowel obstruction or evidence of inflammatory change. 3. Moderate amount of stool in the colon. This can be seen with constipation. 4. Hepatomegaly with moderate hepatic steatosis. Chest X-Ray 09/09/19 00:00 IMPRESSION: 1. Mild pulmonary edema. 2. Hyperinflated lungs which can be seen with obstructive lung disease. Head MRI 09/09/19 09:21 IMPRESSION: ATROPHY AND CHRONIC MICRO-VASCULAR ISCHEMIC CHANGES. OTHERWISE NORMAL MRI OF THE BRAIN WITHOUT INTRAVENOUS GADOLINIUM CONTRAST. EVIDENCE OF ACUTE STROKE: NO. Chest/Abdomen CTA 09/10/19 00:00 IMPRESSION: No CT angio evidence of acute pulmonary emboli Bilateral upper lobe alveolar and interstitial infiltrates superimposed on obstructive lung disease worrisome for pulmonary edema. Pneumonia could not be excluded IMPRESSION/RECOMMENDATION: 1. Episodes of hemoptysis:? Etiology. Unless there is definite evidence of significant hemoptysis would not stop the patient's Coumadin in view of the history of thrombosis. 2. Fever and recurrent urinary tract infection. Patient on antibiotics. 3. Coronary artery disease with stable exertional angina. Would recommend in view of the patient's COPD stop the patient's Coreg. Also the patient is on Coreg dose which is 3.125 mg p.o. twice daily which is non-consequential. Hence would change the patient to Toprol-XL 4. History of congestive heart failure with mildly to moderately reduced ejection fraction. The patient is having a repeat echo showed low normal EF of 55%. There is mild gradient across aortic valve which is acceptable. 5. Hypertension: Blood pressure well controlled. 6. Malignant lymph node: The treatment for this is radiation as per Rachel Quinn and Dr. Chin. 7. Diabetes mellitus: Continue antidiabetic regimen. 8. 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 9. COPD: At present no acute exacerbation. 10. Thrombosis of the thoracic aorta: Continue Coumadin. Note that his CT scan of the chest shows no mention of thrombus in the aorta, hence probably the patient does not have thrombus at present. She also no definite cause of her hemoptysis is found. 11. Wide-complex tachycardia which is sinus tachycardia with left bundle branch block pattern. With no recurrence. 12. Anxiety: The patient may benefit from anti-anxiolytic medication. Medications reviewed. Medical management and management plan discussed with education. Medical decision making is a moderate complexity. Cardiac status is stable. Will sign off and follow the patient in the office.
[2019-09-12] MEDS: ACETAMINOPHEN 325 MG TABLET PO PRN (13:18)
--- NOTE | 2019-09-12 16:05 | PDOC PROGRESS REPORT ---
Subjective Progress Note for:: 09/12/19 Subjective:: He has no new complaints Reason For Visit: UTI RECURRENT Physical Exam Vital Signs: Temp Pulse Resp BP Pulse Ox 98.2 F 89 24 H 126/24 H 97 09/12/19 11:39 09/12/19 14:00 09/12/19 11:39 09/12/19 11:39 09/12/19 11:39 Intake & Output 09/11/19 09/12/19 09/13/19 06:59 06:59 06:59 Intake Total 1380 662 170 Output Total 2350 2600 Balance -970 -1938 170 Weight 88.9 kg 85.5 kg General appearance: PRESENT: no acute distress Eye exam: PRESENT: PERRLA Respiratory exam: PRESENT: clear to auscultation bartolome Cardiovascular exam: PRESENT: +S1, +S2 GI/Abdominal exam: PRESENT: soft Results Laboratory Results: 09/11/19 06:40 09/12/19 05:46 09/12/19 05:46 Sodium 137.2 Potassium 4.5 Chloride 97 L Carbon Dioxide 34 H Anion Gap 6 BUN 13 Creatinine 0.96 Est GFR ( Amer) > 60 Glucose 121 H Calcium 8.8 09/05/19 22:34 Troponin I < 0.012 Impressions: Abdomen/Pelvis CT 09/07/19 08:49 IMPRESSION: 1. No acute abnormality to explain the patient's symptoms. 2. Left anterior colostomy with large peristomal hernia containing loops of small bowel. No bowel obstruction or evidence of inflammatory change. 3. Moderate amount of stool in the colon. This can be seen with constipation. 4. Hepatomegaly with moderate hepatic steatosis. Chest X-Ray 09/09/19 00:00 IMPRESSION: 1. Mild pulmonary edema. 2. Hyperinflated lungs which can be seen with obstructive lung disease. Head MRI 09/09/19 09:21 IMPRESSION: ATROPHY AND CHRONIC MICRO-VASCULAR ISCHEMIC CHANGES. OTHERWISE NORMAL MRI OF THE BRAIN WITHOUT INTRAVENOUS GADOLINIUM CONTRAST. EVIDENCE OF ACUTE STROKE: NO. Chest/Abdomen CTA 09/10/19 00:00 IMPRESSION: No CT angio evidence of acute pulmonary emboli Bilateral upper lobe alveolar and interstitial infiltrates superimposed on obstructive lung disease worrisome for pulmonary edema. Pneumonia could not be excluded Assessment & Plan - Diagnosis (1) Complicated urinary tract infection Is this a current diagnosis for this admission?: Yes (2) Fever Qualifiers: Fever type: unspecified Qualified Code(s): R50.9 - Fever, unspecified Is this a current diagnosis for this admission?: Yes (3) Parastomal hernia Qualifiers: Obstruction and gangrene presence: without obstruction or gangrene Qualified Code(s): K43.5 - Parastomal hernia without obstruction or gangrene Is this a current diagnosis for this admission?: Yes - Time Time Spent with patient: 15-24 minutes
[2019-09-12] MEDS: TRAZODONE HCL 50 MG TABLET PO SCH (21:24)
[2019-09-12] MEDS: CLONAZEPAM 1 MG TABLET PO PRN (21:24)
[2019-09-12] MEDS: WARFARIN SODIUM 5 MG TABLET PO SCH (22:24)
[2019-09-13] MEDS: CLONAZEPAM 1 MG TABLET PO PRN (05:23)
[2019-09-13] MEDS: PANTOPRAZOLE SODIUM 40 MG TABLET.DR PO SCH ×2 (05:23→16:22)
[2019-09-13] MEDS: ONDANSETRON 4 MG TAB.RAPDIS PO SCH ×3 (05:23→21:46)
[2019-09-13] MEDS: SERTRALINE HCL 50 MG TABLET PO SCH ×3 (05:23→21:47)
[2019-09-13 05:47] LABS: INTERNATIONAL RATION (INR) 2.76; PROTHROMBIN TIME 29.7 SEC (11.4-15.4)
[2019-09-13] MEDS: INSULIN LISPRO 100 UNIT/ML 3 ML VIAL SUBCUT SCH ×4 (08:43→21:45)
--- NOTE | 2019-09-13 09:00 | PDOC PROGRESS REPORT ---
Subjective Progress Note for:: 09/13/19 Subjective:: No acute events overnight, reviewed imaging with patient Reason For Visit: UTI RECURRENT Physical Exam Vital Signs: Temp Pulse Resp BP Pulse Ox 100.2 F 95 19 134/59 H 93 09/13/19 08:00 09/13/19 08:00 09/13/19 08:00 09/13/19 08:00 09/13/19 08:00 Intake & Output 09/12/19 09/13/19 09/14/19 06:59 06:59 06:59 Intake Total 662 580 Output Total 2600 1100 Balance -1938 -520 Weight 85.5 kg 85 kg General appearance: PRESENT: no acute distress, well-developed, well-nourished Head exam: PRESENT: atraumatic, normocephalic Eye exam: PRESENT: conjunctiva pink, EOMI, PERRLA. ABSENT: scleral icterus Ear exam: PRESENT: normal external ear exam Mouth exam: PRESENT: moist, tongue midline Neck exam: ABSENT: carotid bruit, JVD, lymphadenopathy, thyromegaly Respiratory exam: PRESENT: clear to auscultation bartolome. ABSENT: rales, rhonchi, wheezes Cardiovascular exam: PRESENT: RRR. ABSENT: diastolic murmur, rubs, systolic murmur Pulses: PRESENT: normal dorsalis pedis pul Vascular exam: PRESENT: normal capillary refill GI/Abdominal exam: PRESENT: normal bowel sounds, soft. ABSENT: distended, guarding, mass, organolmegaly, rebound, tenderness Rectal exam: PRESENT: deferred Extremities exam: PRESENT: full ROM. ABSENT: calf tenderness, clubbing, pedal edema Neurological exam: PRESENT: alert, awake, oriented to person, oriented to place, oriented to time, oriented to situation, CN II-XII grossly intact. ABSENT: motor sensory deficit Psychiatric exam: PRESENT: appropriate affect, normal mood. ABSENT: homicidal ideation, suicidal ideation Skin exam: PRESENT: dry, intact, warm. ABSENT: cyanosis, rash Results Laboratory Results: 09/11/19 06:40 09/12/19 05:46 09/05/19 22:34 Troponin I < 0.012 Impressions: Abdomen/Pelvis CT 09/07/19 08:49 IMPRESSION: 1. No acute abnormality to explain the patient's symptoms. 2. Left anterior colostomy with large peristomal hernia containing loops of small bowel. No bowel obstruction or evidence of inflammatory change. 3. Moderate amount of stool in the colon. This can be seen with constipation. 4. Hepatomegaly with moderate hepatic steatosis. Chest X-Ray 09/09/19 00:00 IMPRESSION: 1. Mild pulmonary edema. 2. Hyperinflated lungs which can be seen with obstructive lung disease. Head MRI 09/09/19 09:21 IMPRESSION: ATROPHY AND CHRONIC MICRO-VASCULAR ISCHEMIC CHANGES. OTHERWISE NORMAL MRI OF THE BRAIN WITHOUT INTRAVENOUS GADOLINIUM CONTRAST. EVIDENCE OF ACUTE STROKE: NO. Chest/Abdomen CTA 09/10/19 00:00 IMPRESSION: No CT angio evidence of acute pulmonary emboli Bilateral upper lobe alveolar and interstitial infiltrates superimposed on obstructive lung disease worrisome for pulmonary edema. Pneumonia could not be excluded Assessment & Plan - Diagnosis (1) Squamous cell carcinoma of lung Qualifiers: Laterality: unspecified laterality Is this a current diagnosis for this admission?: Yes Plan: Reviewed all imaging, patient does not seem to have any evidence of progressive cancer. It appears that her other issues are because of her multiple medical issues, will follow peripherally. - Time Time Spent with patient: 15-24 minutes
--- NOTE | 2019-09-13 09:35 | PDOC PROGRESS REPORT ---
Subjective Progress Note for:: 09/13/19 Subjective:: Patient is currently doing well Any chest pain denied any shortness of the breath Patient still required oxygen No fever no chills Reason For Visit: UTI RECURRENT Physical Exam Vital Signs: Temp Pulse Resp BP Pulse Ox 100.2 F 95 19 134/59 H 93 09/13/19 08:00 09/13/19 08:00 09/13/19 08:00 09/13/19 08:00 09/13/19 08:00 Intake & Output 09/12/19 09/13/19 09/14/19 06:59 06:59 06:59 Intake Total 662 580 Output Total 2600 1100 Balance -1938 -520 Weight 85.5 kg 85 kg General appearance: PRESENT: no acute distress, well-developed, well-nourished Head exam: PRESENT: atraumatic, normocephalic Eye exam: PRESENT: conjunctiva pink, EOMI, PERRLA. ABSENT: scleral icterus Ear exam: PRESENT: normal external ear exam Mouth exam: PRESENT: moist, tongue midline Neck exam: PRESENT: full ROM. ABSENT: carotid bruit, JVD, lymphadenopathy, thyromegaly Respiratory exam: PRESENT: clear to auscultation bartolome Cardiovascular exam: PRESENT: RRR. ABSENT: diastolic murmur, rubs, systolic murmur Pulses: PRESENT: normal dorsalis pedis pul, +2 pedal pulses bilateral Vascular exam: PRESENT: normal capillary refill GI/Abdominal exam: PRESENT: normal bowel sounds, soft. ABSENT: distended, guarding, mass, organolmegaly, rebound, tenderness Rectal exam: PRESENT: deferred Musculoskeletal exam: PRESENT: ambulatory Neurological exam: PRESENT: alert, awake, oriented to person, oriented to place, oriented to time, oriented to situation, CN II-XII grossly intact. ABSENT: motor sensory deficit Psychiatric exam: PRESENT: appropriate affect, normal mood. ABSENT: homicidal ideation, suicidal ideation Skin exam: PRESENT: dry, intact, warm. ABSENT: cyanosis, rash Results Laboratory Results: 09/11/19 06:40 09/12/19 05:46 09/05/19 22:34 Troponin I < 0.012 Impressions: Abdomen/Pelvis CT 09/07/19 08:49 IMPRESSION: 1. No acute abnormality to explain the patient's symptoms. 2. Left anterior colostomy with large peristomal hernia containing loops of small bowel. No bowel obstruction or evidence of inflammatory change. 3. Moderate amount of stool in the colon. This can be seen with constipation. 4. Hepatomegaly with moderate hepatic steatosis. Chest X-Ray 09/09/19 00:00 IMPRESSION: 1. Mild pulmonary edema. 2. Hyperinflated lungs which can be seen with obstructive lung disease. Head MRI 09/09/19 09:21 IMPRESSION: ATROPHY AND CHRONIC MICRO-VASCULAR ISCHEMIC CHANGES. OTHERWISE NORMAL MRI OF THE BRAIN WITHOUT INTRAVENOUS GADOLINIUM CONTRAST. EVIDENCE OF ACUTE STROKE: NO. Chest/Abdomen CTA 09/10/19 00:00 IMPRESSION: No CT angio evidence of acute pulmonary emboli Bilateral upper lobe alveolar and interstitial infiltrates superimposed on obstructive lung disease worrisome for pulmonary edema. Pneumonia could not be excluded Assessment & Plan - Diagnosis (1) Fever Qualifiers: Fever type: unspecified Qualified Code(s): R50.9 - Fever, unspecified Is this a current diagnosis for this admission?: Yes (2) Urinary tract infection Qualifiers: Urinary tract infection type: site unspecified Hematuria presence: without hematuria Qualified Code(s): N39.0 - Urinary tract infection, site not specified Is this a current diagnosis for this admission?: Yes (3) CAD, S/P 2x stent placement Is this a current diagnosis for this admission?: Yes (4) COPD/asthma Is this a current diagnosis for this admission?: Yes (5) DM type 2 (diabetes mellitus, type 2) Qualifiers: Diabetes mellitus snf insulin use: 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 Is this a current diagnosis for this admission?: Yes (6) Hypertension Qualifiers: Hypertension type: essential hypertension Is this a current diagnosis for this admission?: Yes (7) S/P TAVR (transcatheter aortic valve replacement) Is this a current diagnosis for this admission?: Yes (8) Squamous cell carcinoma of lung Qualifiers: Laterality: unspecified laterality Is this a current diagnosis for this admission?: Yes (9) Thrombosis of thoracic aorta Is this a current diagnosis for this admission?: Yes - Time Time Spent with patient: 15-24 minutes Level of Care: TELE Medications reviewed and adjusted accordingly: Yes Anticipated discharge: Home with Homehealth Within: Other - Plan Summary Plan Summary: Continues to IV antibiotic as per ID recommendations for total 10 days We will repeat the chest x-ray Lasix 20 mg twice a day
--- NOTE | 2019-09-13 09:50 | RADIOLOGY REPORT (SQ) ---
EXAM DESCRIPTION: CHEST SINGLE VIEW COMPLETED DATE/TIME: 09/13/2019 9:38 am REASON FOR STUDY: Reassess pulmonary edema/pneumonia. COMPARISON: CT chest dated 09/10/2019 and chest x-ray dated 09/09/2019 EXAM PARAMETERS: NUMBER OF VIEWS: One view. TECHNIQUE: Single frontal radiographic view of the chest acquired. RADIATION DOSE: NA LIMITATIONS: None. FINDINGS: LUNGS AND PLEURA: Since prior chest film bilateral upper lobe infiltrates have increased. This could represent pneumonia or edema. Basilar interstitial markings are stable. MEDIASTINUM AND HILAR STRUCTURES: No masses. Contour normal. HEART AND VASCULAR STRUCTURES: Unchanged. BONES: No acute findings. HARDWARE: Unchanged. OTHER: No other significant finding. IMPRESSION: Slight increase in bilateral upper lobe airspace disease. TECHNICAL DOCUMENTATION: JOB ID: [id number] [employer]- All Rights Reserved Reading location - IP/workstation name: [email or web address]
[2019-09-13] MEDS: CEFEPIME 1 GM/D5W RTU 1 GM/50 ML RTUPB IV SCH ×2 (09:51→21:45)
[2019-09-13] MEDS: FUROSEMIDE 20 MG TABLET PO SCH (09:52)
[2019-09-13] MEDS: DOCUSATE SODIUM 100 MG CAPSULE PO SCH ×2 (09:52→17:27)
[2019-09-13] MEDS: METOPROLOL SUCCINATE 25 MG TAB.SR.24H PO SCH ×2 (09:52→21:46)
[2019-09-13] MEDS: TAMSULOSIN HCL 0.4 MG CAP.SR.24H PO SCH (09:52)
[2019-09-13] MEDS: ASPIRIN 81 MG TABLET, ENT COATED PO SCH (09:52)
[2019-09-13] MEDS: GLIPIZIDE XL 5 MG TAB.ER.24 PO SCH (09:52)
[2019-09-13] MEDS: MAGNESIUM OXIDE 400 MG TABLET PO SCH ×2 (09:52→17:27)
[2019-09-13] MEDS: OXYCODONE-ACETAMINOPHEN 5-325 MG TABLET PO PRN ×2 (09:53→15:34)
[2019-09-13] MEDS: POLYETHYLENE GLYCOL 3350 POWDER 17 GM/1 PACKET PO SCH (09:57)
[2019-09-13] MEDS ORDERED: MORPHINE SULFATE IR 15 MG TABLET PO PRN (11:00)
[2019-09-13] MEDS: ACETAMINOPHEN 325 MG TABLET PO PRN (14:19)
[2019-09-13] MEDS: TRAZODONE HCL 50 MG TABLET PO SCH (21:46)
[2019-09-13] MEDS: WARFARIN SODIUM 5 MG TABLET PO SCH (21:47)
[2019-09-14] MEDS: CLONAZEPAM 1 MG TABLET PO PRN ×3 (00:21→21:37)
[2019-09-14] MEDS: ACETAMINOPHEN 325 MG TABLET PO PRN (00:22)
[2019-09-14 05:56] LABS: ABSOLUTE EOSINOPHILS # (AUTO) 0.2 10^3/uL (0.0-0.6); ABSOLUTE LYMPHOCYTES (AUTO) 0.4 10^3/uL (0.5-4.7); ABSOLUTE MONOCYTES (AUTO) 0.6 10^3/uL (0.1-1.4); ABSOLUTE NEUT (AUTO) 3.8 10^3/uL (1.7-8.2); BASOPHILS % (AUTO) 0.6 % (0-2); EOSINOPHILS % (AUTO) 4.8 % (0-6); HEMATOCRIT 28.9 % (36.0-47.0); LYMPHOCYTES % (AUTO) 8.2 % (13-45); MEAN CORPUSCULAR HGB CONC 34.5 g/dL (32.0-36.0); MEAN CORPUSCULAR VOLUME 87 fl (80-97); MONOCYTES % (AUTO) 11.4 % (3-13); PLATELET COUNT 284 10^3/uL (150-450); RED BLOOD COUNT 3.32 10^6/uL (3.72-5.28); RED CELL DISTRIBUTION WIDTH 13.4 % (11.5-14.0); TOTAL CELLS COUNTED % (AUTO) 100 %; WHITE BLOOD COUNT 5.1 10^3/uL (4.0-10.5)
[2019-09-14 06:07] LABS: INTERNATIONAL RATION (INR) 2.63; PROTHROMBIN TIME 28.6 SEC (11.4-15.4)
[2019-09-14 06:24] LABS: ANION GAP 7 (5-19); BLOOD UREA NITROGEN 15 mg/dL (7-20); CALCIUM 8.8 mg/dL (8.4-10.2); CARBON DIOXIDE 31 mmol/L (22-30); CHLORIDE 99 mmol/L (98-107); GLUCOSE 126 mg/dL (75-110); POTASSIUM 4.6 mmol/L (3.6-5.0)
[2019-09-14] MEDS: OXYCODONE-ACETAMINOPHEN 5-325 MG TABLET PO PRN ×4 (06:26→23:16)
[2019-09-14] MEDS: PANTOPRAZOLE SODIUM 40 MG TABLET.DR PO SCH ×2 (06:27→17:12)
[2019-09-14] MEDS: ONDANSETRON 4 MG TAB.RAPDIS PO SCH ×3 (06:27→21:26)
[2019-09-14] MEDS: SERTRALINE HCL 50 MG TABLET PO SCH ×3 (06:27→21:28)
[2019-09-14] MEDS: INSULIN LISPRO 100 UNIT/ML 3 ML VIAL SUBCUT SCH ×4 (08:22→21:29)
[2019-09-14 09:34] LABS: PROTHROMBIN TIME 27.4 SEC (11.4-15.4)
[2019-09-14] MEDS: GLIPIZIDE XL 5 MG TAB.ER.24 PO SCH (09:53)
[2019-09-14] MEDS: FUROSEMIDE 20 MG TABLET PO SCH (09:53)
[2019-09-14] MEDS: DOCUSATE SODIUM 100 MG CAPSULE PO SCH ×2 (09:54→17:12)
[2019-09-14] MEDS: MAGNESIUM OXIDE 400 MG TABLET PO SCH ×2 (09:54→17:10)
[2019-09-14] MEDS: FLUCONAZOLE 100 MG TABLET PO SCH (09:54)
[2019-09-14] MEDS: METOPROLOL SUCCINATE 25 MG TAB.SR.24H PO SCH ×2 (09:54→21:27)
[2019-09-14] MEDS: CEFEPIME 1 GM/D5W RTU 1 GM/50 ML RTUPB IV SCH ×2 (09:55→21:31)
[2019-09-14] MEDS: TAMSULOSIN HCL 0.4 MG CAP.SR.24H PO SCH (09:55)
[2019-09-14] MEDS: ASPIRIN 81 MG TABLET, ENT COATED PO SCH (09:55)
[2019-09-14] MEDS: POLYETHYLENE GLYCOL 3350 POWDER 17 GM/1 PACKET PO SCH ×2 (09:56→17:13)
--- NOTE | 2019-09-14 10:02 | PDOC PROGRESS REPORT ---
Subjective Progress Note for:: 09/14/19 Subjective:: Patient is currently doing well She is denied any chest pain no short of breath Patient is denied any abdominal pain no nausea no vomiting Still need oxygen's Reason For Visit: UTI RECURRENT Physical Exam Vital Signs: Temp Pulse Resp BP Pulse Ox 97.8 F 76 20 128/63 H 93 09/14/19 07:39 09/14/19 07:39 09/14/19 07:39 09/14/19 07:39 09/14/19 07:39 Intake & Output 09/13/19 09/14/19 09/15/19 06:59 06:59 06:59 Intake Total 580 886 Output Total 1100 2000 Balance -520 -1114 Weight 85 kg 84.9 kg General appearance: PRESENT: no acute distress, well-developed, well-nourished Head exam: PRESENT: atraumatic, normocephalic Eye exam: PRESENT: conjunctiva pink, EOMI, PERRLA. ABSENT: scleral icterus Ear exam: PRESENT: normal external ear exam Mouth exam: PRESENT: moist, tongue midline Neck exam: PRESENT: full ROM. ABSENT: carotid bruit, JVD, lymphadenopathy, thyromegaly Respiratory exam: PRESENT: clear to auscultation bartolome Cardiovascular exam: PRESENT: RRR. ABSENT: diastolic murmur, rubs, systolic murmur Pulses: PRESENT: normal dorsalis pedis pul, +2 pedal pulses bilateral Vascular exam: PRESENT: normal capillary refill GI/Abdominal exam: PRESENT: normal bowel sounds, soft. ABSENT: distended, guarding, mass, organolmegaly, rebound, tenderness Rectal exam: PRESENT: deferred Musculoskeletal exam: PRESENT: ambulatory Neurological exam: PRESENT: alert, awake, oriented to person, oriented to place, oriented to time, oriented to situation, CN II-XII grossly intact. ABSENT: motor sensory deficit Psychiatric exam: PRESENT: appropriate affect, normal mood. ABSENT: homicidal ideation, suicidal ideation Skin exam: PRESENT: dry, intact, warm. ABSENT: cyanosis, rash Results Laboratory Results: 09/14/19 05:10 09/14/19 05:10 09/14/19 09/14/19 05:10 05:10 WBC 5.1 RBC 3.32 L Hgb 10.0 L Hct 28.9 L MCV 87 MCH 30.0 MCHC 34.5 RDW 13.4 Plt Count 284 Seg Neutrophils % 75.0 Sodium 136.6 L Potassium 4.6 Chloride 99 Carbon Dioxide 31 H Anion Gap 7 BUN 15 Creatinine 0.90 Est GFR ( Amer) > 60 Glucose 126 H Calcium 8.8 09/08/19 11:13 Blood Blood Culture - Final NO GROWTH IN 5 DAYS 09/08/19 11:18 Blood Blood Culture - Final NO GROWTH IN 5 DAYS 09/05/19 22:34 Troponin I < 0.012 Impressions: Abdomen/Pelvis CT 09/07/19 08:49 IMPRESSION: 1. No acute abnormality to explain the patient's symptoms. 2. Left anterior colostomy with large peristomal hernia containing loops of small bowel. No bowel obstruction or evidence of inflammatory change. 3. Moderate amount of stool in the colon. This can be seen with constipation. 4. Hepatomegaly with moderate hepatic steatosis. Head MRI 09/09/19 09:21 IMPRESSION: ATROPHY AND CHRONIC MICRO-VASCULAR ISCHEMIC CHANGES. OTHERWISE NORMAL MRI OF THE BRAIN WITHOUT INTRAVENOUS GADOLINIUM CONTRAST. EVIDENCE OF ACUTE STROKE: NO. Chest/Abdomen CTA 09/10/19 00:00 IMPRESSION: No CT angio evidence of acute pulmonary emboli Bilateral upper lobe alveolar and interstitial infiltrates superimposed on obstructive lung disease worrisome for pulmonary edema. Pneumonia could not be excluded Chest X-Ray 09/13/19 00:00 IMPRESSION: Slight increase in bilateral upper lobe airspace disease. Assessment & Plan - Diagnosis (1) Fever Qualifiers: Fever type: unspecified Qualified Code(s): R50.9 - Fever, unspecified Is this a current diagnosis for this admission?: Yes Plan: Currently all resolved from the UTI (2) Urinary tract infection Qualifiers: Urinary tract infection type: site unspecified Hematuria presence: without hematuria Qualified Code(s): N39.0 - Urinary tract infection, site not specified Is this a current diagnosis for this admission?: Yes Plan: Patient is finishing the total 10 days course of IV antibiotic (3) CAD, S/P 2x stent placement Is this a current diagnosis for this admission?: Yes Plan: Currently all stable (4) COPD/asthma Is this a current diagnosis for this admission?: Yes Plan: Continues to nebulizer treatments (5) DM type 2 (diabetes mellitus, type 2) Qualifiers: Diabetes mellitus shelter insulin use: unspecified shelter insulin use status Is this a current diagnosis for this admission?: Yes (6) Hypertension Qualifiers: Hypertension type: essential hypertension Is this a current diagnosis for this admission?: Yes Plan: Currently all stable (7) S/P TAVR (transcatheter aortic valve replacement) Is this a current diagnosis for this admission?: Yes (8) Squamous cell carcinoma of lung Qualifiers: Laterality: unspecified laterality Is this a current diagnosis for this admission?: Yes (9) Thrombosis of thoracic aorta Is this a current diagnosis for this admission?: Yes Plan: CT is no evidence of a thrombosis - Time Time Spent with patient: 15-24 minutes Level of Care: TELE Medications reviewed and adjusted accordingly: Yes Anticipated discharge: Home with Homehealth Within: within 24 hours - Plan Summary Plan Summary: Patients do not want to go to the rehab facilities will arrange the home health and physical therapy and home oxygen
[2019-09-14] MEDS: TRAZODONE HCL 50 MG TABLET PO SCH (21:27)
[2019-09-14] MEDS: WARFARIN SODIUM 5 MG TABLET PO SCH (21:28)
[2019-09-15] MEDS: PANTOPRAZOLE SODIUM 40 MG TABLET.DR PO SCH (06:15)
[2019-09-15] MEDS: ONDANSETRON 4 MG TAB.RAPDIS PO SCH ×2 (06:15→13:46)
[2019-09-15] MEDS: SERTRALINE HCL 50 MG TABLET PO SCH ×2 (06:16→13:46)
[2019-09-15 07:44] LABS: INTERNATIONAL RATION (INR) 2.84; PROTHROMBIN TIME 30.4 SEC (11.4-15.4)
[2019-09-15] MEDS: INSULIN LISPRO 100 UNIT/ML 3 ML VIAL SUBCUT SCH ×2 (07:53→11:35)
[2019-09-15 08:08] LABS: ANION GAP 8 (5-19); BLOOD UREA NITROGEN 16 mg/dL (7-20); CALCIUM 8.7 mg/dL (8.4-10.2); CARBON DIOXIDE 32 mmol/L (22-30); CHLORIDE 98 mmol/L (98-107); GLUCOSE 120 mg/dL (75-110); POTASSIUM 4.7 mmol/L (3.6-5.0)
[2019-09-15] MEDS: POLYETHYLENE GLYCOL 3350 POWDER 17 GM/1 PACKET PO SCH (10:40)
[2019-09-15] MEDS: DOCUSATE SODIUM 100 MG CAPSULE PO SCH (10:40)
[2019-09-15] MEDS: GLIPIZIDE XL 5 MG TAB.ER.24 PO SCH (10:40)
[2019-09-15] MEDS: TAMSULOSIN HCL 0.4 MG CAP.SR.24H PO SCH (10:41)
[2019-09-15] MEDS: ASPIRIN 81 MG TABLET, ENT COATED PO SCH (10:41)
[2019-09-15 10:42] LABS: INTERNATIONAL RATION (INR) 2.68; PROTHROMBIN TIME 29.1 SEC (11.4-15.4)
[2019-09-15] MEDS: FUROSEMIDE 20 MG TABLET PO SCH (10:42)
[2019-09-15] MEDS: MAGNESIUM OXIDE 400 MG TABLET PO SCH (10:42)
[2019-09-15] MEDS: FLUCONAZOLE 100 MG TABLET PO SCH (10:42)
[2019-09-15] MEDS: METOPROLOL SUCCINATE 25 MG TAB.SR.24H PO SCH (10:42)
[2019-09-15] MEDS: CEFEPIME 1 GM/D5W RTU 1 GM/50 ML RTUPB IV SCH (10:43)
[2019-09-15 12:41] VITALS: BP 108/58
--- NOTE | 2019-09-15 12:52 | PDOC DISCHARGE SUMMARY ---
Impression - Admit/DC Date/PCP Admission Date/Primary Care Provider: 09/06/19 09:26 MARJORIE ESTES MD Discharge Date: 09/15/19 - Discharge Diagnosis (1) Fever Is this a current diagnosis for this admission?: Yes (2) Urinary tract infection Is this a current diagnosis for this admission?: Yes (3) CAD, S/P 2x stent placement Is this a current diagnosis for this admission?: Yes (4) COPD/asthma Is this a current diagnosis for this admission?: Yes (5) DM type 2 (diabetes mellitus, type 2) Is this a current diagnosis for this admission?: Yes (6) Hypertension Is this a current diagnosis for this admission?: Yes (7) S/P TAVR (transcatheter aortic valve replacement) Is this a current diagnosis for this admission?: Yes (8) Squamous cell carcinoma of lung Is this a current diagnosis for this admission?: Yes (9) Thrombosis of thoracic aorta Is this a current diagnosis for this admission?: Yes - Additional Information Resuscitation Status: Full Code Discharge Diet: Diabetic Discharge Activity: Activity As Tolerated Referrals: NICOLE GREER MD [ACTIVE STAFF] - 09/17/19 1:00 pm (f/u with dr radford in 1 wk f/u dr quan friday to check inr f/u in offce next wk ) CESAR SANDOVAL MD [ACTIVE STAFF] - 09/21/19 11:00 am MARJORIE ESTES MD [Primary Care Provider] - 09/22/19 11:00 am Prescriptions: Nebulizer [Compact Compressor Nebulizer] 1 each MC QID #1 each Fluconazole [Diflucan 100 mg Tablet] 100 mg PO DAILY #3 tablet Ipratropium/Albuterol Sulfate [Duoneb 3 ml Ampul] 3 ml NEB RTQ6HP PRN #120 vial.neb PRN Reason: Nystatin [Mycostatin 620964 Unit/1 ml Susp 60 ml Btl] 5 ml PO QID #120 ml Metoprolol Succinate [Toprol Xl 25 mg Tab.sr] 12.5 mg PO Q12 #60 tab.sr.24h Cefpodoxime Proxetil [Vantin 200 Mg Tablet] 200 mg PO BID #14 tablet Home Medications: Docusate Sodium [Colace 100 mg Capsule] 100 mg PO DAILY 07/23/19 Magnesium Oxide [Mag-Ox 400 mg Tablet] 800 mg PO BID 07/23/19 Ondansetron HCl [Zofran 4 mg Tablet] 4 mg PO Q8 07/23/19 Oxycodone HCl/Acetaminophen [Percocet 5-325 mg Tablet] 1 each PO Q4HP PRN 07/23/19 Pantoprazole Sodium [Protonix [address] Tablet] 40 mg PO BID 07/23/19 Sertraline HCl 50 mg PO TID 07/23/19 Tamsulosin HCl [Flomax 0.4 mg Cap.sr] 0.4 mg PO DAILY 07/23/19 Trazodone HCl [Desyrel] 100 mg PO QHS 07/23/19 Clonazepam 0.5 mg PO TIDP PRN 07/24/19 Aspirin [Aspirin 325 mg Tablet] 325 mg PO DAILY 09/06/19 Furosemide [Lasix 20 mg Tablet] 20 mg PO DAILY 09/06/19 Glipizide [Glipizide Xl] 10 mg PO DAILY 09/06/19 Tiotropium Br/Olodaterol HCl [Stiolto Respimat Inhal [place]] 1 puff IH DAILY 09/06/19 Warfarin Sodium [Coumadin 5 mg Tablet] 5 mg PO Q2D 09/06/19 Warfarin Sodium [Coumadin] 6 mg PO Q2D 09/06/19 Cefpodoxime Proxetil [Vantin 200 Mg Tablet] 200 mg PO BID #14 tablet 09/15/19 Fluconazole [Diflucan 100 mg Tablet] 100 mg PO DAILY #3 tablet 09/15/19 Ipratropium/Albuterol Sulfate [Duoneb 3 ml Ampul] 3 ml NEB RTQ6HP PRN #120 vial.neb 09/15/19 Metoprolol Succinate [Toprol Xl 25 mg Tab.sr] 12.5 mg PO Q12 #60 tab.sr.24h 09/15/19 Nebulizer [Compact Compressor Nebulizer] 1 each MC QID #1 each 09/15/19 Nystatin [Mycostatin 028967 Unit/1 ml Susp 60 ml Btl] 5 ml PO QID #120 ml 09/15/19 History of Present Illiness History of Present Illness: RODRIGUEZ TOM is a 69 year old female Patient is here for the establish as a new patientsLast week in my office today's came to the emergency department with a complaining of urinary symptoms and a fever Patient's several time admitting in the [facility] supposed to go and see the urologist still not make it yet have appointment this week In the emergency department patient's blood work is all stable patient's insist to be IV antibiotic At this point we decided to admit until the cultures back's cover with the IV antibiotic Against review with all history because patient is fairly new only one time I saw it last week with all recommended here and down Patient had a history of the chronic urinary tract infections with a history of the colonic bladder fistula status post repair in [place] so many years back several times admitting in the [facility] recently admitting in the hospital at [facility] Patient also have a coronary artery disease status post stent placement status post aortic valve repair with TVAR currently followed Dr. Malik in [place] cardiology last seen in February and echo was done Patient also have a squamous cell carcinoma of the lung current CT scan is stable follow-up with the oncology currently however PET scan scheduled next month currently see Dr. Nuñez Patient also have a type 2 diabetes currently taking the glipizide twice a day still not well controlled issue with the financially not able to afford certain medications Patient have a history of aortic arch thrombosis currently on a Coumadin Patient also have a gastro-reflux disease currently on a Protonix and Carafate Patient also have a depression Patient also have a COPD currently on inhalers Patient is currently lives with her Patient have history of diverticulitis status post colostomy seen by [facility] Course Hospital Course: Is a 69-year-old FemalePresent in the emergency department with the urinary symptoms chronic UTI fever patients diagnosed with the UTIs and required IV antibiotic As per infectious disease recommendations 10 days finish the IV antibiotic Also have a lung cancer some breast cancers seen by the oncology currently all stable Also have a coronary artery disease and also have a CHF and aortic valve disease currently all stable per cardiology Dr. Radford Patient's COPD require nebulizer treatments and oxygen's at home Patient is otherwise doing well patient's only thing require oxygen's with some COPD questionable infiltrate continues the p.o. antibiotic on discharge nebulizer treatments and 2 L home oxygen's Patient is on chronic Coumadin with INR is 2.6 on discharge patients follow with oncology on Friday to check the INR again Patients do not want to go to the rehab wants to go home's with home health and physical therapy Is also needs to follow the urologist for ongoing chronic UTI with a history of the colon vesicle fistula in the past Patient is required a colostomy bag supplies and patients need to follow urologist in the home oxygen's and nebulizer treatments Patient 's at home is taking care of the patient's and patient's daughter lives 30 minutes from patient but pretty much patient is the only one taking care of the patient's it patients do not want to go to the rehab facility Discussed with the habitat conservation planner to arrange the home oxygen physical therapy nebulizer and colostomy supplies Patient's home O2 around 2 L because patient's room air is 86% and 2 L goes to up to 94% Physical Exam Vital Signs: Temp Pulse Resp BP Pulse Ox 99.6 F 91 18 108/58 L 96 09/15/19 12:00 09/15/19 12:00 09/15/19 12:00 09/15/19 12:00 09/15/19 12:00 Intake & Output 09/14/19 09/15/19 09/16/19 06:59 06:59 06:59 Intake Total 886 200 Output Total 2000 0 Balance -1114 200 Weight 84.9 kg 85.7 kg General appearance: PRESENT: no acute distress, well-developed, well-nourished Head exam: PRESENT: atraumatic, normocephalic Eye exam: PRESENT: conjunctiva pink, EOMI, PERRLA. ABSENT: scleral icterus Ear exam: PRESENT: normal external ear exam Mouth exam: PRESENT: moist, tongue midline Neck exam: ABSENT: carotid bruit, JVD, lymphadenopathy, thyromegaly Respiratory exam: PRESENT: clear to auscultation bartolome. ABSENT: rales, rhonchi, wheezes Cardiovascular exam: PRESENT: RRR. ABSENT: diastolic murmur, rubs, systolic murmur Pulses: PRESENT: normal dorsalis pedis pul Vascular exam: PRESENT: normal capillary refill GI/Abdominal exam: PRESENT: normal bowel sounds, soft. ABSENT: distended, guarding, mass, organolmegaly, rebound, tenderness Rectal exam: PRESENT: deferred Extremities exam: PRESENT: full ROM. ABSENT: calf tenderness, clubbing, pedal edema Neurological exam: PRESENT: alert, awake, oriented to person, oriented to place, oriented to time, oriented to situation, CN II-XII grossly intact. ABSENT: motor sensory deficit Psychiatric exam: PRESENT: appropriate affect, normal mood. ABSENT: homicidal ideation, suicidal ideation Skin exam: PRESENT: dry, intact, warm. ABSENT: cyanosis, rash Results Laboratory Results: WBC 5.1 10^3/uL (4.0-10.5) 09/14/19 05:10 RBC 3.32 10^6/uL (3.72-5.28) L 09/14/19 05:10 Hgb 10.0 g/dL (12.0-15.5) L 09/14/19 05:10 Hct 28.9 % (36.0-47.0) L 09/14/19 05:10 MCV 87 fl (80-97) 09/14/19 05:10 MCH 30.0 pg (27.0-33.4) 09/14/19 05:10 MCHC 34.5 g/dL (32.0-36.0) 09/14/19 05:10 RDW 13.4 % (11.5-14.0) 09/14/19 05:10 Plt Count 284 10^3/uL (150-450) 09/14/19 05:10 Lymph % (Auto) 8.2 % (13-45) L 09/14/19 05:10 [place] % (Auto) 11.4 % (3-13) 09/14/19 05:10 Eos % (Auto) 4.8 % (0-6) 09/14/19 05:10 Baso % (Auto) 0.6 % (0-2) 09/14/19 05:10 Absolute Neuts (auto) 3.8 10^3/uL (1.7-8.2) 09/14/19 05:10 Absolute Lymphs (auto) 0.4 10^3/uL (0.5-4.7) L 09/14/19 05:10 Absolute Monos (auto) 0.6 10^3/uL (0.1-1.4) 09/14/19 05:10 Absolute Eos (auto) 0.2 10^3/uL (0.0-0.6) 09/14/19 05:10 Absolute Basos (auto) 0.0 10^3/uL (0.0-0.2) 09/14/19 05:10 Seg Neutrophils % 75.0 % (42-78) 09/14/19 05:10 PT 29.1 SEC (11.4-15.4) H 09/15/19 09:17 INR 2.68 09/15/19 09:17 Sodium 138.1 mmol/L (137-145) 09/15/19 07:18 Potassium 4.7 mmol/L (3.6-5.0) 09/15/19 07:18 Chloride 98 mmol/L (98-107) 09/15/19 07:18 Carbon Dioxide 32 mmol/L (22-30) H 09/15/19 07:18 Anion Gap 8 (5-19) 09/15/19 07:18 BUN 16 mg/dL (7-20) 09/15/19 07:18 Creatinine 1.01 mg/dL (0.52-1.25) 09/15/19 07:18 Est GFR ( Amer) > 60 (>60) 09/15/19 07:18 Est GFR (MDRD) Non-Af 55 (>60) L 09/15/19 07:18 Glucose 120 mg/dL (75-110) H 09/15/19 07:18 POC Glucose 194 mg/dL (70-110) H 09/15/19 10:51 Lactic Acid 1.1 mmol/L (0.7-2.1) 09/09/19 05:41 Calcium 8.7 mg/dL (8.4-10.2) 09/15/19 07:18 Magnesium 2.2 mg/dL (1.6-2.3) 09/08/19 04:33 Total Bilirubin 0.1 mg/dL (0.2-1.3) L 09/05/19 22:34 Direct Bilirubin 0.0 mg/dL (0.0-0.4) 09/05/19 22:34 Neonat Total Bilirubin Not Reportable 09/05/19 22:34 Neonat Direct Bilirubin Not Reportable 09/05/19 22:34 Neonat Indirect Bili Not Reportable 09/05/19 22:34 AST 20 U/L (14-36) 09/05/19 22:34 ALT 14 U/L (<35) 09/05/19 22:34 Alkaline Phosphatase 69 U/L (38-126) 09/05/19 22:34 Troponin I < 0.012 ng/mL 09/05/19 22:34 Total Protein 6.1 g/dL (6.3-8.2) L 09/05/19 22:34 Albumin 3.2 g/dL (3.5-5.0) L 09/05/19 22:34 Urine Color YELLOW 09/05/19 22:40 Urine Appearance TURBID 09/05/19 22:40 Urine pH 6.0 (5.0-9.0) 09/05/19 22:40 Ur Specific [place] 1.013 09/05/19 22:40 Urine Protein 100 mg/dL (NEGATIVE) H 09/05/19 22:40 Urine Glucose (UA) NEGATIVE mg/dL (NEGATIVE) 09/05/19 22:40 Urine Ketones NEGATIVE mg/dL (NEGATIVE) 09/05/19 22:40 Urine Blood MODERATE (NEGATIVE) H 09/05/19 22:40 Urine Nitrite (Reflex) POSITIVE (NEGATIVE) H 09/05/19 22:40 Urine Bilirubin NEGATIVE (NEGATIVE) 09/05/19 22:40 Urine Urobilinogen NEGATIVE mg/dL (<2.0) 09/05/19 22:40 Leukocyte Esterase Rfl LARGE (NEGATIVE) H 09/05/19 22:40 Urine RBC (Auto) 49 /HPF 09/05/19 22:40 Urine Bacteria (Auto) 2+ /HPF 09/05/19 22:40 Urine WBC (Reflex) > 182 /HPF 09/05/19 22:40 Urine Yeast (Budding) PRESENT /HPF 09/05/19 22:40 Urine Ascorbic Acid NEGATIVE (NEGATIVE) 09/05/19 22:40 Influenza A (Rapid) NEGATIVE (NEGATIVE) 09/07/19 08:46 Influenza B (Rapid) NEGATIVE (NEGATIVE) 09/07/19 08:46 Group A Strep Rapid NEGATIVE (NEGATIVE) 09/07/19 08:46 09/05/19 22:34 Troponin I < 0.012 Impressions: Abdomen/Pelvis CT 09/07/19 08:49 IMPRESSION: 1. No acute abnormality to explain the patient's symptoms. 2. Left anterior colostomy with large peristomal hernia containing loops of small bowel. No bowel obstruction or evidence of inflammatory change. 3. Moderate amount of stool in the colon. This can be seen with constipation. 4. Hepatomegaly with moderate hepatic steatosis. Chest X-Ray 09/09/19 00:00 IMPRESSION: 1. Mild pulmonary edema. 2. Hyperinflated lungs which can be seen with obstructive lung disease. Head MRI 09/09/19 09:21 IMPRESSION: ATROPHY AND CHRONIC MICRO-VASCULAR ISCHEMIC CHANGES. OTHERWISE NORMAL MRI OF THE BRAIN WITHOUT INTRAVENOUS GADOLINIUM CONTRAST. EVIDENCE OF ACUTE STROKE: NO. Chest/Abdomen CTA 09/10/19 00:00 IMPRESSION: No CT angio evidence of acute pulmonary emboli Bilateral upper lobe alveolar and interstitial infiltrates superimposed on obstructive lung disease worrisome for pulmonary edema. Pneumonia could not be excluded Chest X-Ray 09/13/19 00:00 IMPRESSION: Slight increase in bilateral upper lobe airspace disease. Plan Time Spent: Greater than 30 Minutes - Follow-up with the urology Follow with oncology for the INR check and chronic cancer therapy Follow in office 1 week Stroke Is this a Stroke Patient?: No Acute Heart Failure - Is this a Heart Failure Patient?: No
[2019-09-15] MEDS: OXYCODONE-ACETAMINOPHEN 5-325 MG TABLET PO PRN (14:20)
[2019-09-15] MEDS: CLONAZEPAM 1 MG TABLET PO PRN (14:24)
[2019-09-15] MEDS ORDERED: WARFARIN SODIUM 2.5 MG TABLET PO SCH (22:00)
== END 2019-09-15 16:27 | disposition home health service (06) | DRG 690 ==
LOC: ER 22:20 → EH 09-06 06:02 → OBSVTOIN 09-06 09:26 → 4W 09-06 10:07
PROVIDERS: ADMIT Family Medicine; ATTEND Family Medicine
DX: N39.0 Urinary tract infection, site not specified (principal); C34.90 Malignant neoplasm of unspecified part of unspecified bronchus or lung; D68.59 Other primary thrombophilia; J44.9 Chronic obstructive pulmonary disease, unspecified; K21.9 Gastro-esophageal reflux disease without esophagitis; K43.5 Parastomal hernia without obstruction or gangrene; E11.8 Type 2 diabetes mellitus with unspecified complications; F41.9 Anxiety disorder, unspecified; B96.89 Other specified bacterial agents as the cause of diseases classified elsewhere; Z79.01 Long term (current) use of anticoagulants; Z95.2 Presence of prosthetic heart valve; Z79.84 Long term (current) use of oral hypoglycemic drugs; Z79.82 Long term (current) use of aspirin; Z79.51 Long term (current) use of inhaled steroids; Z79.899 Other long term (current) drug therapy; Z93.3 Colostomy status
CPT/HCPCS: 36415; 70551; 71045; 71275; 74177; 80048; 80053; 81001; 82962; 83605; 83735; 84484; 85025; 85610; 87040; 87070; 87077; 87086; 87088; 87150; 87186; 87804; 87880; 93005; 93010; 93306; 96361; 96365; 96368; 99284; J0692; J0696; J1580; J1650; J1815; J3490; J7030; J7040; S0119

== ENCOUNTER → 2019-10-05 | Outpatient (CLI) | payer MEDICARE ==
--- NOTE | 2019-10-05 16:44 | RADIOLOGY REPORT (SQ) ---
EXAM DESCRIPTION: PET CT SKULL/THIGH COMPLETED DATE/TIME: 10/05/2019 12:54 pm REASON FOR STUDY: C34.2 MALIGNANT NEOPLASM OF MIDDLE LOBE, BRONCHUS OR LUNG C34.2 MALIGNANT NEOPLAS M OF MIDDLE LOBE, BRONCHUS OR LUNG COMPARISON: CT chest 09/10/2019, 08/23/2019 CT abdomen pelvis 09/07/2019 RADIONUCLIDE AND DOSE: 8.8 mCi of mCi F18 FDG The route of agent administration: Intravenous FASTING BLOOD SUGAR: 200 mg/dl CONTRAST TYPE AND DOSE: No CT contrast given. TECHNIQUE: Blood glucose level was verified. Above dose of FDG was injected intravenously. 2-D seg mented attenuation correction images were obtained from the base of the skull to the midthighs. Nonc ontrast CT images were obtained for attenuation correction and fusion with emission images. CT image s were performed without oral or intravenous contrast and are not sensitive for parenchymal lesions. A series of overlapping emission PET images were obtained. [facility] by the radiologist. Images stored on PACS. LIMITATIONS: None. FINDINGS: HEAD AND NECK: No areas of abnormal metabolic activity in the soft tissues of the head and neck. CHEST: There is diffuse right upper lobe airspace disease extending down to the stephanie in a bandlike distribution, likely post radiation change. There is low-level metabolic activity throughout this co nsolidation with SUV of 2.5. Remainder of the lungs exhibit obstructive disease and left apical pleuroparenchymal scarring. No pl eural effusion or pneumothorax. No dominant lung parenchymal mass. There is a 1.2 x 1.2 cm precarinal lymph node with SUV 2.1 (was larger on both prior CT chest exams). ABDOMEN AND PELVIS: No areas of abnormal metabolic activity in the abdomen or pelvis. Expected physi ologic activity is present in the genitourinary system and bowel. PROXIMAL LOWER EXTREMITIES: No areas of abnormal metabolic activity in the soft tissues of the lower extremities. BONES: No abnormal metabolic activity in the visualized skeleton. 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 Post right mastectomy and breast implant, aortic valve replacement. Post cholecy stectomy. Left common femoral artery stent. OTHER: Liver background SUV 2.3. Blood pool background SUV 2.0. IMPRESSION: Further decrease in size of mediastinal index lymph node Probable post radiation change with diffuse consolidation right upper lobe with low level metabolic a ctivity TECHNICAL DOCUMENTATION: JOB ID: [id number] 2010 [employer]- All Rights Reserved Reading location - IP/workstation name: [email or web address]
== END ==
LOC: RAD 08:46
PROVIDERS: ATTEND Physician Assistant Medical
DX: C34.2 Malignant neoplasm of middle lobe, bronchus or lung (principal); Z98.82 Breast implant status; Z90.11 Acquired absence of right breast and nipple
CPT/HCPCS: 78815; A9552

== ENCOUNTER → 2020-01-07 | Outpatient (CLI) | payer MEDICARE ==
--- NOTE | 2020-01-07 09:21 | RADIOLOGY REPORT (SQ) ---
EXAM DESCRIPTION: CT CHEST WITH IMAGES COMPLETED DATE/TIME: 01/07/2020 8:57 am REASON FOR STUDY: C34.2 MALIGNANT NEOPLASM OF MIDDLE LOBE, BRONCHUS OR LUNG C34.2 MALIGNANT NEOPLAS M OF MIDDLE LOBE, BRONCHUS OR LUNG COMPARISON: PET-CT dated 10/05/2019, CT chest dated 09/10/2019 TECHNIQUE: CT scan of the chest performed using helical scanning technique with dynamic intravenous contrast injection. Images reviewed with lung, soft tissue and bone windows. Reconstructed coronal and sagittal MPR and MIP images reviewed. All images stored on PACS. All CT scanners at this facility use dose modulation, iterative reconstruction, and/or weight based d osing when appropriate to reduce radiation dose to as low as reasonably achievable (ALARA). [facility]: Dose Right [facility]: CareDose [facility]: Dose Right [facility]: Teradose 4D [facility]: Plastio CONTRAST TYPE AND DOSE: contrast/concentration: Isovue mg/ml; Total Contrast Delivered: 80.0 ml; To lia Saline Delivered: 44.3 ml RENAL FUNCTION: Creatinine 0.9 RADIATION DOSE: CT Rad equipment meets quality standard of care and radiation dose reduction techniq ues were employed. CTDIvol: 13.8 mGy. DLP: 545 mGy-cm. . LIMITATIONS: None. FINDINGS: LUNGS AND PLEURA: Dense airspace disease remains in the right upper lobe and right perihil ar distribution. There is underlying emphysematous change. Extensive airspace disease previously de scribed in the left upper lobe has resolved. HILAR AND MEDIASTINAL STRUCTURES: Stable when compared to prior PET-CT and CTA. Persistent soft tiss ue attenuation in the precarinal region and peritracheal region. HEART AND VASCULAR STRUCTURES: No aneurysm or dissection. No central pulmonary emboli. No pericardi al effusion. HARDWARE: None in the chest. UPPER ABDOMEN: No change in appearance. THYROID AND OTHER SOFT TISSUES: No thyroid lesions. Breast implant on the right is unchanged in appe arance. BONES: No significant finding. OTHER: No other significant finding. IMPRESSION: Persistent right upper lobe airspace disease. Persistent fullness along the right parat lashae border and precarinal region. No new findings. Resolution of the left-sided airspace disease. TECHNICAL DOCUMENTATION: JOB ID: [id number] Quality ID # [id number]: Final reports with documentation of one or more dose reduction techniques (e.g., Au tomated exposure control, adjustment of the mA and/or kV according to patient size, use of iterative reconstruction technique) 2010 [employer]- All Rights Reserved Reading location - IP/workstation name: [email or web address]
== END ==
LOC: RAD 08:16
PROVIDERS: ATTEND Internal Medicine
DX: C34.2 Malignant neoplasm of middle lobe, bronchus or lung (principal)
CPT/HCPCS: 71260; 82565

== ENCOUNTER 2020-08-10 11:32 | Outpatient (CLI) | payer MEDICARE ==
[2020-08-10] MEDS ORDERED: FONDAPARINUX SODIUM INJ 7.5 MG/0.6 ML DISP.SYRIN SUBCUT PRN (11:38)
[2020-08-10 11:54] VITALS: BP 132/68
== END 2020-08-10 12:08 | disposition home or self-care (01) ==
LOC: II 11:32 → 5TH 11:37 → II 12:08
PROVIDERS: ATTEND Internal Medicine
DX: I74.11 Embolism and thrombosis of thoracic aorta (principal)
CPT/HCPCS: 96372; J1652

== ENCOUNTER 2020-08-12 12:59 | Emergency (ER) | payer MEDICARE ==
[2020-08-12] MEDS ORDERED: ACETAMINOPHEN 325 MG TABLET PO ONE (13:08)
--- NOTE | 2020-08-12 13:08 | ER Document Report ---
ED Medical Screen (RME) - General Chief Complaint: Shoulder Pain Stated Complaint: ARM PAIN Time Seen by Provider: 08/12/20 13:02 Primary Care Provider: MARIE NELSON DO [Primary Care Provider] - Follow up as needed Mode of Arrival: Wheelchair Information source: Patient Notes: 70-year-old female presents to ED for her injection that she was scheduled as an outpatient nurse visit. While she was here she told the nurse that she was having increasing pain in her left shoulder. She states she wanted to be seen for this also is that she when she was pulling up her pants last night the pain was much worse. She has had no other injuries that she knows of. She states she does have a torn rotator cuff according to MRI. She states she is on blood thinners. We will get x-rays and she will see be seen by another provider. I have greeted and performed a rapid initial assessment of this patient. A comprehensive ED assessment and evaluation of the patient, analysis of test results and completion of medical decision making process will be conducted by an additional ED providers. TRAVEL OUTSIDE OF THE [place] IN LAST 30 DAYS: No - Related Data Allergies/Adverse Reactions: ciprofloxacin [From Cipro] Allergy (Verified 09/06/19 19:05) epinephrine Allergy (Verified 09/06/19 19:05) ertapenem [From Invanz] Allergy (Verified 09/06/19 19:05) imipenem Allergy (Verified 09/06/19 19:05) lidocaine [From Lidoderm] Allergy (Verified 09/06/19 19:05) menthol [From BenGay] Allergy (Verified 09/06/19 19:05) methyl salicylate [From BenGay] Allergy (Verified 09/06/19 19:05) Sulfa (Sulfonamide Antibiotics) Allergy (Verified 09/06/19 19:05) codeine Adverse Reaction (Verified 09/06/19 19:05) glyburide Adverse Reaction (Verified 09/06/19 19:05) Past Medical History - Past Medical History Cardiac Medical History: Reports: Hx Congestive Heart Failure - acute diastolic CHF, Hx Coronary Artery Disease, Hx Hypertension, Hx Heart Murmur Denies: Hx Heart Attack Pulmonary Medical History: Reports: Hx COPD Denies: Hx Asthma, Hx Bronchitis, Hx Pneumonia Neurological Medical History: Reports: Hx Cerebrovascular Accident. Denies: Hx Seizures Endocrine Medical History: Reports: Hx Diabetes Mellitus Type 2 Renal/ Medical History: Denies: Hx Peritoneal Dialysis Malignancy Medical History: Reports: Hx Breast Cancer, Hx Lymphoma - T-cell lymphoma s/p radiation, Hx Skin Cancer - Squamous Cell Carcinoma GI Medical History: Reports: Hx Diverticulitis Musculoskeltal Medical History: Denies Hx Arthritis Psychiatric Medical History: Reports: Hx Anxiety, Hx Depression Past Surgical History: Reports: Hx Bowel Surgery - Partial colectomy, ileostomy, Hx Cardiac Catheterization, Hx Cardiac Surgery - cath, stent, Hx Cholecystectomy, Hx Colostomy, Hx Coronary Stent, Hx Mastectomy, Hx Valve Replacement - aortic valve replacement in 2018, Other - EGD 04/16 for GI bleed - Immunizations Hx Diphtheria, Pertussis, Tetanus Vaccination: No Doctor's Discharge - Discharge Referrals: MARIE NELSON DO [Primary Care Provider] - Follow up as needed
--- NOTE | 2020-08-12 13:53 | RADIOLOGY REPORT (SQ) ---
EXAM DESCRIPTION: SHOULDER LEFT 2 OR MORE VIEWS IMAGES COMPLETED DATE/TIME: 08/12/2020 12:16 pm REASON FOR STUDY: Increased pain has history of torn rotator cuff. COMPARISON: None. NUMBER OF VIEWS: Three views. TECHNIQUE: Internal rotation, external rotation, and Y view images acquired of the left shoulder. LIMITATIONS: None. FINDINGS: MINERALIZATION: Normal. BONES: No acute fracture. No worrisome bone lesions. JOINTS: No dislocation. VISUALIZED LUNGS AND RIBS: No pneumothorax. No rib fracture. SOFT TISSUES: No radiopaque foreign body. OTHER: No other significant finding. IMPRESSION: NEGATIVE STUDY OF THE LEFT SHOULDER. NO RADIOGRAPHIC EVIDENCE OF ACUTE INJURY. TECHNICAL DOCUMENTATION: JOB ID: [id number] 2010 [employer]- All Rights Reserved Reading location - IP/workstation name: [email or web address]
--- NOTE | 2020-08-12 22:56 | ER Document Report ---
ED Extremity Problem, Upper - General Chief Complaint: Arm Pain Stated Complaint: ARM PAIN Time Seen by Provider: 08/12/20 13:02 Primary Care Provider: MARIE NELSON DO [Primary Care Provider] - 08/14/20 Mode of Arrival: Wheelchair Notes: Patient is a 70-year-old female who presents emergency department with a chief complaint of left shoulder pain. Patient states that she fell a few days ago. She also felt previously to that and was seen at [facility]. She had a recent MRI at that showed that she has a torn rotator cuff. Patient has not seen orthopedics for this issue. She also has history of "blood clots" in her lower extremities. States that she is being seen by Dr. Chin for this. She is transitioning Arixtra to Coumadin. She was seen for a nurse visit, and decided to check in. She has not been wearing a sling for her left shoulder. TRAVEL OUTSIDE OF THE [place] IN LAST 30 DAYS: No - Related Data Allergies/Adverse Reactions: ciprofloxacin [From Cipro] Allergy (Verified 09/06/19 19:05) epinephrine Allergy (Verified 09/06/19 19:05) ertapenem [From Invanz] Allergy (Verified 09/06/19 19:05) imipenem Allergy (Verified 09/06/19 19:05) lidocaine [From Lidoderm] Allergy (Verified 09/06/19 19:05) menthol [From BenGay] Allergy (Verified 09/06/19 19:05) methyl salicylate [From BenGay] Allergy (Verified 09/06/19 19:05) Sulfa (Sulfonamide Antibiotics) Allergy (Verified 09/06/19 19:05) codeine Adverse Reaction (Verified 09/06/19 19:05) glyburide Adverse Reaction (Verified 09/06/19 19:05) Past Medical History - General Information source: Patient - Social History Smoking Status: Never Smoker Family History: Reviewed & Not Pertinent - Past Medical History Cardiac Medical History: Reports: Hx Congestive Heart Failure - acute diastolic CHF, Hx Coronary Artery Disease, Hx Hypertension, Hx Heart Murmur Denies: Hx Heart Attack Pulmonary Medical History: Reports: Hx COPD Denies: Hx Asthma, Hx Bronchitis, Hx Pneumonia Neurological Medical History: Reports: Hx Cerebrovascular Accident. Denies: Hx Seizures Endocrine Medical History: Reports: Hx Diabetes Mellitus Type 2 Renal/ Medical History: Denies: Hx Peritoneal Dialysis Malignancy Medical History: Reports: Hx Breast Cancer, Hx Lymphoma - T-cell lymphoma s/p radiation, Hx Skin Cancer - Squamous Cell Carcinoma GI Medical History: Reports: Hx Diverticulitis Musculoskeletal Medical History: Denies Hx Arthritis Psychiatric Medical History: Reports: Hx Anxiety, Hx Depression Past Surgical History: Reports: Hx Bowel Surgery - Partial colectomy, ileostomy, Hx Cardiac Catheterization, Hx Cardiac Surgery - cath, stent, Hx Cholecystectomy, Hx Colostomy, Hx Coronary Stent, Hx Mastectomy, Hx Valve Replacement - aortic valve replacement in 2018, Other - EGD 04/16 for GI bleed - Immunizations Hx Diphtheria, Pertussis, Tetanus Vaccination: No Review of Systems - Review of Systems Notes: REVIEW OF SYSTEMS: CONSTITUTIONAL : Denies recent illness. Denies recent unintentional weight loss. Denies fever, chills, or sweats. EENT: Denies eye, ear, throat, or mouth pain, discharge, or symptoms. Denies nasal or sinus congestion. CARDIOVASCULAR: Denies chest pain. RESPIRATORY: Denies shortness of breath, cough, congestion, difficulty breathing, or wheezing. GASTROINTESTINAL: Denies nausea, vomiting, and diarrhea. Denies abdominal pain. Denies constipation. GENITOURINARY: Denies difficulty urinating, burning, blood in urine, urgency or frequency. MUSCULOSKELETAL: Denies neck and back pain. See HPI. SKIN: Denies rash, itchiness, or lesions HEMATOLOGIC : Denies easy bruising or bleeding. LYMPHATIC: Denies swollen, painful, enlarged glands. NEUROLOGICAL: Denies no numbness or tingling denies weakness. Denies headache. Denies altered mental status. Denies alteration in speech. PSYCHIATRIC: Denies stress, anxiety, alteration in sleep patterns, or depression. All other systems reviewed and negative. Physical Exam - Vital signs Vitals: Temp Pulse Resp BP Pulse Ox 97.8 F 84 19 149/67 H 98 08/12/20 13:08 08/12/20 13:08 08/12/20 13:08 08/12/20 13:08 08/12/20 13:08 - Notes Notes: PHYSICAL EXAMINATION: GENERAL: Appears well, healthy, well-nourished, no acute distress. HEAD: Normocephalic, atraumatic. EYES: PERRL, conjunctiva normal, all extraocular movements intact, sclera nonicteric ENT: Moist mucous membranes. NECK: Supple, no noticeable swelling, redness, rash. Normal range of motion. LUNGS: Equal breath sounds bilaterally and clear to auscultation. No wheezes rales or rhonchi. CARDIOVASCULAR: S1-S2, regular rate, regular rhythm. Radial pulses 2+, normal. ABDOMEN: Normoactive bowel sounds. Soft, nontender, no guarding, no rebound tenderness, and no masses palpated. EXTREMITIES: Tender Left shoulder joint. NEUROLOGICAL: Moves all extremities upon command. Decreased strength in left upper arm at shoulder joint. PSYCH: Normal mood, normal affect. SKIN: Warm, dry. No rash, lesions, ulcerations noted. Normal skin turgor. Course - Re-evaluation Re-evalutation: 08/12/20 23:26 At this time, venous Doppler is not available. Discussed this case with Dr. Cage, my attending. We will have the patient have a venous Doppler study done first thing in the morning. We will also give the patient Decadron and a sling. She is in agreement with this plan. Capillary refill less than 3 seconds. Radial pulse 2+. No vascular compromise noted. Follow-up precautions were given. Verbal discharge instructions were given to the patient. They verbalized understanding. They are stable for discharge. - Vital Signs Vital signs: Temp Pulse Resp BP Pulse Ox 97.7 F 91 16 138/60 H 98 08/12/20 22:46 08/12/20 23:36 08/12/20 23:36 08/12/20 23:36 08/12/20 23:36 - Laboratory Results Critical Laboratory Results Reviewed: No Critical Results - Radiology Results Critical Radiology Results Reviewed: No Critical Results Procedures - Immobilization Left Shoulder Pre-Proc Neuro Vasc Exam: Normal Immobilizer type: Sling Performed by: RN Post-Proc Neuro Vasc Exam: Normal, Unchanged from pre-exam Alignment checked and good: Yes Discharge - Discharge Clinical Impression: Left shoulder pain Qualifiers: Chronicity: acute Qualified Code(s): M25.512 - Pain in left shoulder Condition: Stable Disposition: HOME, SELF-CARE Additional Instructions: You were seen today in the emergency department for left shoulder pain. Your x- ray was normal. Since you know you have a rotator cuff tear, use the sling for comfort. Please follow-up with your regular doctor and your orthopedic doctor you were referred to. Go to the radiology department to have your venous Doppler study done to check for any blood clots in your left upper arm. Forms: Follow-Up Radiology Testing Referrals: MARIE NELSON DO [Primary Care Provider] - 08/14/20
[2020-08-12] MEDS ORDERED: DEXAMETHASONE SOD PHOS INJ 10 MG/1 ML VIAL IM ONE (23:23)
[2020-08-12 23:37] VITALS: BP 138/60
== END 2020-08-12 23:56 | disposition home or self-care (01) ==
LOC: ER 12:59
DX: M25.512 Pain in left shoulder (principal); W19.XXXA Unspecified fall, initial encounter; Z79.01 Long term (current) use of anticoagulants; Z88.2 Allergy status to sulfonamides; Z88.8 Allergy status to other drugs, medicaments and biological substances; Z88.1 Allergy status to other antibiotic agents; I50.9 Heart failure, unspecified; I25.10 Atherosclerotic heart disease of native coronary artery without angina pectoris; I11.0 Hypertensive heart disease with heart failure; J44.9 Chronic obstructive pulmonary disease, unspecified; E11.9 Type 2 diabetes mellitus without complications
CPT/HCPCS: 99284; 96372; 73030; J1100

== ENCOUNTER → 2020-08-23 | Outpatient (CLI) | payer MEDICARE ==
--- NOTE | 2020-08-24 09:46 | WOMENS IMAGING REPORT ---
EXAM DESCRIPTION: 3D SCREENING MAMMO BILAT IMAGES COMPLETED DATE/TIME: 08/23/2020 2:57 pm REASON FOR STUDY: ROUTINE SCREENING MAMMOGRAM Z12.31 Z12.31 ENCNTR SCREEN MAMMOGRAM FOR MALIGNANT N EOPLASM OF GLEN COMPARISON: None. EXAM PARAMETERS: Standard craniocaudal and mediolateral oblique views of each breast recorded using digital acquisition and breast tomosynthesis. Read with the assistance of CAD. .[facility] - [employer] Director Of Engineering Version 9.2 LIMITATIONS: None. FINDINGS: Findings present which are benign by mammographic criteria. No suspicious masses, calcific ations or architectural distortion. Pertinent benign findings: Right mastectomy and reconstruction. Old biopsy upper outer quadrant left breast. Benign mammographic findings may include one or more of the following: Smooth masses, popcorn/rim/coa rse calcifications, asymmetries, post-procedure changes, and lesions with long-standing stability. IMPRESSION: BENIGN MAMMOGRAPHIC FINDINGS. BIRADS 2 BREAST DENSITY: b. There are scattered areas of fibroglandular density. BIRAD: ASSESSMENT: 2 BENIGN FINDING(S) RECOMMENDATION: ROUTINE SCREENING COMMENT: The patient has been notified of the results by letter per SA requirements. Additional no tification policies are in place for contacting patient with suspicious or incomplete findings. Quality ID #[id number]: The [employer] recommends an annual screening mammogram for women aged 40 years or over. This facility utilizes a reminder system to ensure that all patients receive reminder letters, and/or direct phone calls for appointments. This includes reminders for routine scr eening mammograms, diagnostic mammograms, or other Breast Imaging Interventions when appropriate. Th is patient will be placed in the appropriate reminder system. TECHNICAL DOCUMENTATION: FINDING NUMBER: (1) ASSESSMENT: (1) JOB ID: [id number] 2010 [employer]- All Rights Reserved Reading location - IP/workstation name: [email or web address]
== END ==
LOC: WI 14:25
PROVIDERS: ATTEND Internal Medicine
DX: Z12.31 Encounter for screening mammogram for malignant neoplasm of breast (principal)
CPT/HCPCS: 77063; 77067